=== PATIENT | male | born 1935 | race Caucasian/White ===

== ENCOUNTER 2017-09-07 10:32 | Emergency (ER) | payer MEDICARE ==
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
[2017-09-07] MEDS: LORazepam 2 MG/ML MDV IVPUSH ONE (11:15)
[2017-09-07] MEDS: Sodium Chloride 0.9% 10 ML Syringe FLUSH PRN (11:15)
[2017-09-07] MEDS: Albuterol/Ipratropium 3.0-0.5 MG/3 ML Neb Soln NEB ONE (11:21)
[2017-09-07] MEDS: Aspirin 81 MG Tab.Chew PO ONE (11:32)
[2017-09-07] MEDS: Nitroglycerin/D5W 25 MG/250 ML BOTTLE IV SCH (11:33)
--- NOTE | 2017-09-07 11:57 | CR ---
Chest: Portable view of the chest was obtained. Comparison: No prior chest x-ray. Patchy increased density is noted within the right mid and lower lung as well as within the left lung base. Findings may represent areas of pneumonia although difficult to determine how much of this may relate to fibrosis without any old study. Heart size is normal. Tortuous thoracic aorta is seen. Bony structures are grossly intact. Impression: 1. Findings as noted above. Diagnostic code #3
[2017-09-07 15:12] VITALS: BP 123/79
== END 2017-09-07 15:09 | disposition home or self-care (01) ==
LOC: JD.ED 10:32
DX: I11.0 Hypertensive heart disease with heart failure (principal); I50.32 Chronic diastolic (congestive) heart failure; J45.901 Unspecified asthma with (acute) exacerbation; E83.42 Hypomagnesemia; E78.00 Pure hypercholesterolemia, unspecified; E11.9 Type 2 diabetes mellitus without complications; Z79.899 Other long term (current) drug therapy; Z79.84 Long term (current) use of oral hypoglycemic drugs; Z79.01 Long term (current) use of anticoagulants; Z77.110 Contact with and (suspected) exposure to air pollution
CPT/HCPCS: 36415; 71045; 80053; 80162; 82553; 82962; 83735; 83880; 84484; 85025; 85610; 93005; 94640; 96365; 96366; 96375; 99285; A9270; J2060; J7050; 93010

== ENCOUNTER 2017-11-11 14:59 | Inpatient (IN) | payer MEDICARE, OTHER ==
[2017-11-11] MEDS ORDERED: Sodium Chloride 0.9% 10 ML Syringe FLUSH PRN ×2 (15:26→16:32)
[2017-11-11] MEDS ORDERED: Sodium Chloride 0.9% 1,000 ML IV SCH (15:30)
[2017-11-11] MEDS ORDERED: Iopamidol 755 Mg/ML 100 ML Bottle IVPUSH ONE (16:32)
[2017-11-11] MEDS ORDERED: Sodium Chloride 0.9% 250 ML IV SCH (16:45)
--- NOTE | 2017-11-11 16:57 | EDM.PDOC ---
ED HPI GENERAL MEDICAL PROBLEM - General Chief Complaint: Chest Pain Stated Complaint: STROKE SYMPTOMS AND CHEST PAIN Time Seen by Provider: 11/11/17 15:04 Source of Information: Reports: Patient, Family History Limitations: Reports: No Limitations - History of Present Illness INITIAL COMMENTS - FREE TEXT/NARRATIVE: The patient presents with right sided chest pain. This has been coming and going for about a week. He had some pain when he arrived here but by the time I examined him it was gone. It is a sharp pain. It radiates to his back at times. He also has been having trouble swallowing for a few weeks and having trouble speaking at times. He denies any numbness or weakness in his arms or legs. He has not been able to eat or drink much for a couple days. He has no fever or chills. He does have a cough. He has no abdominal pain, nausea or vomiting. He has no dysuria or hematuria. He had generalized weakness today. His daughter had to help him to the car and into the ER. He was sent from the clinic because of the trouble swallowing. Onset: Gradual Duration: Week(s): Location: Reports: Chest Quality: Reports: Sharp Severity: Moderate Improves with: Reports: None Worsens with: Reports: None Associated Symptoms: Reports: Chest Pain, Cough, Loss of Appetite. Denies: Fever/Chills, Headaches, Nausea/Vomiting, Shortness of Breath Right Chest Pain Score (Numeric/FACES): 9 - Related Data Allergies Allergy/AdvReac Type Severity Reaction Status Date / Time No Known Allergies Allergy Verified 11/11/17 15:10 Home Meds: Home Meds Digoxin [Digox] 0.125 mg PO BEDTIME 05/28/16 [History] Diltiazem HCl [Cardizem Cd] 240 mg PO DAILY 05/28/16 [History] Lisinopril [Prinivil] 2.5 mg PO BID 05/28/16 [History] Simvastatin [Zocor] 40 mg PO DAILY 05/28/16 [History] Warfarin [Coumadin] 2.5 mg PO MOFR 05/28/16 [History] glipiZIDE [Glipizide] 10 mg PO BID 05/28/16 [History] metFORMIN HCl [Metformin HCl] 1,000 tab PO BID 05/28/16 [History] Pantoprazole [Protonix] 40 mg PO DAILY #90 tab.cr 05/31/16 [Rx] Albuterol [IMW: Albuterol] 2.5 mg NEB Q4H PRN #100 ml 09/07/17 [Rx] Warfarin [Coumadin] 5 mg PO SUTUWETHSA 09/07/17 [History] Rosuvastatin [Crestor] 20 mg PO DAILY 11/11/17 [History] Past Medical History HEENT History: Reports: Other (See Below) Other HEENT History: black hairy tongue, dysphagia, nasal reconstruction, wears glasses Cardiovascular History: Reports: Afib, Heart Failure, High Cholesterol, Hypertension Respiratory History: Reports: COPD Gastrointestinal History: Reports: GERD, Other (See Below) Other Gastrointestinal History: abdominal pain Genitourinary History: Reports: Other (See Below) Other Genitourinary History: prostate nodule, erectile dysfunction Musculoskeletal History: Reports: Back Pain, Chronic Neurological History: Reports: Concussion, Migraines Psychiatric History: Reports: Other (See Below) Other Psychiatric History: excessive fatigue Endocrine/Metabolic History: Reports: Diabetes, Type II Dermatologic History: Reports: Eczema Other Dermatologic History: eczema - Infectious Disease History Infectious Disease History: Reports: Chicken Pox, Measles - Past Surgical History HEENT Surgical History: Reports: Cataract Surgery, Other (See Below) Other HEENT Surgeries/Procedures: tube to L) ear, "it's plugged up all the time. " Nasal surgery. Social & Family History - Tobacco Use Smoking Status *Q: Former Smoker Years of Tobacco use: 60 Packs/Tins Daily: 0.3 Used Tobacco, but Quit: Yes Month/Year Tobacco Last Used: 2007 Second Hand Smoke Exposure: No - Caffeine Use Caffeine Use: Reports: None - Recreational Drug Use Recreational Drug Use: No Drug Use in Last 12 Months: No - Living Situation & Occupation Living situation: Reports: Occupation: Retired ED ROS GENERAL - Review of Systems Review Of Systems: See Below Constitutional: Reports: Weakness, Fatigue. Denies: Fever, Chills HEENT: Reports: No Symptoms Respiratory: Reports: Cough. Denies: Shortness of Breath Cardiovascular: Reports: Chest Pain Endocrine: Reports: No Symptoms GI/Abdominal: Reports: No Symptoms : Reports: No Symptoms Musculoskeletal: Reports: No Symptoms ED EXAM, GENERAL - Physical Exam Exam: See Below Exam Limited By: No Limitations General Appearance: Alert, No Apparent Distress Ears: Normal External Exam Nose: Normal Inspection Throat/Mouth: Other (Dry mucus membranes) Head: Atraumatic, Normocephalic Neck: Normal Inspection Respiratory/Chest: No Respiratory Distress, Lungs Clear, Normal Breath Sounds Cardiovascular: Regular Rate, Rhythm, No Edema, No Murmur GI/Abdominal: Soft, Non-Tender, No Organomegaly, No Mass Back Exam: Normal Inspection Extremities: Normal Inspection EKG INTERPRETATION EKG Date: 11/11/17 Time: 15:06 Rhythm: A-Fib Rate (Beats/Min): 112 Innis: Normal QRS: Normal ST-T: Normal QT: Normal EKG Interpretation Comments: PVCs and LVH Course - Vital Signs Last Recorded V/S: Last Vital Signs Temp 98.1 F 11/11/17 15:05 Pulse 122 H 11/11/17 15:05 Resp 22 H 11/11/17 15:05 BP Pulse Ox 96 11/11/17 17:39 - Orders/Labs/Meds Orders: Active Orders 24 hr Category Date Time Status Cardiac Monitoring [RC] . DIRECTED Care 11/11/17 15:26 Active EKG Documentation Completion [RC] STAT Care 11/11/17 15:27 Active Peripheral IV Care [RC] . DIRECTED Care 11/11/17 15:27 Active RT Aerosol Therapy [RC] ASDIRECTED Care 11/11/17 17:39 Active CULTURE BLOOD [BC] Stat Lab 11/11/17 18:02 Received CULTURE BLOOD [BC] Stat Lab 11/11/17 18:12 Received LACTIC ACID [CHEM] Stat Lab 11/11/17 18:02 Received Sodium Chloride 0.9% [Normal Saline] 1,000 ml Med 11/11/17 15:30 Active IV .BOLUS Sodium Chloride 0.9% [Normal Saline] 250 ml Med 11/11/17 16:45 Active IV ASDIRECTED Sodium Chloride 0.9% [Saline Flush] Med 11/11/17 15:26 Active 10 ml FLUSH ASDIRECTED PRN Sodium Chloride 0.9% [Saline Flush] Med 11/11/17 16:32 Active 10 ml FLUSH ONETIME PRN cefTRIAXone [Rocephin] 2 gm Med 11/11/17 17:39 Active Sodium Chloride 0.9% [Normal Saline] 100 ml IV ONETIME Blood Culture x2 Reflex Set [OM.PC] Stat Oth 11/11/17 17:39 Ordered Peripheral IV Insertion Adult [OM.PC] Stat Oth 11/11/17 15:26 Ordered Medication Orders Sodium Chloride (Normal Saline) 1,000 mls @ 1,000 mls/hr IV .BOLUS [place] Last Admin: 11/11/17 15:38 Dose: 1,000 mls/hr Sodium Chloride (Normal Saline) 250 mls @ 80 mls/min IV ASDIRECTED [place] Last Admin: 11/11/17 17:00 Dose: 80 mls/min Ceftriaxone Sodium 2 gm/ (Sodium Chloride) 100 mls @ 100 mls/hr IV ONETIME ONE Stop: 11/11/17 18:38 Last Admin: 11/11/17 18:22 Dose: 100 mls/hr Sodium Chloride (Normal Saline) 1,000 mls @ 999 mls/hr IV ONETIME ONE Stop: 11/11/17 19:11 Last Admin: 11/11/17 18:19 Dose: 999 mls/hr Sodium Chloride (Normal Saline) 1,000 mls @ 1,000 mls/hr IV ONETIME ONE Stop: 11/11/17 19:16 Sodium Chloride (Saline Flush) 10 ml FLUSH ASDIRECTED PRN PRN Reason: Keep Vein Open Last Admin: 11/11/17 15:39 Dose: 10 ml Sodium Chloride (Saline Flush) 10 ml FLUSH ONETIME PRN PRN Reason: IV FLUSH Last Admin: 11/11/17 17:00 Dose: 10 ml Labs: Laboratory Tests 11/11/17 11/11/17 11/11/17 Range/Units 15:05 15:05 15:05 WBC 12.78 H (4.23-9.07) K/mm3 RBC 5.49 (4.63-6.08) M/mm3 Hgb 15.0 (13.7-17.5) gm/L Hct 46.4 (40.1-51.0) % MCV 84.5 (79.0-92.2) fl MCH 27.3 (25.7-32.2) pg MCHC 32.3 (32.2-35.5) g/dl RDW Std Deviation 49.0 H (35.1-43.9) fL Plt Count 486 H (163-337) K/mm3 MPV 10.5 (9.4-12.3) fl Neut % (Auto) 71.5 H (34.0-67.9) % Lymph % (Auto) 17.7 L (21.8-53.1) % [place] % (Auto) 9.6 (5.3-12.2) % Eos % (Auto) 0.2 L (0.8-7.0) Baso % (Auto) 0.2 (0.1-1.2) % Neut # (Auto) 9.14 H (1.78-5.38) K/mm3 Lymph # (Auto) 2.26 (1.32-3.57) K/mm3 [place] # (Auto) 1.23 H (0.30-0.82) K/mm3 Eos # (Auto) 0.03 L (0.04-0.54) K/mm3 Baso # (Auto) 0.02 (0.01-0.08) K/mm3 PT 13.3 H (9.5-12.1) SECONDS INR 1.23 Sodium 135 L (136-145) mEq/L Potassium 3.4 L (3.5-5.1) mEq/L Chloride 93 L (98-107) mEq/L Carbon Dioxide 29 (21-32) mEq/L Anion Gap 16.4 H (5-15) BUN 21 H (7-18) mg/dL Creatinine 0.9 (0.7-1.3) mg/dL Est Cr Clr Drug Dosing 65.10 mL/min Estimated GFR (MDRD) > 60 (>60) mL/min BUN/Creatinine Ratio 23.3 H (14-18) Glucose 200 H (83-115) mg/dL Calcium 10.1 (8.5-10.1) mg/dL Total Bilirubin 0.6 (0.2-1.0) mg/dL AST 28 (15-37) U/L ALT 25 (16-63) U/L Alkaline Phosphatase 156 H (46-116) U/L Troponin I < 0.017 (0.00-0.056) ng/mL C-Reactive Protein 4.7 H* (<1.0) mg/dL Total Protein 8.5 H (6.4-8.2) g/dl Albumin 3.0 L (3.4-5.0) g/dl Globulin 5.5 gm/dL Albumin/Globulin Ratio 0.6 L (1-2) Meds: Medications Generic Name Dose Route Start Last Admin Trade Name Cordelia PRN Reason Stop Dose Admin Sodium Chloride 1,000 mls @ 1,000 mls/hr 11/11/17 15:30 11/11/17 15:38 Normal Saline IV 1,000 mls/hr .BOLUS [place] Administration Sodium Chloride 250 mls @ 80 mls/min 11/11/17 16:45 11/11/17 17:00 Normal Saline IV 80 mls/min ASDIRECTED [place] Administration Ceftriaxone Sodium 2 gm/ 100 mls @ 100 mls/hr 11/11/17 17:39 11/11/17 18:22 Sodium Chloride IV 11/11/17 18:38 100 mls/hr ONETIME ONE Administration Sodium Chloride 1,000 mls @ 999 mls/hr 11/11/17 18:11 11/11/17 18:19 Normal Saline IV 11/11/17 19:11 999 mls/hr ONETIME ONE Administration Sodium Chloride 1,000 mls @ 1,000 mls/hr 11/11/17 18:17 Normal Saline IV 11/11/17 19:16 ONETIME ONE Sodium Chloride 10 ml 11/11/17 15:26 11/11/17 15:39 Saline Flush FLUSH 10 ml ASDIRECTED PRN Administration Keep Vein Open Sodium Chloride 10 ml 11/11/17 16:32 11/11/17 17:00 Saline Flush FLUSH 10 ml ONETIME PRN Administration IV FLUSH Discontinued Medications Generic Name Dose Route Start Last Admin Trade Name Cordeila PRN Reason Stop Dose Admin Albuterol/Ipratropium 3 ml 11/11/17 17:39 11/11/17 17:54 Duoneb 3.0-0.5 Mg/3 Ml NEB 11/11/17 17:40 3 ml ONETIME ONE Administration Sodium Chloride 1,000 mls @ 999 mls/hr 11/11/17 18:13 11/11/17 18:22 Normal Saline IV 11/11/17 19:13 Not Given ONETIME ONE Iopamidol 100 ml 11/11/17 16:32 11/11/17 17:00 Isovue-370 (76%) IVPUSH 11/11/17 16:33 100 ml ONETIME ONE Administration - Re-Assessments/Exams Free Text/Narrative Re-Assessment/Exam: 11/11/17 17:00 I ordered an IV NS 1L bolus, EKG, and labs. His EKG shows atrial fib with no acute changes. His WBC was elevated at 12.78. His platelets were normal at 486. His INR was near non therapeutic at 1.23. His Na was a little low at 135. His K was a little low at 3.4. His creatinine was normal at 0.9. His anion gap was elevated at 16.4. His glucose was elevated at 200. His alk phos was elevated at 156. His troponin is negative. His CRP was elevated at 4.7. I have ordered a CT of his head, neck and chest. 11/11/17 17:[address] of his head shows mild senescent change. No acute intracranial abnormality is identified. The CT of his neck shows atherosclerotic calcification within the carotid vessels. Mild degenerative change within the cervical spine. Nothing acute is appreciated on noncontrast CT study of the neck. The CT of his chest shows mediastinal and right hilar adenopathy. Lymphoma is a strong possibility. Consolidation within the right lung base which could represent pneumonia as well as right sided pleural effusion possibly due to parapneumonic effusion. Diffuse fibrosis, emphysematous change and honeycombing is seen. I ordered oxygen because a couple times his oxygen saturations dropped to 88%. I also ordered blood cultures and rocephin 2 grams IV. I also gave him a duoneb treatment. I feel he needs to be admitted. I called Dr Kearns and she agreed to the admission. Departure - Departure Time of Disposition: 18:35 Disposition: Admitted As Inpatient 68 Condition: Fair Clinical Impression: Fibrosis lung, Hypoxia Pneumonia Qualifiers: Pneumonia type: due to unspecified organism Laterality: right Lung location: lower lobe of lung Qualified Code(s): J18.1 - Lobar pneumonia, unspecified organism Emphysema lung Qualifiers: Emphysema type: unspecified Qualified Code(s): J43.9 - Emphysema, unspecified Dysphagia Qualifiers: Dysphagia type: unspecified Qualified Code(s): R13.10 - Dysphagia, unspecified Chest pain Qualifiers: Chest pain type: unspecified Qualified Code(s): R07.9 - Chest pain, unspecified - My Orders Last 24 Hours: My Active Orders 11/11/17 15:26 Cardiac Monitoring [RC] . DIRECTED Sodium Chloride 0.9% [Saline Flush] 10 ml FLUSH ASDIRECTED PRN Peripheral IV Insertion Adult [OM.PC] Stat 11/11/17 15:27 EKG Documentation Completion [RC] STAT Peripheral IV Care [RC] . DIRECTED 11/11/17 15:30 Sodium Chloride 0.9% [Normal Saline] 1,000 ml IV .BOLUS 11/11/17 16:32 Sodium Chloride 0.9% [Saline Flush] 10 ml FLUSH ONETIME PRN 11/11/17 16:45 Sodium Chloride 0.9% [Normal Saline] 250 ml IV ASDIRECTED 11/11/17 17:39 RT Aerosol Therapy [RC] ASDIRECTED cefTRIAXone [Rocephin] 2 gm Sodium Chloride 0.9% [Normal Saline] 100 ml IV ONETIME Blood Culture x2 Reflex Set [OM.PC] Stat 11/11/17 18:02 CULTURE BLOOD [BC] Stat LACTIC ACID [CHEM] Stat 11/11/17 18:12 CULTURE BLOOD [BC] Stat - Assessment/Plan Last 24 Hours: My Active Orders 11/11/17 15:26 Cardiac Monitoring [RC] . DIRECTED Sodium Chloride 0.9% [Saline Flush] 10 ml FLUSH ASDIRECTED PRN Peripheral IV Insertion Adult [OM.PC] Stat 11/11/17 15:27 EKG Documentation Completion [RC] STAT Peripheral IV Care [RC] . DIRECTED 11/11/17 15:30 Sodium Chloride 0.9% [Normal Saline] 1,000 ml IV .BOLUS 11/11/17 16:32 Sodium Chloride 0.9% [Saline Flush] 10 ml FLUSH ONETIME PRN 11/11/17 16:45 Sodium Chloride 0.9% [Normal Saline] 250 ml IV ASDIRECTED 11/11/17 17:39 RT Aerosol Therapy [RC] ASDIRECTED cefTRIAXone [Rocephin] 2 gm Sodium Chloride 0.9% [Normal Saline] 100 ml IV ONETIME Blood Culture x2 Reflex Set [OM.PC] Stat 11/11/17 18:02 CULTURE BLOOD [BC] Stat LACTIC ACID [CHEM] Stat 11/11/17 18:12 CULTURE BLOOD [BC] Stat
--- NOTE | 2017-11-11 17:31 | CT ---
CT neck Technique: Multiple axial sections through the neck were obtained. Study limited due to lack of intravenous contrast. Findings: Visualized paranasal sinuses are clear. Atherosclerotic calcification is seen within the carotid vessels. Submandibular and parotid salivary glands show no discrete abnormality. No discrete adenopathy is seen within the neck. Parapharyngeal soft tissues are within normal limits. Epiglottis appears normal. Prevertebral soft tissues are normal. Bone window settings shows mild degenerative change within the cervical spine. Impression: 1. Atherosclerotic calcification within the carotid vessels. 2. Mild degenerative change within the cervical spine. 3. Nothing acute is appreciated on noncontrast CT study of the neck. Diagnostic code #2
--- NOTE | 2017-11-11 17:31 | CT ---
CT chest Technique: Multiple axial sections were obtained through the chest. Intravenous contrast was utilized. Comparison: Prior chest x-ray of 08/30/17. Findings: Pulmonary arteries are well-opacified. No filling defects are seen to indicate pulmonary embolism. Right lower lung consolidation is seen with a small to moderate size right-sided pleural effusion. Scattered fibrosis is seen. Honeycombing is seen within both lung bases as well as diffuse emphysematous change and emphysematous bullae. Mild coronary artery calcification is seen. Scattered degenerative spurring is noted within the spine. Small portion the visualized upper abdominal structures appear within normal limits. Soft tissue density seen within the mediastinum and right hilar region suspicious for adenopathy. Degenerative change scattered within the spine. No acute osseous abnormality is appreciated. Impression: 1. Mediastinal and right hilar adenopathy. Lymphoma is a strong possibility. 2. Consolidation within the right lung base which could represent pneumonia as well as right sided pleural effusion possibly due to parapneumonic effusion. 3. Diffuse fibrosis, emphysematous change and honeycombing is seen. Diagnostic code #9
--- NOTE | 2017-11-11 17:33 | CT ---
Head CT Technique: Multiple axial sections through the brain were obtained. Intravenous contrast was not utilized. Comparison: No previous study. Findings: Ventricles along with basal cisterns and sulci are convexities are mildly prominent. Minimal areas of diminished density are noted within the periventricular white matter compatible with small vessel ischemic demyelination change. No other abnormal parenchymal densities are seen. No evidence of intracranial hemorrhage. No midline shift or mass effect is seen. Bone window setting shows no acute calvarial abnormality. Visualized sinuses are clear. Impression: 1. Mild senescent change. No acute intracranial abnormality is identified. Diagnostic code #2
[2017-11-11] MEDS ORDERED: Albuterol/Ipratropium 3.0-0.5 MG/3 ML Neb Soln NEB ONE (17:39)
[2017-11-11] MEDS ORDERED: cefTRIAXone 2 GM in Sodium Chloride 0.9% 100 ML IV ONE (17:39)
[2017-11-11] MEDS ORDERED: Sodium Chloride 0.9% 1,000 ML IV ONE ×3 (18:11→18:17)
--- NOTE | 2017-11-11 20:06 | PCM.HP ---
H&P History of Present Illness - General Date of Service: 11/11/17 Admit Problem/Dx: Admission Diagnosis/Problem Admission Diagnosis/Problem Pneumonia Source of Information: Provider History Limitations: Reports: No Limitations - History of Present Illness Initial Comments - Free Text/Narative: 82 year old male who presented from home has had a decreased appetite reported by patient as three days. He was seen in an outside clinic and was taken to the ED by his daughter. There is a report by his daughter that he has had difficulty swallowing; the patient does not admit to any changes in his ability to eat. He believes that he has just not been interested in eating. He denies fever/chills, SOB, chest pain, change in speech. The patient is a poor historian, the primary source for the history was the ED provider. Onset of Symptoms: Reports: Unknown/Unsure Duration of Symptoms: Reports: Week(s):, Getting Worse Location: Reports: Chest, Generalized Severity: Moderate Improves with: Reports: Medication Worsens with: Reports: None Context: Reports: Sick Contact (unknown) Associated Symptoms: Reports: Chest Pain, Cough, Loss of Appetite, Malaise, Shortness of Breath, Weakness Right Chest Pain Score (Numeric/FACES): 9 - Related Data Allergies/Adverse Reactions: Allergies Allergy/AdvReac Type Severity Reaction Status Date / Time No Known Allergies Allergy Verified 11/11/17 15:10 Home Medications: Home Meds Digoxin [Digox] 0.125 mg PO BEDTIME 05/28/16 [History] Diltiazem HCl [Cardizem Cd] 240 mg PO DAILY 05/28/16 [History] Lisinopril [Prinivil] 2.5 mg PO BID 05/28/16 [History] Simvastatin [Zocor] 40 mg PO DAILY 05/28/16 [History] Warfarin [Coumadin] 2.5 mg PO MOFR 05/28/16 [History] glipiZIDE [Glipizide] 10 mg PO BID 05/28/16 [History] metFORMIN HCl [Metformin HCl] 1,000 tab PO BID 05/28/16 [History] Pantoprazole [Protonix] 40 mg PO DAILY #90 tab.cr 05/31/16 [Rx] Albuterol [IMW: Albuterol] 2.5 mg NEB Q4H PRN #100 ml 09/07/17 [Rx] Warfarin [Coumadin] 5 mg PO SUTUWETHSA 09/07/17 [History] Rosuvastatin [Crestor] 20 mg PO DAILY 11/11/17 [History] Past Medical History HEENT History: Reports: Other (See Below) Other HEENT History: black hairy tongue, dysphagia, nasal reconstruction, wears glasses Cardiovascular History: Reports: Afib, Heart Failure, High Cholesterol, Hypertension Respiratory History: Reports: COPD Gastrointestinal History: Reports: GERD, Other (See Below) Other Gastrointestinal History: abdominal pain Genitourinary History: Reports: Other (See Below) Other Genitourinary History: prostate nodule, erectile dysfunction Musculoskeletal History: Reports: Back Pain, Chronic Neurological History: Reports: Concussion, Migraines Psychiatric History: Reports: Other (See Below) Other Psychiatric History: excessive fatigue Endocrine/Metabolic History: Reports: Diabetes, Type II Dermatologic History: Reports: Eczema Other Dermatologic History: eczema - Infectious Disease History Infectious Disease History: Reports: Chicken Pox, Measles - Past Surgical History HEENT Surgical History: Reports: Cataract Surgery, Other (See Below) Other HEENT Surgeries/Procedures: tube to L) ear, "it's plugged up all the time. " Nasal surgery. Social & Family History - Tobacco Use Smoking Status *Q: Former Smoker Years of Tobacco use: 60 Packs/Tins Daily: 0.3 Used Tobacco, but Quit: Yes Month/Year Tobacco Last Used: 2007 Second Hand Smoke Exposure: No - Caffeine Use Caffeine Use: Reports: None - Recreational Drug Use Recreational Drug Use: No Drug Use in Last 12 Months: No - Living Situation & Occupation Living situation: Reports: Occupation: Retired H&P Review of Systems - Review of Systems: Review Of Systems: See Below General: Reports: Weakness, Fatigue, Decreased Appetite, Weight Loss HEENT: Reports: No Symptoms Pulmonary: Reports: Shortness of Breath Cardiovascular: Reports: Chest Pain Gastrointestinal: Reports: Difficulty Swallowing Genitourinary: Reports: No Symptoms Musculoskeletal: Reports: No Symptoms Skin: Reports: No Symptoms Psychiatric: Reports: No Symptoms Neurological: Reports: No Symptoms Hematologic/Lymphatic: Reports: No Symptoms Immunologic: Reports: No Symptoms Exam - Exam Exam: See Below - Vital Signs Vital Signs: Last Vital Signs Temp 36.3 C 11/11/17 19:09 Pulse 90 11/11/17 19:09 Resp 20 11/11/17 19:09 BP 142/91 H 11/11/17 19:09 Pulse Ox 91 L 11/11/17 19:09 Weight: 70.307 kg - Exam Quality Assessment: Supplemental Oxygen, DVT Prophylaxis General: Alert, Oriented HEENT: Conjunctiva Clear, Nares Patent, Normal Nasal Septum, Pupils Equal, Pupils Reactive, PERRLA Neck: Trachea Midline Lungs: Normal Respiratory Effort, Decreased Breath Sounds, Wheezing Cardiovascular: Regular Rate, Tachycardia GI/Abdominal Exam: Normal Bowel Sounds, Soft, Non-Tender, No Organomegaly, No Distention, Other (scaphoid) (Male) Exam: Deferred Rectal (Males) Exam: Deferred Back Exam: Normal Inspection Extremities: Slow Capillary Refill Skin: Warm Neurological: Cranial Nerves Intact, Normal Speech Neuro Extensive - Mental Status: Alert, Oriented x3 Neuro Extensive - Motor, Sensory, Reflexes: CN II-XII Intact Psychiatric: Alert - Patient Data Lab Results Last 24 hrs: Laboratory Results - last 24 hr 11/11/17 11/11/17 11/11/17 Range/Units 15:05 15:05 15:05 WBC 12.78 H (4.23-9.07) K/mm3 RBC 5.49 (4.63-6.08) M/mm3 Hgb 15.0 (13.7-17.5) gm/L Hct 46.4 (40.1-51.0) % MCV 84.5 (79.0-92.2) fl MCH 27.3 (25.7-32.2) pg MCHC 32.3 (32.2-35.5) g/dl RDW Std Deviation 49.0 H (35.1-43.9) fL Plt Count 486 H (163-337) K/mm3 MPV 10.5 (9.4-12.3) fl Neut % (Auto) 71.5 H (34.0-67.9) % Lymph % (Auto) 17.7 L (21.8-53.1) % [place] % (Auto) 9.6 (5.3-12.2) % Eos % (Auto) 0.2 L (0.8-7.0) Baso % (Auto) 0.2 (0.1-1.2) % Neut # (Auto) 9.14 H (1.78-5.38) K/mm3 Lymph # (Auto) 2.26 (1.32-3.57) K/mm3 [place] # (Auto) 1.23 H (0.30-0.82) K/mm3 Eos # (Auto) 0.03 L (0.04-0.54) K/mm3 Baso # (Auto) 0.02 (0.01-0.08) K/mm3 PT 13.3 H (9.5-12.1) SECONDS INR 1.23 Sodium 135 L (136-145) mEq/L Potassium 3.4 L (3.5-5.1) mEq/L Chloride 93 L (98-107) mEq/L Carbon Dioxide 29 (21-32) mEq/L Anion Gap 16.4 H (5-15) BUN 21 H (7-18) mg/dL Creatinine 0.9 (0.7-1.3) mg/dL Est Cr Clr Drug Dosing 65.10 mL/min Estimated GFR (MDRD) > 60 (>60) mL/min BUN/Creatinine Ratio 23.3 H (14-18) Glucose 200 H (83-115) mg/dL Lactic Acid (0.4-2.0) mmol/L Calcium 10.1 (8.5-10.1) mg/dL Total Bilirubin 0.6 (0.2-1.0) mg/dL AST 28 (15-37) U/L ALT 25 (16-63) U/L Alkaline Phosphatase 156 H (46-116) U/L Troponin I < 0.017 (0.00-0.056) ng/mL C-Reactive Protein 4.7 H* (<1.0) mg/dL Total Protein 8.5 H (6.4-8.2) g/dl Albumin 3.0 L (3.4-5.0) g/dl Globulin 5.5 gm/dL Albumin/Globulin Ratio 0.6 L (1-2) 11/11/17 Range/Units 18:02 WBC (4.23-9.07) K/mm3 RBC (4.63-6.08) M/mm3 Hgb (13.7-17.5) gm/L Hct (40.1-51.0) % MCV (79.0-92.2) fl MCH (25.7-32.2) pg MCHC (32.2-35.5) g/dl RDW Std Deviation (35.1-43.9) fL Plt Count (163-337) K/mm3 MPV (9.4-12.3) fl Neut % (Auto) (34.0-67.9) % Lymph % (Auto) (21.8-53.1) % [place] % (Auto) (5.3-12.2) % Eos % (Auto) (0.8-7.0) Baso % (Auto) (0.1-1.2) % Neut # (Auto) (1.78-5.38) K/mm3 Lymph # (Auto) (1.32-3.57) K/mm3 [place] # (Auto) (0.30-0.82) K/mm3 Eos # (Auto) (0.04-0.54) K/mm3 Baso # (Auto) (0.01-0.08) K/mm3 PT (9.5-12.1) SECONDS INR Sodium (136-145) mEq/L Potassium (3.5-5.1) mEq/L Chloride (98-107) mEq/L Carbon Dioxide (21-32) mEq/L Anion Gap (5-15) BUN (7-18) mg/dL Creatinine (0.7-1.3) mg/dL Est Cr Clr Drug Dosing mL/min Estimated GFR (MDRD) (>60) mL/min BUN/Creatinine Ratio (14-18) Glucose (83-115) mg/dL Lactic Acid 2.7 H (0.4-2.0) mmol/L Calcium (8.5-10.1) mg/dL Total Bilirubin (0.2-1.0) mg/dL AST (15-37) U/L ALT (16-63) U/L Alkaline Phosphatase (46-116) U/L Troponin I (0.00-0.056) ng/mL C-Reactive Protein (<1.0) mg/dL Total Protein (6.4-8.2) g/dl Albumin (3.4-5.0) g/dl Globulin gm/dL Albumin/Globulin Ratio (1-2) Result Diagrams: 11/12/17 06:40 11/12/17 06:40 - Problem List (1) Chest pain SNOMED Code(s): 09717441 ICD Code: R07.9 - CHEST PAIN, UNSPECIFIED Status: Acute Current Visit: Yes Qualifiers: Chest pain type: unspecified Qualified Code(s): R07.9 - Chest pain, unspecified (2) Dysphagia SNOMED Code(s): 17716800, 070484539 ICD Code: R13.10 - DYSPHAGIA, UNSPECIFIED Status: Acute Current Visit: Yes Qualifiers: Dysphagia type: unspecified Qualified Code(s): R13.10 - Dysphagia, unspecified (3) Emphysema lung SNOMED Code(s): 79100654 ICD Code: J43.9 - EMPHYSEMA, UNSPECIFIED Status: Acute Current Visit: Yes Qualifiers: Emphysema type: unspecified Qualified Code(s): J43.9 - Emphysema, unspecified (4) Fibrosis lung SNOMED Code(s): 32216984 ICD Code: J84.10 - PULMONARY FIBROSIS, UNSPECIFIED Status: Acute Current Visit: Yes (5) Hypoxia SNOMED Code(s): 472308225 ICD Code: R09.02 - HYPOXEMIA Status: Acute Current Visit: Yes (6) Pneumonia SNOMED Code(s): 197666206 ICD Code: J18.9 - PNEUMONIA, UNSPECIFIED ORGANISM Status: Acute Current Visit: Yes Qualifiers: Pneumonia type: due to unspecified organism Laterality: right Lung location: lower lobe of lung Qualified Code(s): J18.1 - Lobar pneumonia, unspecified organism (7) Hypomagnesemia SNOMED Code(s): 558738825 ICD Code: E83.42 - HYPOMAGNESEMIA Status: Acute Current Visit: No (8) Hypertension SNOMED Code(s): 02587767 ICD Code: I10 - ESSENTIAL (PRIMARY) HYPERTENSION Status: Acute Current Visit: Yes (9) Diabetes mellitus type 2 in nonobese SNOMED Code(s): 070410500 ICD Code: E11.9 - TYPE 2 DIABETES MELLITUS WITHOUT COMPLICATIONS Status: Acute Current Visit: Yes (10) BMI 21.0-21.9, adult SNOMED Code(s): 644230659 ICD Code: Z68.21 - BODY MASS INDEX (BMI) 21.0-21.9, ADULT Status: Acute Current Visit: Yes (11) Hyperlipidemia SNOMED Code(s): 83581354 ICD Code: E78.5 - HYPERLIPIDEMIA, UNSPECIFIED Status: Acute Current Visit : Yes (12) A-fib SNOMED Code(s): 64316113 ICD Code: I48.91 - UNSPECIFIED ATRIAL FIBRILLATION Status: Acute Current Visit: Yes Problem List Initiated/Reviewed/Updated: Yes Orders Last 24hrs: Active Orders 24 hr Category Date Time Status Admission Status [Patient Status] [ADT] Routine ADT 11/11/17 18:09 Active Cardiac Monitoring [RC] . DIRECTED Care 11/11/17 15:26 Active EKG Documentation Completion [RC] STAT Care 11/11/17 15:27 Active Peripheral IV Care [RC] . DIRECTED Care 11/11/17 15:27 Active RT Aerosol Therapy [RC] ASDIRECTED Care 11/11/17 17:39 Active CULTURE BLOOD [] Stat Lab 11/11/17 18:02 Received CULTURE BLOOD [] Stat Lab 11/11/17 18:12 Received Sodium Chloride 0.9% [Normal Saline] 1,000 ml Med 11/11/17 15:30 Active IV .BOLUS Sodium Chloride 0.9% [Normal Saline] 250 ml Med 11/11/17 16:45 Active IV ASDIRECTED Sodium Chloride 0.9% [Saline Flush] Med 11/11/17 15:26 Active 10 ml FLUSH ASDIRECTED PRN Sodium Chloride 0.9% [Saline Flush] Med 11/11/17 16:32 Active 10 ml FLUSH ONETIME PRN Blood Culture x2 Reflex Set [OM.PC] Stat Oth 11/11/17 17:39 Ordered Peripheral IV Insertion Adult [OM.PC] Stat Oth 11/11/17 15:26 Ordered Medication Orders Sodium Chloride (Normal Saline) 1,000 mls @ 1,000 mls/hr IV .BOLUS [place] Last Admin: 11/11/17 15:38 Dose: 1,000 mls/hr Sodium Chloride (Normal Saline) 250 mls @ 80 mls/min IV ASDIRECTED [place] Last Admin: 11/11/17 17:00 Dose: 80 mls/min Sodium Chloride (Saline Flush) 10 ml FLUSH ASDIRECTED PRN PRN Reason: Keep Vein Open Last Admin: 11/11/17 15:39 Dose: 10 ml Sodium Chloride (Saline Flush) 10 ml FLUSH ONETIME PRN PRN Reason: IV FLUSH Last Admin: 11/11/17 17:00 Dose: 10 ml Assessment/Plan Comment:: Impression: Cachetic hypoxic elderly with PNA Former tobacco use (>60 pack year) Hx of colon polyps, lost to PCP care Hx of COPD Radiographic studies with possible infiltrate superimposed on pulmonary fibrosis Difficulty swallowing with CT of neck WNL Malnutrition Abnormal electrolytes Chronic HTN DM type 2 HLD GERD Plan: IVF ATB, empiric; infectious work up Isolation, airborne; screen for TB Cancer evaluation CT of chest 11/14/17. SP re: difficulty swallowing Home meds Daily labs; replace electrolytes as needed. BS q 6H; NPO until evaluation aspiration suspected after eating observed by ED staff; change to appropriate diet after assessment Consult CM/PT/OT DVT/GI prophylaxis
[2017-11-11] MEDS ORDERED: 50% Dextrose in Water 50 ML Syringe IVPUSH PRN (20:13)
[2017-11-11] MEDS ORDERED: Insulin Aspart 100 Units/ML 3 ML Pen SUBCUT SCH (20:15)
[2017-11-11] MEDS ORDERED: Temazepam 7.5 MG Cap PO PRN (20:26)
[2017-11-11] MEDS ORDERED: Codeine/guaiFENesin 100-10 MG/5 ML Syrup 5 ML Cup PO PRN (20:27)
[2017-11-11] MEDS ORDERED: traZODone 50 MG Tab PO PRN (20:29)
[2017-11-11] MEDS: Digoxin 125 MCG Tab PO SCH (20:34)
[2017-11-11] MEDS: Acetaminophen 325 MG Tab PO PRN (20:35)
[2017-11-11] MEDS: NS + KCl 20mEq/L 1,000 ML IV SCH (21:58)
[2017-11-11] MEDS: methylPREDNISolone Sodium Succinate 40 MG/1 ML SDV IVPUSH SCH (22:00)
[2017-11-11] MEDS: Enoxaparin 40 MG/0.4 ML Syringe SUBCUT SCH (22:01)
[2017-11-11] MEDS: Insulin Aspart 100 Units/ML 3 ML Pen SUBCUT SCH (23:48)
[2017-11-12] MEDS: Acetaminophen 325 MG Tab PO PRN ×2 (02:51→13:31)
[2017-11-12] MEDS: methylPREDNISolone Sodium Succinate 40 MG/1 ML SDV IVPUSH SCH ×3 (02:59→22:03)
[2017-11-12] MEDS ORDERED: cefTRIAXone 2 GM in Sodium Chloride 0.9% 100 ML IV SCH (06:00)
[2017-11-12] MEDS: Pantoprazole 40 MG Tab.CR PO SCH (06:52)
[2017-11-12] MEDS: Insulin Aspart 100 Units/ML 3 ML Pen SUBCUT SCH ×5 (06:53→23:46)
[2017-11-12] MEDS: Saccharomyces Boulardii (Probiotic) 250 MG Cap PO SCH (08:01)
[2017-11-12] MEDS ORDERED: Diltiazem 120 MG Cap.CD PO SCH (09:00)
[2017-11-12] MEDS ORDERED: Tuberculin, PPD 5 Units/0.1 ML 1 ML MDV IDERM ONE (11:15)
--- NOTE | 2017-11-12 11:56 | PCM.PN ---
- General Info Date of Service: 11/12/17 Functional Status: Reports: Urinating - Review of Systems General: Reports: Weakness HEENT: Reports: No Symptoms Pulmonary: Reports: No Symptoms Cardiovascular: Reports: No Symptoms Gastrointestinal: Reports: No Symptoms Genitourinary: Reports: No Symptoms Musculoskeletal: Reports: No Symptoms Skin: Reports: No Symptoms Neurological: Reports: No Symptoms Psychiatric: Reports: No Symptoms - Patient Data Vitals - Most Recent: Last Vital Signs Temp 36.5 C 11/12/17 07:31 Pulse 86 11/12/17 08:01 Resp 20 11/12/17 07:31 BP 123/72 11/12/17 08:01 Pulse Ox 93 L 11/12/17 07:31 Weight - Most Recent: 70.307 kg I&O - Last 24 Hours: Intake & Output 11/11/17 11/12/17 11/12/17 22:59 06:59 14:59 Intake Total 3350 493 100 Output Total 550 Balance 3350 -57 100 Lab Results Last 24 Hours: Laboratory Results - last 24 hr 11/11/17 11/11/17 11/11/17 Range/Units 15:05 15:05 15:05 WBC 12.78 H (4.23-9.07) K/mm3 RBC 5.49 (4.63-6.08) M/mm3 Hgb 15.0 (13.7-17.5) gm/L Hct 46.4 (40.1-51.0) % MCV 84.5 (79.0-92.2) fl MCH 27.3 (25.7-32.2) pg MCHC 32.3 (32.2-35.5) g/dl RDW Std Deviation 49.0 H (35.1-43.9) fL Plt Count 486 H (163-337) K/mm3 MPV 10.5 (9.4-12.3) fl Neut % (Auto) 71.5 H (34.0-67.9) % Lymph % (Auto) 17.7 L (21.8-53.1) % [place] % (Auto) 9.6 (5.3-12.2) % Eos % (Auto) 0.2 L (0.8-7.0) Baso % (Auto) 0.2 (0.1-1.2) % Neut # (Auto) 9.14 H (1.78-5.38) K/mm3 Lymph # (Auto) 2.26 (1.32-3.57) K/mm3 [place] # (Auto) 1.23 H (0.30-0.82) K/mm3 Eos # (Auto) 0.03 L (0.04-0.54) K/mm3 Baso # (Auto) 0.02 (0.01-0.08) K/mm3 Manual Slide Review PT 13.3 H (9.5-12.1) SECONDS INR 1.23 Sodium 135 L (136-145) mEq/L Potassium 3.4 L (3.5-5.1) mEq/L Chloride 93 L (98-107) mEq/L Carbon Dioxide 29 (21-32) mEq/L Anion Gap 16.4 H (5-15) BUN 21 H (7-18) mg/dL Creatinine 0.9 (0.7-1.3) mg/dL Est Cr Clr Drug Dosing 65.10 mL/min Estimated GFR (MDRD) > 60 (>60) mL/min BUN/Creatinine Ratio 23.3 H (14-18) Glucose 200 H (83-115) mg/dL POC Glucose (83-110) mg/dL Hemoglobin A1c (4.50-6.20) % Lactic Acid (0.4-2.0) mmol/L Calcium 10.1 (8.5-10.1) mg/dL Magnesium (1.8-2.4) mg/dl Total Bilirubin 0.6 (0.2-1.0) mg/dL AST 28 (15-37) U/L ALT 25 (16-63) U/L Alkaline Phosphatase 156 H (46-116) U/L Troponin I < 0.017 (0.00-0.056) ng/mL C-Reactive Protein 4.7 H* (<1.0) mg/dL Total Protein 8.5 H (6.4-8.2) g/dl Albumin 3.0 L (3.4-5.0) g/dl Globulin 5.5 gm/dL Albumin/Globulin Ratio 0.6 L (1-2) Triglycerides (<150) mg/dL Cholesterol (<200) mg/dL LDL Cholesterol Direct (<100) mg/dL HDL Cholesterol (40-59) mg/dL Digoxin (0.9-2.0) ng/mL Mycoplasma pneumon IgM (NEGATIVE) 11/11/17 11/11/17 11/12/17 Range/Units 18:02 23:18 06:40 WBC 11.89 H (4.23-9.07) K/mm3 RBC 4.41 L (4.63-6.08) M/mm3 Hgb 12.1 L (13.7-17.5) gm/L Hct 37.7 L (40.1-51.0) % MCV 85.5 (79.0-92.2) fl MCH 27.4 (25.7-32.2) pg MCHC 32.1 L (32.2-35.5) g/dl RDW Std Deviation 48.0 H (35.1-43.9) fL Plt Count 395 H (163-337) K/mm3 MPV 10.1 (9.4-12.3) fl Neut % (Auto) 91.7 H (34.0-67.9) % Lymph % (Auto) 6.3 L (21.8-53.1) % Lasalle % (Auto) 1.8 L (5.3-12.2) % Eos % (Auto) 0 L (0.8-7.0) Baso % (Auto) 0.0 L (0.1-1.2) % Neut # (Auto) 10.91 H (1.78-5.38) K/mm3 Lymph # (Auto) 0.75 L (1.32-3.57) K/mm3 [place] # (Auto) 0.21 L (0.30-0.82) K/mm3 Eos # (Auto) 0.00 L (0.04-0.54) K/mm3 Baso # (Auto) 0.00 L (0.01-0.08) K/mm3 Manual Slide Review Abnormal smear PT (9.5-12.1) SECONDS INR Sodium (136-145) mEq/L Potassium (3.5-5.1) mEq/L Chloride (98-107) mEq/L Carbon Dioxide (21-32) mEq/L Anion Gap (5-15) BUN (7-18) mg/dL Creatinine (0.7-1.3) mg/dL Est Cr Clr Drug Dosing mL/min Estimated GFR (MDRD) (>60) mL/min BUN/Creatinine Ratio (14-18) Glucose (83-115) mg/dL POC Glucose 161 H (83-110) mg/dL Hemoglobin A1c (4.50-6.20) % Lactic Acid 2.7 H (0.4-2.0) mmol/L Calcium (8.5-10.1) mg/dL Magnesium (1.8-2.4) mg/dl Total Bilirubin (0.2-1.0) mg/dL AST (15-37) U/L ALT (16-63) U/L Alkaline Phosphatase (46-116) U/L Troponin I (0.00-0.056) ng/mL C-Reactive Protein (<1.0) mg/dL Total Protein (6.4-8.2) g/dl Albumin (3.4-5.0) g/dl Globulin gm/dL Albumin/Globulin Ratio (1-2) Triglycerides (<150) mg/dL Cholesterol (<200) mg/dL LDL Cholesterol Direct (<100) mg/dL HDL Cholesterol (40-59) mg/dL Digoxin (0.9-2.0) ng/mL Mycoplasma pneumon IgM (NEGATIVE) 11/12/17 11/12/17 11/12/17 Range/Units 06:40 06:40 06:40 WBC (4.23-9.07) K/mm3 RBC (4.63-6.08) M/mm3 Hgb (13.7-17.5) gm/L Hct (40.1-51.0) % MCV (79.0-92.2) fl MCH (25.7-32.2) pg MCHC (32.2-35.5) g/dl RDW Std Deviation (35.1-43.9) fL Plt Count (163-337) K/mm3 MPV (9.4-12.3) fl Neut % (Auto) (34.0-67.9) % Lymph % (Auto) (21.8-53.1) % Lasalle % (Auto) (5.3-12.2) % Eos % (Auto) (0.8-7.0) Baso % (Auto) (0.1-1.2) % Neut # (Auto) (1.78-5.38) K/mm3 Lymph # (Auto) (1.32-3.57) K/mm3 [place] # (Auto) (0.30-0.82) K/mm3 Eos # (Auto) (0.04-0.54) K/mm3 Baso # (Auto) (0.01-0.08) K/mm3 Manual Slide Review PT (9.5-12.1) SECONDS INR Sodium 136 (136-145) mEq/L Potassium 3.5 (3.5-5.1) mEq/L Chloride 98 (98-107) mEq/L Carbon Dioxide 23 (21-32) mEq/L Anion Gap 18.5 H (5-15) BUN 14 (7-18) mg/dL Creatinine 0.6 L (0.7-1.3) mg/dL Est Cr Clr Drug Dosing 77.55 mL/min Estimated GFR (MDRD) > 60 (>60) mL/min BUN/Creatinine Ratio 23.3 H (14-18) Glucose 201 H (83-115) mg/dL POC Glucose (83-110) mg/dL Hemoglobin A1c 7.80 H (4.50-6.20) % Lactic Acid 2.4 H (0.4-2.0) mmol/L Calcium 8.9 (8.5-10.1) mg/dL Magnesium 1.4 L (1.8-2.4) mg/dl Total Bilirubin (0.2-1.0) mg/dL AST (15-37) U/L ALT (16-63) U/L Alkaline Phosphatase (46-116) U/L Troponin I (0.00-0.056) ng/mL C-Reactive Protein 4.1 H* (<1.0) mg/dL Total Protein (6.4-8.2) g/dl Albumin (3.4-5.0) g/dl Globulin gm/dL Albumin/Globulin Ratio (1-2) Triglycerides 90 (<150) mg/dL Cholesterol 122 (<200) mg/dL LDL Cholesterol Direct 41 (<100) mg/dL HDL Cholesterol 60.0 H (40-59) mg/dL Digoxin 0.3 L (0.9-2.0) ng/mL Mycoplasma pneumon IgM Negative (NEGATIVE) 11/12/17 11/12/17 Range/Units 06:45 11:32 WBC (4.23-9.07) K/mm3 RBC (4.63-6.08) M/mm3 Hgb (13.7-17.5) gm/L Hct (40.1-51.0) % MCV (79.0-92.2) fl MCH (25.7-32.2) pg MCHC (32.2-35.5) g/dl RDW Std Deviation (35.1-43.9) fL Plt Count (163-337) K/mm3 MPV (9.4-12.3) fl Neut % (Auto) (34.0-67.9) % Lymph % (Auto) (21.8-53.1) % [place] % (Auto) (5.3-12.2) % Eos % (Auto) (0.8-7.0) Baso % (Auto) (0.1-1.2) % Neut # (Auto) (1.78-5.38) K/mm3 Lymph # (Auto) (1.32-3.57) K/mm3 [place] # (Auto) (0.30-0.82) K/mm3 Eos # (Auto) (0.04-0.54) K/mm3 Baso # (Auto) (0.01-0.08) K/mm3 Manual Slide Review PT (9.5-12.1) SECONDS INR Sodium (136-145) mEq/L Potassium (3.5-5.1) mEq/L Chloride (98-107) mEq/L Carbon Dioxide (21-32) mEq/L Anion Gap (5-15) BUN (7-18) mg/dL Creatinine (0.7-1.3) mg/dL Est Cr Clr Drug Dosing mL/min Estimated GFR (MDRD) (>60) mL/min BUN/Creatinine Ratio (14-18) Glucose (83-115) mg/dL POC Glucose 189 H 278 H (83-110) mg/dL Hemoglobin A1c (4.50-6.20) % Lactic Acid (0.4-2.0) mmol/L Calcium (8.5-10.1) mg/dL Magnesium (1.8-2.4) mg/dl Total Bilirubin (0.2-1.0) mg/dL AST (15-37) U/L ALT (16-63) U/L Alkaline Phosphatase (46-116) U/L Troponin I (0.00-0.056) ng/mL C-Reactive Protein (<1.0) mg/dL Total Protein (6.4-8.2) g/dl Albumin (3.4-5.0) g/dl Globulin gm/dL Albumin/Globulin Ratio (1-2) Triglycerides (<150) mg/dL Cholesterol (<200) mg/dL LDL Cholesterol Direct (<100) mg/dL HDL Cholesterol (40-59) mg/dL Digoxin (0.9-2.0) ng/mL Mycoplasma pneumon IgM (NEGATIVE) Gianni Results Last 24 Hours: Microbiology 11/12/17 03:08 Gram Stain - Final Sputum - Expectorated Sputum Culture - Final Med Orders - Current: Current Medications Acetaminophen (Tylenol) 650 mg PO Q6H PRN PRN Reason: Pain/Fever Last Admin: 11/12/17 02:51 Dose: 650 mg Albuterol (Proventil Neb Soln) 2.5 mg NEB Q4HRRT PRN PRN Reason: Shortness of Breath Albuterol/Ipratropium (Duoneb 3.0-0.5 Mg/3 Ml) 3 ml NEB QID PRN PRN Reason: Shortness of Breath Dextrose/Water (Dextrose 50% In Water) 50 ml IVPUSH ASDIRECTED PRN PRN Reason: Hypoglycemia Digoxin (Lanoxin) 125 mcg PO BEDTIME [facility] Last Admin: 11/11/17 20:34 Dose: 125 mcg Diltiazem HCl (Dilacor Xr) 240 mg PO DAILY [facility] Enoxaparin Sodium (Lovenox) 40 mg SUBCUT Q24H [facility] Last Admin: 11/11/17 22:01 Dose: 40 mg Guaifenesin/Codeine Phosphate (Robitussin Ac) 10 ml PO Q6H PRN PRN Reason: Cough Potassium Chloride/Sodium Chloride (Normal Saline With 20 Meq Kcl) 1,000 mls @ 75 mls/hr IV ASDIRECTED [facility] Last Admin: 11/11/17 21:58 Dose: 75 mls/hr Ceftriaxone Sodium 2 gm/ (Dextrose/Water) 100 mls @ 200 mls/hr IV Q12H [facility] Magnesium Sulfate 2 gm/ Premix 50 mls @ 25 mls/hr IV Q2H [facility] Stop: 11/12/17 15:23 Insulin Aspart (Novolog) 0 unit SUBCUT Q6H [facility]; Protocol Last Admin: 11/12/17 06:53 Dose: 1 unit Methylprednisolone Sodium Succinate (Solu-Medrol) 80 mg IVPUSH Q8H [facility] Last Admin: 11/12/17 02:59 Dose: 80 mg Pantoprazole Sodium (Protonix) 40 mg PO DAILY@0700 [facility] Last Admin: 11/12/17 06:52 Dose: 40 mg Saccharomyces Boulardii (Florastor) 250 mg PO DAILY [facility] Last Admin: 11/12/17 08:01 Dose: 250 mg Sodium Chloride (Saline Flush) 10 ml FLUSH ASDIRECTED PRN PRN Reason: Keep Vein Open Last Admin: 11/11/17 15:39 Dose: 10 ml Sodium Chloride (Saline Flush) 10 ml FLUSH ONETIME PRN PRN Reason: IV FLUSH Last Admin: 11/11/17 17:00 Dose: 10 ml Trazodone HCl (Trazodone) 25 mg PO BEDTIME PRN PRN Reason: Insomnia Discontinued Medications Albuterol/Ipratropium (Duoneb 3.0-0.5 Mg/3 Ml) 3 ml NEB ONETIME ONE Stop: 11/11/17 17:40 Last Admin: 11/11/17 17:54 Dose: 3 ml Diltiazem HCl (Cardizem Cd) 240 mg PO DAILY [facility] Last Admin: 11/12/17 08:01 Dose: 240 mg Sodium Chloride (Normal Saline) 1,000 mls @ 1,000 mls/hr IV .BOLUS [facility] Last Admin: 11/11/17 15:38 Dose: 1,000 mls/hr Sodium Chloride (Normal Saline) 250 mls @ 80 mls/min IV ASDIRECTED [facility] Last Admin: 11/11/17 17:00 Dose: 80 mls/min Ceftriaxone Sodium 2 gm/ (Sodium Chloride) 100 mls @ 100 mls/hr IV ONETIME ONE Stop: 11/11/17 18:38 Last Admin: 11/11/17 18:22 Dose: 100 mls/hr Sodium Chloride (Normal Saline) 1,000 mls @ 999 mls/hr IV ONETIME ONE Stop: 11/11/17 19:11 Last Admin: 11/11/17 18:19 Dose: 999 mls/hr Sodium Chloride (Normal Saline) 1,000 mls @ 999 mls/hr IV ONETIME ONE Stop: 11/11/17 19:13 Last Admin: 11/11/17 18:22 Dose: Not Given Sodium Chloride (Normal Saline) 1,000 mls @ 1,000 mls/hr IV ONETIME ONE Stop: 11/11/17 19:16 Last Admin: 11/11/17 20:31 Dose: 1,000 mls/hr Ceftriaxone Sodium 2 gm/ (Sodium Chloride) 100 mls @ 200 mls/hr IV Q12H [place] Last Admin: 11/12/17 06:50 Dose: 200 mls/hr Insulin Aspart (Novolog) 0 unit SUBCUT Q6H [place]; Protocol Last Admin: 11/11/17 22:24 Dose: Not Given Iopamidol (Isovue-370 (76%)) 100 ml IVPUSH ONETIME ONE Stop: 11/11/17 16:33 Last Admin: 11/11/17 17:00 Dose: 100 ml Temazepam (Restoril) 7.5 mg PO BEDTIME PRN PRN Reason: Insomnia Tuberculin PPD (Aplisol) 5 unit IDERM ONETIME ONE Stop: 11/12/17 11:16 - Exam Quality Assessment: Supplemental Oxygen, DVT Prophylaxis General: Alert, Oriented, Cooperative, No Acute Distress HEENT: Pupils Equal, Pupils Reactive, EOMI Neck: Supple, Trachea Midline, No JVD Lungs: Normal Respiratory Effort, Decreased Breath Sounds, Rhonchi Cardiovascular: Regular Rate, Irregular Rhythm GI/Abdominal Exam: Normal Bowel Sounds, Soft, Non-Tender, No Organomegaly, No Distention (Male) Exam: Deferred Back Exam: Normal Inspection Extremities: Normal Inspection Skin: Warm Neurological: No New Focal Deficit, Normal Gait, Normal Speech Psy/Mental Status: Alert, Normal Affect, Normal Mood - Problem List & Annotations (1) Chest pain SNOMED Code(s): 84380082 Code(s): R07.9 - CHEST PAIN, UNSPECIFIED Status: Acute Current Visit: Yes Qualifiers: Chest pain type: unspecified Qualified Code(s): R07.9 - Chest pain, unspecified (2) Dysphagia SNOMED Code(s): 61023784, 229158096 Code(s): R13.10 - DYSPHAGIA, UNSPECIFIED Status: Acute Current Visit: Yes Qualifiers: Dysphagia type: unspecified Qualified Code(s): R13.10 - Dysphagia, unspecified (3) Emphysema lung SNOMED Code(s): 59351014 Code(s): J43.9 - EMPHYSEMA, UNSPECIFIED Status: Acute Current Visit: Yes Qualifiers: Emphysema type: unspecified Qualified Code(s): J43.9 - Emphysema, unspecified (4) Fibrosis lung SNOMED Code(s): 99155523 Code(s): J84.10 - PULMONARY FIBROSIS, UNSPECIFIED Status: Acute Current Visit: Yes (5) Hypoxia SNOMED Code(s): 594193712 Code(s): R09.02 - HYPOXEMIA Status: Acute Current Visit: Yes (6) Pneumonia SNOMED Code(s): 587201245 Code(s): J18.9 - PNEUMONIA, UNSPECIFIED ORGANISM Status: Acute Current Visit: Yes Qualifiers: Pneumonia type: due to unspecified organism Laterality: right Lung location: lower lobe of lung Qualified Code(s): J18.1 - Lobar pneumonia, unspecified organism (7) Hypomagnesemia SNOMED Code(s): 477607459 Code(s): E83.42 - HYPOMAGNESEMIA Status: Acute Current Visit: No (8) Hypertension SNOMED Code(s): 63287725 Code(s): I10 - ESSENTIAL (PRIMARY) HYPERTENSION Status: Acute Current Visit: Yes (9) Diabetes mellitus type 2 in nonobese SNOMED Code(s): 461580785 Code(s): E11.9 - TYPE 2 DIABETES MELLITUS WITHOUT COMPLICATIONS Status: Acute Current Visit: Yes (10) BMI 21.0-21.9, adult SNOMED Code(s): 234434924 Code(s): Z68.21 - BODY MASS INDEX (BMI) 21.0-21.9, ADULT Status: Acute Current Visit: Yes (11) Hyperlipidemia SNOMED Code(s): 90918194 Code(s): E78.5 - HYPERLIPIDEMIA, UNSPECIFIED Status: Acute Current Visit : Yes (12) A-fib SNOMED Code(s): 87422981 Code(s): I48.91 - UNSPECIFIED ATRIAL FIBRILLATION Status: Acute Current Visit: Yes - Problem List Review Problem List Initiated/Reviewed/Updated: Yes - My Orders Last 24 Hours: My Active Orders 11/11/17 20:00 Enoxaparin [Lovenox] 40 mg SUBCUT Q24H methylPREDNISolone Sod Succ [Solu-MEDROL] 80 mg IVPUSH Q8H 11/11/17 20:06 Activity as Tolerated [RC] 10,22 Code Status [Resuscitation Status] Routine 11/11/17 20:12 Accu Check [Blood Glucose Check, Bedside] [RC] Q6HR 11/11/17 20:13 Dextrose 50% in Water 50 ml IVPUSH ASDIRECTED PRN 11/11/17 20:18 Acetaminophen [Tylenol] 650 mg PO Q6H PRN 11/11/17 20:20 Isolation [COMM] Routine 11/11/17 20:21 STREP PNEUMONIAE ANTIGEN [MREF] Routine 11/11/17 20:22 RESPIRATORY PANEL BY PCR [MREF] Routine 11/11/17 20:25 RT Aerosol Therapy [RC] ASDIRECTED Albuterol/Ipratropium [DuoNeb 3.0-0.5 MG/3 ML] 3 ml NEB QID PRN 11/11/17 20:26 Albuterol [Proventil Neb Soln] 2.5 mg NEB Q4HRRT PRN 11/11/17 20:27 Codeine/guaiFENesin [Robitussin AC] 10 ml PO Q6H PRN 11/11/17 20:29 traZODone 25 mg PO BEDTIME PRN 11/11/17 21:00 Digoxin [Lanoxin] 125 mcg PO BEDTIME 11/11/17 21:21 Oxygen Therapy [RC] ASDIRECTED 11/11/17 21:30 NS + KCl 20mEq/L [Normal Saline with 20 mEq KCl] 1,000 ml IV ASDIRECTED 11/12/17 00:00 Insulin Aspart [NovoLOG] 0 unit SUBCUT Q6H 11/12/17 03:08 CULTURE SPUTUM + SMEAR [RM] Routine 11/12/17 07:00 Pantoprazole [ProTONIX] 40 mg PO DAILY@0700 11/12/17 09:00 Saccharomyces Boulardii [Florastor] 250 mg PO DAILY 11/12/17 10:00 Consult to Speech Language Pathology [PARTY HOST/HOSTESS Evaluation and Treatment] [CONS] Routine 11/12/17 11:24 Magnesium Sulfate/Water [Magnesium Sulfate 4 GM in Water 100 ML] 4 gm Premix Bag 1 bag IV ONETIME 11/12/17 Breakfast Nothing Per Oral Diet [DIET] 11/13/17 05:00 BASIC METABOLIC PANEL,BMP [CHEM] DAILY CBC WITH AUTO DIFF [HEME] DAILY CRP [C-REACTIVE PROTEIN] [CHEM] DAILY LACTIC ACID [CHEM] DAILY MAGNESIUM [CHEM] DAILY 11/13/17 06:00 cefTRIAXone [Rocephin] 2 gm Dextrose 5% in Water 100 ml IV Q12H 11/13/17 09:00 CXR [Chest 2V] [CR] Routine Diltiazem [Dilacor XR] 240 mg PO DAILY 11/14/17 05:00 BASIC METABOLIC PANEL,BMP [CHEM] DAILY CBC WITH AUTO DIFF [HEME] DAILY CRP [C-REACTIVE PROTEIN] [CHEM] DAILY LACTIC ACID [CHEM] DAILY MAGNESIUM [CHEM] DAILY 11/14/17 09:00 Consult to Physical Therapy [PT Evaluation and Treatment] [CONS] Routine 11/14/17 10:00 Chest w wo Cont [CT] Routine 11/15/17 05:00 BASIC METABOLIC PANEL,BMP [CHEM] DAILY CBC WITH AUTO DIFF [HEME] DAILY CRP [C-REACTIVE PROTEIN] [CHEM] DAILY LACTIC ACID [CHEM] DAILY MAGNESIUM [CHEM] DAILY - Plan Plan:: Impression: 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 Cancer evaluation CT of chest 11/14/17. SP re: difficulty swallowing--see above. Home meds Daily labs; replace electrolytes as needed. BS q 6H; NPO until evaluation aspiration suspected after eating observed by ED staff; change to appropriate diet after assessment Consult CM/PT/OT; dietary for suggestions refusing dietary option based on SP evaluation DVT/GI prophylaxis Suggest SNF at DC and change in code status.
[2017-11-12] MEDS: NS + KCl 20mEq/L 1,000 ML IV SCH (13:33)
[2017-11-12] MEDS: Magnesium Sulfate/Water 2 GM in Premix Bag 1 BAG IV SCH ×2 (13:34→16:13)
[2017-11-12] MEDS: Enoxaparin 40 MG/0.4 ML Syringe SUBCUT SCH (22:03)
[2017-11-12] MEDS: Digoxin 125 MCG Tab PO SCH (22:04)
[2017-11-13] MEDS: methylPREDNISolone Sodium Succinate 40 MG/1 ML SDV IVPUSH SCH ×3 (04:26→21:22)
[2017-11-13] MEDS: Pantoprazole 40 MG Tab.CR PO SCH ×2 (04:27→06:28)
[2017-11-13] MEDS: Acetaminophen 325 MG Tab PO PRN ×2 (04:36→17:58)
[2017-11-13] MEDS: NS + KCl 20mEq/L 1,000 ML IV SCH ×2 (04:38→17:57)
[2017-11-13] MEDS: Insulin Aspart 100 Units/ML 3 ML Pen SUBCUT SCH ×4 (06:59→21:27)
[2017-11-13] MEDS: Saccharomyces Boulardii (Probiotic) 250 MG Cap PO SCH (08:25)
[2017-11-13] MEDS: Diltiazem 240 MG Cap.ER PO SCH (08:25)
[2017-11-13] MEDS: Levofloxacin/Dextrose 5%-Water 750 MG in Premix Bag 1 BAG IV SCH (08:26)
--- NOTE | 2017-11-13 14:55 | PCM.PN ---
- General Info Date of Service: 11/13/17 Functional Status: Reports: Tolerating Diet, Urinating - Review of Systems General: Reports: Weakness, Malaise HEENT: Reports: No Symptoms Pulmonary: Reports: No Symptoms Cardiovascular: Reports: No Symptoms Gastrointestinal: Reports: No Symptoms Genitourinary: Reports: No Symptoms Musculoskeletal: Reports: No Symptoms Skin: Reports: No Symptoms Neurological: Reports: Weakness Psychiatric: Reports: No Symptoms - Patient Data Vitals - Most Recent: Last Vital Signs Temp 36.6 C 11/13/17 08:24 Pulse 80 11/13/17 08:24 Resp 16 11/13/17 08:24 BP 111/75 11/13/17 08:24 Pulse Ox 95 11/13/17 08:24 Weight - Most Recent: 70.307 kg I&O - Last 24 Hours: Intake & Output 11/12/17 11/13/17 11/13/17 22:59 06:59 14:59 Intake Total 1362 1082 Output Total 450 875 Balance 912 207 Lab Results Last 24 Hours: Laboratory Results - last 24 hr 11/12/17 11/12/17 11/13/17 Range/Units 16:47 22:09 06:35 WBC 16.75 H (4.23-9.07) K/mm3 RBC 4.27 L (4.63-6.08) M/mm3 Hgb 11.7 L (13.7-17.5) gm/L Hct 36.3 L (40.1-51.0) % MCV 85.0 (79.0-92.2) fl MCH 27.4 (25.7-32.2) pg MCHC 32.2 (32.2-35.5) g/dl RDW Std Deviation 48.6 H (35.1-43.9) fL Plt Count 396 H (163-337) K/mm3 MPV 10.1 (9.4-12.3) fl Neut % (Auto) 87.2 H (34.0-67.9) % Lymph % (Auto) 5.5 L (21.8-53.1) % Stephenson % (Auto) 7.1 (5.3-12.2) % Eos % (Auto) 0 L (0.8-7.0) Baso % (Auto) 0.0 L (0.1-1.2) % Neut # (Auto) 14.61 H (1.78-5.38) K/mm3 Lymph # (Auto) 0.92 L (1.32-3.57) K/mm3 Stephenson # (Auto) 1.19 H (0.30-0.82) K/mm3 Eos # (Auto) 0.00 L (0.04-0.54) K/mm3 Baso # (Auto) 0.00 L (0.01-0.08) K/mm3 Manual Slide Review Abnormal smear Sodium (136-145) mEq/L Potassium (3.5-5.1) mEq/L Chloride (98-107) mEq/L Carbon Dioxide (21-32) mEq/L Anion Gap (5-15) BUN (7-18) mg/dL Creatinine (0.7-1.3) mg/dL Est Cr Clr Drug Dosing mL/min Estimated GFR (MDRD) (>60) mL/min BUN/Creatinine Ratio (14-18) Glucose (83-115) mg/dL POC Glucose 306 H 316 H (83-110) mg/dL Lactic Acid (0.4-2.0) mmol/L Calcium (8.5-10.1) mg/dL Magnesium (1.8-2.4) mg/dl C-Reactive Protein (<1.0) mg/dL 11/13/17 11/13/17 11/13/17 Range/Units 06:35 06:35 06:56 WBC (4.23-9.07) K/mm3 RBC (4.63-6.08) M/mm3 Hgb (13.7-17.5) gm/L Hct (40.1-51.0) % MCV (79.0-92.2) fl MCH (25.7-32.2) pg MCHC (32.2-35.5) g/dl RDW Std Deviation (35.1-43.9) fL Plt Count (163-337) K/mm3 MPV (9.4-12.3) fl Neut % (Auto) (34.0-67.9) % Lymph % (Auto) (21.8-53.1) % Stephenson % (Auto) (5.3-12.2) % Eos % (Auto) (0.8-7.0) Baso % (Auto) (0.1-1.2) % Neut # (Auto) (1.78-5.38) K/mm3 Lymph # (Auto) (1.32-3.57) K/mm3 Stephenson # (Auto) (0.30-0.82) K/mm3 Eos # (Auto) (0.04-0.54) K/mm3 Baso # (Auto) (0.01-0.08) K/mm3 Manual Slide Review Sodium 139 (136-145) mEq/L Potassium 3.6 (3.5-5.1) mEq/L Chloride 101 (98-107) mEq/L Carbon Dioxide 25 (21-32) mEq/L Anion Gap 16.6 H (5-15) BUN 18 (7-18) mg/dL Creatinine 0.7 (0.7-1.3) mg/dL Est Cr Clr Drug Dosing 67.17 mL/min Estimated GFR (MDRD) > 60 (>60) mL/min BUN/Creatinine Ratio 25.7 H (14-18) Glucose 277 H (83-115) mg/dL POC Glucose 284 H (83-110) mg/dL Lactic Acid 3.0 H (0.4-2.0) mmol/L Calcium 8.7 (8.5-10.1) mg/dL Magnesium 2.0 (1.8-2.4) mg/dl C-Reactive Protein 3.0 H* (<1.0) mg/dL 11/13/17 Range/Units 12:01 WBC (4.23-9.07) K/mm3 RBC (4.63-6.08) M/mm3 Hgb (13.7-17.5) gm/L Hct (40.1-51.0) % MCV (79.0-92.2) fl MCH (25.7-32.2) pg MCHC (32.2-35.5) g/dl RDW Std Deviation (35.1-43.9) fL Plt Count (163-337) K/mm3 MPV (9.4-12.3) fl Neut % (Auto) (34.0-67.9) % Lymph % (Auto) (21.8-53.1) % Stephenson % (Auto) (5.3-12.2) % Eos % (Auto) (0.8-7.0) Baso % (Auto) (0.1-1.2) % Neut # (Auto) (1.78-5.38) K/mm3 Lymph # (Auto) (1.32-3.57) K/mm3 Stephenson # (Auto) (0.30-0.82) K/mm3 Eos # (Auto) (0.04-0.54) K/mm3 Baso # (Auto) (0.01-0.08) K/mm3 Manual Slide Review Sodium (136-145) mEq/L Potassium (3.5-5.1) mEq/L Chloride (98-107) mEq/L Carbon Dioxide (21-32) mEq/L Anion Gap (5-15) BUN (7-18) mg/dL Creatinine (0.7-1.3) mg/dL Est Cr Clr Drug Dosing mL/min Estimated GFR (MDRD) (>60) mL/min BUN/Creatinine Ratio (14-18) Glucose (83-115) mg/dL POC Glucose 335 H (83-110) mg/dL Lactic Acid (0.4-2.0) mmol/L Calcium (8.5-10.1) mg/dL Magnesium (1.8-2.4) mg/dl C-Reactive Protein (<1.0) mg/dL Gianni Results Last 24 Hours: Microbiology 11/11/17 18:12 Aerobic Blood Culture - Preliminary Blood - Venous NO GROWTH AFTER 1 DAY Anaerobic Blood Culture - Preliminary NO GROWTH AFTER 1 DAY 11/11/17 18:02 Aerobic Blood Culture - Preliminary Blood - Venous - Lab Draw NO GROWTH AFTER 1 DAY Anaerobic Blood Culture - Preliminary NO GROWTH AFTER 1 DAY Med Orders - Current: Current Medications Acetaminophen (Tylenol) 650 mg PO Q6H PRN PRN Reason: Pain/Fever Last Admin: 11/13/17 04:36 Dose: 650 mg Albuterol (Proventil Neb Soln) 2.5 mg NEB Q4HRRT PRN PRN Reason: Shortness of Breath Albuterol/Ipratropium (Duoneb 3.0-0.5 Mg/3 Ml) 3 ml NEB QID PRN PRN Reason: Shortness of Breath Dextrose/Water (Dextrose 50% In Water) 50 ml IVPUSH ASDIRECTED PRN PRN Reason: Hypoglycemia Digoxin (Lanoxin) 125 mcg PO BEDTIME [facility] Last Admin: 11/12/17 22:04 Dose: 125 mcg Diltiazem HCl (Dilacor Xr) 240 mg PO DAILY [facility] Last Admin: 11/13/17 08:25 Dose: 240 mg Enoxaparin Sodium (Lovenox) 40 mg SUBCUT Q24H [facility] Last Admin: 11/12/17 22:03 Dose: 40 mg Guaifenesin/Codeine Phosphate (Robitussin Ac) 10 ml PO Q6H PRN PRN Reason: Cough Last Admin: 11/13/17 08:44 Dose: 10 ml Potassium Chloride/Sodium Chloride (Normal Saline With 20 Meq Kcl) 1,000 mls @ 75 mls/hr IV ASDIRECTED [facility] Last Admin: 11/13/17 04:38 Dose: 75 mls/hr Levofloxacin/Dextrose 750 mg/ (Premix) 150 mls @ 100 mls/hr IV Q24H [facility] Last Admin: 11/13/17 08:26 Dose: 100 mls/hr Metronidazole 500 mg/ Premix 100 mls @ 100 mls/hr IV Q8H [facility] Insulin Aspart (Novolog) 0 unit SUBCUT QIDACANDBED [facility]; Protocol Last Admin: 11/13/17 12:02 Dose: 4 units Methylprednisolone Sodium Succinate (Solu-Medrol) 40 mg IVPUSH Q8H [facility] Last Admin: 11/13/17 12:04 Dose: 40 mg Pantoprazole Sodium (Protonix) 40 mg PO DAILY@0700 [facility] Last Admin: 11/13/17 06:28 Dose: Not Given Saccharomyces Boulardii (Florastor) 250 mg PO DAILY [facility] Last Admin: 11/13/17 08:25 Dose: 250 mg Sodium Chloride (Saline Flush) 10 ml FLUSH ASDIRECTED PRN PRN Reason: Keep Vein Open Last Admin: 11/11/17 15:39 Dose: 10 ml Sodium Chloride (Saline Flush) 10 ml FLUSH ONETIME PRN PRN Reason: IV FLUSH Last Admin: 11/11/17 17:00 Dose: 10 ml Trazodone HCl (Trazodone) 25 mg PO BEDTIME PRN PRN Reason: Insomnia Discontinued Medications Albuterol/Ipratropium (Duoneb 3.0-0.5 Mg/3 Ml) 3 ml NEB ONETIME ONE Stop: 11/11/17 17:40 Last Admin: 11/11/17 17:54 Dose: 3 ml Diltiazem HCl (Cardizem Cd) 240 mg PO DAILY [facility] Last Admin: 11/12/17 08:01 Dose: 240 mg Sodium Chloride (Normal Saline) 1,000 mls @ 1,000 mls/hr IV .BOLUS [facility] Last Admin: 11/11/17 15:38 Dose: 1,000 mls/hr Sodium Chloride (Normal Saline) 250 mls @ 80 mls/min IV ASDIRECTED [facility] Last Admin: 11/11/17 17:00 Dose: 80 mls/min Ceftriaxone Sodium 2 gm/ (Sodium Chloride) 100 mls @ 100 mls/hr IV ONETIME ONE Stop: 11/11/17 18:38 Last Admin: 11/11/17 18:22 Dose: 100 mls/hr Sodium Chloride (Normal Saline) 1,000 mls @ 999 mls/hr IV ONETIME ONE Stop: 11/11/17 19:11 Last Admin: 11/11/17 18:19 Dose: 999 mls/hr Sodium Chloride (Normal Saline) 1,000 mls @ 999 mls/hr IV ONETIME ONE Stop: 11/11/17 19:13 Last Admin: 11/11/17 18:22 Dose: Not Given Sodium Chloride (Normal Saline) 1,000 mls @ 1,000 mls/hr IV ONETIME ONE Stop: 11/11/17 19:16 Last Admin: 11/11/17 20:31 Dose: 1,000 mls/hr Ceftriaxone Sodium 2 gm/ (Sodium Chloride) 100 mls @ 200 mls/hr IV Q12H [facility] Last Admin: 11/12/17 06:50 Dose: 200 mls/hr Ceftriaxone Sodium 2 gm/ (Dextrose/Water) 100 mls @ 200 mls/hr IV Q12H [facility] Magnesium Sulfate 2 gm/ Premix 50 mls @ 25 mls/hr IV Q2H [facility] Stop: 11/12/17 15:23 Last Admin: 11/12/17 16:13 Dose: 25 mls/hr Insulin Aspart (Novolog) 0 unit SUBCUT Q6H [facility]; Protocol Last Admin: 11/11/17 22:24 Dose: Not Given Insulin Aspart (Novolog) 0 unit SUBCUT Q6H [facility]; Protocol Last Admin: 11/12/17 23:46 Dose: Not Given Iopamidol (Isovue-370 (76%)) 100 ml IVPUSH ONETIME ONE Stop: 11/11/17 16:33 Last Admin: 11/11/17 17:00 Dose: 100 ml Methylprednisolone Sodium Succinate (Solu-Medrol) 80 mg IVPUSH Q8H [place] Last Admin: 11/13/17 04:26 Dose: 80 mg Temazepam (Restoril) 7.5 mg PO BEDTIME PRN PRN Reason: Insomnia Tuberculin PPD (Aplisol) 5 unit IDERM ONETIME ONE Stop: 11/12/17 11:16 Last Admin: 11/12/17 14:00 Dose: 5 unit - Problem List & Annotations (1) Chest pain SNOMED Code(s): 16094288 Code(s): R07.9 - CHEST PAIN, UNSPECIFIED Status: Acute Current Visit: Yes Qualifiers: Chest pain type: unspecified Qualified Code(s): R07.9 - Chest pain, unspecified (2) Dysphagia SNOMED Code(s): 15788936, 195913507 Code(s): R13.10 - DYSPHAGIA, UNSPECIFIED Status: Acute Current Visit: Yes Qualifiers: Dysphagia type: unspecified Qualified Code(s): R13.10 - Dysphagia, unspecified (3) Emphysema lung SNOMED Code(s): 95149562 Code(s): J43.9 - EMPHYSEMA, UNSPECIFIED Status: Acute Current Visit: Yes Qualifiers: Emphysema type: unspecified Qualified Code(s): J43.9 - Emphysema, unspecified (4) Fibrosis lung SNOMED Code(s): 99948977 Code(s): J84.10 - PULMONARY FIBROSIS, UNSPECIFIED Status: Acute Current Visit: Yes (5) Hypoxia SNOMED Code(s): 306676366 Code(s): R09.02 - HYPOXEMIA Status: Acute Current Visit: Yes (6) Pneumonia SNOMED Code(s): 937174188 Code(s): J18.9 - PNEUMONIA, UNSPECIFIED ORGANISM Status: Acute Current Visit: Yes Qualifiers: Pneumonia type: due to unspecified organism Laterality: right Lung location: lower lobe of lung Qualified Code(s): J18.1 - Lobar pneumonia, unspecified organism (7) Hypomagnesemia SNOMED Code(s): 076587691 Code(s): E83.42 - HYPOMAGNESEMIA Status: Acute Current Visit: No (8) Hypertension SNOMED Code(s): 71620218 Code(s): I10 - ESSENTIAL (PRIMARY) HYPERTENSION Status: Acute Current Visit: Yes (9) Diabetes mellitus type 2 in nonobese SNOMED Code(s): 804839553 Code(s): E11.9 - TYPE 2 DIABETES MELLITUS WITHOUT COMPLICATIONS Status: Acute Current Visit: Yes (10) BMI 21.0-21.9, adult SNOMED Code(s): 484394750 Code(s): Z68.21 - BODY MASS INDEX (BMI) 21.0-21.9, ADULT Status: Acute Current Visit: Yes (11) Hyperlipidemia SNOMED Code(s): 26688868 Code(s): E78.5 - HYPERLIPIDEMIA, UNSPECIFIED Status: Acute Current Visit : Yes (12) A-fib SNOMED Code(s): 55386194 Code(s): I48.91 - UNSPECIFIED ATRIAL FIBRILLATION Status: Acute Current Visit: Yes - Problem List Review Problem List Initiated/Reviewed/Updated: Yes - My Orders Last 24 Hours: My Active Orders 11/13/17 07:00 Insulin Aspart [NovoLOG] See Protocol SUBCUT QIDACANDBED 11/13/17 09:00 Diltiazem [Dilacor XR] 240 mg PO DAILY Levofloxacin/Dextrose 5%-Water [Levaquin in D5W 750 MG/150 ML] 750 mg Premix Bag 1 bag IV Q24H 11/13/17 12:30 methylPREDNISolone Sod Succ [Solu-MEDROL] 40 mg IVPUSH Q8H 11/13/17 15:00 metroNIDAZOLE/Normal Saline [Flagyl 500 MG in NS 100 ML] 500 mg Premix Bag 1 bag IV Q8H 11/14/17 05:00 BASIC METABOLIC PANEL,BMP [CHEM] DAILY CBC WITH AUTO DIFF [HEME] DAILY CRP [C-REACTIVE PROTEIN] [CHEM] DAILY LACTIC ACID [CHEM] DAILY MAGNESIUM [CHEM] DAILY 11/14/17 09:00 Consult to Physical Therapy [PT Evaluation and Treatment] [CONS] Routine 11/14/17 10:00 Chest w wo Cont [CT] Routine 11/15/17 05:00 BASIC METABOLIC PANEL,BMP [CHEM] DAILY CBC WITH AUTO DIFF [HEME] DAILY CRP [C-REACTIVE PROTEIN] [CHEM] DAILY LACTIC ACID [CHEM] DAILY MAGNESIUM [CHEM] DAILY - Plan Plan:: Impression: 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 Cancer evaluation CT of chest 11/14/17. SP re: difficulty swallowing--see above. Home meds Daily labs; replace electrolytes as needed. BS q 6H; NPO until evaluation aspiration suspected after eating observed by ED staff; change to appropriate diet after assessment Consult CM/PT/OT; dietary for suggestions refusing dietary option based on SP evaluation DVT/GI prophylaxis Suggest SNF at DC and change in code status. LOS>96 hours with treatment for PNA and possible placement.
[2017-11-13] MEDS: metroNIDAZOLE/Normal Saline 500 MG in Premix Bag 1 BAG IV SCH ×2 (15:49→22:59)
[2017-11-13] MEDS: metFORMIN 500 MG Tab PO SCH (17:35)
[2017-11-13] MEDS: Enoxaparin 40 MG/0.4 ML Syringe SUBCUT SCH (21:29)
[2017-11-13] MEDS: Digoxin 125 MCG Tab PO SCH (21:31)
[2017-11-14] MEDS: methylPREDNISolone Sodium Succinate 40 MG/1 ML SDV IVPUSH SCH ×2 (04:09→12:20)
[2017-11-14] MEDS: metroNIDAZOLE/Normal Saline 500 MG in Premix Bag 1 BAG IV SCH (06:01)
[2017-11-14] MEDS: Pantoprazole 40 MG Tab.CR PO SCH (06:03)
[2017-11-14] MEDS: metFORMIN 500 MG Tab PO SCH (06:03)
[2017-11-14] MEDS: Acetaminophen 325 MG Tab PO PRN ×2 (06:49→12:37)
[2017-11-14] MEDS: NS + KCl 20mEq/L 1,000 ML IV SCH (07:40)
[2017-11-14] MEDS ORDERED: Magnesium Sulfate/Water 2 GM in Premix Bag 1 BAG IV ONE (08:43)
[2017-11-14] MEDS: Albuterol/Ipratropium 3.0-0.5 MG/3 ML Neb Soln NEB PRN (09:23)
[2017-11-14] MEDS: Levofloxacin/Dextrose 5%-Water 750 MG in Premix Bag 1 BAG IV SCH (09:45)
[2017-11-14] MEDS: Insulin Aspart 100 Units/ML 3 ML Pen SUBCUT SCH ×2 (09:51→12:20)
[2017-11-14] MEDS: Saccharomyces Boulardii (Probiotic) 250 MG Cap PO SCH (09:51)
[2017-11-14] MEDS: Diltiazem 240 MG Cap.ER PO SCH (09:51)
--- NOTE | 2017-11-14 11:20 | CT ---
CT chest Technique: Multiple axial sections through the chest were obtained. Study performed as a high-resolution lung protocol. Imaging was obtained in both supine and prone projections. Intravenous contrast not utilized. Comparison: Prior chest CT performed as a pulmonary angiogram protocol dated 11/11/17. Findings: Layering right-sided pleural effusion is seen within the right lung base on the prone view. There is considerable parenchymal density remaining within the right lung base that does not change in position between prone and supine views. Diffuse interstitial change is seen throughout both lungs worse within the lung bases. Emphysematous bulla are seen within the upper lungs. Subpleural nodular density is noted within the posterior left base measuring 1.4 cm. Scattered small nodules are seen within both sides of the chest. These are best seen on the prone study. Impression: 1. Layering right sided pleural effusion seen on the prone exam. Considerable parenchymal density remains within the right lung base showing consolidation. Difficult to exclude superimposed neoplasm within this area of lung consolidation. 2. Multiple small pulmonary nodules within both lungs best seen on the prone study and difficult to exclude metastatic disease. 3. Diffuse interstitial change most likely representing fibrosis with emphysematous bulla also seen within the upper lungs. Diagnostic code #9 Dental Nurse will call report to attending provider
--- NOTE | 2017-11-14 11:54 | PCM.PN ---
- General Info Date of Service: 11/14/17 Subjective Update: Discussion with care providers: , RN, CM regarding hospital course as well as prognosis and disposition; the patient's daughter participated in the meeting as well. The family meeting lasted 30 minutes. Discussion with the patient followed; paperwork will be filled out for SNK/IP rehab. The goal will be assisted living if appropriate after the rehab stay. The patient is emaciated and deconditioned, thus minimal 2 weeks will be required for recovery. There is a probable lung mass, the final decision for evaluation is to be determined. The code status currently is full code, however this may be adjusted to DNR/ DNI. - Review of Systems General: Reports: Weakness, Fatigue, Malaise HEENT: Reports: No Symptoms Pulmonary: Reports: Shortness of Breath Cardiovascular: Reports: No Symptoms Gastrointestinal: Reports: No Symptoms Genitourinary: Reports: No Symptoms Musculoskeletal: Reports: No Symptoms Skin: Reports: No Symptoms Neurological: Reports: No Symptoms Psychiatric: Reports: Mood Lability - Patient Data Vitals - Most Recent: Last Vital Signs Temp 37.1 C 11/14/17 02:26 Pulse 89 11/14/17 02:26 Resp 16 11/14/17 02:26 BP 114/70 11/14/17 02:15 Pulse Ox 96 11/14/17 09:24 Weight - Most Recent: 56.88 kg I&O - Last 24 Hours: Intake & Output 11/13/17 11/14/17 11/14/17 22:59 06:59 14:59 Intake Total 1732 1100 Output Total 400 Balance 1732 700 Lab Results Last 24 Hours: Laboratory Results - last 24 hr 11/13/17 11/13/17 11/13/17 Range/Units 12:01 17:30 21:09 WBC (4.23-9.07) K/mm3 RBC (4.63-6.08) M/mm3 Hgb (13.7-17.5) gm/L Hct (40.1-51.0) % MCV (79.0-92.2) fl MCH (25.7-32.2) pg MCHC (32.2-35.5) g/dl RDW Std Deviation (35.1-43.9) fL Plt Count (163-337) K/mm3 MPV (9.4-12.3) fl Neut % (Auto) (34.0-67.9) % Lymph % (Auto) (21.8-53.1) % [place] % (Auto) (5.3-12.2) % Eos % (Auto) (0.8-7.0) Baso % (Auto) (0.1-1.2) % Neut # (Auto) (1.78-5.38) K/mm3 Lymph # (Auto) (1.32-3.57) K/mm3 [place] # (Auto) (0.30-0.82) K/mm3 Eos # (Auto) (0.04-0.54) K/mm3 Baso # (Auto) (0.01-0.08) K/mm3 Manual Slide Review Sodium (136-145) mEq/L Potassium (3.5-5.1) mEq/L Chloride (98-107) mEq/L Carbon Dioxide (21-32) mEq/L Anion Gap (5-15) BUN (7-18) mg/dL Creatinine (0.7-1.3) mg/dL Est Cr Clr Drug Dosing mL/min Estimated GFR (MDRD) (>60) mL/min BUN/Creatinine Ratio (14-18) Glucose (83-115) mg/dL POC Glucose 335 H 297 H 321 H (83-110) mg/dL Lactic Acid (0.4-2.0) mmol/L Calcium (8.5-10.1) mg/dL Magnesium (1.8-2.4) mg/dl C-Reactive Protein (<1.0) mg/dL 11/14/17 11/14/17 11/14/17 Range/Units 06:00 06:04 06:04 WBC 18.89 H (4.23-9.07) K/mm3 RBC 4.54 L (4.63-6.08) M/mm3 Hgb 12.5 L (13.7-17.5) gm/L Hct 39.0 L (40.1-51.0) % MCV 85.9 (79.0-92.2) fl MCH 27.5 (25.7-32.2) pg MCHC 32.1 L (32.2-35.5) g/dl RDW Std Deviation 51.0 H (35.1-43.9) fL Plt Count 396 H (163-337) K/mm3 MPV 10.8 (9.4-12.3) fl Neut % (Auto) 92.5 H (34.0-67.9) % Lymph % (Auto) 3.1 L (21.8-53.1) % [place] % (Auto) 4.1 L (5.3-12.2) % Eos % (Auto) 0 L (0.8-7.0) Baso % (Auto) 0.1 (0.1-1.2) % Neut # (Auto) 17.48 H (1.78-5.38) K/mm3 Lymph # (Auto) 0.58 L (1.32-3.57) K/mm3 [place] # (Auto) 0.78 (0.30-0.82) K/mm3 Eos # (Auto) 0.00 L (0.04-0.54) K/mm3 Baso # (Auto) 0.01 (0.01-0.08) K/mm3 Manual Slide Review Abnormal smear Sodium 139 (136-145) mEq/L Potassium 3.8 (3.5-5.1) mEq/L Chloride 102 (98-107) mEq/L Carbon Dioxide 27 (21-32) mEq/L Anion Gap 13.8 (5-15) BUN 17 (7-18) mg/dL Creatinine 0.6 L (0.7-1.3) mg/dL Est Cr Clr Drug Dosing 79.00 mL/min Estimated GFR (MDRD) > 60 (>60) mL/min BUN/Creatinine Ratio 28.3 H (14-18) Glucose 279 H (83-115) mg/dL POC Glucose 277 H (83-110) mg/dL Lactic Acid (0.4-2.0) mmol/L Calcium 9.0 (8.5-10.1) mg/dL Magnesium 1.7 L (1.8-2.4) mg/dl C-Reactive Protein 1.5 H* (<1.0) mg/dL 11/14/17 Range/Units 06:04 WBC (4.23-9.07) K/mm3 RBC (4.63-6.08) M/mm3 Hgb (13.7-17.5) gm/L Hct (40.1-51.0) % MCV (79.0-92.2) fl MCH (25.7-32.2) pg MCHC (32.2-35.5) g/dl RDW Std Deviation (35.1-43.9) fL Plt Count (163-337) K/mm3 MPV (9.4-12.3) fl Neut % (Auto) (34.0-67.9) % Lymph % (Auto) (21.8-53.1) % [place] % (Auto) (5.3-12.2) % Eos % (Auto) (0.8-7.0) Baso % (Auto) (0.1-1.2) % Neut # (Auto) (1.78-5.38) K/mm3 Lymph # (Auto) (1.32-3.57) K/mm3 [place] # (Auto) (0.30-0.82) K/mm3 Eos # (Auto) (0.04-0.54) K/mm3 Baso # (Auto) (0.01-0.08) K/mm3 Manual Slide Review Sodium (136-145) mEq/L Potassium (3.5-5.1) mEq/L Chloride (98-107) mEq/L Carbon Dioxide (21-32) mEq/L Anion Gap (5-15) BUN (7-18) mg/dL Creatinine (0.7-1.3) mg/dL Est Cr Clr Drug Dosing mL/min Estimated GFR (MDRD) (>60) mL/min BUN/Creatinine Ratio (14-18) Glucose (83-115) mg/dL POC Glucose (83-110) mg/dL Lactic Acid 3.6 H (0.4-2.0) mmol/L Calcium (8.5-10.1) mg/dL Magnesium (1.8-2.4) mg/dl C-Reactive Protein (<1.0) mg/dL Gianni Results Last 24 Hours: Microbiology 11/13/17 17:52 Gram Stain - Preliminary Sputum - Expectorated 11/11/17 18:12 Aerobic Blood Culture - Preliminary Blood - Venous NO GROWTH AFTER 2 DAYS Anaerobic Blood Culture - Preliminary NO GROWTH AFTER 2 DAYS 11/11/17 18:02 Aerobic Blood Culture - Preliminary Blood - Venous - Lab Draw NO GROWTH AFTER 2 DAYS Anaerobic Blood Culture - Preliminary NO GROWTH AFTER 2 DAYS Med Orders - Current: Current Medications Acetaminophen (Tylenol) 650 mg PO Q6H PRN PRN Reason: Pain/Fever Last Admin: 11/14/17 06:49 Dose: 650 mg Albuterol (Proventil Neb Soln) 2.5 mg NEB Q4HRRT PRN PRN Reason: Shortness of Breath Albuterol/Ipratropium (Duoneb 3.0-0.5 Mg/3 Ml) 3 ml NEB QID PRN PRN Reason: Shortness of Breath Last Admin: 11/14/17 09:23 Dose: 3 ml Dextrose/Water (Dextrose 50% In Water) 50 ml IVPUSH ASDIRECTED PRN PRN Reason: Hypoglycemia Digoxin (Lanoxin) 125 mcg PO BEDTIME [facility] Last Admin: 11/13/17 21:31 Dose: 125 mcg Diltiazem HCl (Dilacor Xr) 240 mg PO DAILY [facility] Last Admin: 11/14/17 09:51 Dose: 240 mg Enoxaparin Sodium (Lovenox) 40 mg SUBCUT Q24H [facility] Last Admin: 11/13/17 21:29 Dose: 40 mg Glipizide (Glucotrol) 5 mg PO DAILY [facility] Last Admin: 11/14/17 09:51 Dose: 5 mg Guaifenesin/Codeine Phosphate (Robitussin Ac) 10 ml PO Q6H PRN PRN Reason: Cough Last Admin: 11/13/17 08:44 Dose: 10 ml Potassium Chloride/Sodium Chloride (Normal Saline With 20 Meq Kcl) 1,000 mls @ 75 mls/hr IV ASDIRECTED [facility] Last Admin: 11/14/17 07:40 Dose: 75 mls/hr Levofloxacin/Dextrose 750 mg/ (Premix) 150 mls @ 100 mls/hr IV Q24H [facility] Last Admin: 11/14/17 09:45 Dose: 100 mls/hr Metronidazole 500 mg/ Premix 100 mls @ 100 mls/hr IV Q8H [facility] Last Admin: 11/14/17 06:01 Dose: 100 mls/hr Insulin Aspart (Novolog) 0 unit SUBCUT QIDACANDBED [facility]; Protocol Last Admin: 11/14/17 09:51 Dose: 6 units Metformin HCl (Glucophage) 500 mg PO BIDMEALS [facility] Last Admin: 11/14/17 06:03 Dose: 500 mg Methylprednisolone Sodium Succinate (Solu-Medrol) 40 mg IVPUSH Q8H [facility] Last Admin: 11/14/17 04:09 Dose: 40 mg Pantoprazole Sodium (Protonix) 40 mg PO DAILY@0700 [facility] Last Admin: 11/14/17 06:03 Dose: 40 mg Saccharomyces Boulardii (Florastor) 250 mg PO DAILY [facility] Last Admin: 11/14/17 09:51 Dose: 250 mg Sertraline HCl (Zoloft) 50 mg PO DAILY [facility] Sodium Chloride (Saline Flush) 10 ml FLUSH ASDIRECTED PRN PRN Reason: Keep Vein Open Last Admin: 11/11/17 15:39 Dose: 10 ml Sodium Chloride (Saline Flush) 10 ml FLUSH ONETIME PRN PRN Reason: IV FLUSH Last Admin: 11/11/17 17:00 Dose: 10 ml Trazodone HCl (Trazodone) 25 mg PO BEDTIME PRN PRN Reason: Insomnia Discontinued Medications Albuterol/Ipratropium (Duoneb 3.0-0.5 Mg/3 Ml) 3 ml NEB ONETIME ONE Stop: 11/11/17 17:40 Last Admin: 11/11/17 17:54 Dose: 3 ml Diltiazem HCl (Cardizem Cd) 240 mg PO DAILY [facility] Last Admin: 11/12/17 08:01 Dose: 240 mg Sodium Chloride (Normal Saline) 1,000 mls @ 1,000 mls/hr IV .BOLUS [facility] Last Admin: 11/11/17 15:38 Dose: 1,000 mls/hr Sodium Chloride (Normal Saline) 250 mls @ 80 mls/min IV ASDIRECTED [facility] Last Admin: 11/11/17 17:00 Dose: 80 mls/min Ceftriaxone Sodium 2 gm/ (Sodium Chloride) 100 mls @ 100 mls/hr IV ONETIME ONE Stop: 11/11/17 18:38 Last Admin: 11/11/17 18:22 Dose: 100 mls/hr Sodium Chloride (Normal Saline) 1,000 mls @ 999 mls/hr IV ONETIME ONE Stop: 11/11/17 19:11 Last Admin: 11/11/17 18:19 Dose: 999 mls/hr Sodium Chloride (Normal Saline) 1,000 mls @ 999 mls/hr IV ONETIME ONE Stop: 11/11/17 19:13 Last Admin: 11/11/17 18:22 Dose: Not Given Sodium Chloride (Normal Saline) 1,000 mls @ 1,000 mls/hr IV ONETIME ONE Stop: 11/11/17 19:16 Last Admin: 11/11/17 20:31 Dose: 1,000 mls/hr Ceftriaxone Sodium 2 gm/ (Sodium Chloride) 100 mls @ 200 mls/hr IV Q12H [facility] Last Admin: 11/12/17 06:50 Dose: 200 mls/hr Ceftriaxone Sodium 2 gm/ (Dextrose/Water) 100 mls @ 200 mls/hr IV Q12H [place] Magnesium Sulfate 2 gm/ Premix 50 mls @ 25 mls/hr IV Q2H [place] Stop: 11/12/17 15:23 Last Admin: 11/12/17 16:13 Dose: 25 mls/hr Magnesium Sulfate 2 gm/ Premix 50 mls @ 25 mls/hr IV ONETIME ONE Stop: 11/14/17 10:42 Insulin Aspart (Novolog) 0 unit SUBCUT Q6H [facility]; Protocol Last Admin: 11/11/17 22:24 Dose: Not Given Insulin Aspart (Novolog) 0 unit SUBCUT Q6H [facility]; Protocol Last Admin: 11/12/17 23:46 Dose: Not Given Insulin Aspart (Novolog) 0 unit SUBCUT QIDACANDBED [facility]; Protocol Last Admin: 11/13/17 12:02 Dose: 4 units Iopamidol (Isovue-370 (76%)) 100 ml IVPUSH ONETIME ONE Stop: 11/11/17 16:33 Last Admin: 11/11/17 17:00 Dose: 100 ml Methylprednisolone Sodium Succinate (Solu-Medrol) 80 mg IVPUSH Q8H [place] Last Admin: 11/13/17 04:26 Dose: 80 mg Temazepam (Restoril) 7.5 mg PO BEDTIME PRN PRN Reason: Insomnia Tuberculin PPD (Aplisol) 5 unit IDERM ONETIME ONE Stop: 11/12/17 11:16 Last Admin: 11/12/17 14:00 Dose: 5 unit - Exam Quality Assessment: Supplemental Oxygen, DVT Prophylaxis General: Alert, Oriented, Cooperative, No Acute Distress HEENT: Pupils Equal, Pupils Reactive, EOMI Neck: Trachea Midline, No JVD Lungs: Normal Respiratory Effort, Decreased Breath Sounds, Rhonchi GI/Abdominal Exam: Distended (Male) Exam: Deferred Back Exam: Normal Inspection, Full Range of Motion Extremities: Normal Inspection Skin: Warm Wound/Incisions: Healing Well Neurological: No New Focal Deficit Psy/Mental Status: Alert - Problem List & Annotations (1) Chest pain SNOMED Code(s): 35678566 Code(s): R07.9 - CHEST PAIN, UNSPECIFIED Status: Acute Current Visit: Yes Qualifiers: Chest pain type: unspecified Qualified Code(s): R07.9 - Chest pain, unspecified (2) Dysphagia SNOMED Code(s): 97625982, 899281971 Code(s): R13.10 - DYSPHAGIA, UNSPECIFIED Status: Acute Current Visit: Yes Qualifiers: Dysphagia type: unspecified Qualified Code(s): R13.10 - Dysphagia, unspecified (3) Emphysema lung SNOMED Code(s): 86204913 Code(s): J43.9 - EMPHYSEMA, UNSPECIFIED Status: Acute Current Visit: Yes Qualifiers: Emphysema type: unspecified Qualified Code(s): J43.9 - Emphysema, unspecified (4) Fibrosis lung SNOMED Code(s): 72953161 Code(s): J84.10 - PULMONARY FIBROSIS, UNSPECIFIED Status: Acute Current Visit: Yes (5) Hypoxia SNOMED Code(s): 379989318 Code(s): R09.02 - HYPOXEMIA Status: Acute Current Visit: Yes (6) Pneumonia SNOMED Code(s): 066841786 Code(s): J18.9 - PNEUMONIA, UNSPECIFIED ORGANISM Status: Acute Current Visit: Yes Qualifiers: Pneumonia type: due to unspecified organism Laterality: right Lung location: lower lobe of lung Qualified Code(s): J18.1 - Lobar pneumonia, unspecified organism (7) Hypomagnesemia SNOMED Code(s): 943437240 Code(s): E83.42 - HYPOMAGNESEMIA Status: Acute Current Visit: No (8) Hypertension SNOMED Code(s): 45347484 Code(s): I10 - ESSENTIAL (PRIMARY) HYPERTENSION Status: Acute Current Visit: Yes (9) Diabetes mellitus type 2 in nonobese SNOMED Code(s): 728326628 Code(s): E11.9 - TYPE 2 DIABETES MELLITUS WITHOUT COMPLICATIONS Status: Acute Current Visit: Yes (10) BMI 21.0-21.9, adult SNOMED Code(s): 089834660 Code(s): Z68.21 - BODY MASS INDEX (BMI) 21.0-21.9, ADULT Status: Acute Current Visit: Yes (11) Hyperlipidemia SNOMED Code(s): 57453839 Code(s): E78.5 - HYPERLIPIDEMIA, UNSPECIFIED Status: Acute Current Visit : Yes (12) A-fib SNOMED Code(s): 28276155 Code(s): I48.91 - UNSPECIFIED ATRIAL FIBRILLATION Status: Acute Current Visit: Yes - Problem List Review Problem List Initiated/Reviewed/Updated: Yes - My Orders Last 24 Hours: My Active Orders 11/13/17 12:30 methylPREDNISolone Sod Succ [Solu-MEDROL] 40 mg IVPUSH Q8H 11/13/17 15:00 metroNIDAZOLE/Normal Saline [Flagyl 500 MG in NS 100 ML] 500 mg Premix Bag 1 bag IV Q8H 11/13/17 16:13 IS (RT) [RT Incentive Spirometry] [RC] ASDIRECTED 11/13/17 17:00 Insulin Aspart [NovoLOG] See Protocol SUBCUT QIDACANDBED metFORMIN [Glucophage] 500 mg PO BIDMEALS 11/13/17 17:52 CULTURE SPUTUM + SMEAR [RM] Routine 11/14/17 09:00 Consult to Physical Therapy [PT Evaluation and Treatment] [CONS] Routine glipiZIDE [Glucotrol] 5 mg PO DAILY 11/14/17 11:00 Sertraline [Zoloft] 50 mg PO DAILY 11/15/17 05:00 BASIC METABOLIC PANEL,BMP [CHEM] DAILY CBC WITH AUTO DIFF [HEME] DAILY CRP [C-REACTIVE PROTEIN] [CHEM] DAILY LACTIC ACID [CHEM] DAILY MAGNESIUM [CHEM] DAILY - Plan Plan:: Impression: 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 Cancer evaluation CT of chest 11/14/17. SP re: difficulty swallowing--see above. Home meds Daily labs; replace electrolytes as needed. BS q 6H; NPO until evaluation aspiration suspected after eating observed by ED staff; change to appropriate diet after assessment Consult CM/PT/OT; dietary for suggestions refusing dietary option based on SP evaluation DVT/GI prophylaxis Suggest SNF at DC and change in code status. LOS>96 hours with treatment for PNA and possible placement.
[2017-11-14] MEDS: Sertraline 50 MG Tab PO SCH (12:20)
[2017-11-15] MEDS: Albuterol/Ipratropium 3.0-0.5 MG/3 ML Neb Soln NEB PRN ×2 (02:01→21:20)
[2017-11-15] MEDS: metFORMIN 500 MG Tab PO SCH ×2 (02:17→06:23)
[2017-11-15] MEDS: Insulin Aspart 100 Units/ML 3 ML Pen SUBCUT SCH ×5 (02:17→21:05)
[2017-11-15] MEDS: metroNIDAZOLE/Normal Saline 500 MG in Premix Bag 1 BAG IV SCH ×4 (02:17→22:43)
[2017-11-15] MEDS: Digoxin 125 MCG Tab PO SCH ×2 (02:18→21:05)
[2017-11-15] MEDS: Enoxaparin 40 MG/0.4 ML Syringe SUBCUT SCH ×2 (02:18→21:05)
[2017-11-15] MEDS: Pantoprazole 40 MG Tab.CR PO SCH (06:23)
[2017-11-15] MEDS: Acetaminophen 325 MG Tab PO PRN ×3 (06:23→21:04)
[2017-11-15] MEDS: Levofloxacin/Dextrose 5%-Water 750 MG in Premix Bag 1 BAG IV SCH (08:39)
[2017-11-15] MEDS: Saccharomyces Boulardii (Probiotic) 250 MG Cap PO SCH (08:43)
[2017-11-15] MEDS: Diltiazem 240 MG Cap.ER PO SCH (08:49)
[2017-11-15] MEDS: Sertraline 50 MG Tab PO SCH (08:49)
[2017-11-15] MEDS ORDERED: predniSONE 20 MG Tab PO ONE (09:00)
--- NOTE | 2017-11-15 09:26 | PCM.PN ---
- General Info Date of Service: 11/15/17 Functional Status: Reports: Tolerating Diet, Ambulating, Urinating - Review of Systems General: Reports: Weakness, Fatigue HEENT: Reports: No Symptoms Pulmonary: Reports: Shortness of Breath Cardiovascular: Reports: No Symptoms Gastrointestinal: Reports: No Symptoms Genitourinary: Reports: No Symptoms Musculoskeletal: Reports: No Symptoms Skin: Reports: No Symptoms Neurological: Reports: No Symptoms Psychiatric: Reports: No Symptoms - Patient Data Vitals - Most Recent: Last Vital Signs Temp 36.4 C 11/15/17 08:04 Pulse 88 11/15/17 08:04 Resp 20 11/15/17 08:04 BP 123/72 11/15/17 08:04 Pulse Ox 90 L 11/15/17 08:04 Weight - Most Recent: 56.88 kg I&O - Last 24 Hours: Intake & Output 11/14/17 11/15/17 11/15/17 22:59 06:59 14:59 Intake Total 1630 769 Output Total 300 Balance 1330 769 Lab Results Last 24 Hours: Laboratory Results - last 24 hr 11/14/17 11/14/17 11/14/17 Range/Units 12:03 17:27 21:18 WBC (4.23-9.07) K/mm3 RBC (4.63-6.08) M/mm3 Hgb (13.7-17.5) gm/L Hct (40.1-51.0) % MCV (79.0-92.2) fl MCH (25.7-32.2) pg MCHC (32.2-35.5) g/dl RDW Std Deviation (35.1-43.9) fL Plt Count (163-337) K/mm3 MPV (9.4-12.3) fl Neut % (Auto) (34.0-67.9) % Lymph % (Auto) (21.8-53.1) % [place] % (Auto) (5.3-12.2) % Eos % (Auto) (0.8-7.0) Baso % (Auto) (0.1-1.2) % Neut # (Auto) (1.78-5.38) K/mm3 Lymph # (Auto) (1.32-3.57) K/mm3 [place] # (Auto) (0.30-0.82) K/mm3 Eos # (Auto) (0.04-0.54) K/mm3 Baso # (Auto) (0.01-0.08) K/mm3 Manual Slide Review Sodium (136-145) mEq/L Potassium (3.5-5.1) mEq/L Chloride (98-107) mEq/L Carbon Dioxide (21-32) mEq/L Anion Gap (5-15) BUN (7-18) mg/dL Creatinine (0.7-1.3) mg/dL Est Cr Clr Drug Dosing mL/min Estimated GFR (MDRD) (>60) mL/min BUN/Creatinine Ratio (14-18) Glucose (83-115) mg/dL POC Glucose 338 H 239 H 282 H (83-110) mg/dL Lactic Acid (0.4-2.0) mmol/L Calcium (8.5-10.1) mg/dL Magnesium (1.8-2.4) mg/dl C-Reactive Protein (<1.0) mg/dL 11/15/17 11/15/17 11/15/17 Range/Units 06:16 06:16 06:16 WBC 20.85 H (4.23-9.07) K/mm3 RBC 4.21 L (4.63-6.08) M/mm3 Hgb 11.7 L (13.7-17.5) gm/L Hct 36.0 L (40.1-51.0) % MCV 85.5 (79.0-92.2) fl MCH 27.8 (25.7-32.2) pg MCHC 32.5 (32.2-35.5) g/dl RDW Std Deviation 50.3 H (35.1-43.9) fL Plt Count 367 H (163-337) K/mm3 MPV 10.4 (9.4-12.3) fl Neut % (Auto) 89.0 H (34.0-67.9) % Lymph % (Auto) 3.0 L (21.8-53.1) % [place] % (Auto) 7.7 (5.3-12.2) % Eos % (Auto) 0 L (0.8-7.0) Baso % (Auto) 0.0 L (0.1-1.2) % Neut # (Auto) 18.56 H (1.78-5.38) K/mm3 Lymph # (Auto) 0.62 L (1.32-3.57) K/mm3 [place] # (Auto) 1.61 H (0.30-0.82) K/mm3 Eos # (Auto) 0.00 L (0.04-0.54) K/mm3 Baso # (Auto) 0.00 L (0.01-0.08) K/mm3 Manual Slide Review Abnormal smear Sodium 139 (136-145) mEq/L Potassium 3.6 (3.5-5.1) mEq/L Chloride 104 (98-107) mEq/L Carbon Dioxide 25 (21-32) mEq/L Anion Gap 13.6 (5-15) BUN 15 (7-18) mg/dL Creatinine 0.7 (0.7-1.3) mg/dL Est Cr Clr Drug Dosing 68.90 mL/min Estimated GFR (MDRD) > 60 (>60) mL/min BUN/Creatinine Ratio 21.4 H (14-18) Glucose 285 H (83-115) mg/dL POC Glucose (83-110) mg/dL Lactic Acid 3.8 H (0.4-2.0) mmol/L Calcium 8.6 (8.5-10.1) mg/dL Magnesium 1.7 L (1.8-2.4) mg/dl C-Reactive Protein 0.9 (<1.0) mg/dL 11/15/17 Range/Units 06:18 WBC (4.23-9.07) K/mm3 RBC (4.63-6.08) M/mm3 Hgb (13.7-17.5) gm/L Hct (40.1-51.0) % MCV (79.0-92.2) fl MCH (25.7-32.2) pg MCHC (32.2-35.5) g/dl RDW Std Deviation (35.1-43.9) fL Plt Count (163-337) K/mm3 MPV (9.4-12.3) fl Neut % (Auto) (34.0-67.9) % Lymph % (Auto) (21.8-53.1) % [place] % (Auto) (5.3-12.2) % Eos % (Auto) (0.8-7.0) Baso % (Auto) (0.1-1.2) % Neut # (Auto) (1.78-5.38) K/mm3 Lymph # (Auto) (1.32-3.57) K/mm3 [place] # (Auto) (0.30-0.82) K/mm3 Eos # (Auto) (0.04-0.54) K/mm3 Baso # (Auto) (0.01-0.08) K/mm3 Manual Slide Review Sodium (136-145) mEq/L Potassium (3.5-5.1) mEq/L Chloride (98-107) mEq/L Carbon Dioxide (21-32) mEq/L Anion Gap (5-15) BUN (7-18) mg/dL Creatinine (0.7-1.3) mg/dL Est Cr Clr Drug Dosing mL/min Estimated GFR (MDRD) (>60) mL/min BUN/Creatinine Ratio (14-18) Glucose (83-115) mg/dL POC Glucose 263 H (83-110) mg/dL Lactic Acid (0.4-2.0) mmol/L Calcium (8.5-10.1) mg/dL Magnesium (1.8-2.4) mg/dl C-Reactive Protein (<1.0) mg/dL [facility] Results Last 24 Hours: Microbiology 11/13/17 17:52 Gram Stain - Final Sputum - Expectorated Sputum Culture - Preliminary 11/12/17 03:08 Respiratory Virus Panel (PCR) - Final Nasopharyngeal Swab 11/12/17 07:05 Streptococcus pneumoniae Antigen (M - Final Urine 11/11/17 18:12 Aerobic Blood Culture - Preliminary Blood - Venous NO GROWTH AFTER 3 DAYS Anaerobic Blood Culture - Preliminary NO GROWTH AFTER 3 DAYS 11/11/17 18:02 Aerobic Blood Culture - Preliminary Blood - Venous - Lab Draw NO GROWTH AFTER 3 DAYS Anaerobic Blood Culture - Preliminary NO GROWTH AFTER 3 DAYS Med Orders - Current: Current Medications Acetaminophen (Tylenol) 650 mg PO Q6H PRN PRN Reason: Pain/Fever Last Admin: 11/15/17 06:23 Dose: 650 mg Albuterol (Proventil Neb Soln) 2.5 mg NEB Q4HRRT PRN PRN Reason: Shortness of Breath Albuterol/Ipratropium (Duoneb 3.0-0.5 Mg/3 Ml) 3 ml NEB QID PRN PRN Reason: Shortness of Breath Last Admin: 11/15/17 02:01 Dose: 3 ml Dextrose/Water (Dextrose 50% In Water) 50 ml IVPUSH ASDIRECTED PRN PRN Reason: Hypoglycemia Digoxin (Lanoxin) 125 mcg PO BEDTIME [facility] Last Admin: 11/15/17 02:18 Dose: Not Given Diltiazem HCl (Dilacor Xr) 240 mg PO DAILY [facility] Last Admin: 11/15/17 08:49 Dose: 240 mg Enoxaparin Sodium (Lovenox) 40 mg SUBCUT Q24H [facility] Last Admin: 11/15/17 02:18 Dose: Not Given Glipizide (Glucotrol) 5 mg PO DAILY [facility] Last Admin: 11/15/17 08:43 Dose: 5 mg Guaifenesin/Codeine Phosphate (Robitussin Ac) 10 ml PO Q6H PRN PRN Reason: Cough Last Admin: 11/13/17 08:44 Dose: 10 ml Potassium Chloride/Sodium Chloride (Normal Saline With 20 Meq Kcl) 1,000 mls @ 75 mls/hr IV ASDIRECTED [facility] Last Admin: 11/14/17 07:40 Dose: 75 mls/hr Levofloxacin/Dextrose 750 mg/ (Premix) 150 mls @ 100 mls/hr IV Q24H [facility] Last Admin: 11/15/17 08:39 Dose: 100 mls/hr Metronidazole 500 mg/ Premix 100 mls @ 100 mls/hr IV Q8H [facility] Last Admin: 11/15/17 06:24 Dose: 100 mls/hr Insulin Aspart (Novolog) 0 unit SUBCUT QIDACANDBED [facility]; Protocol Last Admin: 11/15/17 06:30 Dose: 6 units Metformin HCl (Glucophage) 500 mg PO BIDMEALS [facility] Last Admin: 11/15/17 06:23 Dose: 500 mg Pantoprazole Sodium (Protonix) 40 mg PO DAILY@0700 [facility] Last Admin: 11/15/17 06:23 Dose: 40 mg Prednisone (Prednisone) 30 mg PO ONETIME ONE Stop: 11/16/17 09:01 Prednisone (Prednisone) 20 mg PO ONETIME ONE Stop: 11/17/17 09:01 Prednisone (Prednisone) 10 mg PO ONETIME ONE Stop: 11/18/17 09:01 Saccharomyces Boulardii (Florastor) 250 mg PO DAILY [facility] Last Admin: 11/15/17 08:43 Dose: 250 mg Sertraline HCl (Zoloft) 50 mg PO DAILY [facility] Last Admin: 11/15/17 08:49 Dose: 50 mg Sodium Chloride (Saline Flush) 10 ml FLUSH ASDIRECTED PRN PRN Reason: Keep Vein Open Last Admin: 11/11/17 15:39 Dose: 10 ml Sodium Chloride (Saline Flush) 10 ml FLUSH ONETIME PRN PRN Reason: IV FLUSH Last Admin: 11/11/17 17:00 Dose: 10 ml Trazodone HCl (Trazodone) 25 mg PO BEDTIME PRN PRN Reason: Insomnia Discontinued Medications Albuterol/Ipratropium (Duoneb 3.0-0.5 Mg/3 Ml) 3 ml NEB ONETIME ONE Stop: 11/11/17 17:40 Last Admin: 11/11/17 17:54 Dose: 3 ml Diltiazem HCl (Cardizem Cd) 240 mg PO DAILY [facility] Last Admin: 11/12/17 08:01 Dose: 240 mg Sodium Chloride (Normal Saline) 1,000 mls @ 1,000 mls/hr IV .BOLUS [facility] Last Admin: 11/11/17 15:38 Dose: 1,000 mls/hr Sodium Chloride (Normal Saline) 250 mls @ 80 mls/min IV ASDIRECTED [facility] Last Admin: 11/11/17 17:00 Dose: 80 mls/min Ceftriaxone Sodium 2 gm/ (Sodium Chloride) 100 mls @ 100 mls/hr IV ONETIME ONE Stop: 11/11/17 18:38 Last Admin: 11/11/17 18:22 Dose: 100 mls/hr Sodium Chloride (Normal Saline) 1,000 mls @ 999 mls/hr IV ONETIME ONE Stop: 11/11/17 19:11 Last Admin: 11/11/17 18:19 Dose: 999 mls/hr Sodium Chloride (Normal Saline) 1,000 mls @ 999 mls/hr IV ONETIME ONE Stop: 11/11/17 19:13 Last Admin: 11/11/17 18:22 Dose: Not Given Sodium Chloride (Normal Saline) 1,000 mls @ 1,000 mls/hr IV ONETIME ONE Stop: 11/11/17 19:16 Last Admin: 11/11/17 20:31 Dose: 1,000 mls/hr Ceftriaxone Sodium 2 gm/ (Sodium Chloride) 100 mls @ 200 mls/hr IV Q12H [facility] Last Admin: 11/12/17 06:50 Dose: 200 mls/hr Ceftriaxone Sodium 2 gm/ (Dextrose/Water) 100 mls @ 200 mls/hr IV Q12H [place] Magnesium Sulfate 2 gm/ Premix 50 mls @ 25 mls/hr IV Q2H [facility] Stop: 11/12/17 15:23 Last Admin: 11/12/17 16:13 Dose: 25 mls/hr Magnesium Sulfate 2 gm/ Premix 50 mls @ 25 mls/hr IV ONETIME ONE Stop: 11/14/17 10:42 Last Admin: 11/14/17 12:14 Dose: 25 mls/hr Insulin Aspart (Novolog) 0 unit SUBCUT Q6H [facility]; Protocol Last Admin: 11/11/17 22:24 Dose: Not Given Insulin Aspart (Novolog) 0 unit SUBCUT Q6H [facility]; Protocol Last Admin: 11/12/17 23:46 Dose: Not Given Insulin Aspart (Novolog) 0 unit SUBCUT QIDACANDBED [facility]; Protocol Last Admin: 11/13/17 12:02 Dose: 4 units Iopamidol (Isovue-370 (76%)) 100 ml IVPUSH ONETIME ONE Stop: 11/11/17 16:33 Last Admin: 11/11/17 17:00 Dose: 100 ml Methylprednisolone Sodium Succinate (Solu-Medrol) 80 mg IVPUSH Q8H [facility] Last Admin: 11/13/17 04:26 Dose: 80 mg Methylprednisolone Sodium Succinate (Solu-Medrol) 40 mg IVPUSH Q8H [facility] Last Admin: 11/14/17 12:20 Dose: 40 mg Prednisone (Prednisone) 40 mg PO ONETIME ONE Stop: 11/15/17 09:01 Last Admin: 11/15/17 08:43 Dose: 40 mg Temazepam (Restoril) 7.5 mg PO BEDTIME PRN PRN Reason: Insomnia Tuberculin PPD (Aplisol) 5 unit IDERM ONETIME ONE Stop: 11/12/17 11:16 Last Admin: 11/12/17 14:00 Dose: 5 unit - Exam Quality Assessment: DVT Prophylaxis General: Alert, Oriented, Cooperative, No Acute Distress HEENT: Pupils Equal, Pupils Reactive, EOMI Neck: Trachea Midline, No JVD Lungs: Normal Respiratory Effort, Decreased Breath Sounds, Rhonchi Cardiovascular: Regular Rate, Irregular Rhythm GI/Abdominal Exam: Normal Bowel Sounds, Soft, Non-Tender, No Organomegaly, No Distention (Male) Exam: Deferred Back Exam: Normal Inspection Extremities: Normal Inspection, No Pedal Edema, Normal Capillary Refill Skin: Warm Neurological: No New Focal Deficit, Normal Speech Psy/Mental Status: Alert, Normal Affect, Normal Mood - Problem List & Annotations (1) Chest pain SNOMED Code(s): 08547026 Code(s): R07.9 - CHEST PAIN, UNSPECIFIED Status: Acute Current Visit: Yes Qualifiers: Chest pain type: unspecified Qualified Code(s): R07.9 - Chest pain, unspecified (2) Dysphagia SNOMED Code(s): 05628068, 943100065 Code(s): R13.10 - DYSPHAGIA, UNSPECIFIED Status: Acute Current Visit: Yes Qualifiers: Dysphagia type: unspecified Qualified Code(s): R13.10 - Dysphagia, unspecified (3) Emphysema lung SNOMED Code(s): 66938670 Code(s): J43.9 - EMPHYSEMA, UNSPECIFIED Status: Acute Current Visit: Yes Qualifiers: Emphysema type: unspecified Qualified Code(s): J43.9 - Emphysema, unspecified (4) Fibrosis lung SNOMED Code(s): 55391694 Code(s): J84.10 - PULMONARY FIBROSIS, UNSPECIFIED Status: Acute Current Visit: Yes (5) Hypoxia SNOMED Code(s): 353425151 Code(s): R09.02 - HYPOXEMIA Status: Acute Current Visit: Yes (6) Pneumonia SNOMED Code(s): 305595124 Code(s): J18.9 - PNEUMONIA, UNSPECIFIED ORGANISM Status: Acute Current Visit: Yes Qualifiers: Pneumonia type: due to unspecified organism Laterality: right Lung location: lower lobe of lung Qualified Code(s): J18.1 - Lobar pneumonia, unspecified organism (7) Hypomagnesemia SNOMED Code(s): 659217665 Code(s): E83.42 - HYPOMAGNESEMIA Status: Acute Current Visit: No (8) Hypertension SNOMED Code(s): 26289341 Code(s): I10 - ESSENTIAL (PRIMARY) HYPERTENSION Status: Acute Current Visit: Yes (9) Diabetes mellitus type 2 in nonobese SNOMED Code(s): 185498999 Code(s): E11.9 - TYPE 2 DIABETES MELLITUS WITHOUT COMPLICATIONS Status: Acute Current Visit: Yes (10) BMI 21.0-21.9, adult SNOMED Code(s): 420104346 Code(s): Z68.21 - BODY MASS INDEX (BMI) 21.0-21.9, ADULT Status: Acute Current Visit: Yes (11) Hyperlipidemia SNOMED Code(s): 58921768 Code(s): E78.5 - HYPERLIPIDEMIA, UNSPECIFIED Status: Acute Current Visit : Yes (12) A-fib SNOMED Code(s): 68452416 Code(s): I48.91 - UNSPECIFIED ATRIAL FIBRILLATION Status: Acute Current Visit: Yes - Problem List Review Problem List Initiated/Reviewed/Updated: Yes - My Orders Last 24 Hours: My Active Orders 11/14/17 09:00 Consult to Physical Therapy [PT Evaluation and Treatment] [CONS] Routine glipiZIDE [Glucotrol] 5 mg PO DAILY 11/14/17 11:00 Sertraline [Zoloft] 50 mg PO DAILY 11/14/17 12:50 Consult to Occupational Therapy [OT Evaluation and Treatment] [CONS] Routine 11/16/17 09:00 predniSONE 30 mg PO ONETIME ONE 11/17/17 09:00 predniSONE 20 mg PO ONETIME ONE 11/18/17 09:00 predniSONE 10 mg PO ONETIME ONE - Plan Plan:: Impression: 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 Cancer evaluation--TBD CT of chest 11/14/17. Dysphagia diet Home meds Daily labs; replace electrolytes as needed. Acchuchecks Q AC/HS; decrease glyburide/metformin Dietary consult for wt gain Consult CM/PT/OT; dietary for suggestions refusing dietary option based on SP evaluation DVT/GI prophylaxis Suggest SNF at DC and change in code status. LOS>96 hours with treatment for PNA and possible placement.
[2017-11-15] MEDS: NS + KCl 20mEq/L 1,000 ML IV SCH (11:49)
[2017-11-15] MEDS ORDERED: Magnesium Sulfate/Water 2 GM in Premix Bag 1 BAG IV ONE (16:37)
[2017-11-16] MEDS: Acetaminophen 325 MG Tab PO PRN (06:04)
[2017-11-16] MEDS: metroNIDAZOLE/Normal Saline 500 MG in Premix Bag 1 BAG IV SCH ×3 (06:05→22:07)
[2017-11-16] MEDS: Pantoprazole 40 MG Tab.CR PO SCH (06:05)
[2017-11-16] MEDS: Insulin Aspart 100 Units/ML 3 ML Pen SUBCUT SCH ×4 (07:01→22:11)
[2017-11-16] MEDS ORDERED: predniSONE 10 MG Tab PO ONE (09:00)
[2017-11-16] MEDS: Diltiazem 240 MG Cap.ER PO SCH (09:05)
[2017-11-16] MEDS: Sertraline 50 MG Tab PO SCH (09:05)
[2017-11-16] MEDS: Saccharomyces Boulardii (Probiotic) 250 MG Cap PO SCH (09:05)
[2017-11-16] MEDS: Levofloxacin/Dextrose 5%-Water 750 MG in Premix Bag 1 BAG IV SCH (09:06)
--- NOTE | 2017-11-16 09:36 | CR ---
Chest: Two views of the chest were obtained. Comparison: Prior chest x-ray of 09/07/15. Diffuse interstitial changes are seen. Findings have worsened within the right mid and lower lung on prior chest x-ray but appear fairly stable from most recent chest CT of 11/14/17. Heart size appears at the upper limits of normal. Tortuous thoracic aorta is seen. Impression: 1. Worsening parenchymal density within the right mid and lower lung from prior chest x-ray but appearing fairly stable from recent chest CT. Diagnostic code #3
[2017-11-16] MEDS: Metoprolol Tartrate 5 MG/5 ML SDV IVPUSH PRN (10:11)
--- NOTE | 2017-11-16 12:16 | PCM.PN ---
- General Info Date of Service: 11/16/17 Functional Status: Reports: Tolerating Diet, Urinating - Review of Systems General: Reports: Weakness HEENT: Reports: No Symptoms Pulmonary: Reports: Shortness of Breath Cardiovascular: Reports: Chest Pain (elevated HR, A fib with RVR) Gastrointestinal: Reports: No Symptoms Genitourinary: Reports: No Symptoms Musculoskeletal: Reports: No Symptoms Skin: Reports: No Symptoms Neurological: Reports: No Symptoms Psychiatric: Reports: No Symptoms - Patient Data Vitals - Most Recent: Last Vital Signs Temp 36.5 C 11/16/17 07:36 Pulse 113 H 11/16/17 10:11 Resp 19 11/16/17 07:36 BP 120/90 11/16/17 10:11 Pulse Ox 90 L 11/16/17 10:08 Weight - Most Recent: 57.289 kg I&O - Last 24 Hours: Intake & Output 11/15/17 11/16/17 11/16/17 22:59 06:59 14:59 Intake Total 1240 220 Output Total 750 700 Balance 490 -480 Lab Results Last 24 Hours: Laboratory Results - last 24 hr 11/15/17 11/15/17 11/16/17 Range/Units 16:48 19:53 06:09 WBC (4.23-9.07) K/mm3 RBC (4.63-6.08) M/mm3 Hgb (13.7-17.5) gm/L Hct (40.1-51.0) % MCV (79.0-92.2) fl MCH (25.7-32.2) pg MCHC (32.2-35.5) g/dl RDW Std Deviation (35.1-43.9) fL Plt Count (163-337) K/mm3 MPV (9.4-12.3) fl Neut % (Auto) (34.0-67.9) % Lymph % (Auto) (21.8-53.1) % [place] % (Auto) (5.3-12.2) % Eos % (Auto) (0.8-7.0) Baso % (Auto) (0.1-1.2) % Neut # (Auto) (1.78-5.38) K/mm3 Lymph # (Auto) (1.32-3.57) K/mm3 [place] # (Auto) (0.30-0.82) K/mm3 Eos # (Auto) (0.04-0.54) K/mm3 Baso # (Auto) (0.01-0.08) K/mm3 Manual Slide Review Sodium (136-145) mEq/L Potassium (3.5-5.1) mEq/L Chloride (98-107) mEq/L Carbon Dioxide (21-32) mEq/L Anion Gap (5-15) BUN (7-18) mg/dL Creatinine (0.7-1.3) mg/dL Est Cr Clr Drug Dosing mL/min Estimated GFR (MDRD) (>60) mL/min BUN/Creatinine Ratio (14-18) Glucose (83-115) mg/dL POC Glucose 310 H 187 H 190 H (83-110) mg/dL Lactic Acid (0.4-2.0) mmol/L Calcium (8.5-10.1) mg/dL Magnesium (1.8-2.4) mg/dl C-Reactive Protein (<1.0) mg/dL 11/16/17 11/16/17 11/16/17 Range/Units 08:51 08:51 08:51 WBC 19.09 H (4.23-9.07) K/mm3 RBC 4.51 L (4.63-6.08) M/mm3 Hgb 12.6 L (13.7-17.5) gm/L Hct 38.2 L (40.1-51.0) % MCV 84.7 (79.0-92.2) fl MCH 27.9 (25.7-32.2) pg MCHC 33.0 (32.2-35.5) g/dl RDW Std Deviation 50.5 H (35.1-43.9) fL Plt Count 355 H (163-337) K/mm3 MPV 10.2 (9.4-12.3) fl Neut % (Auto) 82.1 H (34.0-67.9) % Lymph % (Auto) 8.3 L (21.8-53.1) % [place] % (Auto) 9.1 (5.3-12.2) % Eos % (Auto) 0.1 L (0.8-7.0) Baso % (Auto) 0.1 (0.1-1.2) % Neut # (Auto) 15.70 H (1.78-5.38) K/mm3 Lymph # (Auto) 1.58 (1.32-3.57) K/mm3 [place] # (Auto) 1.74 H (0.30-0.82) K/mm3 Eos # (Auto) 0.01 L (0.04-0.54) K/mm3 Baso # (Auto) 0.01 (0.01-0.08) K/mm3 Manual Slide Review Abnormal smear Sodium 137 (136-145) mEq/L Potassium 3.4 L (3.5-5.1) mEq/L Chloride 99 (98-107) mEq/L Carbon Dioxide 28 (21-32) mEq/L Anion Gap 13.4 (5-15) BUN 12 (7-18) mg/dL Creatinine 0.8 (0.7-1.3) mg/dL Est Cr Clr Drug Dosing 59.68 mL/min Estimated GFR (MDRD) > 60 (>60) mL/min BUN/Creatinine Ratio 15.0 (14-18) Glucose 172 H (83-115) mg/dL POC Glucose (83-110) mg/dL Lactic Acid 5.8 H (0.4-2.0) mmol/L Calcium 8.5 (8.5-10.1) mg/dL Magnesium 1.7 L (1.8-2.4) mg/dl C-Reactive Protein 1.0 (<1.0) mg/dL 11/16/17 Range/Units 11:11 WBC (4.23-9.07) K/mm3 RBC (4.63-6.08) M/mm3 Hgb (13.7-17.5) gm/L Hct (40.1-51.0) % MCV (79.0-92.2) fl MCH (25.7-32.2) pg MCHC (32.2-35.5) g/dl RDW Std Deviation (35.1-43.9) fL Plt Count (163-337) K/mm3 MPV (9.4-12.3) fl Neut % (Auto) (34.0-67.9) % Lymph % (Auto) (21.8-53.1) % [place] % (Auto) (5.3-12.2) % Eos % (Auto) (0.8-7.0) Baso % (Auto) (0.1-1.2) % Neut # (Auto) (1.78-5.38) K/mm3 Lymph # (Auto) (1.32-3.57) K/mm3 [place] # (Auto) (0.30-0.82) K/mm3 Eos # (Auto) (0.04-0.54) K/mm3 Baso # (Auto) (0.01-0.08) K/mm3 Manual Slide Review Sodium (136-145) mEq/L Potassium (3.5-5.1) mEq/L Chloride (98-107) mEq/L Carbon Dioxide (21-32) mEq/L Anion Gap (5-15) BUN (7-18) mg/dL Creatinine (0.7-1.3) mg/dL Est Cr Clr Drug Dosing mL/min Estimated GFR (MDRD) (>60) mL/min BUN/Creatinine Ratio (14-18) Glucose (83-115) mg/dL POC Glucose 270 H (83-110) mg/dL Lactic Acid (0.4-2.0) mmol/L Calcium (8.5-10.1) mg/dL Magnesium (1.8-2.4) mg/dl C-Reactive Protein (<1.0) mg/dL Gianni Results Last 24 Hours: Microbiology 11/13/17 17:52 Gram Stain - Final Sputum - Expectorated Sputum Culture - Preliminary Yeast Isolated 11/11/17 18:12 Aerobic Blood Culture - Preliminary Blood - Venous NO GROWTH AFTER 4 DAYS Anaerobic Blood Culture - Preliminary NO GROWTH AFTER 4 DAYS 11/11/17 18:02 Aerobic Blood Culture - Preliminary Blood - Venous - Lab Draw NO GROWTH AFTER 4 DAYS Anaerobic Blood Culture - Preliminary NO GROWTH AFTER 4 DAYS Med Orders - Current: Current Medications Acetaminophen (Tylenol) 650 mg PO Q6H PRN PRN Reason: Pain/Fever Last Admin: 11/16/17 06:04 Dose: 650 mg Albuterol (Proventil Neb Soln) 2.5 mg NEB Q4HRRT PRN PRN Reason: Shortness of Breath Albuterol/Ipratropium (Duoneb 3.0-0.5 Mg/3 Ml) 3 ml NEB QID PRN PRN Reason: Shortness of Breath Last Admin: 11/15/17 21:20 Dose: 3 ml Apixaban (Eliquis) 2.5 mg PO BID [facility] Dextrose/Water (Dextrose 50% In Water) 50 ml IVPUSH ASDIRECTED PRN PRN Reason: Hypoglycemia Digoxin (Lanoxin) 125 mcg PO BEDTIME [facility] Last Admin: 11/15/17 21:05 Dose: 125 mcg Diltiazem HCl (Dilacor Xr) 240 mg PO DAILY [facility] Last Admin: 11/16/17 09:05 Dose: 240 mg Glipizide (Glucotrol) 5 mg PO DAILY [facility] Last Admin: 11/16/17 09:04 Dose: 5 mg Guaifenesin/Codeine Phosphate (Robitussin Ac) 10 ml PO Q6H PRN PRN Reason: Cough Last Admin: 11/13/17 08:44 Dose: 10 ml Metronidazole 500 mg/ Premix 100 mls @ 100 mls/hr IV Q8H [facility] Stop: 11/17/17 05:00 Last Admin: 11/16/17 06:05 Dose: 100 mls/hr Insulin Aspart (Novolog) 0 unit SUBCUT QIDACANDBED [facility]; Protocol Last Admin: 11/16/17 07:01 Dose: 2 units Levofloxacin (Levaquin) 750 mg PO DAILY [facility] Metformin HCl (Glucophage) 500 mg PO BIDMEALS [facility] Last Admin: 11/15/17 06:23 Dose: 500 mg Metoprolol Tartrate (Lopressor) 25 mg PO Q12HR [facility] Metoprolol Tartrate (Lopressor) 5 mg IVPUSH Q6H PRN PRN Reason: HR>120 Last Admin: 11/16/17 10:11 Dose: 5 mg Metronidazole (Flagyl) 500 mg PO Q8H [facility] Pantoprazole Sodium (Protonix) 40 mg PO DAILY@0700 [facility] Last Admin: 11/16/17 06:05 Dose: 40 mg Prednisone (Prednisone) 20 mg PO ONETIME ONE Stop: 11/17/17 09:01 Prednisone (Prednisone) 10 mg PO ONETIME ONE Stop: 11/18/17 09:01 Saccharomyces Boulardii (Florastor) 250 mg PO DAILY [facility] Last Admin: 11/16/17 09:05 Dose: 250 mg Sertraline HCl (Zoloft) 50 mg PO DAILY [facility] Last Admin: 11/16/17 09:05 Dose: 50 mg Sodium Chloride (Saline Flush) 10 ml FLUSH ASDIRECTED PRN PRN Reason: Keep Vein Open Last Admin: 11/11/17 15:39 Dose: 10 ml Sodium Chloride (Saline Flush) 10 ml FLUSH ONETIME PRN PRN Reason: IV FLUSH Last Admin: 11/11/17 17:00 Dose: 10 ml Trazodone HCl (Trazodone) 25 mg PO BEDTIME PRN PRN Reason: Insomnia Last Admin: 11/15/17 21:05 Dose: 25 mg Discontinued Medications Albuterol/Ipratropium (Duoneb 3.0-0.5 Mg/3 Ml) 3 ml NEB ONETIME ONE Stop: 11/11/17 17:40 Last Admin: 11/11/17 17:54 Dose: 3 ml Diltiazem HCl (Cardizem Cd) 240 mg PO DAILY [place] Last Admin: 11/12/17 08:01 Dose: 240 mg Enoxaparin Sodium (Lovenox) 40 mg SUBCUT Q24H [facility] Last Admin: 11/15/17 21:05 Dose: 40 mg Sodium Chloride (Normal Saline) 1,000 mls @ 1,000 mls/hr IV .BOLUS [facility] Last Admin: 11/11/17 15:38 Dose: 1,000 mls/hr Sodium Chloride (Normal Saline) 250 mls @ 80 mls/min IV ASDIRECTED [place] Last Admin: 11/11/17 17:00 Dose: 80 mls/min Ceftriaxone Sodium 2 gm/ (Sodium Chloride) 100 mls @ 100 mls/hr IV ONETIME ONE Stop: 11/11/17 18:38 Last Admin: 11/11/17 18:22 Dose: 100 mls/hr Sodium Chloride (Normal Saline) 1,000 mls @ 999 mls/hr IV ONETIME ONE Stop: 11/11/17 19:11 Last Admin: 11/11/17 18:19 Dose: 999 mls/hr Sodium Chloride (Normal Saline) 1,000 mls @ 999 mls/hr IV ONETIME ONE Stop: 11/11/17 19:13 Last Admin: 11/11/17 18:22 Dose: Not Given Sodium Chloride (Normal Saline) 1,000 mls @ 1,000 mls/hr IV ONETIME ONE Stop: 11/11/17 19:16 Last Admin: 11/11/17 20:31 Dose: 1,000 mls/hr Ceftriaxone Sodium 2 gm/ (Sodium Chloride) 100 mls @ 200 mls/hr IV Q12H [facility] Last Admin: 11/12/17 06:50 Dose: 200 mls/hr Potassium Chloride/Sodium Chloride (Normal Saline With 20 Meq Kcl) 1,000 mls @ 75 mls/hr IV ASDIRECTED [facility] Last Admin: 11/15/17 11:49 Dose: 75 mls/hr Ceftriaxone Sodium 2 gm/ (Dextrose/Water) 100 mls @ 200 mls/hr IV Q12H [place] Magnesium Sulfate 2 gm/ Premix 50 mls @ 25 mls/hr IV Q2H [facility] Stop: 11/12/17 15:23 Last Admin: 11/12/17 16:13 Dose: 25 mls/hr Levofloxacin/Dextrose 750 mg/ (Premix) 150 mls @ 100 mls/hr IV Q24H [facility] Last Admin: 11/16/17 09:06 Dose: 100 mls/hr Magnesium Sulfate 2 gm/ Premix 50 mls @ 25 mls/hr IV ONETIME ONE Stop: 11/14/17 10:42 Last Admin: 11/14/17 12:14 Dose: 25 mls/hr Magnesium Sulfate 2 gm/ Premix 50 mls @ 25 mls/hr IV ONETIME ONE Stop: 11/15/17 18:36 Last Admin: 11/15/17 17:31 Dose: 25 mls/hr Insulin Aspart (Novolog) 0 unit SUBCUT Q6H [facility]; Protocol Last Admin: 11/11/17 22:24 Dose: Not Given Insulin Aspart (Novolog) 0 unit SUBCUT Q6H [facility]; Protocol Last Admin: 11/12/17 23:46 Dose: Not Given Insulin Aspart (Novolog) 0 unit SUBCUT QIDACANDBED [facility]; Protocol Last Admin: 11/13/17 12:02 Dose: 4 units Iopamidol (Isovue-370 (76%)) 100 ml IVPUSH ONETIME ONE Stop: 11/11/17 16:33 Last Admin: 11/11/17 17:00 Dose: 100 ml Methylprednisolone Sodium Succinate (Solu-Medrol) 80 mg IVPUSH Q8H [facility] Last Admin: 11/13/17 04:26 Dose: 80 mg Methylprednisolone Sodium Succinate (Solu-Medrol) 40 mg IVPUSH Q8H [place] Last Admin: 11/14/17 12:20 Dose: 40 mg Prednisone (Prednisone) 40 mg PO ONETIME ONE Stop: 11/15/17 09:01 Last Admin: 11/15/17 08:43 Dose: 40 mg Prednisone (Prednisone) 30 mg PO ONETIME ONE Stop: 11/16/17 09:01 Last Admin: 11/16/17 09:05 Dose: 30 mg Temazepam (Restoril) 7.5 mg PO BEDTIME PRN PRN Reason: Insomnia Tuberculin PPD (Aplisol) 5 unit IDERM ONETIME ONE Stop: 11/12/17 11:16 Last Admin: 11/12/17 14:00 Dose: 5 unit - Exam Quality Assessment: Supplemental Oxygen, DVT Prophylaxis General: Alert, Oriented, Cooperative, No Acute Distress HEENT: Pupils Equal, Pupils Reactive, EOMI Neck: Trachea Midline, No JVD Lungs: Normal Respiratory Effort, Decreased Breath Sounds Cardiovascular: Regular Rate, Irregular Rhythm GI/Abdominal Exam: Normal Bowel Sounds, Soft, Non-Tender, No Organomegaly, No Distention (Male) Exam: Deferred Back Exam: Normal Inspection Extremities: Normal Inspection, Normal Capillary Refill Skin: Warm Neurological: No New Focal Deficit, Normal Speech Psy/Mental Status: Alert - Problem List & Annotations (1) Chest pain SNOMED Code(s): 22452182 Code(s): R07.9 - CHEST PAIN, UNSPECIFIED Status: Acute Current Visit: Yes Qualifiers: Chest pain type: unspecified Qualified Code(s): R07.9 - Chest pain, unspecified (2) Dysphagia SNOMED Code(s): 91988609, 826655229 Code(s): R13.10 - DYSPHAGIA, UNSPECIFIED Status: Acute Current Visit: Yes Qualifiers: Dysphagia type: unspecified Qualified Code(s): R13.10 - Dysphagia, unspecified (3) Emphysema lung SNOMED Code(s): 07142476 Code(s): J43.9 - EMPHYSEMA, UNSPECIFIED Status: Acute Current Visit: Yes Qualifiers: Emphysema type: unspecified Qualified Code(s): J43.9 - Emphysema, unspecified (4) Fibrosis lung SNOMED Code(s): 85794326 Code(s): J84.10 - PULMONARY FIBROSIS, UNSPECIFIED Status: Acute Current Visit: Yes (5) Hypoxia SNOMED Code(s): 725299232 Code(s): R09.02 - HYPOXEMIA Status: Acute Current Visit: Yes (6) Pneumonia SNOMED Code(s): 154435636 Code(s): J18.9 - PNEUMONIA, UNSPECIFIED ORGANISM Status: Acute Current Visit: Yes Qualifiers: Pneumonia type: due to unspecified organism Laterality: right Lung location: lower lobe of lung Qualified Code(s): J18.1 - Lobar pneumonia, unspecified organism (7) Hypomagnesemia SNOMED Code(s): 890457590 Code(s): E83.42 - HYPOMAGNESEMIA Status: Acute Current Visit: No (8) Hypertension SNOMED Code(s): 13589534 Code(s): I10 - ESSENTIAL (PRIMARY) HYPERTENSION Status: Acute Current Visit: Yes (9) Diabetes mellitus type 2 in nonobese SNOMED Code(s): 376649339 Code(s): E11.9 - TYPE 2 DIABETES MELLITUS WITHOUT COMPLICATIONS Status: Acute Current Visit: Yes (10) BMI 21.0-21.9, adult SNOMED Code(s): 244898743 Code(s): Z68.21 - BODY MASS INDEX (BMI) 21.0-21.9, ADULT Status: Acute Current Visit: Yes (11) Hyperlipidemia SNOMED Code(s): 29461483 Code(s): E78.5 - HYPERLIPIDEMIA, UNSPECIFIED Status: Acute Current Visit : Yes (12) A-fib SNOMED Code(s): 47677088 Code(s): I48.91 - UNSPECIFIED ATRIAL FIBRILLATION Status: Acute Current Visit: Yes - Problem List Review Problem List Initiated/Reviewed/Updated: Yes - My Orders Last 24 Hours: My Active Orders 11/15/17 11:51 Consult to [employer] Plant [employer] [CONS] Routine 11/15/17 12:49 Code Status [Resuscitation Status] Routine 11/16/17 09:51 Metoprolol Tartrate [Lopressor] 5 mg IVPUSH Q6H PRN 11/16/17 10:38 Echo Comp wo Cont [US] Routine 11/16/17 11:00 Metoprolol Tartrate [Lopressor] 25 mg PO Q12HR 11/16/17 21:00 Apixaban [Eliquis] 2.5 mg PO BID 11/17/17 07:00 metroNIDAZOLE [Flagyl] 500 mg PO Q8H 11/17/17 09:00 Levofloxacin [Levaquin] 750 mg PO DAILY predniSONE 20 mg PO ONETIME ONE 11/18/17 09:00 predniSONE 10 mg PO ONETIME ONE - Plan Plan:: Impression: 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 Cancer evaluation--TBD CT of chest 11/14/17 consistent with CTA Dysphagia diet Home meds Daily labs; replace electrolytes as needed. Acchuchecks Q AC/HS; decrease glyburide/metformin Dietary consult for wt gain Adjust cardiac meds; stop Coumadin--does not adhere to medical regimen with fluctuations in INR; will start Eliquis 2.5 mg BID DVT/GI prophylaxis SNF at DC; ciode changed to DNR/DNI on 11/15/17. LOS>96 hours with treatment for PNA and possible placement.
[2017-11-16] MEDS: Metoprolol Tartrate 25 MG Tab PO SCH ×2 (12:23→20:35)
[2017-11-16] MEDS ORDERED: Magnesium Sulfate/Water 2 GM in Premix Bag 1 BAG IV ONE (13:45)
[2017-11-16] MEDS: Albuterol/Ipratropium 3.0-0.5 MG/3 ML Neb Soln NEB PRN (16:05)
[2017-11-16] MEDS: Potassium Chloride 20 MEQ Tab.ER PO SCH ×2 (17:53→20:33)
[2017-11-16] MEDS: Apixaban 5 MG Tab PO SCH (20:33)
[2017-11-16] MEDS: Digoxin 125 MCG Tab PO SCH (20:35)
[2017-11-17] MEDS: Pantoprazole 40 MG Tab.CR PO SCH (06:20)
[2017-11-17] MEDS: Metoprolol Tartrate 5 MG/5 ML SDV IVPUSH PRN (06:36)
[2017-11-17] MEDS ORDERED: metroNIDAZOLE 500 MG Tab PO SCH (07:00)
[2017-11-17] MEDS ORDERED: Magnesium Sulfate/Water 2 GM in Premix Bag 1 BAG IV ONE (08:00)
[2017-11-17] MEDS: Albuterol/Ipratropium 3.0-0.5 MG/3 ML Neb Soln NEB PRN ×2 (08:23→12:51)
--- NOTE | 2017-11-17 08:39 | PCM.PN ---
- General Info Date of Service: 11/17/17 Admission Dx/Problem (Free Text): Admission Diagnosis/Problem Admission Diagnosis/Problem Pneumonia Subjective Update: In to see Srinivasa. He is sitting up in the chair resting. He has been encouraged to be more active today. He required more oxygen and had an 8 beat run of v- tach last night so he was moved to the ICU this AM. He has been working with PT/ OT. Nursing reports some redness to his buttocks so precautions have been taken for that. He states he still feels short of breath with walking and has occasional chest pain which moves bilaterally and into his back. Ordered PRN norco. He has not been sleeping well due to nursing/staff waking him up frequently. He otherwise has no complaints or concerns. Functional Status: Reports: Pain Controlled, Tolerating Diet, Ambulating, Urinating, Incentive Spirometry. Denies: New Symptoms - Review of Systems General: Reports: Weakness, Fatigue, Malaise. Denies: Fever, Chills, Night Sweats HEENT: Reports: No Symptoms. Denies: Ear Pain, Eye Pain, Sinus Congestion, Sore Throat Pulmonary: Reports: Shortness of Breath, Pleuritic Chest Pain. Denies: Cough, Sputum, Hemoptysis, Wheezing Cardiovascular: Reports: Chest Pain (Occasional bilaeral chest pain which varies in length of time and then radiates to back. ), Dyspnea on Exertion. Denies: Palpitations, Edema, Lightheadedness Gastrointestinal: Reports: No Symptoms. Denies: Abdominal Pain, Constipation, Diarrhea, Nausea, Vomiting Genitourinary: Reports: No Symptoms Musculoskeletal: Reports: No Symptoms Skin: Reports: No Symptoms Neurological: Reports: No Symptoms Psychiatric: Reports: No Symptoms - Patient Data Vitals - Most Recent: Last Vital Signs Temp 98.2 F 11/17/17 02:34 Pulse 129 H 11/17/17 06:36 Resp 20 11/17/17 02:34 BP 113/69 11/17/17 06:36 Pulse Ox 91 L 11/17/17 08:23 Weight - Most Recent: 124 lb 12.8 oz I&O - Last 24 Hours: Intake & Output 11/16/17 11/17/17 11/17/17 22:59 06:59 14:59 Intake Total 740 300 0 Output Total 800 Balance 740 -500 0 Lab Results Last 24 Hours: Laboratory Results - last 24 hr 11/16/17 11/16/17 11/16/17 Range/Units 08:51 08:51 08:51 WBC 19.09 H (4.23-9.07) K/mm3 RBC 4.51 L (4.63-6.08) M/mm3 Hgb 12.6 L (13.7-17.5) gm/L Hct 38.2 L (40.1-51.0) % MCV 84.7 (79.0-92.2) fl MCH 27.9 (25.7-32.2) pg MCHC 33.0 (32.2-35.5) g/dl RDW Std Deviation 50.5 H (35.1-43.9) fL Plt Count 355 H (163-337) K/mm3 MPV 10.2 (9.4-12.3) fl Neut % (Auto) 82.1 H (34.0-67.9) % Lymph % (Auto) 8.3 L (21.8-53.1) % [place] % (Auto) 9.1 (5.3-12.2) % Eos % (Auto) 0.1 L (0.8-7.0) Baso % (Auto) 0.1 (0.1-1.2) % Neut # (Auto) 15.70 H (1.78-5.38) K/mm3 Lymph # (Auto) 1.58 (1.32-3.57) K/mm3 [place] # (Auto) 1.74 H (0.30-0.82) K/mm3 Eos # (Auto) 0.01 L (0.04-0.54) K/mm3 Baso # (Auto) 0.01 (0.01-0.08) K/mm3 Manual Slide Review Abnormal smear Sodium 137 (136-145) mEq/L Potassium 3.4 L (3.5-5.1) mEq/L Chloride 99 (98-107) mEq/L Carbon Dioxide 28 (21-32) mEq/L Anion Gap 13.4 (5-15) BUN 12 (7-18) mg/dL Creatinine 0.8 (0.7-1.3) mg/dL Est Cr Clr Drug Dosing 59.68 mL/min Estimated GFR (MDRD) > 60 (>60) mL/min BUN/Creatinine Ratio 15.0 (14-18) Glucose 172 H (83-115) mg/dL POC Glucose (83-110) mg/dL Lactic Acid 5.8 H (0.4-2.0) mmol/L Calcium 8.5 (8.5-10.1) mg/dL Magnesium 1.7 L (1.8-2.4) mg/dl Troponin I (0.00-0.056) ng/mL C-Reactive Protein 1.0 (<1.0) mg/dL TSH 3rd Generation (0.358-3.74) uIU/mL 11/16/17 11/16/17 11/16/17 Range/Units 11:11 16:15 17:55 WBC (4.23-9.07) K/mm3 RBC (4.63-6.08) M/mm3 Hgb (13.7-17.5) gm/L Hct (40.1-51.0) % MCV (79.0-92.2) fl MCH (25.7-32.2) pg MCHC (32.2-35.5) g/dl RDW Std Deviation (35.1-43.9) fL Plt Count (163-337) K/mm3 MPV (9.4-12.3) fl Neut % (Auto) (34.0-67.9) % Lymph % (Auto) (21.8-53.1) % [place] % (Auto) (5.3-12.2) % Eos % (Auto) (0.8-7.0) Baso % (Auto) (0.1-1.2) % Neut # (Auto) (1.78-5.38) K/mm3 Lymph # (Auto) (1.32-3.57) K/mm3 [place] # (Auto) (0.30-0.82) K/mm3 Eos # (Auto) (0.04-0.54) K/mm3 Baso # (Auto) (0.01-0.08) K/mm3 Manual Slide Review Sodium (136-145) mEq/L Potassium (3.5-5.1) mEq/L Chloride (98-107) mEq/L Carbon Dioxide (21-32) mEq/L Anion Gap (5-15) BUN (7-18) mg/dL Creatinine (0.7-1.3) mg/dL Est Cr Clr Drug Dosing mL/min Estimated GFR (MDRD) (>60) mL/min BUN/Creatinine Ratio (14-18) Glucose (83-115) mg/dL POC Glucose 270 H 233 H (83-110) mg/dL Lactic Acid (0.4-2.0) mmol/L Calcium (8.5-10.1) mg/dL Magnesium (1.8-2.4) mg/dl Troponin I 0.019 (0.00-0.056) ng/mL C-Reactive Protein (<1.0) mg/dL TSH 3rd Generation (0.358-3.74) uIU/mL 11/16/17 11/17/17 11/17/17 Range/Units 20:28 06:23 06:24 WBC 15.41 H (4.23-9.07) K/mm3 RBC 4.44 L (4.63-6.08) M/mm3 Hgb 12.3 L (13.7-17.5) gm/L Hct 37.4 L (40.1-51.0) % MCV 84.2 (79.0-92.2) fl MCH 27.7 (25.7-32.2) pg MCHC 32.9 (32.2-35.5) g/dl RDW Std Deviation 49.4 H (35.1-43.9) fL Plt Count 305 (163-337) K/mm3 MPV 10.5 (9.4-12.3) fl Neut % (Auto) 81.7 H (34.0-67.9) % Lymph % (Auto) 7.1 L (21.8-53.1) % [place] % (Auto) 10.9 (5.3-12.2) % Eos % (Auto) 0.1 L (0.8-7.0) Baso % (Auto) 0.0 L (0.1-1.2) % Neut # (Auto) 12.59 H (1.78-5.38) K/mm3 Lymph # (Auto) 1.09 L (1.32-3.57) K/mm3 [place] # (Auto) 1.68 H (0.30-0.82) K/mm3 Eos # (Auto) 0.02 L (0.04-0.54) K/mm3 Baso # (Auto) 0.00 L (0.01-0.08) K/mm3 Manual Slide Review Abnormal smear Sodium (136-145) mEq/L Potassium (3.5-5.1) mEq/L Chloride (98-107) mEq/L Carbon Dioxide (21-32) mEq/L Anion Gap (5-15) BUN (7-18) mg/dL Creatinine (0.7-1.3) mg/dL Est Cr Clr Drug Dosing mL/min Estimated GFR (MDRD) (>60) mL/min BUN/Creatinine Ratio (14-18) Glucose (83-115) mg/dL POC Glucose 216 H 192 H (83-110) mg/dL Lactic Acid (0.4-2.0) mmol/L Calcium (8.5-10.1) mg/dL Magnesium (1.8-2.4) mg/dl Troponin I (0.00-0.056) ng/mL C-Reactive Protein (<1.0) mg/dL TSH 3rd Generation (0.358-3.74) uIU/mL 11/17/17 11/17/17 11/17/17 Range/Units 06:24 06:24 06:24 WBC (4.23-9.07) K/mm3 RBC (4.63-6.08) M/mm3 Hgb (13.7-17.5) gm/L Hct (40.1-51.0) % MCV (79.0-92.2) fl MCH (25.7-32.2) pg MCHC (32.2-35.5) g/dl RDW Std Deviation (35.1-43.9) fL Plt Count (163-337) K/mm3 MPV (9.4-12.3) fl Neut % (Auto) (34.0-67.9) % Lymph % (Auto) (21.8-53.1) % [place] % (Auto) (5.3-12.2) % Eos % (Auto) (0.8-7.0) Baso % (Auto) (0.1-1.2) % Neut # (Auto) (1.78-5.38) K/mm3 Lymph # (Auto) (1.32-3.57) K/mm3 [place] # (Auto) (0.30-0.82) K/mm3 Eos # (Auto) (0.04-0.54) K/mm3 Baso # (Auto) (0.01-0.08) K/mm3 Manual Slide Review Sodium 137 (136-145) mEq/L Potassium 3.7 (3.5-5.1) mEq/L Chloride 98 (98-107) mEq/L Carbon Dioxide 31 (21-32) mEq/L Anion Gap 11.7 (5-15) BUN 10 (7-18) mg/dL Creatinine 0.6 L (0.7-1.3) mg/dL Est Cr Clr Drug Dosing 78.62 mL/min Estimated GFR (MDRD) > 60 (>60) mL/min BUN/Creatinine Ratio 16.7 (14-18) Glucose 193 H (83-115) mg/dL POC Glucose (83-110) mg/dL Lactic Acid 3.4 H (0.4-2.0) mmol/L Calcium 8.3 L (8.5-10.1) mg/dL Magnesium 1.7 L (1.8-2.4) mg/dl Troponin I 0.021 (0.00-0.056) ng/mL C-Reactive Protein 2.9 H* (<1.0) mg/dL TSH 3rd Generation 0.231 L (0.358-3.74) uIU/mL Gianni Results Last 24 Hours: Microbiology 11/11/17 18:12 Aerobic Blood Culture - Preliminary Blood - Venous NO GROWTH AFTER 5 DAYS Anaerobic Blood Culture - Preliminary NO GROWTH AFTER 5 DAYS 11/11/17 18:02 Aerobic Blood Culture - Preliminary Blood - Venous - Lab Draw NO GROWTH AFTER 5 DAYS Anaerobic Blood Culture - Preliminary NO GROWTH AFTER 5 DAYS 11/13/17 17:52 Gram Stain - Final Sputum - Expectorated Sputum Culture - Preliminary Yeast Isolated Med Orders - Current: Current Medications Acetaminophen (Tylenol) 650 mg PO Q6H PRN PRN Reason: Pain/Fever Last Admin: 11/16/17 06:04 Dose: 650 mg Albuterol (Proventil Neb Soln) 2.5 mg NEB Q4HRRT PRN PRN Reason: Shortness of Breath Albuterol/Ipratropium (Duoneb 3.0-0.5 Mg/3 Ml) 3 ml NEB QID PRN PRN Reason: Shortness of Breath Last Admin: 11/17/17 08:23 Dose: 3 ml Apixaban (Eliquis) 2.5 mg PO BID [facility] Last Admin: 11/16/17 20:33 Dose: 2.5 mg Dextrose/Water (Dextrose 50% In Water) 50 ml IVPUSH ASDIRECTED PRN PRN Reason: Hypoglycemia Digoxin (Lanoxin) 125 mcg PO BEDTIME [facility] Last Admin: 11/16/17 20:35 Dose: 125 mcg Diltiazem HCl (Dilacor Xr) 240 mg PO DAILY [facility] Last Admin: 11/16/17 09:05 Dose: 240 mg Glipizide (Glucotrol) 5 mg PO DAILY [facility] Last Admin: 11/16/17 09:04 Dose: 5 mg Guaifenesin/Codeine Phosphate (Robitussin Ac) 10 ml PO Q6H PRN PRN Reason: Cough Last Admin: 11/13/17 08:44 Dose: 10 ml Magnesium Sulfate 2 gm/ Premix 50 mls @ 25 mls/hr IV ONETIME ONE Stop: 11/17/17 09:59 Levofloxacin/Dextrose 750 mg/ (Premix) 150 mls @ 100 mls/hr IV Q24H [facility] Metronidazole 500 mg/ Premix 100 mls @ 100 mls/hr IV Q8H [facility] Insulin Aspart (Novolog) 0 unit SUBCUT QIDACANDBED [facility]; Protocol Last Admin: 11/16/17 22:11 Dose: 4 units Metformin HCl (Glucophage) 500 mg PO BIDMEALS [facility] Last Admin: 11/15/17 06:23 Dose: 500 mg Metoprolol Tartrate (Lopressor) 25 mg PO Q12HR [facility] Last Admin: 11/16/17 20:35 Dose: Not Given Metoprolol Tartrate (Lopressor) 5 mg IVPUSH Q6H PRN PRN Reason: HR>120 Last Admin: 11/17/17 06:36 Dose: 5 mg Pantoprazole Sodium (Protonix) 40 mg PO DAILY@0700 [facility] Last Admin: 11/17/17 06:20 Dose: 40 mg Potassium Chloride (Klor-Con M20) 40 meq PO BID [facility] Stop: 11/17/17 09:01 Last Admin: 11/16/17 20:33 Dose: 40 meq Prednisone (Prednisone) 20 mg PO ONETIME ONE Stop: 11/17/17 09:01 Prednisone (Prednisone) 10 mg PO ONETIME ONE Stop: 11/18/17 09:01 Saccharomyces Boulardii (Florastor) 250 mg PO DAILY [facility] Last Admin: 11/16/17 09:05 Dose: 250 mg Sertraline HCl (Zoloft) 50 mg PO DAILY [facility] Last Admin: 11/16/17 09:05 Dose: 50 mg Sodium Chloride (Saline Flush) 10 ml FLUSH ASDIRECTED PRN PRN Reason: Keep Vein Open Last Admin: 11/11/17 15:39 Dose: 10 ml Sodium Chloride (Saline Flush) 10 ml FLUSH ONETIME PRN PRN Reason: IV FLUSH Last Admin: 11/11/17 17:00 Dose: 10 ml Trazodone HCl (Trazodone) 25 mg PO BEDTIME PRN PRN Reason: Insomnia Last Admin: 11/15/17 21:05 Dose: 25 mg Vancomycin HCl (Pharmacy To Dose - Vancomycin) 1 dose .XX ASDIRECTED [facility] Discontinued Medications Albuterol/Ipratropium (Duoneb 3.0-0.5 Mg/3 Ml) 3 ml NEB ONETIME ONE Stop: 11/11/17 17:40 Last Admin: 11/11/17 17:54 Dose: 3 ml Diltiazem HCl (Cardizem Cd) 240 mg PO DAILY [facility] Last Admin: 11/12/17 08:01 Dose: 240 mg Enoxaparin Sodium (Lovenox) 40 mg SUBCUT Q24H [facility] Last Admin: 11/15/17 21:05 Dose: 40 mg Sodium Chloride (Normal Saline) 1,000 mls @ 1,000 mls/hr IV .BOLUS [facility] Last Admin: 11/11/17 15:38 Dose: 1,000 mls/hr Sodium Chloride (Normal Saline) 250 mls @ 80 mls/min IV ASDIRECTED [facility] Last Admin: 11/11/17 17:00 Dose: 80 mls/min Ceftriaxone Sodium 2 gm/ (Sodium Chloride) 100 mls @ 100 mls/hr IV ONETIME ONE Stop: 11/11/17 18:38 Last Admin: 11/11/17 18:22 Dose: 100 mls/hr Sodium Chloride (Normal Saline) 1,000 mls @ 999 mls/hr IV ONETIME ONE Stop: 11/11/17 19:11 Last Admin: 11/11/17 18:19 Dose: 999 mls/hr Sodium Chloride (Normal Saline) 1,000 mls @ 999 mls/hr IV ONETIME ONE Stop: 11/11/17 19:13 Last Admin: 11/11/17 18:22 Dose: Not Given Sodium Chloride (Normal Saline) 1,000 mls @ 1,000 mls/hr IV ONETIME ONE Stop: 11/11/17 19:16 Last Admin: 11/11/17 20:31 Dose: 1,000 mls/hr Ceftriaxone Sodium 2 gm/ (Sodium Chloride) 100 mls @ 200 mls/hr IV Q12H [facility] Last Admin: 11/12/17 06:50 Dose: 200 mls/hr Potassium Chloride/Sodium Chloride (Normal Saline With 20 Meq Kcl) 1,000 mls @ 75 mls/hr IV ASDIRECTED [facility] Last Admin: 11/15/17 11:49 Dose: 75 mls/hr Ceftriaxone Sodium 2 gm/ (Dextrose/Water) 100 mls @ 200 mls/hr IV Q12H [facility] Magnesium Sulfate 2 gm/ Premix 50 mls @ 25 mls/hr IV Q2H [facility] Stop: 11/12/17 15:23 Last Admin: 11/12/17 16:13 Dose: 25 mls/hr Levofloxacin/Dextrose 750 mg/ (Premix) 150 mls @ 100 mls/hr IV Q24H [facility] Last Admin: 11/16/17 09:06 Dose: 100 mls/hr Metronidazole 500 mg/ Premix 100 mls @ 100 mls/hr IV Q8H [facility] Stop: 11/17/17 05:00 Last Admin: 11/16/17 22:07 Dose: 100 mls/hr Magnesium Sulfate 2 gm/ Premix 50 mls @ 25 mls/hr IV ONETIME ONE Stop: 11/14/17 10:42 Last Admin: 11/14/17 12:14 Dose: 25 mls/hr Magnesium Sulfate 2 gm/ Premix 50 mls @ 25 mls/hr IV ONETIME ONE Stop: 11/15/17 18:36 Last Admin: 11/15/17 17:31 Dose: 25 mls/hr Magnesium Sulfate 2 gm/ Premix 50 mls @ 25 mls/hr IV ONETIME ONE Stop: 11/16/17 15:44 Last Admin: 11/16/17 14:20 Dose: 25 mls/hr Insulin Aspart (Novolog) 0 unit SUBCUT Q6H [facility]; Protocol Last Admin: 11/11/17 22:24 Dose: Not Given Insulin Aspart (Novolog) 0 unit SUBCUT Q6H [facility]; Protocol Last Admin: 11/12/17 23:46 Dose: Not Given Insulin Aspart (Novolog) 0 unit SUBCUT QIDACANDBED [facility]; Protocol Last Admin: 11/13/17 12:02 Dose: 4 units Iopamidol (Isovue-370 (76%)) 100 ml IVPUSH ONETIME ONE Stop: 11/11/17 16:33 Last Admin: 11/11/17 17:00 Dose: 100 ml Levofloxacin (Levaquin) 750 mg PO DAILY [facility] Methylprednisolone Sodium Succinate (Solu-Medrol) 80 mg IVPUSH Q8H [facility] Last Admin: 11/13/17 04:26 Dose: 80 mg Methylprednisolone Sodium Succinate (Solu-Medrol) 40 mg IVPUSH Q8H [facility] Last Admin: 11/14/17 12:20 Dose: 40 mg Metronidazole (Flagyl) 500 mg PO Q8H [facility] Last Admin: 11/17/17 06:20 Dose: 500 mg Prednisone (Prednisone) 40 mg PO ONETIME ONE Stop: 11/15/17 09:01 Last Admin: 11/15/17 08:43 Dose: 40 mg Prednisone (Prednisone) 30 mg PO ONETIME ONE Stop: 11/16/17 09:01 Last Admin: 11/16/17 09:05 Dose: 30 mg Temazepam (Restoril) 7.5 mg PO BEDTIME PRN PRN Reason: Insomnia Tuberculin PPD (Aplisol) 5 unit IDERM ONETIME ONE Stop: 11/12/17 11:16 Last Admin: 11/12/17 14:00 Dose: 5 unit - Exam Quality Assessment: Supplemental Oxygen, DVT Prophylaxis General: Alert, Oriented, Cooperative, No Acute Distress HEENT: Pupils Equal, Pupils Reactive, EOMI, Mucous Membr. Moist/[place] Neck: Supple, Trachea Midline, No JVD Lungs: Clear to Auscultation, Normal Respiratory Effort Cardiovascular: Regular Rate, Irregular Rhythm GI/Abdominal Exam: Normal Bowel Sounds, Soft, Non-Tender, No Organomegaly, No Distention, No Abnormal Bruit, No Mass, Pelvis Stable (Male) Exam: Deferred Back Exam: Normal Inspection, Full Range of Motion Extremities: Normal Inspection, Normal Range of Motion, Non-Tender, No Pedal Edema, Normal Capillary Refill Peripheral Pulses: 2+: Radial (L), Radial (R), Posterior Tibial (L), Posterior Tibial (R), Dorsalis Pedis (L), Dorsalis Pedis (R) Skin: Warm, Dry, Intact Neurological: No New Focal Deficit Psy/Mental Status: Alert, Normal Affect - Problem List & Annotations (1) Body mass index (BMI) 19.9 or less, adult SNOMED Code(s): 583582677 Code(s): Z68.1 - BODY MASS INDEX (BMI) 19.9 OR LESS, ADULT Status: Acute Priority: High Current Visit: Yes (2) A-fib SNOMED Code(s): 57812752 Code(s): I48.91 - UNSPECIFIED ATRIAL FIBRILLATION Status: Acute Priority : High Current Visit: Yes Qualifiers: Atrial fibrillation type: unspecified Qualified Code(s): I48.91 - Unspecified atrial fibrillation (3) Chest pain SNOMED Code(s): 17266006 Code(s): R07.9 - CHEST PAIN, UNSPECIFIED Status: Acute Priority: High Current Visit: Yes Qualifiers: Chest pain type: unspecified Qualified Code(s): R07.9 - Chest pain, unspecified (4) Diabetes mellitus type 2 in nonobese SNOMED Code(s): 458424869 Code(s): E11.9 - TYPE 2 DIABETES MELLITUS WITHOUT COMPLICATIONS Status: Chronic Priority: Medium Current Visit: Yes (5) Dysphagia SNOMED Code(s): 91331617, 530569769 Code(s): R13.10 - DYSPHAGIA, UNSPECIFIED Status: Acute Priority: High Current Visit: Yes Qualifiers: Dysphagia type: unspecified Qualified Code(s): R13.10 - Dysphagia, unspecified (6) Emphysema lung SNOMED Code(s): 91494869 Code(s): J43.9 - EMPHYSEMA, UNSPECIFIED Status: Chronic Priority: High Current Visit: Yes Qualifiers: Emphysema type: unspecified Qualified Code(s): J43.9 - Emphysema, unspecified (7) Fibrosis lung SNOMED Code(s): 52694228 Code(s): J84.10 - PULMONARY FIBROSIS, UNSPECIFIED Status: Chronic Priority: High Current Visit: Yes (8) Hyperlipidemia SNOMED Code(s): 91880645 Code(s): E78.5 - HYPERLIPIDEMIA, UNSPECIFIED Status: Chronic Priority: Low Current Visit: No Qualifiers: Hyperlipidemia type: unspecified Qualified Code(s): E78.5 - Hyperlipidemia , unspecified (9) Hypertension SNOMED Code(s): 77231652 Code(s): I10 - ESSENTIAL (PRIMARY) HYPERTENSION Status: Chronic Priority : Low Current Visit: No Qualifiers: Hypertension type: unspecified Qualified Code(s): I10 - Essential (primary ) hypertension (10) Hypoxia SNOMED Code(s): 199698157 Code(s): R09.02 - HYPOXEMIA Status: Acute Priority: High Current Visit : Yes (11) Pneumonia SNOMED Code(s): 379378408 Code(s): J18.9 - PNEUMONIA, UNSPECIFIED ORGANISM Status: Acute Priority: High Current Visit: Yes Qualifiers: Pneumonia type: due to unspecified organism Laterality: right Lung location: lower lobe of lung Qualified Code(s): J18.1 - Lobar pneumonia, unspecified organism (12) Failure to thrive in adult SNOMED Code(s): 276318130 Code(s): R62.7 - ADULT FAILURE TO THRIVE Status: Acute Priority: High Current Visit: Yes (13) Pulmonary nodules SNOMED Code(s): 626912553 Code(s): R91.8 - OTHER NONSPECIFIC ABNORMAL FINDING OF LUNG FIELD Status: Acute Priority: High Current Visit: Yes (14) Malnutrition SNOMED Code(s): 10803065 Code(s): E46 - UNSPECIFIED PROTEIN-CALORIE MALNUTRITION Status: Acute Priority: High Current Visit: Yes Qualifiers: Malnutrition type: unspecified type Qualified Code(s): E46 - Unspecified protein-calorie malnutrition - Problem List Review Problem List Initiated/Reviewed/Updated: Yes - My Orders Last 24 Hours: My Active Orders 11/17/17 07:43 Admission Status [Patient Status] [ADT] Routine 11/17/17 07:45 Vancomycin Pharmacy to Dose [Pharmacy to Dose - Vancomycin] 1 dose .XX ASDIRECTED 11/17/17 08:00 Magnesium Sulfate/Water [Magnesium Sulfate 2 GM in Water 50 ML] 2 gm Premix Bag 1 bag IV ONETIME 11/17/17 08:30 T4 FREE [CHEM] Routine - Plan Plan:: Impression: 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 Cancer evaluation--TBD CT of chest 11/14/17 consistent with [employer] eval - Dysphagia diet Home meds Ambulate QID Pulmonary toilet Daily labs; replace electrolytes as needed. Acchuchecks Q AC/HS; decrease glyburide/metformin Dietary consult for wt gain Adjust cardiac meds; stop Coumadin--does not adhere to medical regimen with fluctuations in INR; will start Eliquis 2.5 mg BID DVT/GI prophylaxis Echo (11/16/17): 1. LVEF of 50-50% 2. Mild proximal septal hypertrophy 3. Severely calcified aortic valve with mild regurgitation and moderate stenosis. Incomplete assessment of aortic valve. 4. Mild mitral valve regurgitation 5. Moderate to severe tricuspid valve regurgitation 6. The right ventricular systolic pressure is severely elevated at 58.7 mmHg. 7. Severe biatrial dilation. SN[facility] at [place]; code status changed to DNR/DNI on 11/15/17. LOS>96 hours with treatment for PNA and possible placement.
[2017-11-17] MEDS: Potassium Chloride 20 MEQ Tab.ER PO SCH (08:41)
[2017-11-17] MEDS: Apixaban 5 MG Tab PO SCH ×2 (08:42→21:12)
[2017-11-17] MEDS: Metoprolol Tartrate 25 MG Tab PO SCH ×3 (08:43→20:36)
[2017-11-17] MEDS: Diltiazem 240 MG Cap.ER PO SCH (08:43)
[2017-11-17] MEDS: Sertraline 50 MG Tab PO SCH (08:44)
[2017-11-17] MEDS: Levofloxacin/Dextrose 5%-Water 750 MG in Premix Bag 1 BAG IV SCH (08:44)
[2017-11-17] MEDS: Saccharomyces Boulardii (Probiotic) 250 MG Cap PO SCH (08:44)
[2017-11-17] MEDS: Acetaminophen 325 MG Tab PO PRN (08:48)
[2017-11-17] MEDS: Insulin Aspart 100 Units/ML 3 ML Pen SUBCUT SCH ×4 (08:54→21:13)
[2017-11-17] MEDS ORDERED: predniSONE 20 MG Tab PO ONE (09:00)
[2017-11-17] MEDS ORDERED: Levofloxacin 750 MG Tab PO SCH (09:00)
[2017-11-17] MEDS ORDERED: Fluconazole 100 MG Tab PO ONE (12:00)
[2017-11-17] MEDS ORDERED: Fluconazole 100 MG Tab PO SCH (12:00)
[2017-11-17] MEDS: Acetaminophen/HYDROcodone 325-5 MG Tab PO PRN (13:06)
[2017-11-17] MEDS: metroNIDAZOLE/Normal Saline 500 MG in Premix Bag 1 BAG IV SCH ×2 (14:53→23:04)
[2017-11-17] MEDS: Albuterol 0.083% 2.5 MG/3 ML Neb Soln NEB PRN (15:22)
[2017-11-17] MEDS: Digoxin 125 MCG Tab PO SCH (21:12)
[2017-11-18] MEDS: Albuterol/Ipratropium 3.0-0.5 MG/3 ML Neb Soln NEB PRN ×2 (01:28→09:56)
[2017-11-18] MEDS: Acetaminophen 325 MG Tab PO PRN (04:42)
[2017-11-18] MEDS: metroNIDAZOLE/Normal Saline 500 MG in Premix Bag 1 BAG IV SCH ×3 (06:13→22:10)
[2017-11-18] MEDS: Pantoprazole 40 MG Tab.CR PO SCH (06:13)
[2017-11-18] MEDS: Insulin Aspart 100 Units/ML 3 ML Pen SUBCUT SCH ×4 (06:18→22:29)
--- NOTE | 2017-11-18 06:56 | PCM.PN ---
- General Info Date of Service: 11/18/17 Admission Dx/Problem (Free Text): Admission Diagnosis/Problem Admission Diagnosis/Problem Pneumonia Subjective Update: In to see Srinivasa today. He has not had as good of a day as he did yesterday. He was walking and working with PT/OT then. Today he has been having more pain. Added PRN morphine and scheduled Megace. Nursing discussed plan with him and if he wants to continue with therapies or just change to comfort care. He states he would like to continue doing what he can and will do what we ask. He has been quite tired today. Discussed case with Dr. Kearns. We will be holding a family meeting later to discuss plan. No other nursing or patient concerns. He was evaluated by CODING QUALITY ANALYST again today and she recommends no changes to current diet. Functional Status: Reports: Pain Controlled (currently ), Tolerating Diet ( minimal appetite ), Ambulating, Urinating, Incentive Spirometry, Other ( accapella ). Denies: New Symptoms - Review of Systems General: Reports: Weakness, Fatigue, Malaise. Denies: Fever, Chills, Appetite HEENT: Reports: No Symptoms Pulmonary: Reports: Shortness of Breath, Pleuritic Chest Pain, Cough, Sputum, Wheezing Cardiovascular: Reports: Chest Pain (occasional pain which comes and goes ), Dyspnea on Exertion. Denies: Palpitations, Edema, Lightheadedness Gastrointestinal: Reports: Decreased Appetite. Denies: Abdominal Pain, Constipation, Diarrhea, Nausea, Vomiting Genitourinary: Reports: No Symptoms Skin: Reports: No Symptoms Neurological: Reports: No Symptoms Psychiatric: Reports: No Symptoms - Patient Data Vitals - Most Recent: Last Vital Signs Temp 97.8 F 11/18/17 04:00 Pulse 95 11/18/17 06:38 Resp 20 11/18/17 04:00 BP 133/83 11/18/17 04:00 Pulse Ox 93 L 11/18/17 06:38 Weight - Most Recent: 123 lb 4.8 oz I&O - Last 24 Hours: Intake & Output 11/17/17 11/17/17 11/18/17 14:59 22:59 06:59 Intake Total 200 1240 220 Output Total 400 550 600 Balance -200 690 -380 Lab Results Last 24 Hours: Laboratory Results - last 24 hr 11/17/17 11/17/17 11/17/17 Range/Units 06:24 06:24 06:24 WBC 15.41 H (4.23-9.07) K/mm3 RBC 4.44 L (4.63-6.08) M/mm3 Hgb 12.3 L (13.7-17.5) gm/L Hct 37.4 L (40.1-51.0) % MCV 84.2 (79.0-92.2) fl MCH 27.7 (25.7-32.2) pg MCHC 32.9 (32.2-35.5) g/dl RDW Std Deviation 49.4 H (35.1-43.9) fL Plt Count 305 (163-337) K/mm3 MPV 10.5 (9.4-12.3) fl Neut % (Auto) 81.7 H (34.0-67.9) % Lymph % (Auto) 7.1 L (21.8-53.1) % [place] % (Auto) 10.9 (5.3-12.2) % Eos % (Auto) 0.1 L (0.8-7.0) Baso % (Auto) 0.0 L (0.1-1.2) % Neut # (Auto) 12.59 H (1.78-5.38) K/mm3 Lymph # (Auto) 1.09 L (1.32-3.57) K/mm3 [place] # (Auto) 1.68 H (0.30-0.82) K/mm3 Eos # (Auto) 0.02 L (0.04-0.54) K/mm3 Baso # (Auto) 0.00 L (0.01-0.08) K/mm3 Manual Slide Review Abnormal smear Sodium 137 (136-145) mEq/L Potassium 3.7 (3.5-5.1) mEq/L Chloride 98 (98-107) mEq/L Carbon Dioxide 31 (21-32) mEq/L Anion Gap 11.7 (5-15) BUN 10 (7-18) mg/dL Creatinine 0.6 L (0.7-1.3) mg/dL Est Cr Clr Drug Dosing 78.62 mL/min Estimated GFR (MDRD) > 60 (>60) mL/min BUN/Creatinine Ratio 16.7 (14-18) Glucose 193 H (83-115) mg/dL POC Glucose (83-110) mg/dL Lactic Acid 3.4 H (0.4-2.0) mmol/L Calcium 8.3 L (8.5-10.1) mg/dL Magnesium 1.7 L (1.8-2.4) mg/dl Troponin I (0.00-0.056) ng/mL C-Reactive Protein 2.9 H* (<1.0) mg/dL Free T4 (0.76-1.46) ng/dL TSH 3rd Generation (0.358-3.74) uIU/mL 11/17/17 11/17/17 11/17/17 Range/Units 06:24 06:24 11:26 WBC (4.23-9.07) K/mm3 RBC (4.63-6.08) M/mm3 Hgb (13.7-17.5) gm/L Hct (40.1-51.0) % MCV (79.0-92.2) fl MCH (25.7-32.2) pg MCHC (32.2-35.5) g/dl RDW Std Deviation (35.1-43.9) fL Plt Count (163-337) K/mm3 MPV (9.4-12.3) fl Neut % (Auto) (34.0-67.9) % Lymph % (Auto) (21.8-53.1) % [place] % (Auto) (5.3-12.2) % Eos % (Auto) (0.8-7.0) Baso % (Auto) (0.1-1.2) % Neut # (Auto) (1.78-5.38) K/mm3 Lymph # (Auto) (1.32-3.57) K/mm3 [place] # (Auto) (0.30-0.82) K/mm3 Eos # (Auto) (0.04-0.54) K/mm3 Baso # (Auto) (0.01-0.08) K/mm3 Manual Slide Review Sodium (136-145) mEq/L Potassium (3.5-5.1) mEq/L Chloride (98-107) mEq/L Carbon Dioxide (21-32) mEq/L Anion Gap (5-15) BUN (7-18) mg/dL Creatinine (0.7-1.3) mg/dL Est Cr Clr Drug Dosing mL/min Estimated GFR (MDRD) (>60) mL/min BUN/Creatinine Ratio (14-18) Glucose (83-115) mg/dL POC Glucose 320 H (83-110) mg/dL Lactic Acid (0.4-2.0) mmol/L Calcium (8.5-10.1) mg/dL Magnesium (1.8-2.4) mg/dl Troponin I 0.021 (0.00-0.056) ng/mL C-Reactive Protein (<1.0) mg/dL Free T4 1.28 (0.76-1.46) ng/dL TSH 3rd Generation 0.231 L (0.358-3.74) uIU/mL 11/17/17 11/17/17 11/18/17 Range/Units 17:48 21:11 05:45 WBC 16.01 H (4.23-9.07) K/mm3 RBC 4.42 L (4.63-6.08) M/mm3 Hgb 12.3 L (13.7-17.5) gm/L Hct 37.6 L (40.1-51.0) % MCV 85.1 (79.0-92.2) fl MCH 27.8 (25.7-32.2) pg MCHC 32.7 (32.2-35.5) g/dl RDW Std Deviation 50.4 H (35.1-43.9) fL Plt Count 289 (163-337) K/mm3 MPV 10.3 (9.4-12.3) fl Neut % (Auto) 82.5 H (34.0-67.9) % Lymph % (Auto) 6.4 L (21.8-53.1) % [place] % (Auto) 10.9 (5.3-12.2) % Eos % (Auto) 0 L (0.8-7.0) Baso % (Auto) 0.1 (0.1-1.2) % Neut # (Auto) 13.20 H (1.78-5.38) K/mm3 Lymph # (Auto) 1.03 L (1.32-3.57) K/mm3 [place] # (Auto) 1.75 H (0.30-0.82) K/mm3 Eos # (Auto) 0.00 L (0.04-0.54) K/mm3 Baso # (Auto) 0.01 (0.01-0.08) K/mm3 Manual Slide Review Abnormal smear Sodium (136-145) mEq/L Potassium (3.5-5.1) mEq/L Chloride (98-107) mEq/L Carbon Dioxide (21-32) mEq/L Anion Gap (5-15) BUN (7-18) mg/dL Creatinine (0.7-1.3) mg/dL Est Cr Clr Drug Dosing mL/min Estimated GFR (MDRD) (>60) mL/min BUN/Creatinine Ratio (14-18) Glucose (83-115) mg/dL POC Glucose 288 H 330 H (83-110) mg/dL Lactic Acid (0.4-2.0) mmol/L Calcium (8.5-10.1) mg/dL Magnesium (1.8-2.4) mg/dl Troponin I (0.00-0.056) ng/mL C-Reactive Protein (<1.0) mg/dL Free T4 (0.76-1.46) ng/dL TSH 3rd Generation (0.358-3.74) uIU/mL 11/18/17 11/18/17 11/18/17 Range/Units 05:45 05:45 06:17 WBC (4.23-9.07) K/mm3 RBC (4.63-6.08) M/mm3 Hgb (13.7-17.5) gm/L Hct (40.1-51.0) % MCV (79.0-92.2) fl MCH (25.7-32.2) pg MCHC (32.2-35.5) g/dl RDW Std Deviation (35.1-43.9) fL Plt Count (163-337) K/mm3 MPV (9.4-12.3) fl Neut % (Auto) (34.0-67.9) % Lymph % (Auto) (21.8-53.1) % [place] % (Auto) (5.3-12.2) % Eos % (Auto) (0.8-7.0) Baso % (Auto) (0.1-1.2) % Neut # (Auto) (1.78-5.38) K/mm3 Lymph # (Auto) (1.32-3.57) K/mm3 [place] # (Auto) (0.30-0.82) K/mm3 Eos # (Auto) (0.04-0.54) K/mm3 Baso # (Auto) (0.01-0.08) K/mm3 Manual Slide Review Sodium 138 (136-145) mEq/L Potassium 3.2 L (3.5-5.1) mEq/L Chloride 98 (98-107) mEq/L Carbon Dioxide 31 (21-32) mEq/L Anion Gap 12.2 (5-15) BUN 13 (7-18) mg/dL Creatinine 0.6 L (0.7-1.3) mg/dL Est Cr Clr Drug Dosing 77.68 mL/min Estimated GFR (MDRD) > 60 (>60) mL/min BUN/Creatinine Ratio 21.7 H (14-18) Glucose 220 H (83-115) mg/dL POC Glucose 209 H (83-110) mg/dL Lactic Acid 3.0 H (0.4-2.0) mmol/L Calcium 8.3 L (8.5-10.1) mg/dL Magnesium 1.6 L (1.8-2.4) mg/dl Troponin I (0.00-0.056) ng/mL C-Reactive Protein 4.1 H* (<1.0) mg/dL Free T4 (0.76-1.46) ng/dL TSH 3rd Generation (0.358-3.74) uIU/mL Gianni Results Last 24 Hours: Microbiology 11/11/17 18:12 Aerobic Blood Culture - Preliminary Blood - Venous NO GROWTH AFTER 6 DAYS Anaerobic Blood Culture - Preliminary NO GROWTH AFTER 6 DAYS 11/11/17 18:02 Aerobic Blood Culture - Preliminary Blood - Venous - Lab Draw NO GROWTH AFTER 6 DAYS Anaerobic Blood Culture - Preliminary NO GROWTH AFTER 6 DAYS 11/13/17 17:52 Gram Stain - Final Sputum - Expectorated Sputum Culture - Final Noni Tropicalis Med Orders - Current: Current Medications Acetaminophen (Tylenol) 650 mg PO Q6H PRN PRN Reason: Pain/Fever Last Admin: 11/18/17 04:42 Dose: 650 mg Hydrocodone Bitart/Acetaminophen (Lysite 325-5 Mg) 1 tab PO Q6H PRN PRN Reason: Pain Last Admin: 11/17/17 13:06 Dose: 1 tab Albuterol (Proventil Neb Soln) 2.5 mg NEB Q4HRRT PRN PRN Reason: Shortness of Breath Last Admin: 11/17/17 15:22 Dose: 2.5 mg Albuterol/Ipratropium (Duoneb 3.0-0.5 Mg/3 Ml) 3 ml NEB QID PRN PRN Reason: Shortness of Breath Last Admin: 11/18/17 01:28 Dose: 3 ml Apixaban (Eliquis) 2.5 mg PO BID [facility] Last Admin: 11/17/17 21:12 Dose: 2.5 mg Dextrose/Water (Dextrose 50% In Water) 50 ml IVPUSH ASDIRECTED PRN PRN Reason: Hypoglycemia Digoxin (Lanoxin) 125 mcg PO BEDTIME [facility] Last Admin: 11/17/17 21:12 Dose: 125 mcg Diltiazem HCl (Dilacor Xr) 240 mg PO DAILY [facility] Last Admin: 11/17/17 08:43 Dose: 240 mg Fluconazole (Diflucan) 100 mg PO DAILY [facility] Glipizide (Glucotrol) 5 mg PO DAILY [facility] Last Admin: 11/17/17 08:42 Dose: 5 mg Guaifenesin/Codeine Phosphate (Robitussin Ac) 10 ml PO Q6H PRN PRN Reason: Cough Last Admin: 11/13/17 08:44 Dose: 10 ml Levofloxacin/Dextrose 750 mg/ (Premix) 150 mls @ 100 mls/hr IV Q24H [facility] Last Admin: 11/17/17 08:44 Dose: 100 mls/hr Metronidazole 500 mg/ Premix 100 mls @ 100 mls/hr IV Q8H [facility] Last Admin: 11/18/17 06:13 Dose: 100 mls/hr Vancomycin HCl 1 gm/ Sodium (Chloride) 250 mls @ 166.667 mls/hr IV Q24H [facility] Last Admin: 11/17/17 12:16 Dose: 166.667 mls/hr Insulin Aspart (Novolog) 0 unit SUBCUT QIDACANDBED [facility]; Protocol Last Admin: 11/18/17 06:18 Dose: 4 units Metformin HCl (Glucophage) 500 mg PO BIDMEALS [facility] Last Admin: 11/15/17 06:23 Dose: 500 mg Metoprolol Tartrate (Lopressor) 25 mg PO Q12HR [facility] Last Admin: 11/17/17 20:36 Dose: Not Given Metoprolol Tartrate (Lopressor) 5 mg IVPUSH Q6H PRN PRN Reason: HR>120 Last Admin: 11/17/17 06:36 Dose: 5 mg Pantoprazole Sodium (Protonix) 40 mg PO DAILY@0700 [facility] Last Admin: 11/18/17 06:13 Dose: 40 mg Prednisone (Prednisone) 10 mg PO ONETIME ONE Stop: 11/18/17 09:01 Saccharomyces Boulardii (Florastor) 250 mg PO DAILY [facility] Last Admin: 11/17/17 08:44 Dose: 250 mg Sertraline HCl (Zoloft) 50 mg PO DAILY [facility] Last Admin: 11/17/17 08:44 Dose: 50 mg Sodium Chloride (Saline Flush) 10 ml FLUSH ASDIRECTED PRN PRN Reason: Keep Vein Open Last Admin: 11/11/17 15:39 Dose: 10 ml Sodium Chloride (Saline Flush) 10 ml FLUSH ONETIME PRN PRN Reason: IV FLUSH Last Admin: 11/11/17 17:00 Dose: 10 ml Trazodone HCl (Trazodone) 25 mg PO BEDTIME PRN PRN Reason: Insomnia Last Admin: 11/15/17 21:05 Dose: 25 mg Vancomycin HCl (Pharmacy To Dose - Vancomycin) 1 dose .XX ASDIRECTED [facility] Discontinued Medications Albuterol/Ipratropium (Duoneb 3.0-0.5 Mg/3 Ml) 3 ml NEB ONETIME ONE Stop: 11/11/17 17:40 Last Admin: 11/11/17 17:54 Dose: 3 ml Diltiazem HCl (Cardizem Cd) 240 mg PO DAILY [facility] Last Admin: 11/12/17 08:01 Dose: 240 mg Enoxaparin Sodium (Lovenox) 40 mg SUBCUT Q24H [facility] Last Admin: 11/15/17 21:05 Dose: 40 mg Fluconazole (Diflucan) 200 mg PO ONETIME ONE Stop: 11/17/17 12:01 Last Admin: 11/17/17 12:16 Dose: 200 mg Fluconazole (Diflucan) 100 mg PO Q24H [facility] Last Admin: 11/17/17 12:27 Dose: Not Given Sodium Chloride (Normal Saline) 1,000 mls @ 1,000 mls/hr IV .BOLUS [facility] Last Admin: 11/11/17 15:38 Dose: 1,000 mls/hr Sodium Chloride (Normal Saline) 250 mls @ 80 mls/min IV ASDIRECTED [facility] Last Admin: 11/11/17 17:00 Dose: 80 mls/min Ceftriaxone Sodium 2 gm/ (Sodium Chloride) 100 mls @ 100 mls/hr IV ONETIME ONE Stop: 11/11/17 18:38 Last Admin: 11/11/17 18:22 Dose: 100 mls/hr Sodium Chloride (Normal Saline) 1,000 mls @ 999 mls/hr IV ONETIME ONE Stop: 11/11/17 19:11 Last Admin: 11/11/17 18:19 Dose: 999 mls/hr Sodium Chloride (Normal Saline) 1,000 mls @ 999 mls/hr IV ONETIME ONE Stop: 11/11/17 19:13 Last Admin: 11/11/17 18:22 Dose: Not Given Sodium Chloride (Normal Saline) 1,000 mls @ 1,000 mls/hr IV ONETIME ONE Stop: 11/11/17 19:16 Last Admin: 11/11/17 20:31 Dose: 1,000 mls/hr Ceftriaxone Sodium 2 gm/ (Sodium Chloride) 100 mls @ 200 mls/hr IV Q12H [facility] Last Admin: 11/12/17 06:50 Dose: 200 mls/hr Potassium Chloride/Sodium Chloride (Normal Saline With 20 Meq Kcl) 1,000 mls @ 75 mls/hr IV ASDIRECTED [facility] Last Admin: 11/15/17 11:49 Dose: 75 mls/hr Ceftriaxone Sodium 2 gm/ (Dextrose/Water) 100 mls @ 200 mls/hr IV Q12H [facility] Magnesium Sulfate 2 gm/ Premix 50 mls @ 25 mls/hr IV Q2H [facility] Stop: 11/12/17 15:23 Last Admin: 11/12/17 16:13 Dose: 25 mls/hr Levofloxacin/Dextrose 750 mg/ (Premix) 150 mls @ 100 mls/hr IV Q24H [facility] Last Admin: 11/16/17 09:06 Dose: 100 mls/hr Metronidazole 500 mg/ Premix 100 mls @ 100 mls/hr IV Q8H [place] Stop: 11/17/17 05:00 Last Admin: 11/16/17 22:07 Dose: 100 mls/hr Magnesium Sulfate 2 gm/ Premix 50 mls @ 25 mls/hr IV ONETIME ONE Stop: 11/14/17 10:42 Last Admin: 11/14/17 12:14 Dose: 25 mls/hr Magnesium Sulfate 2 gm/ Premix 50 mls @ 25 mls/hr IV ONETIME ONE Stop: 11/15/17 18:36 Last Admin: 11/15/17 17:31 Dose: 25 mls/hr Magnesium Sulfate 2 gm/ Premix 50 mls @ 25 mls/hr IV ONETIME ONE Stop: 11/16/17 15:44 Last Admin: 11/16/17 14:20 Dose: 25 mls/hr Magnesium Sulfate 2 gm/ Premix 50 mls @ 25 mls/hr IV ONETIME ONE Stop: 11/17/17 09:59 Last Admin: 11/17/17 10:20 Dose: 25 mls/hr Insulin Aspart (Novolog) 0 unit SUBCUT Q6H [facility]; Protocol Last Admin: 11/11/17 22:24 Dose: Not Given Insulin Aspart (Novolog) 0 unit SUBCUT Q6H [facility]; Protocol Last Admin: 11/12/17 23:46 Dose: Not Given Insulin Aspart (Novolog) 0 unit SUBCUT QIDACANDBED [facility]; Protocol Last Admin: 11/13/17 12:02 Dose: 4 units Iopamidol (Isovue-370 (76%)) 100 ml IVPUSH ONETIME ONE Stop: 11/11/17 16:33 Last Admin: 11/11/17 17:00 Dose: 100 ml Levofloxacin (Levaquin) 750 mg PO DAILY [facility] Methylprednisolone Sodium Succinate (Solu-Medrol) 80 mg IVPUSH Q8H [facility] Last Admin: 11/13/17 04:26 Dose: 80 mg Methylprednisolone Sodium Succinate (Solu-Medrol) 40 mg IVPUSH Q8H [facility] Last Admin: 11/14/17 12:20 Dose: 40 mg Metronidazole (Flagyl) 500 mg PO Q8H [facility] Last Admin: 11/17/17 06:20 Dose: 500 mg Potassium Chloride (Klor-Con M20) 40 meq PO BID [place] Stop: 11/17/17 09:01 Last Admin: 11/17/17 08:41 Dose: 40 meq Prednisone (Prednisone) 40 mg PO ONETIME ONE Stop: 11/15/17 09:01 Last Admin: 11/15/17 08:43 Dose: 40 mg Prednisone (Prednisone) 30 mg PO ONETIME ONE Stop: 11/16/17 09:01 Last Admin: 11/16/17 09:05 Dose: 30 mg Prednisone (Prednisone) 20 mg PO ONETIME ONE Stop: 11/17/17 09:01 Last Admin: 11/17/17 08:43 Dose: 20 mg Temazepam (Restoril) 7.5 mg PO BEDTIME PRN PRN Reason: Insomnia Tuberculin PPD (Aplisol) 5 unit IDERM ONETIME ONE Stop: 11/12/17 11:16 Last Admin: 11/12/17 14:00 Dose: 5 unit - Exam Quality Assessment: Supplemental Oxygen, DVT Prophylaxis General: Alert, Oriented, Cooperative, No Acute Distress HEENT: Pupils Equal, Pupils Reactive, EOMI, Mucous Membr. Moist/[place] Neck: Supple, Trachea Midline Lungs: Normal Respiratory Effort, Crackles, Wheezing Cardiovascular: Regular Rate, Irregular Rhythm GI/Abdominal Exam: Normal Bowel Sounds, Soft, Non-Tender, No Organomegaly, No Distention, No Abnormal Bruit, No Mass, Pelvis Stable (Male) Exam: Deferred Back Exam: Normal Inspection, Full Range of Motion Extremities: Normal Inspection, Normal Range of Motion, Non-Tender, No Pedal Edema, Normal Capillary Refill Peripheral Pulses: 2+: Radial (L), Radial (R), Posterior Tibial (L), Posterior Tibial (R), Dorsalis Pedis (L), Dorsalis Pedis (R) Skin: Warm, Dry, Intact Neurological: No New Focal Deficit Psy/Mental Status: Alert, Depressed - Problem List & Annotations (1) Body mass index (BMI) 19.9 or less, adult SNOMED Code(s): 661817081 Code(s): Z68.1 - BODY MASS INDEX (BMI) 19.9 OR LESS, ADULT Status: Acute Priority: High Current Visit: Yes (2) A-fib SNOMED Code(s): 27770689 Code(s): I48.91 - UNSPECIFIED ATRIAL FIBRILLATION Status: Acute Priority : High Current Visit: Yes Qualifiers: Atrial fibrillation type: unspecified Qualified Code(s): I48.91 - Unspecified atrial fibrillation (3) Chest pain SNOMED Code(s): 05454289 Code(s): R07.9 - CHEST PAIN, UNSPECIFIED Status: Acute Priority: High Current Visit: Yes Qualifiers: Chest pain type: unspecified Qualified Code(s): R07.9 - Chest pain, unspecified (4) Diabetes mellitus type 2 in nonobese SNOMED Code(s): 899872852 Code(s): E11.9 - TYPE 2 DIABETES MELLITUS WITHOUT COMPLICATIONS Status: Chronic Priority: Medium Current Visit: Yes (5) Dysphagia SNOMED Code(s): 20141501, 044480739 Code(s): R13.10 - DYSPHAGIA, UNSPECIFIED Status: Acute Priority: High Current Visit: Yes Qualifiers: Dysphagia type: unspecified Qualified Code(s): R13.10 - Dysphagia, unspecified (6) Emphysema lung SNOMED Code(s): 60289045 Code(s): J43.9 - EMPHYSEMA, UNSPECIFIED Status: Chronic Priority: High Current Visit: Yes Qualifiers: Emphysema type: unspecified Qualified Code(s): J43.9 - Emphysema, unspecified (7) Fibrosis lung SNOMED Code(s): 44800233 Code(s): J84.10 - PULMONARY FIBROSIS, UNSPECIFIED Status: Chronic Priority: High Current Visit: Yes (8) Hyperlipidemia SNOMED Code(s): 87079671 Code(s): E78.5 - HYPERLIPIDEMIA, UNSPECIFIED Status: Chronic Priority: Low Current Visit: No Qualifiers: Hyperlipidemia type: unspecified Qualified Code(s): E78.5 - Hyperlipidemia , unspecified (9) Hypertension SNOMED Code(s): 77049933 Code(s): I10 - ESSENTIAL (PRIMARY) HYPERTENSION Status: Chronic Priority : Low Current Visit: No Qualifiers: Hypertension type: unspecified Qualified Code(s): I10 - Essential (primary ) hypertension (10) Hypoxia SNOMED Code(s): 790785083 Code(s): R09.02 - HYPOXEMIA Status: Acute Priority: High Current Visit : Yes (11) Pneumonia SNOMED Code(s): 706095197 Code(s): J18.9 - PNEUMONIA, UNSPECIFIED ORGANISM Status: Acute Priority: High Current Visit: Yes Qualifiers: Pneumonia type: due to unspecified organism Laterality: right Lung location: lower lobe of lung Qualified Code(s): J18.1 - Lobar pneumonia, unspecified organism (12) Failure to thrive in adult SNOMED Code(s): 424813793 Code(s): R62.7 - ADULT FAILURE TO THRIVE Status: Acute Priority: High Current Visit: Yes (13) Pulmonary nodules SNOMED Code(s): 473823707 Code(s): R91.8 - OTHER NONSPECIFIC ABNORMAL FINDING OF LUNG FIELD Status: Acute Priority: High Current Visit: Yes (14) Malnutrition SNOMED Code(s): 53224312 Code(s): E46 - UNSPECIFIED PROTEIN-CALORIE MALNUTRITION Status: Acute Priority: High Current Visit: Yes Qualifiers: Malnutrition type: unspecified type Qualified Code(s): E46 - Unspecified protein-calorie malnutrition - Problem List Review Problem List Initiated/Reviewed/Updated: Yes - My Orders Last 24 Hours: My Active Orders 11/17/17 07:43 Admission Status [Patient Status] [ADT] Routine 11/17/17 07:45 Vancomycin Pharmacy to Dose [Pharmacy to Dose - Vancomycin] 1 dose .XX ASDIRECTED 11/17/17 10:25 Acetaminophen/HYDROcodone [Lysite 325-5 MG] 1 tab PO Q6H PRN 11/17/17 10:37 Ambulate [RC] QID 11/17/17 11:30 Vancomycin [Vancocin] 1 gm Sodium Chloride 0.9% [Normal Saline] 250 ml IV Q24H 11/17/17 14:14 Turn, Cough, Deep Breathe [RC] Q2HWA 11/18/17 09:00 Fluconazole [Diflucan] 100 mg PO DAILY - Plan Plan:: Impression: 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 Cancer evaluation--TBD CT of chest 11/14/17 consistent with CTA CODING QUALITY ANALYST eval - Dysphagia diet Home meds Ambulate QID Pulmonary toilet Daily labs; replace electrolytes as needed. Acchuchecks Q AC/HS; decrease glyburide/metformin Dietary consult for wt gain Adjust cardiac meds; stop Coumadin--does not adhere to medical regimen with fluctuations in INR; will start Eliquis 2.5 mg BID DVT/GI prophylaxis Echo (11/16/17): 1. LVEF of 50-50% 2. Mild proximal septal hypertrophy 3. Severely calcified aortic valve with mild regurgitation and moderate stenosis. Incomplete assessment of aortic valve. 4. Mild mitral valve regurgitation 5. Moderate to severe tricuspid valve regurgitation 6. The right ventricular systolic pressure is severely elevated at 58.7 mmHg. 7. Severe biatrial dilation. SNF at [facility]; code status changed to DNR/DNI on 11/15/17. LOS>96 hours with treatment for PNA and possible placement.
[2017-11-18] MEDS: Saccharomyces Boulardii (Probiotic) 250 MG Cap PO SCH (08:57)
[2017-11-18] MEDS: Fluconazole 100 MG Tab PO SCH (08:58)
[2017-11-18] MEDS: Acetaminophen/HYDROcodone 325-5 MG Tab PO PRN (08:58)
[2017-11-18] MEDS: Sertraline 50 MG Tab PO SCH (08:58)
[2017-11-18] MEDS: Apixaban 5 MG Tab PO SCH ×2 (08:59→20:31)
[2017-11-18] MEDS: Metoprolol Tartrate 25 MG Tab PO SCH ×2 (08:59→20:30)
[2017-11-18] MEDS ORDERED: predniSONE 10 MG Tab PO ONE (09:00)
[2017-11-18] MEDS: Potassium Chloride 20 MEQ Tab.ER PO SCH ×2 (09:03→12:12)
[2017-11-18] MEDS: Levofloxacin/Dextrose 5%-Water 750 MG in Premix Bag 1 BAG IV SCH (09:03)
[2017-11-18] MEDS: Diltiazem 240 MG Cap.ER PO SCH (09:03)
[2017-11-18] MEDS ORDERED: HYDROmorphone 0.5 MG/0.5 ML SYRINGE IVPUSH PRN (11:14)
[2017-11-18] MEDS ORDERED: Megestrol Susp 40 MG/ML 10 ML UD Cup PO SCH (13:15)
[2017-11-18] MEDS: Morphine 2 MG/ML Syringe IVPUSH PRN ×2 (15:55→22:32)
[2017-11-18] MEDS: Digoxin 125 MCG Tab PO SCH (20:32)
[2017-11-19] MEDS: Pantoprazole 40 MG Tab.CR PO SCH (06:01)
[2017-11-19] MEDS: metroNIDAZOLE/Normal Saline 500 MG in Premix Bag 1 BAG IV SCH ×3 (06:01→23:15)
[2017-11-19] MEDS: Albuterol 0.083% 2.5 MG/3 ML Neb Soln NEB PRN (06:03)
[2017-11-19] MEDS: Acetaminophen 325 MG Tab PO PRN (06:19)
[2017-11-19] MEDS: Insulin Aspart 100 Units/ML 3 ML Pen SUBCUT SCH ×4 (08:58→23:20)
[2017-11-19] MEDS: Fluconazole 100 MG Tab PO SCH (08:59)
[2017-11-19] MEDS: Saccharomyces Boulardii (Probiotic) 250 MG Cap PO SCH (08:59)
[2017-11-19] MEDS: Diltiazem 240 MG Cap.ER PO SCH (08:59)
[2017-11-19] MEDS: Metoprolol Tartrate 25 MG Tab PO SCH ×2 (09:00→20:33)
[2017-11-19] MEDS: Levofloxacin/Dextrose 5%-Water 750 MG in Premix Bag 1 BAG IV SCH (09:00)
[2017-11-19] MEDS ORDERED: Megestrol Susp 40 MG/ML 10 ML UD Cup PO SCH (09:00)
[2017-11-19] MEDS: Apixaban 5 MG Tab PO SCH ×2 (09:00→20:32)
[2017-11-19] MEDS: Sertraline 50 MG Tab PO SCH (09:01)
[2017-11-19] MEDS: Albuterol/Ipratropium 3.0-0.5 MG/3 ML Neb Soln NEB PRN ×2 (09:22→14:29)
[2017-11-19] MEDS: Acetaminophen/HYDROcodone 325-5 MG Tab PO PRN (12:50)
--- NOTE | 2017-11-19 13:56 | PCM.PN ---
- General Info Date of Service: 11/19/17 Functional Status: Reports: Pain Controlled, Tolerating Diet, Urinating - Review of Systems General: Reports: Weakness HEENT: Reports: No Symptoms Pulmonary: Reports: Shortness of Breath Cardiovascular: Reports: No Symptoms Gastrointestinal: Reports: No Symptoms Genitourinary: Reports: No Symptoms Musculoskeletal: Reports: No Symptoms Skin: Reports: No Symptoms Neurological: Reports: No Symptoms Psychiatric: Reports: No Symptoms - Patient Data Vitals - Most Recent: Last Vital Signs Temp 36.6 C 11/19/17 08:00 Pulse 100 11/19/17 09:00 Resp 20 11/19/17 08:00 BP 119/90 11/19/17 09:00 Pulse Ox 93 L 11/19/17 09:22 Weight - Most Recent: 56.245 kg I&O - Last 24 Hours: Intake & Output 11/18/17 11/19/17 11/19/17 22:59 06:59 14:59 Intake Total 870 160 Output Total 250 Balance 870 -90 Lab Results Last 24 Hours: Laboratory Results - last 24 hr 11/17/17 11/18/17 11/18/17 Range/Units 06:24 18:09 20:51 WBC (4.23-9.07) K/mm3 RBC (4.63-6.08) M/mm3 Hgb (13.7-17.5) gm/L Hct (40.1-51.0) % MCV (79.0-92.2) fl MCH (25.7-32.2) pg MCHC (32.2-35.5) g/dl RDW Std Deviation (35.1-43.9) fL Plt Count (163-337) K/mm3 MPV (9.4-12.3) fl Neut % (Auto) (34.0-67.9) % Lymph % (Auto) (21.8-53.1) % Holmes % (Auto) (5.3-12.2) % Eos % (Auto) (0.8-7.0) Baso % (Auto) (0.1-1.2) % Neut # (Auto) (1.78-5.38) K/mm3 Lymph # (Auto) (1.32-3.57) K/mm3 Holmes # (Auto) (0.30-0.82) K/mm3 Eos # (Auto) (0.04-0.54) K/mm3 Baso # (Auto) (0.01-0.08) K/mm3 Manual Slide Review Sodium (136-145) mEq/L Potassium (3.5-5.1) mEq/L Chloride (98-107) mEq/L Carbon Dioxide (21-32) mEq/L Anion Gap (5-15) BUN (7-18) mg/dL Creatinine (0.7-1.3) mg/dL Est Cr Clr Drug Dosing mL/min Estimated GFR (MDRD) (>60) mL/min BUN/Creatinine Ratio (14-18) Glucose (83-115) mg/dL POC Glucose 233 H 167 H (83-110) mg/dL Hemoglobin A1c 7.60 H (4.50-6.20) % Lactic Acid (0.4-2.0) mmol/L Calcium (8.5-10.1) mg/dL Magnesium (1.8-2.4) mg/dl C-Reactive Protein (<1.0) mg/dL 11/19/17 11/19/17 11/19/17 Range/Units 05:45 05:45 05:45 WBC 16.86 H (4.23-9.07) K/mm3 RBC 4.49 L (4.63-6.08) M/mm3 Hgb 12.7 L (13.7-17.5) gm/L Hct 38.6 L (40.1-51.0) % MCV 86.0 (79.0-92.2) fl MCH 28.3 (25.7-32.2) pg MCHC 32.9 (32.2-35.5) g/dl RDW Std Deviation 50.6 H (35.1-43.9) fL Plt Count 296 (163-337) K/mm3 MPV 10.3 (9.4-12.3) fl Neut % (Auto) 78.2 H (34.0-67.9) % Lymph % (Auto) 8.4 L (21.8-53.1) % Holmes % (Auto) 13.0 H (5.3-12.2) % Eos % (Auto) 0.2 L (0.8-7.0) Baso % (Auto) 0.0 L (0.1-1.2) % Neut # (Auto) 13.18 H (1.78-5.38) K/mm3 Lymph # (Auto) 1.42 (1.32-3.57) K/mm3 Holmes # (Auto) 2.20 H (0.30-0.82) K/mm3 Eos # (Auto) 0.03 L (0.04-0.54) K/mm3 Baso # (Auto) 0.00 L (0.01-0.08) K/mm3 Manual Slide Review Abnormal smear Sodium 135 L (136-145) mEq/L Potassium 3.5 (3.5-5.1) mEq/L Chloride 96 L (98-107) mEq/L Carbon Dioxide 30 (21-32) mEq/L Anion Gap 12.5 (5-15) BUN 11 (7-18) mg/dL Creatinine 0.5 L (0.7-1.3) mg/dL Est Cr Clr Drug Dosing 93.74 mL/min Estimated GFR (MDRD) > 60 (>60) mL/min BUN/Creatinine Ratio 22.0 H (14-18) Glucose 191 H (83-115) mg/dL POC Glucose (83-110) mg/dL Hemoglobin A1c (4.50-6.20) % Lactic Acid 3.0 H (0.4-2.0) mmol/L Calcium 8.8 (8.5-10.1) mg/dL Magnesium 1.5 L (1.8-2.4) mg/dl C-Reactive Protein 4.9 H* (<1.0) mg/dL 11/19/17 11/19/17 Range/Units 05:46 12:56 WBC (4.23-9.07) K/mm3 RBC (4.63-6.08) M/mm3 Hgb (13.7-17.5) gm/L Hct (40.1-51.0) % MCV (79.0-92.2) fl MCH (25.7-32.2) pg MCHC (32.2-35.5) g/dl RDW Std Deviation (35.1-43.9) fL Plt Count (163-337) K/mm3 MPV (9.4-12.3) fl Neut % (Auto) (34.0-67.9) % Lymph % (Auto) (21.8-53.1) % Holmes % (Auto) (5.3-12.2) % Eos % (Auto) (0.8-7.0) Baso % (Auto) (0.1-1.2) % Neut # (Auto) (1.78-5.38) K/mm3 Lymph # (Auto) (1.32-3.57) K/mm3 Holmes # (Auto) (0.30-0.82) K/mm3 Eos # (Auto) (0.04-0.54) K/mm3 Baso # (Auto) (0.01-0.08) K/mm3 Manual Slide Review Sodium (136-145) mEq/L Potassium (3.5-5.1) mEq/L Chloride (98-107) mEq/L Carbon Dioxide (21-32) mEq/L Anion Gap (5-15) BUN (7-18) mg/dL Creatinine (0.7-1.3) mg/dL Est Cr Clr Drug Dosing mL/min Estimated GFR (MDRD) (>60) mL/min BUN/Creatinine Ratio (14-18) Glucose (83-115) mg/dL POC Glucose 181 H 234 H (83-110) mg/dL Hemoglobin A1c (4.50-6.20) % Lactic Acid (0.4-2.0) mmol/L Calcium (8.5-10.1) mg/dL Magnesium (1.8-2.4) mg/dl C-Reactive Protein (<1.0) mg/dL Gianni Results Last 24 Hours: Microbiology 11/11/17 18:12 Aerobic Blood Culture - Final Blood - Venous NO GROWTH AFTER 7 DAYS Anaerobic Blood Culture - Final NO GROWTH AFTER 7 DAYS 11/11/17 18:02 Aerobic Blood Culture - Final Blood - Venous - Lab Draw NO GROWTH AFTER 7 DAYS Anaerobic Blood Culture - Final NO GROWTH AFTER 7 DAYS Med Orders - Current: Current Medications Acetaminophen (Tylenol) 650 mg PO Q6H PRN PRN Reason: Pain/Fever Last Admin: 11/19/17 06:19 Dose: 650 mg Hydrocodone Bitart/Acetaminophen ([place] 325-5 Mg) 1 tab PO Q6H PRN PRN Reason: Pain Last Admin: 11/19/17 12:50 Dose: 1 tab Albuterol (Proventil Neb Soln) 2.5 mg NEB Q4HRRT PRN PRN Reason: Shortness of Breath Last Admin: 11/19/17 06:03 Dose: 2.5 mg Albuterol/Ipratropium (Duoneb 3.0-0.5 Mg/3 Ml) 3 ml NEB QID PRN PRN Reason: Shortness of Breath Last Admin: 11/19/17 09:22 Dose: 3 ml Apixaban (Eliquis) 2.5 mg PO BID [facility] Last Admin: 11/19/17 09:00 Dose: 2.5 mg Dextrose/Water (Dextrose 50% In Water) 50 ml IVPUSH ASDIRECTED PRN PRN Reason: Hypoglycemia Digoxin (Lanoxin) 125 mcg PO BEDTIME [facility] Last Admin: 11/18/17 20:32 Dose: 125 mcg Diltiazem HCl (Dilacor Xr) 240 mg PO DAILY [facility] Last Admin: 11/19/17 08:59 Dose: 240 mg Fluconazole (Diflucan) 100 mg PO DAILY [facility] Last Admin: 11/19/17 08:59 Dose: 100 mg Glipizide (Glucotrol) 5 mg PO DAILY [facility] Last Admin: 11/19/17 09:01 Dose: 5 mg Guaifenesin/Codeine Phosphate (Robitussin Ac) 10 ml PO Q6H PRN PRN Reason: Cough Last Admin: 11/13/17 08:44 Dose: 10 ml Levofloxacin/Dextrose 750 mg/ (Premix) 150 mls @ 100 mls/hr IV Q24H [facility] Last Admin: 11/19/17 09:00 Dose: 100 mls/hr Metronidazole 500 mg/ Premix 100 mls @ 100 mls/hr IV Q8H [facility] Last Admin: 11/19/17 06:01 Dose: 100 mls/hr Vancomycin HCl 1 gm/ Sodium (Chloride) 250 mls @ 166.667 mls/hr IV Q24H [facility] Last Admin: 11/19/17 12:55 Dose: 166.667 mls/hr Insulin Aspart (Novolog) 0 unit SUBCUT QIDACANDBED [facility]; Protocol Last Admin: 11/19/17 12:58 Dose: 4 units Megestrol Acetate (Megace 40 Mg/Ml Susp) 400 mg PO DAILY [facility] Last Admin: 11/19/17 08:59 Dose: 400 mg Metformin HCl (Glucophage) 500 mg PO BIDMEALS [facility] Last Admin: 11/15/17 06:23 Dose: 500 mg Metoprolol Tartrate (Lopressor) 25 mg PO Q12HR [facility] Last Admin: 11/19/17 09:00 Dose: 25 mg Metoprolol Tartrate (Lopressor) 5 mg IVPUSH Q6H PRN PRN Reason: HR>120 Last Admin: 11/17/17 06:36 Dose: 5 mg Morphine Sulfate (Morphine) 0.5 mg IVPUSH Q2H PRN PRN Reason: Pain/SOB Last Admin: 11/18/17 22:32 Dose: 0.5 mg Pantoprazole Sodium (Protonix) 40 mg PO DAILY@0700 [facility] Last Admin: 11/19/17 06:01 Dose: 40 mg Saccharomyces Boulardii (Florastor) 250 mg PO DAILY [facility] Last Admin: 11/19/17 08:59 Dose: 250 mg Sertraline HCl (Zoloft) 50 mg PO DAILY [facility] Last Admin: 11/19/17 09:01 Dose: 50 mg Sodium Chloride (Saline Flush) 10 ml FLUSH ASDIRECTED PRN PRN Reason: Keep Vein Open Last Admin: 11/11/17 15:39 Dose: 10 ml Sodium Chloride (Saline Flush) 10 ml FLUSH ONETIME PRN PRN Reason: IV FLUSH Last Admin: 11/11/17 17:00 Dose: 10 ml Trazodone HCl (Trazodone) 25 mg PO BEDTIME PRN PRN Reason: Insomnia Last Admin: 11/15/17 21:05 Dose: 25 mg Vancomycin HCl (Pharmacy To Dose - Vancomycin) 1 dose .XX ASDIRECTED [facility] Discontinued Medications Albuterol/Ipratropium (Duoneb 3.0-0.5 Mg/3 Ml) 3 ml NEB ONETIME ONE Stop: 11/11/17 17:40 Last Admin: 11/11/17 17:54 Dose: 3 ml Diltiazem HCl (Cardizem Cd) 240 mg PO DAILY [facility] Last Admin: 11/12/17 08:01 Dose: 240 mg Enoxaparin Sodium (Lovenox) 40 mg SUBCUT Q24H [facility] Last Admin: 11/15/17 21:05 Dose: 40 mg Fluconazole (Diflucan) 200 mg PO ONETIME ONE Stop: 11/17/17 12:01 Last Admin: 11/17/17 12:16 Dose: 200 mg Fluconazole (Diflucan) 100 mg PO Q24H [facility] Last Admin: 11/17/17 12:27 Dose: Not Given Hydromorphone HCl (Dilaudid) 0.5 mg IVPUSH Q6H PRN PRN Reason: Pain (severe 7-10) Sodium Chloride (Normal Saline) 1,000 mls @ 1,000 mls/hr IV .BOLUS [facility] Last Admin: 11/11/17 15:38 Dose: 1,000 mls/hr Sodium Chloride (Normal Saline) 250 mls @ 80 mls/min IV ASDIRECTED [facility] Last Admin: 11/11/17 17:00 Dose: 80 mls/min Ceftriaxone Sodium 2 gm/ (Sodium Chloride) 100 mls @ 100 mls/hr IV ONETIME ONE Stop: 11/11/17 18:38 Last Admin: 11/11/17 18:22 Dose: 100 mls/hr Sodium Chloride (Normal Saline) 1,000 mls @ 999 mls/hr IV ONETIME ONE Stop: 11/11/17 19:11 Last Admin: 11/11/17 18:19 Dose: 999 mls/hr Sodium Chloride (Normal Saline) 1,000 mls @ 999 mls/hr IV ONETIME ONE Stop: 11/11/17 19:13 Last Admin: 11/11/17 18:22 Dose: Not Given Sodium Chloride (Normal Saline) 1,000 mls @ 1,000 mls/hr IV ONETIME ONE Stop: 11/11/17 19:16 Last Admin: 11/11/17 20:31 Dose: 1,000 mls/hr Ceftriaxone Sodium 2 gm/ (Sodium Chloride) 100 mls @ 200 mls/hr IV Q12H [facility] Last Admin: 11/12/17 06:50 Dose: 200 mls/hr Potassium Chloride/Sodium Chloride (Normal Saline With 20 Meq Kcl) 1,000 mls @ 75 mls/hr IV ASDIRECTED [facility] Last Admin: 11/15/17 11:49 Dose: 75 mls/hr Ceftriaxone Sodium 2 gm/ (Dextrose/Water) 100 mls @ 200 mls/hr IV Q12H [facility] Magnesium Sulfate 2 gm/ Premix 50 mls @ 25 mls/hr IV Q2H [facility] Stop: 11/12/17 15:23 Last Admin: 11/12/17 16:13 Dose: 25 mls/hr Levofloxacin/Dextrose 750 mg/ (Premix) 150 mls @ 100 mls/hr IV Q24H [facility] Last Admin: 11/16/17 09:06 Dose: 100 mls/hr Metronidazole 500 mg/ Premix 100 mls @ 100 mls/hr IV Q8H [facility] Stop: 11/17/17 05:00 Last Admin: 11/16/17 22:07 Dose: 100 mls/hr Magnesium Sulfate 2 gm/ Premix 50 mls @ 25 mls/hr IV ONETIME ONE Stop: 11/14/17 10:42 Last Admin: 11/14/17 12:14 Dose: 25 mls/hr Magnesium Sulfate 2 gm/ Premix 50 mls @ 25 mls/hr IV ONETIME ONE Stop: 11/15/17 18:36 Last Admin: 11/15/17 17:31 Dose: 25 mls/hr Magnesium Sulfate 2 gm/ Premix 50 mls @ 25 mls/hr IV ONETIME ONE Stop: 11/16/17 15:44 Last Admin: 11/16/17 14:20 Dose: 25 mls/hr Magnesium Sulfate 2 gm/ Premix 50 mls @ 25 mls/hr IV ONETIME ONE Stop: 11/17/17 09:59 Last Admin: 11/17/17 10:20 Dose: 25 mls/hr Insulin Aspart (Novolog) 0 unit SUBCUT Q6H [facility]; Protocol Last Admin: 11/11/17 22:24 Dose: Not Given Insulin Aspart (Novolog) 0 unit SUBCUT Q6H [facility]; Protocol Last Admin: 11/12/17 23:46 Dose: Not Given Insulin Aspart (Novolog) 0 unit SUBCUT QIDACANDBED [facility]; Protocol Last Admin: 11/13/17 12:02 Dose: 4 units Iopamidol (Isovue-370 (76%)) 100 ml IVPUSH ONETIME ONE Stop: 11/11/17 16:33 Last Admin: 11/11/17 17:00 Dose: 100 ml Levofloxacin (Levaquin) 750 mg PO DAILY [facility] Megestrol Acetate (Megace 40 Mg/Ml Susp) 40 mg PO DAILY [facility] Last Admin: 11/18/17 14:40 Dose: 40 mg Methylprednisolone Sodium Succinate (Solu-Medrol) 80 mg IVPUSH Q8H [facility] Last Admin: 11/13/17 04:26 Dose: 80 mg Methylprednisolone Sodium Succinate (Solu-Medrol) 40 mg IVPUSH Q8H [facility] Last Admin: 11/14/17 12:20 Dose: 40 mg Metronidazole (Flagyl) 500 mg PO Q8H [facility] Last Admin: 11/17/17 06:20 Dose: 500 mg Potassium Chloride (Klor-Con M20) 40 meq PO BID [facility] Stop: 11/17/17 09:01 Last Admin: 11/17/17 08:41 Dose: 40 meq Potassium Chloride (Klor-Con M20) 40 meq PO Q4H [facility] Stop: 11/18/17 13:01 Last Admin: 11/18/17 12:12 Dose: 40 meq Prednisone (Prednisone) 40 mg PO ONETIME ONE Stop: 11/15/17 09:01 Last Admin: 11/15/17 08:43 Dose: 40 mg Prednisone (Prednisone) 30 mg PO ONETIME ONE Stop: 11/16/17 09:01 Last Admin: 11/16/17 09:05 Dose: 30 mg Prednisone (Prednisone) 20 mg PO ONETIME ONE Stop: 11/17/17 09:01 Last Admin: 11/17/17 08:43 Dose: 20 mg Prednisone (Prednisone) 10 mg PO ONETIME ONE Stop: 11/18/17 09:01 Last Admin: 11/18/17 09:02 Dose: 10 mg Temazepam (Restoril) 7.5 mg PO BEDTIME PRN PRN Reason: Insomnia Tuberculin PPD (Aplisol) 5 unit IDERM ONETIME ONE Stop: 11/12/17 11:16 Last Admin: 11/12/17 14:00 Dose: 5 unit - Exam Quality Assessment: Supplemental Oxygen, DVT Prophylaxis General: Alert, Oriented, Cooperative, No Acute Distress HEENT: Pupils Equal, Pupils Reactive, EOMI Neck: Trachea Midline, No JVD Lungs: Normal Respiratory Effort Cardiovascular: Regular Rate GI/Abdominal Exam: Normal Bowel Sounds, Soft, Non-Tender, No Organomegaly, No Distention (Male) Exam: Deferred Back Exam: Normal Inspection Extremities: Normal Inspection Skin: Warm Neurological: No New Focal Deficit Psy/Mental Status: Alert - Problem List & Annotations (1) Chest pain SNOMED Code(s): 39004940 Code(s): R07.9 - CHEST PAIN, UNSPECIFIED Status: Acute Priority: High Current Visit: Yes Qualifiers: Chest pain type: unspecified Qualified Code(s): R07.9 - Chest pain, unspecified (2) Dysphagia SNOMED Code(s): 36029142, 555181734 Code(s): R13.10 - DYSPHAGIA, UNSPECIFIED Status: Acute Priority: High Current Visit: Yes Qualifiers: Dysphagia type: unspecified Qualified Code(s): R13.10 - Dysphagia, unspecified (3) Emphysema lung SNOMED Code(s): 68271676 Code(s): J43.9 - EMPHYSEMA, UNSPECIFIED Status: Chronic Priority: High Current Visit: Yes Qualifiers: Emphysema type: unspecified Qualified Code(s): J43.9 - Emphysema, unspecified (4) Fibrosis lung SNOMED Code(s): 84032047 Code(s): J84.10 - PULMONARY FIBROSIS, UNSPECIFIED Status: Chronic Priority: High Current Visit: Yes (5) Hypoxia SNOMED Code(s): 282663230 Code(s): R09.02 - HYPOXEMIA Status: Acute Priority: High Current Visit : Yes (6) Pneumonia SNOMED Code(s): 424432935 Code(s): J18.9 - PNEUMONIA, UNSPECIFIED ORGANISM Status: Acute Priority: High Current Visit: Yes Qualifiers: Pneumonia type: due to unspecified organism Laterality: right Lung location: lower lobe of lung Qualified Code(s): J18.1 - Lobar pneumonia, unspecified organism (7) Hypomagnesemia SNOMED Code(s): 291551482 Code(s): E83.42 - HYPOMAGNESEMIA Status: Acute Current Visit: No (8) Hypertension SNOMED Code(s): 07973144 Code(s): I10 - ESSENTIAL (PRIMARY) HYPERTENSION Status: Chronic Priority : Low Current Visit: No Qualifiers: Hypertension type: unspecified Qualified Code(s): I10 - Essential (primary ) hypertension (9) Diabetes mellitus type 2 in nonobese SNOMED Code(s): 036838933 Code(s): E11.9 - TYPE 2 DIABETES MELLITUS WITHOUT COMPLICATIONS Status: Chronic Priority: Medium Current Visit: Yes (10) BMI 21.0-21.9, adult SNOMED Code(s): 884499288 Code(s): Z68.21 - BODY MASS INDEX (BMI) 21.0-21.9, ADULT Status: Acute Current Visit: Yes (11) Hyperlipidemia SNOMED Code(s): 61671965 Code(s): E78.5 - HYPERLIPIDEMIA, UNSPECIFIED Status: Chronic Priority: Low Current Visit: No Qualifiers: Hyperlipidemia type: unspecified Qualified Code(s): E78.5 - Hyperlipidemia , unspecified (12) A-fib SNOMED Code(s): 11960132 Code(s): I48.91 - UNSPECIFIED ATRIAL FIBRILLATION Status: Acute Priority : High Current Visit: Yes Qualifiers: Atrial fibrillation type: unspecified Qualified Code(s): I48.91 - Unspecified atrial fibrillation - Problem List Review Problem List Initiated/Reviewed/Updated: Yes - My Orders Last 24 Hours: My Active Orders 11/20/17 11:00 VANCOMYCIN TROUGH [CHEM] Timed - Plan Plan:: Impression: 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 Cancer evaluation--TBD CT of chest 11/14/17 consistent with [facility]A [employer] eval - Dysphagia diet Home meds Ambulate QID Pulmonary toilet Daily labs; replace electrolytes as needed. Acchuchecks Q AC/HS; decrease glyburide/metformin Dietary consult for wt gain Adjust cardiac meds; stop Coumadin--does not adhere to medical regimen with fluctuations in INR; will start Eliquis 2.5 mg BID DVT/GI prophylaxis Echo (11/16/17): 1. LVEF of 50-50% 2. Mild proximal septal hypertrophy 3. Severely calcified aortic valve with mild regurgitation and moderate stenosis. Incomplete assessment of aortic valve. 4. Mild mitral valve regurgitation 5. Moderate to severe tricuspid valve regurgitation 6. The right ventricular systolic pressure is severely elevated at 58.7 mmHg. 7. Severe biatrial dilation. SNF at DC; code status changed to DNR/DNI on 11/15/17. LOS>96 hours with treatment; DC likely 11/21/17..
[2017-11-19] MEDS: D5 1/2 NS w/ 20 mEq/L KCl 1,000 ML IV SCH (16:45)
[2017-11-19] MEDS ORDERED: Potassium Chloride 20 MEQ Tab.ER PO SCH (17:00)
[2017-11-19] MEDS: Digoxin 125 MCG Tab PO SCH (20:33)
[2017-11-19] MEDS: Megestrol Susp 40 MG/ML 10 ML UD Cup PO SCH (20:33)
[2017-11-20] MEDS: Albuterol/Ipratropium 3.0-0.5 MG/3 ML Neb Soln NEB PRN ×3 (03:18→15:56)
[2017-11-20] MEDS: D5 1/2 NS w/ 20 mEq/L KCl 1,000 ML IV SCH (05:59)
[2017-11-20] MEDS: metroNIDAZOLE/Normal Saline 500 MG in Premix Bag 1 BAG IV SCH (06:00)
[2017-11-20] MEDS: Pantoprazole 40 MG Tab.CR PO SCH (06:01)
[2017-11-20] MEDS: Insulin Aspart 100 Units/ML 3 ML Pen SUBCUT SCH ×4 (06:01→21:53)
[2017-11-20] MEDS: Levofloxacin/Dextrose 5%-Water 750 MG in Premix Bag 1 BAG IV SCH (08:36)
[2017-11-20] MEDS: Saccharomyces Boulardii (Probiotic) 250 MG Cap PO SCH (08:38)
[2017-11-20] MEDS: Megestrol Susp 40 MG/ML 10 ML UD Cup PO SCH ×2 (08:38→20:37)
[2017-11-20] MEDS: Apixaban 5 MG Tab PO SCH ×2 (08:38→20:37)
[2017-11-20] MEDS: Diltiazem 240 MG Cap.ER PO SCH (08:39)
[2017-11-20] MEDS: Sertraline 50 MG Tab PO SCH (08:39)
[2017-11-20] MEDS: Fluconazole 100 MG Tab PO SCH (08:39)
[2017-11-20] MEDS: Metoprolol Tartrate 25 MG Tab PO SCH ×2 (08:40→20:42)
[2017-11-20] MEDS: Acetaminophen 325 MG Tab PO PRN (08:55)
--- NOTE | 2017-11-20 09:55 | PCM.PN ---
- General Info Date of Service: 11/20/17 Subjective Update: The patient is less tired, will increase activity; probable DC 11/21/[address] [facility]. Diet change 2500 ADA, resume metformin; needs high protein drink/high caloric intake. He has no complaints today. Functional Status: Reports: Pain Controlled, Tolerating Diet, Ambulating, Urinating - Review of Systems General: Reports: Weakness HEENT: Reports: No Symptoms Pulmonary: Reports: Shortness of Breath Cardiovascular: Reports: No Symptoms Gastrointestinal: Reports: No Symptoms Genitourinary: Reports: No Symptoms Musculoskeletal: Reports: No Symptoms Skin: Reports: No Symptoms Neurological: Reports: No Symptoms Psychiatric: Reports: No Symptoms - Patient Data Vitals - Most Recent: Last Vital Signs Temp 36.7 C 11/20/17 09:00 Pulse 102 H 11/20/17 08:40 Resp 20 11/20/17 09:00 BP 117/80 11/20/17 09:00 Pulse Ox 92 L 11/20/17 09:21 Weight - Most Recent: 56.155 kg I&O - Last 24 Hours: Intake & Output 11/19/17 11/20/17 11/20/17 22:59 06:59 14:59 Intake Total 620 1086 Output Total 275 Balance 345 1086 Lab Results Last 24 Hours: Laboratory Results - last 24 hr 11/19/17 11/19/17 11/19/17 Range/Units 12:56 19:16 23:19 POC Glucose 234 H 200 H 216 H (83-110) mg/dL Digoxin (0.9-2.0) ng/mL 11/20/17 11/20/17 Range/Units 05:28 05:30 POC Glucose 229 H (83-110) mg/dL Digoxin 0.6 L (0.9-2.0) ng/mL Med Orders - Current: Current Medications Acetaminophen (Tylenol) 650 mg PO Q6H PRN PRN Reason: Pain/Fever Last Admin: 11/20/17 08:55 Dose: 650 mg Hydrocodone Bitart/Acetaminophen (Brick 325-5 Mg) 1 tab PO Q6H PRN PRN Reason: Pain Last Admin: 11/19/17 12:50 Dose: 1 tab Albuterol (Proventil Neb Soln) 2.5 mg NEB Q4HRRT PRN PRN Reason: Shortness of Breath Last Admin: 11/19/17 06:03 Dose: 2.5 mg Albuterol/Ipratropium (Duoneb 3.0-0.5 Mg/3 Ml) 3 ml NEB QID PRN PRN Reason: Shortness of Breath Last Admin: 11/20/17 09:20 Dose: 3 ml Apixaban (Eliquis) 2.5 mg PO BID [facility] Last Admin: 11/20/17 08:38 Dose: 2.5 mg Dextrose/Water (Dextrose 50% In Water) 50 ml IVPUSH ASDIRECTED PRN PRN Reason: Hypoglycemia Digoxin (Lanoxin) 125 mcg PO BEDTIME [facility] Last Admin: 11/19/17 20:33 Dose: 125 mcg Diltiazem HCl (Dilacor Xr) 240 mg PO DAILY [facility] Last Admin: 11/20/17 08:39 Dose: 240 mg Fluconazole (Diflucan) 100 mg PO DAILY [facility] Last Admin: 11/20/17 08:39 Dose: 100 mg Glipizide (Glucotrol) 5 mg PO DAILY [facility] Last Admin: 11/20/17 08:38 Dose: 5 mg Guaifenesin/Codeine Phosphate (Robitussin Ac) 10 ml PO Q6H PRN PRN Reason: Cough Last Admin: 11/13/17 08:44 Dose: 10 ml Levofloxacin/Dextrose 750 mg/ (Premix) 150 mls @ 100 mls/hr IV Q24H [facility] Last Admin: 11/20/17 08:36 Dose: 100 mls/hr Metronidazole 500 mg/ Premix 100 mls @ 100 mls/hr IV Q8H [facility] Last Admin: 11/20/17 06:00 Dose: 100 mls/hr Vancomycin HCl 1 gm/ Sodium (Chloride) 250 mls @ 166.667 mls/hr IV Q24H [facility] Last Admin: 11/19/17 12:55 Dose: 166.667 mls/hr Potassium Chloride/Dextrose/Sod Cl (D5 1/2 Ns W/ 20 Meq/L Kcl) 1,000 mls @ 75 mls/hr IV ASDIRECTED [facility] Last Admin: 11/20/17 05:59 Dose: 75 mls/hr Insulin Aspart (Novolog) 0 unit SUBCUT QIDACANDBED [facility]; Protocol Last Admin: 11/20/17 06:01 Dose: 4 units Megestrol Acetate (Megace 40 Mg/Ml Susp) 400 mg PO BID [facility] Last Admin: 11/20/17 08:38 Dose: 400 mg Metformin HCl (Glucophage) 500 mg PO BIDMEALS [facility] Last Admin: 11/15/17 06:23 Dose: 500 mg Metoprolol Tartrate (Lopressor) 25 mg PO Q12HR [facility] Last Admin: 11/20/17 08:40 Dose: 25 mg Metoprolol Tartrate (Lopressor) 5 mg IVPUSH Q6H PRN PRN Reason: HR>120 Last Admin: 11/17/17 06:36 Dose: 5 mg Morphine Sulfate (Morphine) 0.5 mg IVPUSH Q2H PRN PRN Reason: Pain/SOB Last Admin: 11/18/17 22:32 Dose: 0.5 mg Pantoprazole Sodium (Protonix) 40 mg PO DAILY@0700 [facility] Last Admin: 11/20/17 06:01 Dose: 40 mg Saccharomyces Boulardii (Florastor) 250 mg PO DAILY [facility] Last Admin: 11/20/17 08:38 Dose: 250 mg Sertraline HCl (Zoloft) 50 mg PO DAILY [facility] Last Admin: 11/20/17 08:39 Dose: 50 mg Sodium Chloride (Saline Flush) 10 ml FLUSH ASDIRECTED PRN PRN Reason: Keep Vein Open Last Admin: 11/11/17 15:39 Dose: 10 ml Sodium Chloride (Saline Flush) 10 ml FLUSH ONETIME PRN PRN Reason: IV FLUSH Last Admin: 11/11/17 17:00 Dose: 10 ml Trazodone HCl (Trazodone) 25 mg PO BEDTIME PRN PRN Reason: Insomnia Last Admin: 11/15/17 21:05 Dose: 25 mg Vancomycin HCl (Pharmacy To Dose - Vancomycin) 1 dose .XX ASDIRECTED [facility] Discontinued Medications Albuterol/Ipratropium (Duoneb 3.0-0.5 Mg/3 Ml) 3 ml NEB ONETIME ONE Stop: 11/11/17 17:40 Last Admin: 11/11/17 17:54 Dose: 3 ml Diltiazem HCl (Cardizem Cd) 240 mg PO DAILY [facility] Last Admin: 11/12/17 08:01 Dose: 240 mg Enoxaparin Sodium (Lovenox) 40 mg SUBCUT Q24H [facility] Last Admin: 11/15/17 21:05 Dose: 40 mg Fluconazole (Diflucan) 200 mg PO ONETIME ONE Stop: 11/17/17 12:01 Last Admin: 11/17/17 12:16 Dose: 200 mg Fluconazole (Diflucan) 100 mg PO Q24H [facility] Last Admin: 11/17/17 12:27 Dose: Not Given Hydromorphone HCl (Dilaudid) 0.5 mg IVPUSH Q6H PRN PRN Reason: Pain (severe 7-10) Sodium Chloride (Normal Saline) 1,000 mls @ 1,000 mls/hr IV .BOLUS [facility] Last Admin: 11/11/17 15:38 Dose: 1,000 mls/hr Sodium Chloride (Normal Saline) 250 mls @ 80 mls/min IV ASDIRECTED [facility] Last Admin: 11/11/17 17:00 Dose: 80 mls/min Ceftriaxone Sodium 2 gm/ (Sodium Chloride) 100 mls @ 100 mls/hr IV ONETIME ONE Stop: 11/11/17 18:38 Last Admin: 11/11/17 18:22 Dose: 100 mls/hr Sodium Chloride (Normal Saline) 1,000 mls @ 999 mls/hr IV ONETIME ONE Stop: 11/11/17 19:11 Last Admin: 11/11/17 18:19 Dose: 999 mls/hr Sodium Chloride (Normal Saline) 1,000 mls @ 999 mls/hr IV ONETIME ONE Stop: 11/11/17 19:13 Last Admin: 11/11/17 18:22 Dose: Not Given Sodium Chloride (Normal Saline) 1,000 mls @ 1,000 mls/hr IV ONETIME ONE Stop: 11/11/17 19:16 Last Admin: 11/11/17 20:31 Dose: 1,000 mls/hr Ceftriaxone Sodium 2 gm/ (Sodium Chloride) 100 mls @ 200 mls/hr IV Q12H [facility] Last Admin: 11/12/17 06:50 Dose: 200 mls/hr Potassium Chloride/Sodium Chloride (Normal Saline With 20 Meq Kcl) 1,000 mls @ 75 mls/hr IV ASDIRECTED [facility] Last Admin: 11/15/17 11:49 Dose: 75 mls/hr Ceftriaxone Sodium 2 gm/ (Dextrose/Water) 100 mls @ 200 mls/hr IV Q12H [facility] Magnesium Sulfate 2 gm/ Premix 50 mls @ 25 mls/hr IV Q2H [facility] Stop: 11/12/17 15:23 Last Admin: 11/12/17 16:13 Dose: 25 mls/hr Levofloxacin/Dextrose 750 mg/ (Premix) 150 mls @ 100 mls/hr IV Q24H [facility] Last Admin: 11/16/17 09:06 Dose: 100 mls/hr Metronidazole 500 mg/ Premix 100 mls @ 100 mls/hr IV Q8H [facility] Stop: 11/17/17 05:00 Last Admin: 11/16/17 22:07 Dose: 100 mls/hr Magnesium Sulfate 2 gm/ Premix 50 mls @ 25 mls/hr IV ONETIME ONE Stop: 11/14/17 10:42 Last Admin: 11/14/17 12:14 Dose: 25 mls/hr Magnesium Sulfate 2 gm/ Premix 50 mls @ 25 mls/hr IV ONETIME ONE Stop: 11/15/17 18:36 Last Admin: 11/15/17 17:31 Dose: 25 mls/hr Magnesium Sulfate 2 gm/ Premix 50 mls @ 25 mls/hr IV ONETIME ONE Stop: 11/16/17 15:44 Last Admin: 11/16/17 14:20 Dose: 25 mls/hr Magnesium Sulfate 2 gm/ Premix 50 mls @ 25 mls/hr IV ONETIME ONE Stop: 11/17/17 09:59 Last Admin: 11/17/17 10:20 Dose: 25 mls/hr Insulin Aspart (Novolog) 0 unit SUBCUT Q6H [facility]; Protocol Last Admin: 11/11/17 22:24 Dose: Not Given Insulin Aspart (Novolog) 0 unit SUBCUT Q6H [facility]; Protocol Last Admin: 11/12/17 23:46 Dose: Not Given Insulin Aspart (Novolog) 0 unit SUBCUT QIDACANDBED [facility]; Protocol Last Admin: 11/13/17 12:02 Dose: 4 units Iopamidol (Isovue-370 (76%)) 100 ml IVPUSH ONETIME ONE Stop: 11/11/17 16:33 Last Admin: 11/11/17 17:00 Dose: 100 ml Levofloxacin (Levaquin) 750 mg PO DAILY [facility] Megestrol Acetate (Megace 40 Mg/Ml Susp) 40 mg PO DAILY [facility] Last Admin: 11/18/17 14:40 Dose: 40 mg Megestrol Acetate (Megace 40 Mg/Ml Susp) 400 mg PO DAILY [facility] Last Admin: 11/19/17 08:59 Dose: 400 mg Methylprednisolone Sodium Succinate (Solu-Medrol) 80 mg IVPUSH Q8H [facility] Last Admin: 11/13/17 04:26 Dose: 80 mg Methylprednisolone Sodium Succinate (Solu-Medrol) 40 mg IVPUSH Q8H [facility] Last Admin: 11/14/17 12:20 Dose: 40 mg Metronidazole (Flagyl) 500 mg PO Q8H [facility] Last Admin: 11/17/17 06:20 Dose: 500 mg Potassium Chloride (Klor-Con M20) 40 meq PO BID [facility] Stop: 11/17/17 09:01 Last Admin: 11/17/17 08:41 Dose: 40 meq Potassium Chloride (Klor-Con M20) 40 meq PO Q4H [facility] Stop: 11/18/17 13:01 Last Admin: 11/18/17 12:12 Dose: 40 meq Potassium Chloride (Klor-Con M20) 40 meq PO BIDMEALS [facility] Stop: 11/20/17 17:01 Prednisone (Prednisone) 40 mg PO ONETIME ONE Stop: 11/15/17 09:01 Last Admin: 11/15/17 08:43 Dose: 40 mg Prednisone (Prednisone) 30 mg PO ONETIME ONE Stop: 11/16/17 09:01 Last Admin: 11/16/17 09:05 Dose: 30 mg Prednisone (Prednisone) 20 mg PO ONETIME ONE Stop: 11/17/17 09:01 Last Admin: 11/17/17 08:43 Dose: 20 mg Prednisone (Prednisone) 10 mg PO ONETIME ONE Stop: 11/18/17 09:01 Last Admin: 11/18/17 09:02 Dose: 10 mg Temazepam (Restoril) 7.5 mg PO BEDTIME PRN PRN Reason: Insomnia Tuberculin PPD (Aplisol) 5 unit IDERM ONETIME ONE Stop: 11/12/17 11:16 Last Admin: 11/12/17 14:00 Dose: 5 unit - Exam Quality Assessment: Supplemental Oxygen, DVT Prophylaxis General: Alert, Oriented, Cooperative HEENT: Pupils Equal, Pupils Reactive, EOMI Neck: Trachea Midline, No JVD Lungs: Normal Respiratory Effort, Decreased Breath Sounds, Rhonchi, Wheezing Cardiovascular: Regular Rate, Irregular Rhythm GI/Abdominal Exam: Normal Bowel Sounds, Soft, Non-Tender, No Organomegaly, No Distention (Male) Exam: Deferred Back Exam: Normal Inspection Extremities: Normal Inspection, Non-Tender Skin: Warm Neurological: No New Focal Deficit, Normal Gait, Normal Speech Psy/Mental Status: Alert, Normal Affect, Normal Mood - Problem List & Annotations (1) Chest pain SNOMED Code(s): 59673832 Code(s): R07.9 - CHEST PAIN, UNSPECIFIED Status: Acute Priority: High Current Visit: Yes Qualifiers: Chest pain type: unspecified Qualified Code(s): R07.9 - Chest pain, unspecified (2) Dysphagia SNOMED Code(s): 53933758, 962323427 Code(s): R13.10 - DYSPHAGIA, UNSPECIFIED Status: Acute Priority: High Current Visit: Yes Qualifiers: Dysphagia type: unspecified Qualified Code(s): R13.10 - Dysphagia, unspecified (3) Emphysema lung SNOMED Code(s): 61024631 Code(s): J43.9 - EMPHYSEMA, UNSPECIFIED Status: Chronic Priority: High Current Visit: Yes Qualifiers: Emphysema type: unspecified Qualified Code(s): J43.9 - Emphysema, unspecified (4) Fibrosis lung SNOMED Code(s): 04293309 Code(s): J84.10 - PULMONARY FIBROSIS, UNSPECIFIED Status: Chronic Priority: High Current Visit: Yes (5) Hypoxia SNOMED Code(s): 533912908 Code(s): R09.02 - HYPOXEMIA Status: Acute Priority: High Current Visit : Yes (6) Pneumonia SNOMED Code(s): 504889770 Code(s): J18.9 - PNEUMONIA, UNSPECIFIED ORGANISM Status: Acute Priority: High Current Visit: Yes Qualifiers: Pneumonia type: due to unspecified organism Laterality: right Lung location: lower lobe of lung Qualified Code(s): J18.1 - Lobar pneumonia, unspecified organism (7) Hypomagnesemia SNOMED Code(s): 988943406 Code(s): E83.42 - HYPOMAGNESEMIA Status: Acute Current Visit: No (8) Hypertension SNOMED Code(s): 12419547 Code(s): I10 - ESSENTIAL (PRIMARY) HYPERTENSION Status: Chronic Priority : Low Current Visit: No Qualifiers: Hypertension type: unspecified Qualified Code(s): I10 - Essential (primary ) hypertension (9) Diabetes mellitus type 2 in nonobese SNOMED Code(s): 404002885 Code(s): E11.9 - TYPE 2 DIABETES MELLITUS WITHOUT COMPLICATIONS Status: Chronic Priority: Medium Current Visit: Yes (10) BMI 21.0-21.9, adult SNOMED Code(s): 984107613 Code(s): Z68.21 - BODY MASS INDEX (BMI) 21.0-21.9, ADULT Status: Acute Current Visit: Yes (11) Hyperlipidemia SNOMED Code(s): 09624275 Code(s): E78.5 - HYPERLIPIDEMIA, UNSPECIFIED Status: Chronic Priority: Low Current Visit: No Qualifiers: Hyperlipidemia type: unspecified Qualified Code(s): E78.5 - Hyperlipidemia , unspecified (12) A-fib SNOMED Code(s): 43394139 Code(s): I48.91 - UNSPECIFIED ATRIAL FIBRILLATION Status: Acute Priority : High Current Visit: Yes Qualifiers: Atrial fibrillation type: unspecified Qualified Code(s): I48.91 - Unspecified atrial fibrillation - Problem List Review Problem List Initiated/Reviewed/Updated: Yes - My Orders Last 24 Hours: My Active Orders 11/19/17 16:30 D5 1/2 NS w/ 20 mEq/L KCl 1,000 ml IV ASDIRECTED 11/19/17 21:00 Megestrol [Megace 40 MG/ML Susp] 400 mg PO BID 11/20/17 09:00 CXR [Chest 2V] [CR] Routine 11/20/17 11:00 VANCOMYCIN TROUGH [CHEM] Timed - Plan Plan:: Impression: 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 Acchuchecks Q AC/HS; decrease glyburide/metformin Dietary consult for wt gain Adjust cardiac meds; stop Coumadin--does not adhere to medical regimen with fluctuations in INR; Eliquis 2.5 mg BID DVT/GI prophylaxis Echo (11/16/17): 1. LVEF of 50-50% 2. Mild proximal septal hypertrophy 3. Severely calcified aortic valve with mild regurgitation and moderate stenosis. Incomplete assessment of aortic valve. 4. Mild mitral valve regurgitation 5. Moderate to severe tricuspid valve regurgitation 6. The right ventricular systolic pressure is severely elevated at 58.7 mmHg. 7. Severe biatrial dilation. SNF at DC; code status changed to DNR/DNI on 11/15/17. LOS>96 hours with treatment; DC likely 11/21/17..
--- NOTE | 2017-11-20 12:13 | CR ---
Chest: 2 views of the chest were obtained. Comparison: Prior chest x-ray of 11/16/17. Diffuse interstitial change is noted on both sides of the chest which appears stable. More focal parenchymal density is noted within the right mid and lower lung which appears stable. No acute parenchymal densities are otherwise seen. Tortuous thoracic aorta is seen. Degenerative spurring is noted within the spine. Lungs are hyperinflated compatible with emphysematous change. Impression: 1. Multiple findings as noted above. No significant change is seen from prior chest x-ray. Diagnostic code #3
[2017-11-20] MEDS: metFORMIN 500 MG Tab PO SCH (17:46)
[2017-11-20] MEDS: Gabapentin 100 MG Cap PO SCH (20:42)
[2017-11-20] MEDS: Digoxin 125 MCG Tab PO SCH (20:45)
[2017-11-21] MEDS: Albuterol/Ipratropium 3.0-0.5 MG/3 ML Neb Soln NEB PRN (05:06)
[2017-11-21] MEDS: Acetaminophen/HYDROcodone 325-5 MG Tab PO PRN ×2 (05:38→13:10)
[2017-11-21] MEDS: Pantoprazole 40 MG Tab.CR PO SCH (06:15)
[2017-11-21] MEDS: metFORMIN 500 MG Tab PO SCH (06:15)
--- NOTE | 2017-11-21 06:27 | PCM.DCSUM1 ---
Discharge Summary - Hospital Course HPI Initial Comments: 82 year old male who presented from home has had a decreased appetite reported by patient as three days. He was seen in an outside clinic and was taken to the ED by his daughter. There is a report by his daughter that he has had difficulty swallowing; the patient does not admit to any changes in his ability to eat. He believes that he has just not been interested in eating. He denies fever/chills, SOB, chest pain, change in speech. The patient is a poor historian, the primary source for the history was the ED provider. - Discharge Data Discharge Date: 11/21/17 (Admit date: 11/11/17) Discharge Disposition: DC/Tfer to SNF 03 Condition: Fair - Discharge Diagnosis/Problem(s) (1) Body mass index (BMI) 19.9 or less, adult SNOMED Code(s): 306043173 ICD Code: Z68.1 - BODY MASS INDEX (BMI) 19.9 OR LESS, ADULT Status: Acute Priority: High Current Visit: Yes (2) A-fib SNOMED Code(s): 97809198 ICD Code: I48.91 - UNSPECIFIED ATRIAL FIBRILLATION Status: Acute Priority : High Current Visit: Yes Qualifiers: Atrial fibrillation type: unspecified Qualified Code(s): I48.91 - Unspecified atrial fibrillation (3) Chest pain SNOMED Code(s): 45416340 ICD Code: R07.9 - CHEST PAIN, UNSPECIFIED Status: Acute Priority: High Current Visit: Yes Qualifiers: Chest pain type: unspecified Qualified Code(s): R07.9 - Chest pain, unspecified (4) Diabetes mellitus type 2 in nonobese SNOMED Code(s): 443371682 ICD Code: E11.9 - TYPE 2 DIABETES MELLITUS WITHOUT COMPLICATIONS Status: Chronic Priority: Medium Current Visit: Yes (5) Dysphagia SNOMED Code(s): 98523315, 582198963 ICD Code: R13.10 - DYSPHAGIA, UNSPECIFIED Status: Acute Priority: High Current Visit: Yes Qualifiers: Dysphagia type: unspecified Qualified Code(s): R13.10 - Dysphagia, unspecified (6) Emphysema lung SNOMED Code(s): 16274072 ICD Code: J43.9 - EMPHYSEMA, UNSPECIFIED Status: Chronic Priority: High Current Visit: Yes Qualifiers: Emphysema type: unspecified Qualified Code(s): J43.9 - Emphysema, unspecified (7) Fibrosis lung SNOMED Code(s): 90825140 ICD Code: J84.10 - PULMONARY FIBROSIS, UNSPECIFIED Status: Chronic Priority: High Current Visit: Yes (8) Hyperlipidemia SNOMED Code(s): 61417717 ICD Code: E78.5 - HYPERLIPIDEMIA, UNSPECIFIED Status: Chronic Priority: Low Current Visit: No Qualifiers: Hyperlipidemia type: unspecified Qualified Code(s): E78.5 - Hyperlipidemia , unspecified (9) Hypertension SNOMED Code(s): 19065149 ICD Code: I10 - ESSENTIAL (PRIMARY) HYPERTENSION Status: Chronic Priority : Low Current Visit: No Qualifiers: Hypertension type: unspecified Qualified Code(s): I10 - Essential (primary ) hypertension (10) Hypoxia SNOMED Code(s): 434119669 ICD Code: R09.02 - HYPOXEMIA Status: Acute Priority: High Current Visit : Yes (11) Pneumonia SNOMED Code(s): 590763198 ICD Code: J18.9 - PNEUMONIA, UNSPECIFIED ORGANISM Status: Acute Priority : High Current Visit: Yes Qualifiers: Pneumonia type: due to unspecified organism Laterality: right Lung location: lower lobe of lung Qualified Code(s): J18.1 - Lobar pneumonia, unspecified organism (12) Failure to thrive in adult SNOMED Code(s): 781284075 ICD Code: R62.7 - ADULT FAILURE TO THRIVE Status: Acute Priority: High Current Visit: Yes (13) Pulmonary nodules SNOMED Code(s): 927072391 ICD Code: R91.8 - OTHER NONSPECIFIC ABNORMAL FINDING OF LUNG FIELD Status: Acute Priority: High Current Visit: Yes (14) Malnutrition SNOMED Code(s): 27996287 ICD Code: E46 - UNSPECIFIED PROTEIN-CALORIE MALNUTRITION Status: Acute Priority: High Current Visit: Yes Qualifiers: Malnutrition type: unspecified type Qualified Code(s): E46 - Unspecified protein-calorie malnutrition (15) Hypokalemia SNOMED Code(s): 88327895 ICD Code: E87.6 - HYPOKALEMIA Status: Acute Priority: High Current Visit: Yes (16) Hypomagnesemia SNOMED Code(s): 593787261 ICD Code: E83.42 - HYPOMAGNESEMIA Status: Acute Priority: High Current Visit: Yes - Patient Summary/Data Consults: Consultations 11/12/17 10:00 Consult to Speech Language Pathology [REMOTELY OPERATED VEHICLE Evaluation and Treatment] [CONS] Routine 11/14/17 09:00 Consult to Physical Therapy [PT Evaluation and Treatment] [CONS] Routine 11/14/17 12:50 Consult to Occupational Therapy [OT Evaluation and Treatment] [CONS] Routine 11/15/17 11:51 Consult to Admittance Attendant [CONS] Routine 11/16/17 13:11 Consult to Boom Master [Consult to Diabetic Nurse Specialist] [CONS] Routine Labs Pending at D/C: None Recommended Follow-up Testing/Procedures: Follow-up with primary care provider within 7-10 days of discharge. Recommend rechecking electrolytes, including magnesium at follow-up appointment as he has been low here. 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 Oncology evaluation as an outpatient Chronic HTN DM type 2 HLD GERD Plan: Start analgesics for improved pain mgt IVF, started D51/2 NS w/ KCl for calories ATB-- change to oral Levoquin; keep diflucan BID megace for appetite stimulation Cancer evaluation--TBD REMOTELY OPERATED VEHICLE eval - Dysphagia diet Home meds Ambulate QID Pulmonary toilet Daily labs; replace electrolytes as needed. Acchuchecks Q AC/HS; decrease glyburide/metformin Dietary consult for wt gain Adjust cardiac meds; stop Coumadin--does not adhere to medical regimen with fluctuations in INR; Eliquis 2.5 mg BID DVT/GI prophylaxis Echo (11/16/17): 1. LVEF of 50-50% 2. Mild proximal septal hypertrophy 3. Severely calcified aortic valve with mild regurgitation and moderate stenosis. Incomplete assessment of aortic valve. 4. Mild mitral valve regurgitation 5. Moderate to severe tricuspid valve regurgitation 6. The right ventricular systolic pressure is severely elevated at 58.7 mmHg. 7. Severe biatrial dilation. [place]; code status changed to DNR/DNI on 11/15/17. LOS>96 hours with treatment; DC likely 11/21/17. Overall Srinivasa did ok. He continued to work sporadically with PT/OT when he wasn 't having pain or too weak. His oral intake was very poor and megace was started to hopefully stimulate appetite. His sodium, potassium, and magnesium were low here and were supplemented. He will be sent home on a 3 day course of daily thermotabs as well as a 5 day course of magnesium oxide. He has also been somewhat depressed and zoloft was started. Infectious workup showed only yeast in his sputum and he was started on 6 days of Diflucan, which he will be discharged home on with a 6 day course. He will also be sent home on 5 days of levaquin. Strep pneumo, mycoplasma, and viral respiratory panel were negative. His digoxin was stopped and he was started on metoprolol. Due to his poor oral intake his metformin and glipizide were cut down. He has been having some mild to moderate pain here. He was prescribed gabapentin BID and norco PRN. He had good pain control with this while in our care. REMOTELY OPERATED VEHICLE worked with Srinivasa and decreased his diet to NDD2 with nectar thick liquids, which he tolerated quite well. His WBC has been trending downward and his CRP has been stable. We are recommending follow-up with PCP within 7-10 days. At that time he should have his electrolytes checked as well. We are also suggesting obtaining PFTs and a sas clinical programmer consult for his apparent end-stage COPD. We are also suggesting a high calorie drink for nutrition supplementation. CXR noted a probable lung mass likely neoplasm. He will be discharged today to [facility]. - Patient Instructions Diet, Other: NDD2 diet, nectar thick liquids, ensure, high caloric drink Activity: As Tolerated Driving: Do Not Drive Showering/Bathing: May Shower Notify Provider of: Fever, Increased Pain, Nausea and/or Vomiting - Discharge Plan Prescriptions/Med Rec: Metoprolol Tartrate [Lopressor] 25 mg PO Q12HR #40 tablet Acetaminophen/HYDROcodone [[place] 325-5 MG] 1 tab PO Q6H PRN #30 tablet PRN Reason: Pain Apixaban [Eliquis] 2.5 mg PO BID #30 tablet Fluconazole [Diflucan] 100 mg PO DAILY #6 tablet Gabapentin [Neurontin] 100 mg PO BID #40 capsule glipiZIDE [Glucotrol] 5 mg PO DAILY #1 tablet Levofloxacin [Levaquin] 750 mg PO Q24H #5 tablet Magnesium Oxide 250 mg PO DAILY #5 tablet Megestrol [Megace 40 MG/ML Susp] 400 mg PO BID #40 cup metFORMIN HCl [Metformin HCl] 500 mg PO BID #1 tablet Potassium Chloride/NaCl [Thermotabs] 1 each PO DAILY #3 tab Saccharomyces Boulardii [Florastor] 250 mg PO DAILY #30 cap Sertraline [Zoloft] 50 mg PO DAILY #20 tablet Home Medications: Home Meds Diltiazem HCl [Cardizem Cd] 240 mg PO DAILY 05/28/16 [History] Lisinopril [Prinivil] 2.5 mg PO BID 05/28/16 [History] Pantoprazole [ProTONIX] 40 mg PO DAILY #90 tab.cr 05/31/16 [Rx] Albuterol [IMW: Albuterol] 2.5 mg NEB Q4H PRN #100 ml 09/07/17 [Rx] Rosuvastatin [Crestor] 20 mg PO DAILY 11/11/17 [History] Acetaminophen/HYDROcodone [[place] 325-5 MG] 1 tab PO Q6H PRN #30 tablet 11/21/17 [Rx] Apixaban [Eliquis] 2.5 mg PO BID #30 tablet 11/21/17 [Rx] Fluconazole [Diflucan] 100 mg PO DAILY #6 tablet 11/21/17 [Rx] Gabapentin [Neurontin] 100 mg PO BID #40 capsule 11/21/17 [Rx] Levofloxacin [Levaquin] 750 mg PO Q24H #5 tablet 11/21/17 [Rx] Magnesium Oxide 250 mg PO DAILY #5 tablet 11/21/17 [Rx] Megestrol [Megace 40 MG/ML Susp] 400 mg PO BID #40 cup 11/21/17 [Rx] Metoprolol Tartrate [Lopressor] 25 mg PO Q12HR #40 tablet 11/21/17 [Rx] Potassium Chloride/NaCl [Thermotabs] 1 each PO DAILY #3 tab 11/21/17 [Rx] Saccharomyces Boulardii [Florastor] 250 mg PO DAILY #30 cap 11/21/17 [Rx] Sertraline [Zoloft] 50 mg PO DAILY #20 tablet 11/21/17 [Rx] glipiZIDE [Glucotrol] 5 mg PO DAILY #1 tablet 11/21/17 [Rx] metFORMIN HCl [Metformin HCl] 500 mg PO BID #1 tablet 11/21/17 [Rx] Patient Handouts: Thickening Liquids for Dysphagia Diet, Dysphagia, Dysphagia Diet Level 2, Mechanically Altered, Community-Acquired Pneumonia, Adult Forms: ED Department Discharge Referrals: Pérez Luna MD [Primary Care Provider] - - Discharge Summary/Plan Comment DC Time >30 min.: Yes (45) - General Info Date of Service: 11/21/17 Admission Dx/Problem (Free Text: Admission Diagnosis/Problem Admission Diagnosis/Problem Pneumonia Subjective Update: In to see [place]. He is lying in bed sleeping. He complains of mild right lower rib pain. No other concerns. Nursing has no concerns. He will be discharged today. Functional Status: Reports: Pain Controlled, Tolerating Diet, Ambulating, Urinating, Incentive Spirometry, Other (acapella ). Denies: New Symptoms - Review of Systems General: Reports: Weakness, Fatigue, Malaise. Denies: Appetite HEENT: Reports: No Symptoms Pulmonary: Reports: Shortness of Breath, Pleuritic Chest Pain. Denies: Cough, Sputum Cardiovascular: Reports: Chest Pain, Dyspnea on Exertion. Denies: Palpitations , Edema, Lightheadedness Gastrointestinal: Reports: Decreased Appetite. Denies: Abdominal Pain, Constipation, Diarrhea, Nausea, Vomiting Genitourinary: Reports: No Symptoms Musculoskeletal: Reports: No Symptoms Skin: Reports: No Symptoms Neurological: Reports: No Symptoms Psychiatric: Reports: No Symptoms - Patient Data Vitals - Most Recent: Last Vital Signs Temp 98.1 F 11/21/17 04:28 Pulse 100 11/21/17 04:48 Resp 20 11/21/17 04:28 BP 115/77 11/21/17 04:28 Pulse Ox 89 L 11/21/17 05:08 Weight - Most Recent: 123 lb 1.6 oz I&O - Last 24 hours: Intake & Output 11/20/17 11/20/17 11/21/17 14:59 22:59 06:59 Intake Total 480 150 100 Balance 480 150 100 Lab Results - Last 24 hrs: Laboratory Results - last 24 hr 11/20/17 11/20/17 11/20/17 Range/Units 05:30 10:43 17:39 POC Glucose 332 H 206 H (83-110) mg/dL Digoxin 0.6 L (0.9-2.0) ng/mL 11/20/17 11/21/17 Range/Units 21:51 05:40 POC Glucose 256 H 135 H (83-110) mg/dL Digoxin (0.9-2.0) ng/mL Med Orders - Current: Current Medications Acetaminophen (Tylenol) 650 mg PO Q6H PRN PRN Reason: Pain/Fever Last Admin: 11/20/17 08:55 Dose: 650 mg Hydrocodone Bitart/Acetaminophen ([place] 325-5 Mg) 1 tab PO Q6H PRN PRN Reason: Pain Last Admin: 11/21/17 05:38 Dose: 1 tab Albuterol (Proventil Neb Soln) 2.5 mg NEB Q4HRRT PRN PRN Reason: Shortness of Breath Last Admin: 11/19/17 06:03 Dose: 2.5 mg Albuterol/Ipratropium (Duoneb 3.0-0.5 Mg/3 Ml) 3 ml NEB QID PRN PRN Reason: Shortness of Breath Last Admin: 11/21/17 05:06 Dose: 3 ml Apixaban (Eliquis) 2.5 mg PO BID [facility] Last Admin: 11/20/17 20:37 Dose: 2.5 mg Dextrose/Water (Dextrose 50% In Water) 50 ml IVPUSH ASDIRECTED PRN PRN Reason: Hypoglycemia Digoxin (Lanoxin) 125 mcg PO BEDTIME [facility] Last Admin: 11/20/17 20:45 Dose: 125 mcg Diltiazem HCl (Dilacor Xr) 240 mg PO DAILY [facility] Last Admin: 11/20/17 08:39 Dose: 240 mg Fluconazole (Diflucan) 100 mg PO DAILY [facility] Last Admin: 11/20/17 08:39 Dose: 100 mg Gabapentin (Neurontin) 100 mg PO BID [facility] Last Admin: 11/20/17 20:42 Dose: 100 mg Glipizide (Glucotrol) 5 mg PO DAILY [facility] Last Admin: 11/20/17 08:38 Dose: 5 mg Guaifenesin/Codeine Phosphate (Robitussin Ac) 10 ml PO Q6H PRN PRN Reason: Cough Last Admin: 11/13/17 08:44 Dose: 10 ml Insulin Aspart (Novolog) 0 unit SUBCUT QIDACANDBED [facility]; Protocol Last Admin: 11/20/17 21:53 Dose: 6 units Levofloxacin (Levaquin) 750 mg PO Q24H [facility] Megestrol Acetate (Megace 40 Mg/Ml Susp) 400 mg PO BID [facility] Last Admin: 11/20/17 20:37 Dose: 400 mg Metformin HCl (Glucophage) 500 mg PO BIDMEALS [facility] Last Admin: 11/21/17 06:15 Dose: 500 mg Metoprolol Tartrate (Lopressor) 25 mg PO Q12HR [facility] Last Admin: 11/20/17 20:42 Dose: 25 mg Metoprolol Tartrate (Lopressor) 5 mg IVPUSH Q6H PRN PRN Reason: HR>120 Last Admin: 11/17/17 06:36 Dose: 5 mg Morphine Sulfate (Morphine) 0.5 mg IVPUSH Q2H PRN PRN Reason: Pain/SOB Last Admin: 11/18/17 22:32 Dose: 0.5 mg Pantoprazole Sodium (Protonix) 40 mg PO DAILY@0700 [facility] Last Admin: 11/21/17 06:15 Dose: 40 mg Saccharomyces Boulardii (Florastor) 250 mg PO DAILY [facility] Last Admin: 11/20/17 08:38 Dose: 250 mg Sertraline HCl (Zoloft) 50 mg PO DAILY [facility] Last Admin: 11/20/17 08:39 Dose: 50 mg Sodium Chloride (Saline Flush) 10 ml FLUSH ASDIRECTED PRN PRN Reason: Keep Vein Open Last Admin: 11/11/17 15:39 Dose: 10 ml Sodium Chloride (Saline Flush) 10 ml FLUSH ONETIME PRN PRN Reason: IV FLUSH Last Admin: 11/11/17 17:00 Dose: 10 ml Trazodone HCl (Trazodone) 25 mg PO BEDTIME PRN PRN Reason: Insomnia Last Admin: 11/15/17 21:05 Dose: 25 mg Discontinued Medications Albuterol/Ipratropium (Duoneb 3.0-0.5 Mg/3 Ml) 3 ml NEB ONETIME ONE Stop: 11/11/17 17:40 Last Admin: 11/11/17 17:54 Dose: 3 ml Diltiazem HCl (Cardizem Cd) 240 mg PO DAILY [facility] Last Admin: 11/12/17 08:01 Dose: 240 mg Enoxaparin Sodium (Lovenox) 40 mg SUBCUT Q24H [facility] Last Admin: 11/15/17 21:05 Dose: 40 mg Fluconazole (Diflucan) 200 mg PO ONETIME ONE Stop: 11/17/17 12:01 Last Admin: 11/17/17 12:16 Dose: 200 mg Fluconazole (Diflucan) 100 mg PO Q24H [facility] Last Admin: 11/17/17 12:27 Dose: Not Given Hydromorphone HCl (Dilaudid) 0.5 mg IVPUSH Q6H PRN PRN Reason: Pain (severe 7-10) Sodium Chloride (Normal Saline) 1,000 mls @ 1,000 mls/hr IV .BOLUS [facility] Last Admin: 11/11/17 15:38 Dose: 1,000 mls/hr Sodium Chloride (Normal Saline) 250 mls @ 80 mls/min IV ASDIRECTED [facility] Last Admin: 11/11/17 17:00 Dose: 80 mls/min Ceftriaxone Sodium 2 gm/ (Sodium Chloride) 100 mls @ 100 mls/hr IV ONETIME ONE Stop: 11/11/17 18:38 Last Admin: 11/11/17 18:22 Dose: 100 mls/hr Sodium Chloride (Normal Saline) 1,000 mls @ 999 mls/hr IV ONETIME ONE Stop: 11/11/17 19:11 Last Admin: 11/11/17 18:19 Dose: 999 mls/hr Sodium Chloride (Normal Saline) 1,000 mls @ 999 mls/hr IV ONETIME ONE Stop: 11/11/17 19:13 Last Admin: 11/11/17 18:22 Dose: Not Given Sodium Chloride (Normal Saline) 1,000 mls @ 1,000 mls/hr IV ONETIME ONE Stop: 11/11/17 19:16 Last Admin: 11/11/17 20:31 Dose: 1,000 mls/hr Ceftriaxone Sodium 2 gm/ (Sodium Chloride) 100 mls @ 200 mls/hr IV Q12H [facility] Last Admin: 11/12/17 06:50 Dose: 200 mls/hr Potassium Chloride/Sodium Chloride (Normal Saline With 20 Meq Kcl) 1,000 mls @ 75 mls/hr IV ASDIRECTED [facility] Last Admin: 11/15/17 11:49 Dose: 75 mls/hr Ceftriaxone Sodium 2 gm/ (Dextrose/Water) 100 mls @ 200 mls/hr IV Q12H [facility] Magnesium Sulfate 2 gm/ Premix 50 mls @ 25 mls/hr IV Q2H [facility] Stop: 11/12/17 15:23 Last Admin: 11/12/17 16:13 Dose: 25 mls/hr Levofloxacin/Dextrose 750 mg/ (Premix) 150 mls @ 100 mls/hr IV Q24H [facility] Last Admin: 11/16/17 09:06 Dose: 100 mls/hr Metronidazole 500 mg/ Premix 100 mls @ 100 mls/hr IV Q8H [facility] Stop: 11/17/17 05:00 Last Admin: 11/16/17 22:07 Dose: 100 mls/hr Magnesium Sulfate 2 gm/ Premix 50 mls @ 25 mls/hr IV ONETIME ONE Stop: 11/14/17 10:42 Last Admin: 11/14/17 12:14 Dose: 25 mls/hr Magnesium Sulfate 2 gm/ Premix 50 mls @ 25 mls/hr IV ONETIME ONE Stop: 11/15/17 18:36 Last Admin: 11/15/17 17:31 Dose: 25 mls/hr Magnesium Sulfate 2 gm/ Premix 50 mls @ 25 mls/hr IV ONETIME ONE Stop: 11/16/17 15:44 Last Admin: 11/16/17 14:20 Dose: 25 mls/hr Magnesium Sulfate 2 gm/ Premix 50 mls @ 25 mls/hr IV ONETIME ONE Stop: 11/17/17 09:59 Last Admin: 11/17/17 10:20 Dose: 25 mls/hr Levofloxacin/Dextrose 750 mg/ (Premix) 150 mls @ 100 mls/hr IV Q24H [facility] Last Admin: 11/20/17 08:36 Dose: 100 mls/hr Metronidazole 500 mg/ Premix 100 mls @ 100 mls/hr IV Q8H [facility] Last Admin: 11/20/17 06:00 Dose: 100 mls/hr Vancomycin HCl 1 gm/ Sodium (Chloride) 250 mls @ 166.667 mls/hr IV Q24H [facility] Last Admin: 11/19/17 12:55 Dose: 166.667 mls/hr Potassium Chloride/Dextrose/Sod Cl (D5 1/2 Ns W/ 20 Meq/L Kcl) 1,000 mls @ 75 mls/hr IV ASDIRECTED [facility] Last Admin: 11/20/17 05:59 Dose: 75 mls/hr Insulin Aspart (Novolog) 0 unit SUBCUT Q6H [facility]; Protocol Last Admin: 11/11/17 22:24 Dose: Not Given Insulin Aspart (Novolog) 0 unit SUBCUT Q6H [facility]; Protocol Last Admin: 11/12/17 23:46 Dose: Not Given Insulin Aspart (Novolog) 0 unit SUBCUT QIDACANDBED [facility]; Protocol Last Admin: 11/13/17 12:02 Dose: 4 units Iopamidol (Isovue-370 (76%)) 100 ml IVPUSH ONETIME ONE Stop: 11/11/17 16:33 Last Admin: 11/11/17 17:00 Dose: 100 ml Levofloxacin (Levaquin) 750 mg PO DAILY [facility] Megestrol Acetate (Megace 40 Mg/Ml Susp) 40 mg PO DAILY [facility] Last Admin: 11/18/17 14:40 Dose: 40 mg Megestrol Acetate (Megace 40 Mg/Ml Susp) 400 mg PO DAILY [facility] Last Admin: 11/19/17 08:59 Dose: 400 mg Methylprednisolone Sodium Succinate (Solu-Medrol) 80 mg IVPUSH Q8H [facility] Last Admin: 11/13/17 04:26 Dose: 80 mg Methylprednisolone Sodium Succinate (Solu-Medrol) 40 mg IVPUSH Q8H [facility] Last Admin: 11/14/17 12:20 Dose: 40 mg Metronidazole (Flagyl) 500 mg PO Q8H [facility] Last Admin: 11/17/17 06:20 Dose: 500 mg Potassium Chloride (Klor-Con M20) 40 meq PO BID [facility] Stop: 11/17/17 09:01 Last Admin: 11/17/17 08:41 Dose: 40 meq Potassium Chloride (Klor-Con M20) 40 meq PO Q4H [facility] Stop: 11/18/17 13:01 Last Admin: 11/18/17 12:12 Dose: 40 meq Potassium Chloride (Klor-Con M20) 40 meq PO BIDMEALS [facility] Stop: 11/20/17 17:01 Prednisone (Prednisone) 40 mg PO ONETIME ONE Stop: 11/15/17 09:01 Last Admin: 11/15/17 08:43 Dose: 40 mg Prednisone (Prednisone) 30 mg PO ONETIME ONE Stop: 11/16/17 09:01 Last Admin: 11/16/17 09:05 Dose: 30 mg Prednisone (Prednisone) 20 mg PO ONETIME ONE Stop: 11/17/17 09:01 Last Admin: 11/17/17 08:43 Dose: 20 mg Prednisone (Prednisone) 10 mg PO ONETIME ONE Stop: 11/18/17 09:01 Last Admin: 11/18/17 09:02 Dose: 10 mg Temazepam (Restoril) 7.5 mg PO BEDTIME PRN PRN Reason: Insomnia Tuberculin PPD (Aplisol) 5 unit IDERM ONETIME ONE Stop: 11/12/17 11:16 Last Admin: 11/12/17 14:00 Dose: 5 unit Vancomycin HCl (Pharmacy To Dose - Vancomycin) 1 dose .XX ASDIRECTED [place] - Exam Quality Assessment: Reports: Supplemental Oxygen, DVT Prophylaxis General: Reports: Alert, Oriented, Cooperative, No Acute Distress HEENT: Reports: Pupils Equal, Pupils Reactive, EOMI, Mucous Membr. Moist/[place] Neck: Reports: Supple, Trachea Midline, No JVD Lungs: Reports: Normal Respiratory Effort, Decreased Breath Sounds, Rhonchi ( improved ), Wheezing (improved ) Cardiovascular: Reports: Regular Rate, Irregular Rhythm GI/Abdominal Exam: Normal Bowel Sounds, Soft, Non-Tender, No Organomegaly, No Distention, No Abnormal Bruit, No Mass, Pelvis Stable (Male) Exam: Deferred Rectal (Males) Exam: Deferred Back Exam: Reports: Normal Inspection, Full Range of Motion Extremities: Normal Inspection, Normal Range of Motion, Non-Tender, No Pedal Edema, Normal Capillary Refill Skin: Reports: Warm, Dry, Intact Neurological: Reports: No New Focal Deficit Psy/Mental Status: Reports: Alert, Depressed
[2017-11-21] MEDS: Insulin Aspart 100 Units/ML 3 ML Pen SUBCUT SCH ×2 (08:08→12:14)
[2017-11-21] MEDS ORDERED: Magnesium Sulfate/Water 4 GM in Premix Bag 1 BAG IV ONE (08:15)
[2017-11-21] MEDS ORDERED: Potassium Chloride 20 MEQ Tab.ER PO ONE (08:15)
[2017-11-21] MEDS ORDERED: Levofloxacin 750 MG Tab PO SCH (09:00)
[2017-11-21] MEDS: Apixaban 5 MG Tab PO SCH (09:28)
[2017-11-21] MEDS: Gabapentin 100 MG Cap PO SCH (09:31)
[2017-11-21] MEDS: Fluconazole 100 MG Tab PO SCH (09:31)
[2017-11-21] MEDS: Metoprolol Tartrate 25 MG Tab PO SCH (09:32)
[2017-11-21] MEDS: Sertraline 50 MG Tab PO SCH (09:32)
[2017-11-21] MEDS: Diltiazem 240 MG Cap.ER PO SCH (09:34)
[2017-11-21] MEDS: Saccharomyces Boulardii (Probiotic) 250 MG Cap PO SCH (09:35)
[2017-11-21] MEDS: Megestrol Susp 40 MG/ML 10 ML UD Cup PO SCH (09:38)
[2017-11-21 09:40] VITALS: BP 122/67
== END 2017-11-21 13:14 | DRG 194 ==
LOC: JD.ED 14:59 → JD.MS 18:09 → JD.ICU 11-17 07:43 → JD.MS 11-20 16:08
PROVIDERS: ADMIT Internal Medicine Cardiovascular Disease; ATTEND Internal Medicine Cardiovascular Disease
DX: J18.1 Lobar pneumonia, unspecified organism (principal); E46 Unspecified protein-calorie malnutrition; Z68.1 Body mass index [BMI] 19.9 or less, adult; I47.2 Ventricular tachycardia; R09.02 Hypoxemia; J84.10 Pulmonary fibrosis, unspecified; R62.7 Adult failure to thrive; F32.9 Major depressive disorder, single episode, unspecified; E87.6 Hypokalemia; R91.8 Other nonspecific abnormal finding of lung field; E78.00 Pure hypercholesterolemia, unspecified; J43.9 Emphysema, unspecified; R10.9 Unspecified abdominal pain; R13.10 Dysphagia, unspecified; R47.9 Unspecified speech disturbances; K14.3 Hypertrophy of tongue papillae; I48.91 Unspecified atrial fibrillation; I11.0 Hypertensive heart disease with heart failure; I50.9 Heart failure, unspecified; K21.9 Gastro-esophageal reflux disease without esophagitis; G89.29 Other chronic pain; M54.9 Dorsalgia, unspecified; R53.1 Weakness; R07.9 Chest pain, unspecified; R53.83 Other fatigue; R05 Cough; D72.829 Elevated white blood cell count, unspecified; G43.909 Migraine, unspecified, not intractable, without status migrainosus; E11.9 Type 2 diabetes mellitus without complications; L30.9 Dermatitis, unspecified; Z87.891 Personal history of nicotine dependence; Z79.01 Long term (current) use of anticoagulants; Z79.84 Long term (current) use of oral hypoglycemic drugs; Z79.899 Other long term (current) drug therapy; E83.42 Hypomagnesemia; E78.5 Hyperlipidemia, unspecified; Z86.010 Personal history of colon polyps; Z66 Do not resuscitate
CPT/HCPCS: 36415; 70450; 70490; 71275; 80053; 83605; 84484; 85025; 85610; 86140; 87040; 93005; 94640; 96360; 99285; J7040; J7050 ×3; Q9967; 36600; 71046; 71046-26; 71250; 71250-26; 80048; 80061; 80162; 82803; 82962; 83036; 83735; 84439; 84443; 86738; 87070; 87077; 87205; 87486; 87581; 87633; 87798; 87899; 92526-GN; 92610-GN; 93010; 93306; 94667; 94760; 97110-GP; 97116-GP; 97162-GP; 97165-GO; 97530-GP; A9270-GY; J0696; J1650; J1815-GY; J1956; J2270; J2920; J3370; J3475; J3480; J3490; J7030

== ENCOUNTER 2017-11-22 11:52 | Inpatient (IN) | payer MEDICARE, MEDICAID ==
[2017-11-22] MEDS ORDERED: Sodium Chloride 0.9% 10 ML Syringe FLUSH PRN (12:05)
[2017-11-22] MEDS ORDERED: Albuterol/Ipratropium 3.0-0.5 MG/3 ML Neb Soln NEB ONE (12:06)
[2017-11-22] MEDS ORDERED: methylPREDNISolone Sodium Succinate 125 MG/2 ML SDV IVPUSH ONE (12:07)
[2017-11-22] MEDS ORDERED: cefTRIAXone 2 GM in Sodium Chloride 0.9% 100 ML IV ONE (13:54)
--- NOTE | 2017-11-22 14:44 | CR ---
Chest: Portable view of the chest was obtained. Comparison: Previous chest x-ray of 11/20/17. Diffuse interstitial change on both sides of the chest is seen with much more consolidation within the right mid and lower lung as compared to the left side. The consolidation may be slightly more than on prior exam and difficult to exclude superimposed pneumonia within fibrosis. Heart size at the upper limits of normal. Tortuous thoracic aorta is seen. Degenerative spurring noted within the spine. Impression: 1. Questionable increasing consolidation within the right mid and lower chest from prior chest x-ray raising the possibility of pneumonia superimposed upon chronic fibrosis. Please correlate if patient has matching symptoms. 2. Other incidental findings. Diagnostic code #3
--- NOTE | 2017-11-22 16:31 | EDM.PDOC ---
ED HPI GENERAL MEDICAL PROBLEM - General Chief Complaint: Respiratory Problem Stated Complaint: [facility] Time Seen by Provider: 11/22/17 12:02 Source of Information: Reports: Patient, EMS, Long-Term Records History Limitations: Reports: No Limitations - History of Present Illness INITIAL COMMENTS - FREE TEXT/NARRATIVE: The patient present from the halfway with low oxygen saturations, cough and lethargy. The patient was just discharged from the hospital yesterday and went to the halfway. He was admitted here last week for end stage COPD and pneumonia. He also had trouble with swallowing and he was supposed to get nector thick liquids. He has been coughing and his oxygen saturations with oxygen have been going down to the low 80s. He is lethargic and confused but he will answer some questions. Onset: Gradual Duration: Day(s): Severity: Moderate Improves with: Reports: None Worsens with: Reports: None Associated Symptoms: Reports: Confusion, Cough, Shortness of Breath. Denies: Fever/Chills, Headaches, Nausea/Vomiting - Related Data Allergies Allergy/AdvReac Type Severity Reaction Status Date / Time No Known Allergies Allergy Verified 11/22/17 12:01 Home Meds: Home Meds Diltiazem HCl [Cardizem Cd] 240 mg PO DAILY 05/28/16 [History] Lisinopril [Prinivil] 2.5 mg PO BID 05/28/16 [History] Pantoprazole [ProTONIX] 40 mg PO DAILY #90 tab.cr 05/31/16 [Rx] Albuterol [IMW: Albuterol] 2.5 mg NEB Q4H PRN #100 ml 09/07/17 [Rx] Rosuvastatin [Crestor] 20 mg PO BEDTIME 11/11/17 [History] Apixaban [Eliquis] 2.5 mg PO BID #30 tablet 11/21/17 [Rx] Fluconazole [Diflucan] 100 mg PO DAILY #6 tablet 11/21/17 [Rx] Gabapentin [Neurontin] 100 mg PO BID #40 capsule 11/21/17 [Rx] Levofloxacin [Levaquin] 750 mg PO Q24H #5 tablet 11/21/17 [Rx] Magnesium Oxide 250 mg PO DAILY #5 tablet 11/21/17 [Rx] Megestrol [Megace 40 MG/ML Susp] 400 mg PO BID #40 cup 11/21/17 [Rx] Metoprolol Tartrate [Lopressor] 25 mg PO Q12HR #40 tablet 11/21/17 [Rx] Potassium Chloride/NaCl [Thermotabs] 1 each PO DAILY #3 tab 11/21/17 [Rx] Saccharomyces Boulardii [Florastor] 250 mg PO DAILY #30 cap 11/21/17 [Rx] glipiZIDE [Glucotrol] 5 mg PO DAILY #1 tablet 11/21/17 [Rx] Hydrocodone/Acetaminophen [Hydrocodon-Acetaminophen 5-325] 1 tab PO Q6H PRN [History] Sertraline [Zoloft] 50 mg PO BEDTIME 11/22/17 [History] metFORMIN HCl [Metformin HCl] 500 mg PO 1200 11/22/17 [History] Past Medical History HEENT History: Reports: Other (See Below) Other HEENT History: black hairy tongue, dysphagia, nasal reconstruction, wears glasses Cardiovascular History: Reports: Afib, Heart Failure, High Cholesterol, Hypertension Respiratory History: Reports: COPD Gastrointestinal History: Reports: GERD, Other (See Below) Other Gastrointestinal History: abdominal pain Genitourinary History: Reports: Other (See Below) Other Genitourinary History: prostate nodule, erectile dysfunction Musculoskeletal History: Reports: Back Pain, Chronic Neurological History: Reports: Concussion, Migraines Psychiatric History: Reports: Other (See Below) Other Psychiatric History: excessive fatigue Endocrine/Metabolic History: Reports: Diabetes, Type II Dermatologic History: Reports: Eczema Other Dermatologic History: eczema - Infectious Disease History Infectious Disease History: Reports: Chicken Pox, Measles - Past Surgical History HEENT Surgical History: Reports: Cataract Surgery, Other (See Below) Other HEENT Surgeries/Procedures: tube to L) ear, "it's plugged up all the time. " Nasal surgery. Social & Family History - Family History Cardiac: Reports: NE Endocrine/Metabolic: Reports: Diabetes, type II Oncologic: Reports: Brain - Tobacco Use Smoking Status *Q: Never Smoker - Caffeine Use Caffeine Use: Reports: None - Recreational Drug Use Recreational Drug Use: No - Living Situation & Occupation Living situation: Reports: Occupation: Retired ED ROS GENERAL - Review of Systems Review Of Systems: See Below Constitutional: Reports: Fever, Chills HEENT: Reports: No Symptoms Respiratory: Reports: Shortness of Breath, Cough Cardiovascular: Reports: No Symptoms Endocrine: Reports: No Symptoms GI/Abdominal: Reports: No Symptoms : Reports: No Symptoms Musculoskeletal: Reports: No Symptoms ED EXAM, GENERAL - Physical Exam Exam: See Below Exam Limited By: No Limitations General Appearance: Moderate Distress, Other (Somnolent) Ears: Normal External Exam Nose: Normal Inspection Head: Atraumatic, Normocephalic Neck: Normal Inspection Respiratory/Chest: Respiratory Distress (Moderate), Decreased Breath Sounds, Rhonchi, Wheezing Cardiovascular: Regular Rate, Rhythm, No Edema, No Murmur GI/Abdominal: Soft, Non-Tender, No Organomegaly, No Mass Back Exam: Normal Inspection Extremities: Normal Inspection Neurological: Alert, Oriented, No Motor/Sensory Deficits Course - Vital Signs Last Recorded V/S: Last Vital Signs Temp 99.5 F 11/22/17 12:02 Pulse 90 11/22/17 12:02 Resp 24 H 11/22/17 12:02 BP 92/61 11/22/17 12:02 Pulse Ox 91 L 11/22/17 14:10 - Orders/Labs/Meds Orders: Active Orders 24 hr Category Date Time Status Oxygen Therapy [RC] PRN Care 11/22/17 12:05 Active RT Aerosol Therapy [RC] ASDIRECTED Care 11/22/17 12:06 Active CULTURE BLOOD [BC] Stat Lab 11/22/17 12:41 Received CULTURE BLOOD [BC] Stat Lab 11/22/17 12:50 Received Sodium Chloride 0.9% [Saline Flush] Med 11/22/17 12:05 Active 10 ml FLUSH ASDIRECTED PRN BiPAP [RESPCARE] Routine Oth 11/22/17 14:41 Active Blood Culture x2 Reflex Set [OM.PC] Stat Oth 11/22/17 12:06 Ordered Peripheral IV Insertion Adult [OM.PC] Stat Oth 11/22/17 12:05 Ordered Medication Orders Sodium Chloride (Saline Flush) 10 ml FLUSH ASDIRECTED PRN PRN Reason: Keep Vein Open Last Admin: 11/22/17 12:41 Dose: 10 ml Labs: Laboratory Tests 11/22/17 11/22/17 11/22/17 Range/Units 12:41 12:41 12:41 WBC 14.26 H (4.23-9.07) K/mm3 RBC 4.16 L (4.63-6.08) M/mm3 Hgb 11.6 L (13.7-17.5) gm/L Hct 36.1 L (40.1-51.0) % MCV 86.8 (79.0-92.2) fl MCH 27.9 (25.7-32.2) pg MCHC 32.1 L (32.2-35.5) g/dl RDW Std Deviation 51.0 H (35.1-43.9) fL Plt Count 313 (163-337) K/mm3 MPV 10.2 (9.4-12.3) fl Neut % (Auto) 81.8 H (34.0-67.9) % Lymph % (Auto) 6.7 L (21.8-53.1) % [place] % (Auto) 11.1 (5.3-12.2) % Eos % (Auto) 0 L (0.8-7.0) Baso % (Auto) 0.1 (0.1-1.2) % Neut # (Auto) 11.68 H (1.78-5.38) K/mm3 Lymph # (Auto) 0.95 L (1.32-3.57) K/mm3 [place] # (Auto) 1.58 H (0.30-0.82) K/mm3 Eos # (Auto) 0.00 L (0.04-0.54) K/mm3 Baso # (Auto) 0.01 (0.01-0.08) K/mm3 Manual Slide Review Abnormal smear Sodium 138 (136-145) mEq/L Potassium 3.6 (3.5-5.1) mEq/L Chloride 100 (98-107) mEq/L Carbon Dioxide 30 (21-32) mEq/L Anion Gap 11.6 (5-15) BUN 20 H (7-18) mg/dL Creatinine 0.8 (0.7-1.3) mg/dL Est Cr Clr Drug Dosing 2.66 mL/min Estimated GFR (MDRD) > 60 (>60) mL/min BUN/Creatinine Ratio 25.0 H (14-18) Glucose 225 H (83-115) mg/dL Calcium 8.9 (8.5-10.1) mg/dL Total Bilirubin 0.5 (0.2-1.0) mg/dL AST 25 (15-37) U/L ALT 16 (16-63) U/L Alkaline Phosphatase 70 (46-116) U/L Troponin I < 0.017 (0.00-0.056) ng/mL C-Reactive Protein 10.5 H* (<1.0) mg/dL NT-Pro-B Natriuret Pep 995 H (0-450) pg/mL Total Protein 5.8 L (6.4-8.2) g/dl Albumin 2.0 L (3.4-5.0) g/dl Globulin 3.8 gm/dL Albumin/Globulin Ratio 0.5 L (1-2) Meds: Medications Generic Name Dose Route Start Last Admin Trade Name Freq PRN Reason Stop Dose Admin Sodium Chloride 10 ml 11/22/17 12:05 11/22/17 12:41 Saline Flush FLUSH 10 ml ASDIRECTED PRN Administration Keep Vein Open Discontinued Medications Generic Name Dose Route Start Last Admin Trade Name Freq PRN Reason Stop Dose Admin Albuterol/Ipratropium 3 ml 11/22/17 12:06 11/22/17 12:20 Duoneb 3.0-0.5 Mg/3 Ml NEB 11/22/17 12:07 3 ml ONETIME ONE Administration Ceftriaxone Sodium 2 gm/ 100 mls @ 100 mls/hr 11/22/17 13:54 11/22/17 14:06 Sodium Chloride IV 11/22/17 14:53 100 mls/hr ONETIME ONE Administration Methylprednisolone Sodium Succinate 125 mg 11/22/17 12:07 11/22/17 12:40 Solu-Medrol IVPUSH 11/22/17 12:08 125 mg ONETIME ONE Administration - Re-Assessments/Exams Free Text/Narrative Re-Assessment/Exam: 11/22/17 16:31 We increased his oxygen and I ordered an IV saline lock, duoneb, blood cultures , CXR and labs. His WBC was elevated at 14.26. His Hgb was a little low at 11.6. His glucose was elevated at 225. His troponin was negative. His CRP was elevated at 10.5. His BNP was 995. His CXR shows questionable increasing consolidation within the right md and lower chest from prior chest x-ray raising the possibility of pneumonia superimposed upon chronic fibrosis. The duoneb helped some where his sats would go up and back down again. I put him on some BIPAP. I called Dr Leung and he agreed to the admission. Departure - Departure Time of Disposition: 16:35 Disposition: Admitted As Inpatient 68 Condition: Serious Clinical Impression: Fibrosis lung, Hypoxia, Failure to thrive in adult Pneumonia Qualifiers: Pneumonia type: due to unspecified organism Laterality: right Lung location: lower lobe of lung Qualified Code(s): J18.1 - Lobar pneumonia, unspecified organism Malnutrition Qualifiers: Malnutrition type: unspecified type Qualified Code(s): E46 - Unspecified protein-calorie malnutrition - Discharge Information - My Orders Last 24 Hours: My Active Orders 11/22/17 12:05 Oxygen Therapy [RC] PRN Sodium Chloride 0.9% [Saline Flush] 10 ml FLUSH ASDIRECTED PRN Peripheral IV Insertion Adult [OM.PC] Stat 11/22/17 12:06 RT Aerosol Therapy [RC] ASDIRECTED Blood Culture x2 Reflex Set [OM.PC] Stat 11/22/17 12:41 CULTURE BLOOD [BC] Stat 11/22/17 12:50 CULTURE BLOOD [BC] Stat 11/22/17 14:41 BiPAP [RESPCARE] Routine - Assessment/Plan Last 24 Hours: My Active Orders 11/22/17 12:05 Oxygen Therapy [RC] PRN Sodium Chloride 0.9% [Saline Flush] 10 ml FLUSH ASDIRECTED PRN Peripheral IV Insertion Adult [OM.PC] Stat 11/22/17 12:06 RT Aerosol Therapy [RC] ASDIRECTED Blood Culture x2 Reflex Set [OM.PC] Stat 11/22/17 12:41 CULTURE BLOOD [BC] Stat 11/22/17 12:50 CULTURE BLOOD [BC] Stat 11/22/17 14:41 BiPAP [RESPCARE] Routine
[2017-11-22] MEDS ORDERED: Magnesium Hydroxide 400 MG/5 ML Susp 30 ML Cup PO PRN (17:13)
[2017-11-22] MEDS ORDERED: Ondansetron 4 MG/2 ML SDV IV PRN (17:13)
[2017-11-22] MEDS ORDERED: HYDROmorphone 0.5 MG/0.5 ML SYRINGE IVPUSH PRN (17:13)
[2017-11-22] MEDS ORDERED: Polyethylene Glycol 3350 Powder 17 GM Packet PO PRN (17:13)
[2017-11-22] MEDS ORDERED: Albuterol 0.083% 2.5 MG/3 ML Neb Soln NEB PRN (17:13)
[2017-11-22] MEDS ORDERED: Acetaminophen/HYDROcodone 325-5 MG Tab PO PRN (17:13)
[2017-11-22] MEDS ORDERED: Ondansetron 4 MG Tab.DIS PO PRN (17:13)
[2017-11-22] MEDS ORDERED: Morphine 2 MG/ML Syringe IVPUSH PRN (17:13)
[2017-11-22] MEDS ORDERED: Bisacodyl 5 MG Tab PO PRN (17:13)
[2017-11-22] MEDS ORDERED: Temazepam 7.5 MG Cap PO PRN (17:13)
[2017-11-22] MEDS ORDERED: Docusate Sodium 100 MG Cap PO PRN (17:13)
[2017-11-22] MEDS ORDERED: Metoprolol Tartrate 5 MG/5 ML SDV IVPUSH PRN (18:07)
[2017-11-22] MEDS ORDERED: Codeine/guaiFENesin 100-10 MG/5 ML Syrup 5 ML Cup PO PRN (18:10)
[2017-11-22] MEDS ORDERED: Insulin Aspart 100 Units/ML 3 ML Pen SUBCUT SCH (18:15)
--- NOTE | 2017-11-22 18:53 | PCM.HP ---
H&P History of Present Illness - General Date of Service: 11/22/17 Admit Problem/Dx: Admission Diagnosis/Problem Admission Diagnosis/Problem Pneumonia Source of Information: Old Records, Provider History Limitations: Reports: Other (lethargic and confused) - History of Present Illness Initial Comments - Free Text/Narative: This is an 82 yo male from [facility] who was just discharged from the hospital yesterday for PNA with past medical h/o End stage COPD, Afib, Dysphagia, Decreased appetite, Emphysema, Lung Fibrosis, Failure to Thrive, Pulmonary Nodules, HTN, DM 2, HLD, GERD, Malnutrition who comes in for low oxygen saturations, cough and lethargy. He denies fever/chills, nausea, vomiting , diarrhea, chest pain, or GI/ complaints. The patient is a poor historian, the primary source for the history was the ED provider and old records. His symptoms improved after receiving BiPAP, Albuterol, Rocephin,and Steroids in the ED. His initial workup in the ED showed a CBC remarkable for WBC of 14.26 , RBC 4.16, Hgb 11.6, HCT 36.1, MCHC of 32.1, RDW 51, neutrophils of 81.8%. His chemistry is remarkable for BUN of 20, Glucose of 225, CRP 10.5, ProBNP of 995, Total protein of 5.8, an Albumin of 2. Chest X-ray shows "questionable increasing consolidation within the right mid and lower chest" raising the possibility of PNA superimposed upon chronic fibrosis. He is subsequently admitted to the medical floor. He is a DNR/DNI. His PCP is Dr. Pérez Luna. - Related Data Allergies/Adverse Reactions: Allergies Allergy/AdvReac Type Severity Reaction Status Date / Time No Known Allergies Allergy Verified 11/22/17 12:01 Home Medications: Home Meds Diltiazem HCl [Cardizem Cd] 240 mg PO DAILY 05/28/16 [History] Lisinopril [Prinivil] 2.5 mg PO BID 05/28/16 [History] Pantoprazole [ProTONIX] 40 mg PO DAILY #90 tab.cr 05/31/16 [Rx] Albuterol [IMW: Albuterol] 2.5 mg NEB Q4H PRN #100 ml 09/07/17 [Rx] Rosuvastatin [Crestor] 20 mg PO BEDTIME 11/11/17 [History] Apixaban [Eliquis] 2.5 mg PO BID #30 tablet 11/21/17 [Rx] Fluconazole [Diflucan] 100 mg PO DAILY #6 tablet 11/21/17 [Rx] Gabapentin [Neurontin] 100 mg PO BID #40 capsule 11/21/17 [Rx] Levofloxacin [Levaquin] 750 mg PO Q24H #5 tablet 11/21/17 [Rx] Magnesium Oxide 250 mg PO DAILY #5 tablet 11/21/17 [Rx] Megestrol [Megace 40 MG/ML Susp] 400 mg PO BID #40 cup 11/21/17 [Rx] Metoprolol Tartrate [Lopressor] 25 mg PO Q12HR #40 tablet 11/21/17 [Rx] Potassium Chloride/NaCl [Thermotabs] 1 each PO DAILY #3 tab 11/21/17 [Rx] Saccharomyces Boulardii [Florastor] 250 mg PO DAILY #30 cap 11/21/17 [Rx] glipiZIDE [Glucotrol] 5 mg PO DAILY #1 tablet 11/21/17 [Rx] Hydrocodone/Acetaminophen [Hydrocodon-Acetaminophen 5-325] 1 tab PO Q6H PRN [History] Sertraline [Zoloft] 50 mg PO BEDTIME 11/22/17 [History] metFORMIN HCl [Metformin HCl] 500 mg PO 1200 11/22/17 [History] Past Medical History HEENT History: Reports: Other (See Below) Other HEENT History: black hairy tongue, dysphagia, nasal reconstruction, wears glasses Cardiovascular History: Reports: Afib, Heart Failure, High Cholesterol, Hypertension Respiratory History: Reports: COPD Other Respiratory History: Lung cancer Gastrointestinal History: Reports: GERD, Other (See Below) Other Gastrointestinal History: abdominal pain Genitourinary History: Reports: Other (See Below) Other Genitourinary History: prostate nodule, erectile dysfunction Musculoskeletal History: Reports: Back Pain, Chronic Neurological History: Reports: Concussion, Migraines Psychiatric History: Reports: Other (See Below) Other Psychiatric History: excessive fatigue Endocrine/Metabolic History: Reports: Diabetes, Type II Dermatologic History: Reports: Eczema Other Dermatologic History: eczema - Infectious Disease History Infectious Disease History: Reports: Chicken Pox, Measles - Past Surgical History HEENT Surgical History: Reports: Cataract Surgery, Other (See Below) Other HEENT Surgeries/Procedures: tube to L) ear, "it's plugged up all the time. " Nasal surgery. Social & Family History - Family History Cardiac: Reports: SD Endocrine/Metabolic: Reports: Diabetes, type II Oncologic: Reports: Brain - Tobacco Use Smoking Status *Q: Never Smoker Years of Tobacco use: 60 Packs/Tins Daily: 1 Used Tobacco, but Quit: Yes Month/Year Tobacco Last Used: 11/25 Tobacco Use Comment: Patient quit smoking since last hospitalization. Second Hand Smoke Exposure: No - Caffeine Use Caffeine Use: Reports: None - Recreational Drug Use Recreational Drug Use: No - Living Situation & Occupation Living situation: Reports: Occupation: Retired H&P Review of Systems - Review of Systems: Review Of Systems: See Below General: Reports: Fever, Chills HEENT: Reports: No Symptoms Pulmonary: Reports: Shortness of Breath, Cough, Sputum Cardiovascular: Reports: No Symptoms Gastrointestinal: Reports: No Symptoms Genitourinary: Reports: No Symptoms Musculoskeletal: Reports: No Symptoms Skin: Reports: No Symptoms Psychiatric: Reports: Confusion Neurological: Reports: Confusion Hematologic/Lymphatic: Reports: No Symptoms Immunologic: Reports: No Symptoms Exam - Exam Exam: See Below - Vital Signs Vital Signs: Last Vital Signs Temp 98.1 F 11/22/17 16:09 Pulse 87 11/22/17 16:09 Resp 28 H 11/22/17 16:09 BP 115/61 11/22/17 16:09 Pulse Ox 91 L 11/22/17 16:09 Weight: 121 lb 4.8 oz - Exam Quality Assessment: Supplemental Oxygen (15mL BIPAP), DVT Prophylaxis General: Alert, Moderate Distress, Lethargic, Other (confused) HEENT: PERRLA, Hearing Intact, Mucosa Moist & [place], Nares Patent, Normal Nasal Septum, Posterior Pharynx Clear, Conjunctiva Clear, EOMI, EACs Clear, TMs Clear Neck: Supple Lungs: Decreased Breath Sounds, Rhonchi, Wheezing Cardiovascular: Regular Rate, Regular Rhythm GI/Abdominal Exam: Normal Bowel Sounds, Soft, Non-Tender, No Organomegaly, No Distention, No Abnormal Bruit, No Mass, Pelvis Stable (Male) Exam: Deferred Rectal (Males) Exam: Deferred Back Exam: Normal Inspection, Full Range of Motion, NT Extremities: Normal Inspection, Normal Range of Motion, Non-Tender, No Pedal Edema, Normal Capillary Refill Peripheral Pulses: 1+: Posterior Tibial (L), Posterior Tibial (R), Dorsalis Pedis (L), Dorsalis Pedis (R) Skin: Warm, Dry, Intact Neurological: Cranial Nerves Intact (grossly) Psychiatric: Alert, Normal Affect, Normal Mood - Patient Data Lab Results Last 24 hrs: Laboratory Results - last 24 hr 11/22/17 11/22/17 11/22/17 Range/Units 12:41 12:41 12:41 WBC 14.26 H (4.23-9.07) K/mm3 RBC 4.16 L (4.63-6.08) M/mm3 Hgb 11.6 L (13.7-17.5) gm/L Hct 36.1 L (40.1-51.0) % MCV 86.8 (79.0-92.2) fl MCH 27.9 (25.7-32.2) pg MCHC 32.1 L (32.2-35.5) g/dl RDW Std Deviation 51.0 H (35.1-43.9) fL Plt Count 313 (163-337) K/mm3 MPV 10.2 (9.4-12.3) fl Neut % (Auto) 81.8 H (34.0-67.9) % Lymph % (Auto) 6.7 L (21.8-53.1) % [place] % (Auto) 11.1 (5.3-12.2) % Eos % (Auto) 0 L (0.8-7.0) Baso % (Auto) 0.1 (0.1-1.2) % Neut # (Auto) 11.68 H (1.78-5.38) K/mm3 Lymph # (Auto) 0.95 L (1.32-3.57) K/mm3 [place] # (Auto) 1.58 H (0.30-0.82) K/mm3 Eos # (Auto) 0.00 L (0.04-0.54) K/mm3 Baso # (Auto) 0.01 (0.01-0.08) K/mm3 Manual Slide Review Abnormal smear Sodium 138 (136-145) mEq/L Potassium 3.6 (3.5-5.1) mEq/L Chloride 100 (98-107) mEq/L Carbon Dioxide 30 (21-32) mEq/L Anion Gap 11.6 (5-15) BUN 20 H (7-18) mg/dL Creatinine 0.8 (0.7-1.3) mg/dL Est Cr Clr Drug Dosing 2.66 mL/min Estimated GFR (MDRD) > 60 (>60) mL/min BUN/Creatinine Ratio 25.0 H (14-18) Glucose 225 H (83-115) mg/dL POC Glucose (83-110) mg/dL Calcium 8.9 (8.5-10.1) mg/dL Total Bilirubin 0.5 (0.2-1.0) mg/dL AST 25 (15-37) U/L ALT 16 (16-63) U/L Alkaline Phosphatase 70 (46-116) U/L Troponin I < 0.017 (0.00-0.056) ng/mL C-Reactive Protein 10.5 H* (<1.0) mg/dL NT-Pro-B Natriuret Pep 995 H (0-450) pg/mL Total Protein 5.8 L (6.4-8.2) g/dl Albumin 2.0 L (3.4-5.0) g/dl Globulin 3.8 gm/dL Albumin/Globulin Ratio 0.5 L (1-2) /18 Range/Units 18:02 WBC (4.23-9.07) K/mm3 RBC (4.63-6.08) M/mm3 Hgb (13.7-17.5) gm/L Hct (40.1-51.0) % MCV (79.0-92.2) fl MCH (25.7-32.2) pg MCHC (32.2-35.5) g/dl RDW Std Deviation (35.1-43.9) fL Plt Count (163-337) K/mm3 MPV (9.4-12.3) fl Neut % (Auto) (34.0-67.9) % Lymph % (Auto) (21.8-53.1) % [place] % (Auto) (5.3-12.2) % Eos % (Auto) (0.8-7.0) Baso % (Auto) (0.1-1.2) % Neut # (Auto) (1.78-5.38) K/mm3 Lymph # (Auto) (1.32-3.57) K/mm3 [place] # (Auto) (0.30-0.82) K/mm3 Eos # (Auto) (0.04-0.54) K/mm3 Baso # (Auto) (0.01-0.08) K/mm3 Manual Slide Review Sodium (136-145) mEq/L Potassium (3.5-5.1) mEq/L Chloride (98-107) mEq/L Carbon Dioxide (21-32) mEq/L Anion Gap (5-15) BUN (7-18) mg/dL Creatinine (0.7-1.3) mg/dL Est Cr Clr Drug Dosing mL/min Estimated GFR (MDRD) (>60) mL/min BUN/Creatinine Ratio (14-18) Glucose (83-115) mg/dL POC Glucose 256 H (83-110) mg/dL Calcium (8.5-10.1) mg/dL Total Bilirubin (0.2-1.0) mg/dL AST (15-37) U/L ALT (16-63) U/L Alkaline Phosphatase (46-116) U/L Troponin I (0.00-0.056) ng/mL C-Reactive Protein (<1.0) mg/dL NT-Pro-B Natriuret Pep (0-450) pg/mL Total Protein (6.4-8.2) g/dl Albumin (3.4-5.0) g/dl Globulin gm/dL Albumin/Globulin Ratio (1-2) Result Diagrams: 11/22/17 12:41 11/22/17 12:41 - Problem List (1) Failure to thrive in adult SNOMED Code(s): 933312781 ICD Code: R62.7 - ADULT FAILURE TO THRIVE Status: Acute Priority: High Current Visit: Yes (2) Hypoxia SNOMED Code(s): 650682688 ICD Code: R09.02 - HYPOXEMIA Status: Acute Priority: High Current Visit : Yes (3) Malnutrition SNOMED Code(s): 15490219 ICD Code: E46 - UNSPECIFIED PROTEIN-CALORIE MALNUTRITION Status: Acute Priority: High Current Visit: Yes Qualifiers: Malnutrition type: unspecified type Qualified Code(s): E46 - Unspecified protein-calorie malnutrition (4) Pneumonia SNOMED Code(s): 056629087 ICD Code: J18.9 - PNEUMONIA, UNSPECIFIED ORGANISM Status: Acute Priority : High Current Visit: Yes Qualifiers: Pneumonia type: due to unspecified organism Laterality: right Lung location: lower lobe of lung Qualified Code(s): J18.1 - Lobar pneumonia, unspecified organism (5) Fibrosis lung SNOMED Code(s): 82925271 ICD Code: J84.10 - PULMONARY FIBROSIS, UNSPECIFIED Status: Chronic Priority: High Current Visit: Yes (6) A-fib SNOMED Code(s): 13745005 ICD Code: I48.91 - UNSPECIFIED ATRIAL FIBRILLATION Status: Acute Priority : High Current Visit: No Qualifiers: Atrial fibrillation type: unspecified Qualified Code(s): I48.91 - Unspecified atrial fibrillation (7) Dysphagia SNOMED Code(s): 13449255, 848849763 ICD Code: R13.10 - DYSPHAGIA, UNSPECIFIED Status: Acute Priority: High Current Visit: No Qualifiers: Dysphagia type: unspecified Qualified Code(s): R13.10 - Dysphagia, unspecified (8) Pulmonary nodules SNOMED Code(s): 359241791 ICD Code: R91.8 - OTHER NONSPECIFIC ABNORMAL FINDING OF LUNG FIELD Status: Acute Priority: High Current Visit: No (9) Diabetes mellitus type 2 in nonobese SNOMED Code(s): 798270908 ICD Code: E11.9 - TYPE 2 DIABETES MELLITUS WITHOUT COMPLICATIONS Status: Chronic Priority: Medium Current Visit: No (10) Emphysema lung SNOMED Code(s): 72079240 ICD Code: J43.9 - EMPHYSEMA, UNSPECIFIED Status: Chronic Priority: High Current Visit: No Qualifiers: Emphysema type: unspecified Qualified Code(s): J43.9 - Emphysema, unspecified (11) Hyperlipidemia SNOMED Code(s): 87475973 ICD Code: E78.5 - HYPERLIPIDEMIA, UNSPECIFIED Status: Chronic Priority: Low Current Visit: No Qualifiers: Hyperlipidemia type: unspecified Qualified Code(s): E78.5 - Hyperlipidemia , unspecified (12) Hypertension SNOMED Code(s): 67701503 ICD Code: I10 - ESSENTIAL (PRIMARY) HYPERTENSION Status: Chronic Priority : Low Current Visit: No Qualifiers: Hypertension type: unspecified Qualified Code(s): I10 - Essential (primary ) hypertension (13) End stage COPD SNOMED Code(s): 223609522 ICD Code: J44.9 - CHRONIC OBSTRUCTIVE PULMONARY DISEASE, UNSPECIFIED Status : Acute Priority: High Current Visit: Yes Problem List Initiated/Reviewed/Updated: Yes Orders Last 24hrs: Active Orders 24 hr Category Date Time Status Patient Status [ADT] Routine ADT 11/22/17 15:32 Active Ambulate [RC] QID Care 11/22/17 17:20 Inactive Blood Glucose Check, Bedside [RC] QIDACANDBED Care 11/22/17 17:13 Active Height and Weight [RC] DAILY Care 11/22/17 17:13 Active Intake and Output [RC] QSHIFT Care 11/22/17 17:19 Active May Shower [RC] ASDIRECTED Care 11/22/17 17:13 Active Oxygen Therapy [RC] ASDIRECTED Care 11/22/17 17:48 Active Oxygen Therapy [RC] PRN Care 11/22/17 12:05 Active Oxygen Therapy [RC] PRN Care 11/22/17 17:13 Active Pulse Oximetry [RC] PRN Care 11/22/17 17:19 Active RT Aerosol Therapy [RC] ASDIRECTED Care 11/22/17 12:06 Active RT Aerosol Therapy [RC] ASDIRECTED Care 11/22/17 17:30 Inactive RT Incentive Spirometry [RC] ASDIRECTED Care 11/22/17 17:48 Active Turn, Cough, Deep Breathe [RC] .PRN Care 11/22/17 17:48 Active Up With Assistance [RC] ASDIRECTED Care 11/22/17 17:13 Active Up ad Chary [RC] ASDIRECTED Care 11/22/17 17:45 Active Up to Chair [RC] ASDIRECTED Care 11/22/17 17:13 Active VTE/DVT Education [RC] PER UNIT ROUTINE Care 11/22/17 17:13 Active Vital Signs [RC] Q4H Care 11/22/17 17:13 Active Consult to Case Management [CONS] Routine Cons 11/22/17 17:13 Active Consult to Diabetic Nurse Specialist [CONS] Routine Cons 11/22/17 17:13 Active Consult to Manager Ems [CONS] Routine Cons 11/22/17 17:13 Active Consult to Feed Mill Lab Technician [CONS] Routine Cons 11/22/17 17:13 Active Consult to Spiritual Care [CONS] Routine Cons 11/22/17 17:13 Active OT Evaluation and Treatment [CONS] Routine Cons 11/22/17 17:13 Active PT Evaluation and Treatment [CONS] Routine Cons 11/22/17 17:13 Active Respiratory Care Assess and Treatment [CONS] Routine Cons 11/22/17 17:13 Active National Dysphagia Diet [DIET] Diet 11/23/17 Breakfast Active CXR [Chest 2V] [CR] AM Exams 11/24/17 05:11 Ordered BASIC METABOLIC PANEL,BMP [CHEM] AM Lab 11/23/17 05:11 Ordered BASIC METABOLIC PANEL,BMP [CHEM] AM Lab 11/24/17 05:11 Ordered BASIC METABOLIC PANEL,BMP [CHEM] AM Lab 11/25/17 05:11 Ordered BASIC METABOLIC PANEL,BMP [CHEM] AM Lab 11/26/17 05:11 Ordered BASIC METABOLIC PANEL,BMP [CHEM] AM Lab 11/27/17 05:11 Ordered C-REACTIVE PROTEIN [CHEM] AM Lab 11/23/17 05:11 Ordered C-REACTIVE PROTEIN [CHEM] AM Lab 11/24/17 05:11 Ordered C-REACTIVE PROTEIN [CHEM] AM Lab 11/25/17 05:11 Ordered C-REACTIVE PROTEIN [CHEM] AM Lab 11/26/17 05:11 Ordered C-REACTIVE PROTEIN [CHEM] AM Lab 11/27/17 05:11 Ordered CBC WITH AUTO DIFF [HEME] AM Lab 11/23/17 05:11 Ordered CBC WITH AUTO DIFF [HEME] AM Lab 11/24/17 05:11 Ordered CBC WITH AUTO DIFF [HEME] AM Lab 11/25/17 05:11 Ordered CBC WITH AUTO DIFF [HEME] AM Lab 11/26/17 05:11 Ordered CBC WITH AUTO DIFF [HEME] AM Lab 11/27/17 05:11 Ordered CRP [C-REACTIVE PROTEIN] [CHEM] Routine Lab 11/22/17 18:26 Ordered CULTURE BLOOD [BC] Stat Lab 11/22/17 12:41 Received CULTURE BLOOD [BC] Stat Lab 11/22/17 12:50 Received CULTURE MRSA [RM] Stat Lab 11/22/17 17:13 Ordered CULTURE SPUTUM + SMEAR [RM] Stat Lab 11/22/17 17:13 Ordered MAGNESIUM [CHEM] AM Lab 11/23/17 05:11 Ordered MAGNESIUM [CHEM] AM Lab 11/24/17 05:11 Ordered MAGNESIUM [CHEM] AM Lab 11/25/17 05:11 Ordered MAGNESIUM [CHEM] AM Lab 11/26/17 05:11 Ordered MAGNESIUM [CHEM] AM Lab 11/27/17 05:11 Ordered MYCOPLASMA PNEUMONIAE IGM AB [CHEM] Routine Lab 11/22/17 12:41 Received RESPIRATORY PANEL BY PCR [MREF] Routine Lab 11/22/17 18:00 Ordered STREP PNEUMONIAE ANTIGEN [MREF] Routine Lab 11/22/17 18:00 Ordered Acetaminophen [Tylenol] Med 11/22/17 17:13 Active 650 mg PO Q6H PRN Acetaminophen/HYDROcodone [Lucas 325-5 MG] Med 11/22/17 17:13 Active 1 tab PO Q6H PRN Albuterol [Proventil Neb Soln] Med 11/22/17 17:13 Active 2.5 mg NEB Q4HRRT PRN Albuterol/Ipratropium [DuoNeb 3.0-0.5 MG/3 ML] Med 11/22/17 17:13 Active 3 ml NEB QID PRN Apixaban [Eliquis] Med 11/22/17 21:00 Active 2.5 mg PO BID Bisacodyl [Dulcolax] Med 11/22/17 17:13 Active 5 mg PO DAILY PRN Codeine/guaiFENesin [Robitussin AC] Med 11/22/17 18:10 Active 10 ml PO Q6H PRN Diltiazem [Dilacor XR] Med 11/23/17 09:00 Active 240 mg PO DAILY Docusate Sodium [Colace] Med 11/22/17 17:13 Active 100 mg PO BID PRN Docusate Sodium/Sennosides [Senna Plus] Med 11/22/17 17:13 Active 1 tab PO BID PRN Fluconazole [Diflucan] Med 11/23/17 09:00 Active 100 mg PO DAILY Gabapentin [Neurontin] Med 11/22/17 21:00 Active 100 mg PO BID HYDROmorphone [Dilaudid] Med 11/22/17 17:13 Active 0.5 mg IVPUSH Q6H PRN Insulin Aspart [NovoLOG] Med 11/22/17 18:30 Active See Protocol SUBCUT QIDACANDBED Lisinopril [Prinivil] Med 11/22/17 18:00 Active 2.5 mg PO BIDMEALS Magnesium Hydroxide [Milk of Magnesia] Med 11/22/17 17:13 Active 30 ml PO Q12H PRN Magnesium Oxide Med 11/23/17 09:00 Active 400 mg PO DAILY Megestrol [Megace 40 MG/ML Susp] Med 11/22/17 18:00 Active 400 mg PO BIDMEALS Metoprolol Tartrate [Lopressor] Med 11/22/17 21:00 Active 25 mg PO Q12HR Metoprolol Tartrate [Lopressor] Med 11/22/17 18:07 Active 5 mg IVPUSH Q6H PRN Morphine Med 11/22/17 17:13 Active 0.5 mg IVPUSH Q2H PRN Pantoprazole [ProTONIX] Med 11/23/17 09:00 Active 40 mg PO DAILY Polyethylene Glycol 3350 [MiraLAX] Med 11/22/17 17:13 Active 17 gm PO DAILY PRN Potassium Chloride/NaCl [Thermotabs] Med 11/23/17 09:00 Active 1 each PO DAILY Rosuvastatin [Crestor] Med 11/22/17 21:00 Active 20 mg PO BEDTIME Saccharomyces Boulardii [Florastor] Med 11/23/17 09:00 Active 250 mg PO DAILY Sertraline [Zoloft] Med 11/22/17 21:00 Active 50 mg PO BEDTIME Sodium Chloride 0.9% [Saline Flush] Med 11/22/17 12:05 Active 10 ml FLUSH ASDIRECTED PRN Temazepam [Restoril] Med 11/22/17 17:13 Active 7.5 mg PO BEDTIME PRN cefTRIAXone [Rocephin] 1 gm Med 11/23/17 14:00 Active Sodium Chloride 0.9% [Normal Saline] 100 ml IV Q24H glipiZIDE [Glucotrol] Med 11/23/17 09:00 Active 5 mg PO DAILY metFORMIN [Glucophage] Med 11/23/17 12:00 Active 500 mg PO 1200 metroNIDAZOLE/Normal Saline [Flagyl 500 MG in NS 100 ML Med 11/22/17 19:00 Active ] 500 mg Premix Bag 1 bag IV Q6H BiPAP [RESPCARE] Routine Oth 11/22/17 14:41 Active Blood Culture x2 Reflex Set [OM.PC] Stat Oth 11/22/17 12:06 Ordered Peripheral IV Insertion Adult [OM.PC] Stat Oth 11/22/17 12:05 Ordered RT Acapella [RESPCARE] Routine Oth 11/22/17 17:47 Active Resuscitation Status Routine Resus Stat 11/22/17 17:13 Ordered Medication Orders Acetaminophen (Tylenol) 650 mg PO Q6H PRN PRN Reason: Pain (Mild 1-3)/fever Hydrocodone Bitart/Acetaminophen (Lucas 325-5 Mg) 1 tab PO Q6H PRN PRN Reason: Pain (moderate 4-6) Albuterol (Proventil Neb Soln) 2.5 mg NEB Q4HRRT PRN PRN Reason: Shortness Of Breath/wheezing Albuterol/Ipratropium (Duoneb 3.0-0.5 Mg/3 Ml) 3 ml NEB QID PRN PRN Reason: Shortness Of Breath/wheezing Apixaban (Eliquis) 2.5 mg PO BID [facility] Bisacodyl (Dulcolax) 5 mg PO DAILY PRN PRN Reason: Constipation Diltiazem HCl (Dilacor Xr) 240 mg PO DAILY [facility] Docusate Sodium (Colace) 100 mg PO BID PRN PRN Reason: Constipation Fluconazole (Diflucan) 100 mg PO DAILY [place] Gabapentin (Neurontin) 100 mg PO BID [place] Glipizide (Glucotrol) 5 mg PO DAILY [facility] Guaifenesin/Codeine Phosphate (Robitussin Ac) 10 ml PO Q6H PRN PRN Reason: Cough Hydromorphone HCl (Dilaudid) 0.5 mg IVPUSH Q6H PRN PRN Reason: Pain (severe 7-10) Ceftriaxone Sodium 1 gm/ (Sodium Chloride) 100 mls @ 200 mls/hr IV Q24H [facility] Metronidazole 500 mg/ Premix 100 mls @ 100 mls/hr IV Q6H [facility] Insulin Aspart (Novolog) 0 unit SUBCUT QIDACANDBED [facility]; Protocol Lisinopril (Prinivil) 2.5 mg PO BIDMEALS [facility] Magnesium Hydroxide (Milk Of Magnesia) 30 ml PO Q12H PRN PRN Reason: Constipation Magnesium Oxide (Magnesium Oxide) 400 mg PO DAILY [facility] Megestrol Acetate (Megace 40 Mg/Ml Susp) 400 mg PO BIDMEALS [facility] Metformin HCl (Glucophage) 500 mg PO 1200 [place] Metoprolol Tartrate (Lopressor) 25 mg PO Q12HR [place] Metoprolol Tartrate (Lopressor) 5 mg IVPUSH Q6H PRN PRN Reason: Tachycardia Morphine Sulfate (Morphine) 0.5 mg IVPUSH Q2H PRN PRN Reason: Pain (severe 7-10) Stop: 11/23/17 17:25 Oral Electrolytes (Thermotabs) 1 each PO DAILY [facility] Pantoprazole Sodium (Protonix) 40 mg PO DAILY [facility] Polyethylene Glycol (Miralax) 17 gm PO DAILY PRN PRN Reason: Constipation Rosuvastatin Calcium (Crestor) 20 mg PO BEDTIME [place] Saccharomyces Boulardii (Florastor) 250 mg PO DAILY [place] Senna/Docusate Sodium (Senna Plus) 1 tab PO BID PRN PRN Reason: Constipation Sertraline HCl (Zoloft) 50 mg PO BEDTIME [facility] Sodium Chloride (Saline Flush) 10 ml FLUSH ASDIRECTED PRN PRN Reason: Keep Vein Open Last Admin: 11/22/17 12:41 Dose: 10 ml Temazepam (Restoril) 7.5 mg PO BEDTIME PRN PRN Reason: Sleep Assessment/Plan Comment:: I/P: Aspiration PNA vs. COPD exacerbation -Risk Factors: Discharged yesterday for PNA, h/o Dysphagia, h/o end stage COPD, Former tobacco use (>60 pack year) -Hypoxic in low 80s, Productive cough, lethargy, no temperature or tachycardia -BiPAP 15mL at 91% -CXR in ED--> increasing consolidation RML and RLL; possible PNA superimposed upon chronic fibrosis -WBC 14.26, Neut 81.8%, CRP 10.5 -Repeat CXR in 24-48 hrs -Blood and Sputum cultures ordered -Previous sputum culture showed yeast--> continue Diflucan x6 days -Mycoplasma, S. pneumo, RVP, MRSA ordered -TB negative from last visit -Start Aspiration PNA prophylaxis: Rocephin and Flagyl -RT/Nebs/IS/FV/Acapella -IVF as needed -Symptomatic treatment Mild Anemia -RBC 4.16, Hgb 11.6, Hct 36.1 -Monitor -Replenish with PRBCs as needed Mild-Moderate Pain -Gabapentin BID and Lucas PRN Chronic: Malnutrition/Failure to Thrive -Continue Megace 400mg BID and Zoloft -Consult CM/SW--> Discuss Comfort Care Measures -High calorie drink for nutrition supplementation (Ensure) Dysphagia -RESPIRATORY CARE TECHNICIAN evaluation last visit -CT of neck WNL last visit -NDD2 with nectar thick liquids DM 2 -ADA diet -Continue Metformin, Glipizide, Lisinopril -Novolog sliding scale -Blood glucose checks QID AC and BED Afib-->Continue Cardizem HTN-->Continue Lisinopril and Lopressor HLD--> Continue Crestor GERD--> Continue Protonix Colon polyps, lost to PCP care Emphysema/Lung Fibrosis--> recommend PFTs and a design engineering technician consult for his apparent end-stage COPD Pulmonary Nodules--> CT chest done 11/14/17; recommend f/u with oncology outpt Plan: Admit to Med surg floor; Airborne isolation precautions Daily AM labs; replace electrolytes as needed Home meds IVF as needed ATB, empiric; infectious work up DVT prophylaxis: On Eliquis GI prophylaxis: On Protonix RT/PT/OT NDD2 diet with [place] liquids, ADA, Ensure Consult CM/SW--> discuss comfort care PCP Pérez Luna; Pt is DNR/DNI
[2017-11-22] MEDS: Insulin Aspart 100 Units/ML 3 ML Pen SUBCUT SCH ×2 (19:25→22:17)
[2017-11-22] MEDS: metroNIDAZOLE/Normal Saline 500 MG in Premix Bag 1 BAG IV SCH (19:25)
[2017-11-22] MEDS: Megestrol Susp 40 MG/ML 10 ML UD Cup PO SCH (19:26)
[2017-11-22] MEDS: Lisinopril 2.5 MG Tab PO SCH (19:26)
[2017-11-22] MEDS: Acetaminophen 325 MG Tab PO PRN (19:37)
[2017-11-22] MEDS: Sertraline 50 MG Tab PO SCH (22:15)
[2017-11-22] MEDS: Metoprolol Tartrate 25 MG Tab PO SCH (22:16)
[2017-11-22] MEDS: Gabapentin 100 MG Cap PO SCH (22:16)
[2017-11-22] MEDS: Apixaban 5 MG Tab PO SCH (22:16)
[2017-11-22] MEDS: Rosuvastatin 10 MG Tab PO SCH (22:17)
[2017-11-23] MEDS: metroNIDAZOLE/Normal Saline 500 MG in Premix Bag 1 BAG IV SCH ×4 (01:14→20:34)
[2017-11-23] MEDS: Lisinopril 2.5 MG Tab PO SCH ×2 (06:42→17:35)
[2017-11-23] MEDS: Megestrol Susp 40 MG/ML 10 ML UD Cup PO SCH ×2 (06:42→17:33)
[2017-11-23] MEDS: Albuterol/Ipratropium 3.0-0.5 MG/3 ML Neb Soln NEB PRN ×3 (08:18→20:25)
[2017-11-23] MEDS: Insulin Aspart 100 Units/ML 3 ML Pen SUBCUT SCH ×4 (09:09→22:20)
[2017-11-23] MEDS: Apixaban 5 MG Tab PO SCH ×2 (09:11→20:39)
[2017-11-23] MEDS: Diltiazem 240 MG Cap.ER PO SCH (09:12)
[2017-11-23] MEDS: glipiZIDE 5 MG Tab PO SCH (09:12)
[2017-11-23] MEDS: Magnesium Oxide 400 MG Tab PO SCH (09:12)
[2017-11-23] MEDS: Potassium Chloride/Sodium Chloride Tab PO SCH (09:12)
[2017-11-23] MEDS: Saccharomyces Boulardii (Probiotic) 250 MG Cap PO SCH (09:12)
[2017-11-23] MEDS: Gabapentin 100 MG Cap PO SCH ×2 (09:13→20:39)
[2017-11-23] MEDS: Pantoprazole 40 MG Tab.CR PO SCH (09:13)
[2017-11-23] MEDS: Fluconazole 100 MG Tab PO SCH (09:13)
[2017-11-23] MEDS: Metoprolol Tartrate 25 MG Tab PO SCH ×2 (09:13→20:39)
[2017-11-23] MEDS: Acetaminophen 325 MG Tab PO PRN (10:33)
--- NOTE | 2017-11-23 11:33 | PCM.PN ---
- General Info Date of Service: 11/23/17 Admission Dx/Problem (Free Text): Admission Diagnosis/Problem Admission Diagnosis/Problem Pneumonia Subjective Update: In to see Srinivasa today. He is sitting in a chair getting his vitals taken by nursing. Overall he is doing OK. He complains of feeling cold. He has been sleeping well. Decreased appetite. Ambulated as tolerated with assistance- not wanting to walk very much per nursing. Pain is controlled. No fever, nausea, vomiting or diarrhea. Urinating. Incentive Spirometry. No concerns from nursing. Functional Status: Reports: Pain Controlled, Tolerating Diet (decreased appetite ), Ambulating (with assistance, not wanting to walk very much), Urinating, Incentive Spirometry - Review of Systems General: Reports: Chills. Denies: Fever HEENT: Reports: No Symptoms Pulmonary: Reports: Cough, Sputum. Denies: Pleuritic Chest Pain Cardiovascular: Reports: No Symptoms. Denies: Chest Pain, Edema Gastrointestinal: Reports: No Symptoms. Denies: Diarrhea, Nausea, Vomiting Genitourinary: Reports: No Symptoms. Denies: Dysuria, Frequency, Burning, Pain Musculoskeletal: Reports: Other (left sided chest wall pain, rib pain and sternal pain per pt. ) Skin: Reports: No Symptoms Neurological: Reports: No Symptoms Psychiatric: Reports: No Symptoms - Patient Data Vitals - Most Recent: Last Vital Signs Temp 98.8 F 11/23/17 08:03 Pulse 96 11/23/17 09:13 Resp 20 11/23/17 08:03 BP 116/76 11/23/17 09:13 Pulse Ox 92 L 11/23/17 08:18 Weight - Most Recent: 120 lb I&O - Last 24 Hours: Intake & Output 11/22/17 11/23/17 11/23/17 22:59 06:59 14:59 Intake Total 0 320 Output Total 700 Balance 0 -380 Lab Results Last 24 Hours: Laboratory Results - last 24 hr 11/22/17 11/22/17 11/22/17 Range/Units 12:41 12:41 12:41 WBC 14.26 H (4.23-9.07) K/mm3 RBC 4.16 L (4.63-6.08) M/mm3 Hgb 11.6 L (13.7-17.5) gm/L Hct 36.1 L (40.1-51.0) % MCV 86.8 (79.0-92.2) fl MCH 27.9 (25.7-32.2) pg MCHC 32.1 L (32.2-35.5) g/dl RDW Std Deviation 51.0 H (35.1-43.9) fL Plt Count 313 (163-337) K/mm3 MPV 10.2 (9.4-12.3) fl Neut % (Auto) 81.8 H (34.0-67.9) % Lymph % (Auto) 6.7 L (21.8-53.1) % [place] % (Auto) 11.1 (5.3-12.2) % Eos % (Auto) 0 L (0.8-7.0) Baso % (Auto) 0.1 (0.1-1.2) % Neut # (Auto) 11.68 H (1.78-5.38) K/mm3 Lymph # (Auto) 0.95 L (1.32-3.57) K/mm3 [place] # (Auto) 1.58 H (0.30-0.82) K/mm3 Eos # (Auto) 0.00 L (0.04-0.54) K/mm3 Baso # (Auto) 0.01 (0.01-0.08) K/mm3 Manual Slide Review Abnormal smear Sodium 138 (136-145) mEq/L Potassium 3.6 (3.5-5.1) mEq/L Chloride 100 (98-107) mEq/L Carbon Dioxide 30 (21-32) mEq/L Anion Gap 11.6 (5-15) BUN 20 H (7-18) mg/dL Creatinine 0.8 (0.7-1.3) mg/dL Est Cr Clr Drug Dosing 2.66 mL/min Estimated GFR (MDRD) > 60 (>60) mL/min BUN/Creatinine Ratio 25.0 H (14-18) Glucose 225 H (83-115) mg/dL POC Glucose (83-110) mg/dL Calcium 8.9 (8.5-10.1) mg/dL Magnesium (1.8-2.4) mg/dl Total Bilirubin 0.5 (0.2-1.0) mg/dL AST 25 (15-37) U/L ALT 16 (16-63) U/L Alkaline Phosphatase 70 (46-116) U/L Troponin I < 0.017 (0.00-0.056) ng/mL C-Reactive Protein 10.5 H* (<1.0) mg/dL NT-Pro-B Natriuret Pep 995 H (0-450) pg/mL Total Protein 5.8 L (6.4-8.2) g/dl Albumin 2.0 L (3.4-5.0) g/dl Globulin 3.8 gm/dL Albumin/Globulin Ratio 0.5 L (1-2) Mycoplasma pneumon IgM (NEGATIVE) MRSA (PCR) 11/22/17 11/22/17 11/22/17 Range/Units 12:41 18:02 20:36 WBC (4.23-9.07) K/mm3 RBC (4.63-6.08) M/mm3 Hgb (13.7-17.5) gm/L Hct (40.1-51.0) % MCV (79.0-92.2) fl MCH (25.7-32.2) pg MCHC (32.2-35.5) g/dl RDW Std Deviation (35.1-43.9) fL Plt Count (163-337) K/mm3 MPV (9.4-12.3) fl Neut % (Auto) (34.0-67.9) % Lymph % (Auto) (21.8-53.1) % [place] % (Auto) (5.3-12.2) % Eos % (Auto) (0.8-7.0) Baso % (Auto) (0.1-1.2) % Neut # (Auto) (1.78-5.38) K/mm3 Lymph # (Auto) (1.32-3.57) K/mm3 [place] # (Auto) (0.30-0.82) K/mm3 Eos # (Auto) (0.04-0.54) K/mm3 Baso # (Auto) (0.01-0.08) K/mm3 Manual Slide Review Sodium (136-145) mEq/L Potassium (3.5-5.1) mEq/L Chloride (98-107) mEq/L Carbon Dioxide (21-32) mEq/L Anion Gap (5-15) BUN (7-18) mg/dL Creatinine (0.7-1.3) mg/dL Est Cr Clr Drug Dosing mL/min Estimated GFR (MDRD) (>60) mL/min BUN/Creatinine Ratio (14-18) Glucose (83-115) mg/dL POC Glucose 256 H 324 H (83-110) mg/dL Calcium (8.5-10.1) mg/dL Magnesium (1.8-2.4) mg/dl Total Bilirubin (0.2-1.0) mg/dL AST (15-37) U/L ALT (16-63) U/L Alkaline Phosphatase (46-116) U/L Troponin I (0.00-0.056) ng/mL C-Reactive Protein (<1.0) mg/dL NT-Pro-B Natriuret Pep (0-450) pg/mL Total Protein (6.4-8.2) g/dl Albumin (3.4-5.0) g/dl Globulin gm/dL Albumin/Globulin Ratio (1-2) Mycoplasma pneumon IgM Negative (NEGATIVE) MRSA (PCR) 11/23/17 11/23/17 11/23/17 Range/Units 01:35 06:24 06:24 WBC 18.68 H (4.23-9.07) K/mm3 RBC 4.28 L (4.63-6.08) M/mm3 Hgb 12.0 L (13.7-17.5) gm/L Hct 36.9 L (40.1-51.0) % MCV 86.2 (79.0-92.2) fl MCH 28.0 (25.7-32.2) pg MCHC 32.5 (32.2-35.5) g/dl RDW Std Deviation 50.9 H (35.1-43.9) fL Plt Count 321 (163-337) K/mm3 MPV 10.4 (9.4-12.3) fl Neut % (Auto) 90.4 H (34.0-67.9) % Lymph % (Auto) 3.7 L (21.8-53.1) % [place] % (Auto) 5.6 (5.3-12.2) % Eos % (Auto) 0 L (0.8-7.0) Baso % (Auto) 0.1 (0.1-1.2) % Neut # (Auto) 16.88 H (1.78-5.38) K/mm3 Lymph # (Auto) 0.70 L (1.32-3.57) K/mm3 [place] # (Auto) 1.05 H (0.30-0.82) K/mm3 Eos # (Auto) 0.00 L (0.04-0.54) K/mm3 Baso # (Auto) 0.01 (0.01-0.08) K/mm3 Manual Slide Review Abnormal smear Sodium 138 (136-145) mEq/L Potassium 3.5 (3.5-5.1) mEq/L Chloride 99 (98-107) mEq/L Carbon Dioxide 28 (21-32) mEq/L Anion Gap 14.5 (5-15) BUN 24 H (7-18) mg/dL Creatinine 0.7 (0.7-1.3) mg/dL Est Cr Clr Drug Dosing 64.80 mL/min Estimated GFR (MDRD) > 60 (>60) mL/min BUN/Creatinine Ratio 34.3 H (14-18) Glucose 249 H (83-115) mg/dL POC Glucose (83-110) mg/dL Calcium 9.3 (8.5-10.1) mg/dL Magnesium 1.6 L (1.8-2.4) mg/dl Total Bilirubin (0.2-1.0) mg/dL AST (15-37) U/L ALT (16-63) U/L Alkaline Phosphatase (46-116) U/L Troponin I (0.00-0.056) ng/mL C-Reactive Protein 8.8 H* (<1.0) mg/dL NT-Pro-B Natriuret Pep (0-450) pg/mL Total Protein (6.4-8.2) g/dl Albumin (3.4-5.0) g/dl Globulin gm/dL Albumin/Globulin Ratio (1-2) Mycoplasma pneumon IgM (NEGATIVE) MRSA (PCR) Negative 11/23/17 11/23/17 11/23/17 Range/Units 06:31 10:11 10:46 WBC (4.23-9.07) K/mm3 RBC (4.63-6.08) M/mm3 Hgb (13.7-17.5) gm/L Hct (40.1-51.0) % MCV (79.0-92.2) fl MCH (25.7-32.2) pg MCHC (32.2-35.5) g/dl RDW Std Deviation (35.1-43.9) fL Plt Count (163-337) K/mm3 MPV (9.4-12.3) fl Neut % (Auto) (34.0-67.9) % Lymph % (Auto) (21.8-53.1) % [place] % (Auto) (5.3-12.2) % Eos % (Auto) (0.8-7.0) Baso % (Auto) (0.1-1.2) % Neut # (Auto) (1.78-5.38) K/mm3 Lymph # (Auto) (1.32-3.57) K/mm3 [place] # (Auto) (0.30-0.82) K/mm3 Eos # (Auto) (0.04-0.54) K/mm3 Baso # (Auto) (0.01-0.08) K/mm3 Manual Slide Review Sodium (136-145) mEq/L Potassium (3.5-5.1) mEq/L Chloride (98-107) mEq/L Carbon Dioxide (21-32) mEq/L Anion Gap (5-15) BUN (7-18) mg/dL Creatinine (0.7-1.3) mg/dL Est Cr Clr Drug Dosing mL/min Estimated GFR (MDRD) (>60) mL/min BUN/Creatinine Ratio (14-18) Glucose (83-115) mg/dL POC Glucose 231 H 244 H (83-110) mg/dL Calcium (8.5-10.1) mg/dL Magnesium (1.8-2.4) mg/dl Total Bilirubin (0.2-1.0) mg/dL AST (15-37) U/L ALT (16-63) U/L Alkaline Phosphatase (46-116) U/L Troponin I (0.00-0.056) ng/mL C-Reactive Protein (<1.0) mg/dL NT-Pro-B Natriuret Pep 1365 H (0-450) pg/mL Total Protein (6.4-8.2) g/dl Albumin (3.4-5.0) g/dl Globulin gm/dL Albumin/Globulin Ratio (1-2) Mycoplasma pneumon IgM (NEGATIVE) MRSA (PCR) Med Orders - Current: Current Medications Acetaminophen (Tylenol) 650 mg PO Q6H PRN PRN Reason: Pain (Mild 1-3)/fever Last Admin: 11/23/17 10:33 Dose: 650 mg Hydrocodone Bitart/Acetaminophen ([place] 325-5 Mg) 1 tab PO Q6H PRN PRN Reason: Pain (moderate 4-6) Albuterol (Proventil Neb Soln) 2.5 mg NEB Q4HRRT PRN PRN Reason: Shortness Of Breath/wheezing Albuterol/Ipratropium (Duoneb 3.0-0.5 Mg/3 Ml) 3 ml NEB QID PRN PRN Reason: Shortness Of Breath/wheezing Last Admin: 11/23/17 08:18 Dose: 3 ml Apixaban (Eliquis) 2.5 mg PO BID [facility] Last Admin: 11/23/17 09:11 Dose: 2.5 mg Bisacodyl (Dulcolax) 5 mg PO DAILY PRN PRN Reason: Constipation Diltiazem HCl (Dilacor Xr) 240 mg PO DAILY [facility] Last Admin: 11/23/17 09:12 Dose: 240 mg Docusate Sodium (Colace) 100 mg PO BID PRN PRN Reason: Constipation Fluconazole (Diflucan) 100 mg PO DAILY [facility] Last Admin: 11/23/17 09:13 Dose: 100 mg Gabapentin (Neurontin) 100 mg PO BID [facility] Last Admin: 11/23/17 09:13 Dose: 100 mg Glipizide (Glucotrol) 5 mg PO DAILY [facility] Last Admin: 11/23/17 09:12 Dose: 5 mg Guaifenesin/Codeine Phosphate (Robitussin Ac) 10 ml PO Q6H PRN PRN Reason: Cough Hydromorphone HCl (Dilaudid) 0.5 mg IVPUSH Q6H PRN PRN Reason: Pain (severe 7-10) Ceftriaxone Sodium 1 gm/ (Dextrose/Water) 100 mls @ 200 mls/hr IV Q24H [facility] Metronidazole 500 mg/ Premix 100 mls @ 100 mls/hr IV Q6H [facility] Last Admin: 11/23/17 06:42 Dose: 100 mls/hr Insulin Aspart (Novolog) 0 unit SUBCUT QIDACANDBED [facility]; Protocol Last Admin: 11/23/17 09:09 Dose: 4 units Lisinopril (Prinivil) 2.5 mg PO BIDMEALS [facility] Last Admin: 11/23/17 06:42 Dose: 2.5 mg Magnesium Hydroxide (Milk Of Magnesia) 30 ml PO Q12H PRN PRN Reason: Constipation Magnesium Oxide (Magnesium Oxide) 400 mg PO DAILY [facility] Last Admin: 11/23/17 09:12 Dose: 400 mg Megestrol Acetate (Megace 40 Mg/Ml Susp) 400 mg PO BIDMEALS [facility] Last Admin: 11/23/17 06:42 Dose: 400 mg Metformin HCl (Glucophage) 500 mg PO 1200 [place] Metoprolol Tartrate (Lopressor) 25 mg PO Q12HR [facility] Last Admin: 11/23/17 09:13 Dose: 25 mg Metoprolol Tartrate (Lopressor) 5 mg IVPUSH Q6H PRN PRN Reason: Tachycardia Morphine Sulfate (Morphine) 0.5 mg IVPUSH Q2H PRN PRN Reason: Pain (severe 7-10) Stop: 11/23/17 17:25 Oral Electrolytes (Thermotabs) 1 each PO DAILY [facility] Last Admin: 11/23/17 09:12 Dose: 1 each Pantoprazole Sodium (Protonix) 40 mg PO DAILY [facility] Last Admin: 11/23/17 09:13 Dose: 40 mg Polyethylene Glycol (Miralax) 17 gm PO DAILY PRN PRN Reason: Constipation Rosuvastatin Calcium (Crestor) 20 mg PO BEDTIME [facility] Last Admin: 11/22/17 22:17 Dose: 20 mg Saccharomyces Boulardii (Florastor) 250 mg PO DAILY [facility] Last Admin: 11/23/17 09:12 Dose: 250 mg Senna/Docusate Sodium (Senna Plus) 1 tab PO BID PRN PRN Reason: Constipation Sertraline HCl (Zoloft) 50 mg PO BEDTIME [facility] Last Admin: 11/22/17 22:15 Dose: 50 mg Sodium Chloride (Saline Flush) 10 ml FLUSH ASDIRECTED PRN PRN Reason: Keep Vein Open Last Admin: 11/22/17 12:41 Dose: 10 ml Temazepam (Restoril) 7.5 mg PO BEDTIME PRN PRN Reason: Sleep Discontinued Medications Albuterol/Ipratropium (Duoneb 3.0-0.5 Mg/3 Ml) 3 ml NEB ONETIME ONE Stop: 11/22/17 12:07 Last Admin: 11/22/17 12:20 Dose: 3 ml Ceftriaxone Sodium 2 gm/ (Sodium Chloride) 100 mls @ 100 mls/hr IV ONETIME ONE Stop: 11/22/17 14:53 Last Admin: 11/22/17 14:06 Dose: 100 mls/hr Insulin Aspart (Novolog) 0 unit SUBCUT QIDACANDBED [facility]; Protocol Last Admin: 11/22/17 19:56 Dose: Not Given Methylprednisolone Sodium Succinate (Solu-Medrol) 125 mg IVPUSH ONETIME ONE Stop: 11/22/17 12:08 Last Admin: 11/22/17 12:40 Dose: 125 mg Ondansetron HCl (Zofran Odt) 4 mg PO Q6H PRN PRN Reason: nausea, able to take PO Ondansetron HCl (Zofran) 4 mg IV Q6H PRN PRN Reason: Nausea/Vomiting - Exam Quality Assessment: Supplemental Oxygen (5L nasal cannula), DVT Prophylaxis General: Alert, Oriented, Cooperative HEENT: Pupils Equal, Pupils Reactive, EOMI, Mucous Membr. Moist/[place] Neck: Supple Lungs: Decreased Breath Sounds, Rhonchi, Wheezing Cardiovascular: Regular Rate, Regular Rhythm GI/Abdominal Exam: Normal Bowel Sounds, Soft, Non-Tender, No Organomegaly, No Distention, No Abnormal Bruit, No Mass, Pelvis Stable (Male) Exam: Deferred Back Exam: Normal Inspection, Full Range of Motion Extremities: Normal Inspection, Normal Range of Motion, Non-Tender, No Pedal Edema, Normal Capillary Refill Peripheral Pulses: 1+: Posterior Tibial (L), Posterior Tibial (R), Dorsalis Pedis (L), Dorsalis Pedis (R) Skin: Warm, Dry, Intact Neurological: No New Focal Deficit, Cranial Nerves Intact (grossly) Psy/Mental Status: Alert, Normal Affect, Normal Mood - Problem List & Annotations (1) Failure to thrive in adult SNOMED Code(s): 267005142 Code(s): R62.7 - ADULT FAILURE TO THRIVE Status: Acute Priority: High Current Visit: Yes (2) Hypoxia SNOMED Code(s): 929137231 Code(s): R09.02 - HYPOXEMIA Status: Acute Priority: High Current Visit : Yes (3) Malnutrition SNOMED Code(s): 59301575 Code(s): E46 - UNSPECIFIED PROTEIN-CALORIE MALNUTRITION Status: Acute Priority: High Current Visit: Yes Qualifiers: Malnutrition type: unspecified type Qualified Code(s): E46 - Unspecified protein-calorie malnutrition (4) Pneumonia SNOMED Code(s): 405845827 Code(s): J18.9 - PNEUMONIA, UNSPECIFIED ORGANISM Status: Acute Priority: High Current Visit: Yes Qualifiers: Pneumonia type: due to unspecified organism Laterality: right Lung location: lower lobe of lung Qualified Code(s): J18.1 - Lobar pneumonia, unspecified organism (5) Fibrosis lung SNOMED Code(s): 98386794 Code(s): J84.10 - PULMONARY FIBROSIS, UNSPECIFIED Status: Chronic Priority: High Current Visit: Yes (6) A-fib SNOMED Code(s): 58515826 Code(s): I48.91 - UNSPECIFIED ATRIAL FIBRILLATION Status: Acute Priority : High Current Visit: No Qualifiers: Atrial fibrillation type: unspecified Qualified Code(s): I48.91 - Unspecified atrial fibrillation (7) Dysphagia SNOMED Code(s): 83050963, 471817176 Code(s): R13.10 - DYSPHAGIA, UNSPECIFIED Status: Acute Priority: High Current Visit: No Qualifiers: Dysphagia type: unspecified Qualified Code(s): R13.10 - Dysphagia, unspecified (8) Pulmonary nodules SNOMED Code(s): 966509137 Code(s): R91.8 - OTHER NONSPECIFIC ABNORMAL FINDING OF LUNG FIELD Status: Acute Priority: High Current Visit: No (9) Diabetes mellitus type 2 in nonobese SNOMED Code(s): 744688301 Code(s): E11.9 - TYPE 2 DIABETES MELLITUS WITHOUT COMPLICATIONS Status: Chronic Priority: Medium Current Visit: No (10) Emphysema lung SNOMED Code(s): 84561953 Code(s): J43.9 - EMPHYSEMA, UNSPECIFIED Status: Chronic Priority: High Current Visit: No Qualifiers: Emphysema type: unspecified Qualified Code(s): J43.9 - Emphysema, unspecified (11) Hyperlipidemia SNOMED Code(s): 45783815 Code(s): E78.5 - HYPERLIPIDEMIA, UNSPECIFIED Status: Chronic Priority: Low Current Visit: No Qualifiers: Hyperlipidemia type: unspecified Qualified Code(s): E78.5 - Hyperlipidemia , unspecified (12) Hypertension SNOMED Code(s): 69639123 Code(s): I10 - ESSENTIAL (PRIMARY) HYPERTENSION Status: Chronic Priority : Low Current Visit: No Qualifiers: Hypertension type: unspecified Qualified Code(s): I10 - Essential (primary ) hypertension (13) End stage COPD SNOMED Code(s): 030044500 Code(s): J44.9 - CHRONIC OBSTRUCTIVE PULMONARY DISEASE, UNSPECIFIED Status : Acute Priority: High Current Visit: Yes - Problem List Review Problem List Initiated/Reviewed/Updated: Yes - My Orders Last 24 Hours: My Active Orders 11/22/17 17:13 Blood Glucose Check, Bedside [RC] QIDACANDBED Height and Weight [RC] 11 November Shower [RC] ASDIRECTED Up With Assistance [RC] ASDIRECTED Up to Chair [RC] ASDIRECTED VTE/DVT Education [RC] DAILY Vital Signs [RC] Q4HR Consult to Case Management [CONS] Routine Consult to Diabetic Nurse Specialist [CONS] Routine Consult to Distribution Field Engineer [CONS] Routine Consult to Leaflet Distributor [CONS] Routine Consult to Spiritual Care [CONS] Routine OT Evaluation and Treatment [CONS] Routine PT Evaluation and Treatment [CONS] Routine Respiratory Care Assess and Treatment [CONS] Routine CULTURE SPUTUM + SMEAR [RM] Stat Acetaminophen [Tylenol] 650 mg PO Q6H PRN Acetaminophen/HYDROcodone [[place] 325-5 MG] 1 tab PO Q6H PRN Albuterol [Proventil Neb Soln] 2.5 mg NEB Q4HRRT PRN Albuterol/Ipratropium [DuoNeb 3.0-0.5 MG/3 ML] 3 ml NEB QID PRN Bisacodyl [Dulcolax] 5 mg PO DAILY PRN Docusate Sodium [Colace] 100 mg PO BID PRN Docusate Sodium/Sennosides [Senna Plus] 1 tab PO BID PRN HYDROmorphone [Dilaudid] 0.5 mg IVPUSH Q6H PRN Magnesium Hydroxide [Milk of Magnesia] 30 ml PO Q12H PRN Morphine 0.5 mg IVPUSH Q2H PRN Polyethylene Glycol 3350 [MiraLAX] 17 gm PO DAILY PRN Temazepam [Restoril] 7.5 mg PO BEDTIME PRN Resuscitation Status Routine 11/22/17 17:19 Intake and Output [RC] 04,16 Pulse Oximetry [RC] PRN 11/22/17 17:20 Ambulate [RC] QID 11/22/17 17:30 RT Aerosol Therapy [RC] ASDIRECTED 11/22/17 17:45 Up ad Chary [RC] ASDIRECTED 11/22/17 17:47 RT Acapella [RESPCARE] Routine 11/22/17 17:48 Oxygen Therapy [RC] ASDIRECTED RT Incentive Spirometry [RC] ASDIRECTED Turn, Cough, Deep Breathe [RC] .PRN 11/22/17 18:00 RESPIRATORY PANEL BY PCR [MREF] Routine STREP PNEUMONIAE ANTIGEN [MREF] Routine Lisinopril [Prinivil] 2.5 mg PO BIDMEALS Megestrol [Megace 40 MG/ML Susp] 400 mg PO BIDMEALS 11/22/17 18:07 Metoprolol Tartrate [Lopressor] 5 mg IVPUSH Q6H PRN 11/22/17 18:10 Codeine/guaiFENesin [Robitussin AC] 10 ml PO Q6H PRN 11/22/17 18:30 Insulin Aspart [NovoLOG] See Protocol SUBCUT QIDACANDBED 11/22/17 19:00 metroNIDAZOLE/Normal Saline [Flagyl 500 MG in NS 100 ML] 500 mg Premix Bag 1 bag IV Q6H 11/22/17 21:00 Apixaban [Eliquis] 2.5 mg PO BID Gabapentin [Neurontin] 100 mg PO BID Metoprolol Tartrate [Lopressor] 25 mg PO Q12HR Rosuvastatin [Crestor] 20 mg PO BEDTIME Sertraline [Zoloft] 50 mg PO BEDTIME 11/23/17 09:00 Diltiazem [Dilacor XR] 240 mg PO DAILY Fluconazole [Diflucan] 100 mg PO DAILY Magnesium Oxide 400 mg PO DAILY Pantoprazole [ProTONIX] 40 mg PO DAILY Potassium Chloride/NaCl [Thermotabs] 1 each PO DAILY Saccharomyces Boulardii [Florastor] 250 mg PO DAILY glipiZIDE [Glucotrol] 5 mg PO DAILY 11/23/17 12:00 metFORMIN [Glucophage] 500 mg PO 1200 11/23/17 14:00 cefTRIAXone [Rocephin] 1 gm Dextrose 5% in Water 100 ml IV Q24H 11/23/17 Breakfast National Dysphagia Diet [DIET] 11/24/17 05:11 CXR [Chest 2V] [CR] AM BASIC METABOLIC PANEL,BMP [CHEM] AM C-REACTIVE PROTEIN [CHEM] AM CBC WITH AUTO DIFF [HEME] AM MAGNESIUM [CHEM] AM PRO B-TYPE NATRIUR PEPT,BNPPRO [CHEM] DAILY 11/25/17 05:11 BASIC METABOLIC PANEL,BMP [CHEM] AM C-REACTIVE PROTEIN [CHEM] AM CBC WITH AUTO DIFF [HEME] AM MAGNESIUM [CHEM] AM PRO B-TYPE NATRIUR PEPT,BNPPRO [CHEM] DAILY 11/26/17 05:11 BASIC METABOLIC PANEL,BMP [CHEM] AM C-REACTIVE PROTEIN [CHEM] AM CBC WITH AUTO DIFF [HEME] AM MAGNESIUM [CHEM] AM PRO B-TYPE NATRIUR PEPT,BNPPRO [CHEM] DAILY 11/27/17 05:11 BASIC METABOLIC PANEL,BMP [CHEM] AM C-REACTIVE PROTEIN [CHEM] AM CBC WITH AUTO DIFF [HEME] AM MAGNESIUM [CHEM] AM PRO B-TYPE NATRIUR PEPT,BNPPRO [CHEM] DAILY - Plan Plan:: I/P: Aspiration PNA vs. COPD exacerbation, Improving -Risk Factors: Discharged yesterday for PNA, h/o Dysphagia, h/o end stage COPD, Former tobacco use (>60 pack year) -Hypoxic in low 80s, Productive cough, lethargy, no temperature or tachycardia -BiPAP 15mL at 91%--> now on 6L nasal cannula 92% -CXR in ED--> increasing consolidation RML and RLL; possible PNA superimposed upon chronic fibrosis -WBC 14.26-->18.68, Neut 81.8%-->90.4, CRP 10.5-->8.8 -Repeat CXR in 24-48 hrs -Blood and Sputum cultures ordered -Previous sputum culture showed yeast--> continue Diflucan x6 days -Mycoplasma, MRSA--> negative -S. pneumo, RVP--> pending results -TB negative from last visit -Start Aspiration PNA prophylaxis: Rocephin and Flagyl -RT/Nebs/IS/FV/Acapella -IVF as needed -Symptomatic treatment Mild Anemia, Improving -Most likely 2/2 inadequate intake/malnutrition -RBC 4.16-->4.28, Hgb 11.6-->12, Hct 36.1-->36.9 -Monitor -Replenish with PRBCs as needed Mild-Moderate Pain -Gabapentin BID and [place] PRN Chronic: Malnutrition/Failure to Thrive -Continue Megace 400mg BID and Zoloft -Consult CM/SW--> Discuss Comfort Care Measures -High calorie drink for nutrition supplementation (Ensure) Dysphagia -[employer]NA[employer] evaluation last visit -CT of neck WNL last visit -NDD2 with nectar thick liquids DM 2 -ADA diet -Continue Metformin, Glipizide, Lisinopril -Novolog sliding scale -Blood glucose checks QID AC and BED Afib-->Continue Cardizem HTN-->Continue Lisinopril and Lopressor HLD--> Continue Crestor GERD--> Continue Protonix Colon polyps, lost to PCP care Emphysema/Lung Fibrosis--> recommend PFTs and a donor recruitment manager consult for his apparent end-stage COPD Pulmonary Nodules--> CT chest done 11/14/17; recommend f/u with oncology outpt Plan: Admit to Med surg floor; Airborne isolation precautions Daily AM labs; replace electrolytes as needed Home meds IVF as needed ATB, empiric; infectious work up DVT prophylaxis: On Eliquis GI prophylaxis: On Protonix RT/PT/OT NDD2 diet with [place] liquids, ADA, Ensure Consult CM/SW--> discuss comfort care/end of life care PCP Pérez Luna; Pt is DNR/DNI Most likely D/C in 1-2 days pending clinical disposition and labs
[2017-11-23] MEDS: metFORMIN 500 MG Tab PO SCH (12:52)
[2017-11-23] MEDS ORDERED: cefTRIAXone 1 GM in Dextrose 5% in Water 100 ML IV SCH ×2 (14:00)
[2017-11-23] MEDS: Rosuvastatin 10 MG Tab PO SCH (20:39)
[2017-11-23] MEDS: Sertraline 50 MG Tab PO SCH (20:39)
[2017-11-24] MEDS: metroNIDAZOLE/Normal Saline 500 MG in Premix Bag 1 BAG IV SCH ×2 (01:58→06:08)
[2017-11-24] MEDS: Acetaminophen 325 MG Tab PO PRN ×3 (06:07→21:50)
[2017-11-24] MEDS: Lisinopril 2.5 MG Tab PO SCH (06:07)
[2017-11-24] MEDS: Megestrol Susp 40 MG/ML 10 ML UD Cup PO SCH (06:08)
[2017-11-24] MEDS: Albuterol/Ipratropium 3.0-0.5 MG/3 ML Neb Soln NEB PRN ×3 (08:26→19:49)
[2017-11-24] MEDS: Fluconazole 100 MG Tab PO SCH (09:01)
[2017-11-24] MEDS: Saccharomyces Boulardii (Probiotic) 250 MG Cap PO SCH (09:01)
[2017-11-24] MEDS: glipiZIDE 5 MG Tab PO SCH (09:02)
[2017-11-24] MEDS: Potassium Chloride/Sodium Chloride Tab PO SCH (09:02)
[2017-11-24] MEDS: Apixaban 5 MG Tab PO SCH (09:02)
[2017-11-24] MEDS: Metoprolol Tartrate 25 MG Tab PO SCH ×2 (09:02→21:43)
[2017-11-24] MEDS: Diltiazem 240 MG Cap.ER PO SCH (09:02)
[2017-11-24] MEDS: Magnesium Oxide 400 MG Tab PO SCH (09:03)
[2017-11-24] MEDS: Pantoprazole 40 MG Tab.CR PO SCH (09:03)
[2017-11-24] MEDS: Gabapentin 100 MG Cap PO SCH ×2 (09:03→21:44)
[2017-11-24] MEDS: Insulin Aspart 100 Units/ML 3 ML Pen SUBCUT SCH ×2 (09:09→12:14)
--- NOTE | 2017-11-24 09:55 | CR ---
Chest: Two views of the chest were obtained. Comparison: Prior chest x-ray of 11/22/17. Diffuse increased density throughout the right lung is seen. Diffuse interstitial change is noted within the left lung. These findings are fairly stable from previous exam. Heart size appears within normal limits. Tortuous thoracic aorta is seen. Degenerative spurring is noted within the spine. Impression: 1. Findings as noted above. No significant change from previous chest x-ray is identified. Diagnostic code #3
[2017-11-24] MEDS ORDERED: Codeine/guaiFENesin 100-10 MG/5 ML Syrup 5 ML Cup PO PRN (11:06)
[2017-11-24] MEDS ORDERED: Magnesium Oxide 400 MG Tab PO SCH (11:30)
[2017-11-24] MEDS: Potassium Chloride 20 MEQ Tab.ER PO SCH ×2 (12:00→15:37)
[2017-11-24] MEDS: metFORMIN 500 MG Tab PO SCH (12:00)
--- NOTE | 2017-11-24 12:21 | PCM.PN ---
- General Info Date of Service: 11/24/17 Admission Dx/Problem (Free Text): Admission Diagnosis/Problem Admission Diagnosis/Problem Pneumonia Subjective Update: In to see Srinivasa today. He is laying in bed visiting with his daughter. Overall he is doing OK. He complains of feeling cold. He has been sleeping well. Decreased appetite. Ambulated as tolerated with assistance- not wanting to walk very much per nursing. Pain is controlled. No fever, nausea, vomiting or diarrhea. Urinating. Incentive Spirometry. No concerns from nursing. I have been updated by Case Management and Robby ROLLINS that he would like to be changed to comfort measures. He knows that this means he may stop medications, vital signs, and will not be returning to the hospital after this visit. He also knows he can eat what he likes and that this may cause aspiration. 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 He and his daughter state they understand. He will be D/C'd tomorrow morning back to [facility] on [facility]. Functional Status: Reports: Pain Controlled, Tolerating Diet (decreased appetite ), Urinating - Review of Systems General: Reports: Chills. Denies: Fever HEENT: Reports: No Symptoms Pulmonary: Reports: Cough. Denies: Shortness of Breath Cardiovascular: Reports: No Symptoms. Denies: Chest Pain, Edema Gastrointestinal: Reports: No Symptoms. Denies: Diarrhea, Nausea, Vomiting Genitourinary: Reports: No Symptoms. Denies: Dysuria, Frequency, Burning, Pain Musculoskeletal: Reports: Other (left sided chest wall pain, rib pain, and sternal pain) Skin: Reports: No Symptoms Neurological: Reports: No Symptoms Psychiatric: Reports: No Symptoms - Patient Data Vitals - Most Recent: Last Vital Signs Temp 97.7 F 11/24/17 07:34 Pulse 100 11/24/17 09:02 Resp 20 11/24/17 07:34 BP 128/78 11/24/17 09:02 Pulse Ox 90 L 11/24/17 08:26 Weight - Most Recent: 117 lb 4.8 oz I&O - Last 24 Hours: Intake & Output 11/23/17 11/24/17 11/24/17 22:59 06:59 14:59 Intake Total 300 320 Output Total 350 Balance 300 -30 Lab Results Last 24 Hours: Laboratory Results - last 24 hr 11/23/17 11/23/17 11/24/17 Range/Units 16:57 22:19 05:55 WBC 26.99 H (4.23-9.07) K/mm3 RBC 4.26 L (4.63-6.08) M/mm3 Hgb 12.0 L (13.7-17.5) gm/L Hct 37.1 L (40.1-51.0) % MCV 87.1 (79.0-92.2) fl MCH 28.2 (25.7-32.2) pg MCHC 32.3 (32.2-35.5) g/dl RDW Std Deviation 52.9 H (35.1-43.9) fL Plt Count 349 H (163-337) K/mm3 MPV 10.3 (9.4-12.3) fl Neut % (Auto) 88.3 H (34.0-67.9) % Lymph % (Auto) 5.3 L (21.8-53.1) % [place] % (Auto) 6.1 (5.3-12.2) % Eos % (Auto) 0 L (0.8-7.0) Baso % (Auto) 0.0 L (0.1-1.2) % Neut # (Auto) 23.83 H (1.78-5.38) K/mm3 Lymph # (Auto) 1.42 (1.32-3.57) K/mm3 [place] # (Auto) 1.64 H (0.30-0.82) K/mm3 Eos # (Auto) 0.01 L (0.04-0.54) K/mm3 Baso # (Auto) 0.01 (0.01-0.08) K/mm3 Manual Slide Review Abnormal smear Sodium (136-145) mEq/L Potassium (3.5-5.1) mEq/L Chloride (98-107) mEq/L Carbon Dioxide (21-32) mEq/L Anion Gap (5-15) BUN (7-18) mg/dL Creatinine (0.7-1.3) mg/dL Est Cr Clr Drug Dosing mL/min Estimated GFR (MDRD) (>60) mL/min BUN/Creatinine Ratio (14-18) Glucose (83-115) mg/dL POC Glucose 332 H 268 H (83-110) mg/dL Calcium (8.5-10.1) mg/dL Magnesium (1.8-2.4) mg/dl C-Reactive Protein (<1.0) mg/dL NT-Pro-B Natriuret Pep (0-450) pg/mL 11/24/17 11/24/17 11/24/17 Range/Units 05:55 05:55 06:14 WBC (4.23-9.07) K/mm3 RBC (4.63-6.08) M/mm3 Hgb (13.7-17.5) gm/L Hct (40.1-51.0) % MCV (79.0-92.2) fl MCH (25.7-32.2) pg MCHC (32.2-35.5) g/dl RDW Std Deviation (35.1-43.9) fL Plt Count (163-337) K/mm3 MPV (9.4-12.3) fl Neut % (Auto) (34.0-67.9) % Lymph % (Auto) (21.8-53.1) % [place] % (Auto) (5.3-12.2) % Eos % (Auto) (0.8-7.0) Baso % (Auto) (0.1-1.2) % Neut # (Auto) (1.78-5.38) K/mm3 Lymph # (Auto) (1.32-3.57) K/mm3 [place] # (Auto) (0.30-0.82) K/mm3 Eos # (Auto) (0.04-0.54) K/mm3 Baso # (Auto) (0.01-0.08) K/mm3 Manual Slide Review Sodium 139 (136-145) mEq/L Potassium 3.2 L (3.5-5.1) mEq/L Chloride 101 (98-107) mEq/L Carbon Dioxide 30 (21-32) mEq/L Anion Gap 11.2 (5-15) BUN 30 H (7-18) mg/dL Creatinine 0.8 (0.7-1.3) mg/dL Est Cr Clr Drug Dosing 55.42 mL/min Estimated GFR (MDRD) > 60 (>60) mL/min BUN/Creatinine Ratio 37.5 H (14-18) Glucose 290 H (83-115) mg/dL POC Glucose 295 H (83-110) mg/dL Calcium 9.2 (8.5-10.1) mg/dL Magnesium 1.6 L (1.8-2.4) mg/dl C-Reactive Protein 4.4 H* (<1.0) mg/dL NT-Pro-B Natriuret Pep 1105 H (0-450) pg/mL 11/24/17 Range/Units 11:20 WBC (4.23-9.07) K/mm3 RBC (4.63-6.08) M/mm3 Hgb (13.7-17.5) gm/L Hct (40.1-51.0) % MCV (79.0-92.2) fl MCH (25.7-32.2) pg MCHC (32.2-35.5) g/dl RDW Std Deviation (35.1-43.9) fL Plt Count (163-337) K/mm3 MPV (9.4-12.3) fl Neut % (Auto) (34.0-67.9) % Lymph % (Auto) (21.8-53.1) % [place] % (Auto) (5.3-12.2) % Eos % (Auto) (0.8-7.0) Baso % (Auto) (0.1-1.2) % Neut # (Auto) (1.78-5.38) K/mm3 Lymph # (Auto) (1.32-3.57) K/mm3 [place] # (Auto) (0.30-0.82) K/mm3 Eos # (Auto) (0.04-0.54) K/mm3 Baso # (Auto) (0.01-0.08) K/mm3 Manual Slide Review Sodium (136-145) mEq/L Potassium (3.5-5.1) mEq/L Chloride (98-107) mEq/L Carbon Dioxide (21-32) mEq/L Anion Gap (5-15) BUN (7-18) mg/dL Creatinine (0.7-1.3) mg/dL Est Cr Clr Drug Dosing mL/min Estimated GFR (MDRD) (>60) mL/min BUN/Creatinine Ratio (14-18) Glucose (83-115) mg/dL POC Glucose 317 H (83-110) mg/dL Calcium (8.5-10.1) mg/dL Magnesium (1.8-2.4) mg/dl C-Reactive Protein (<1.0) mg/dL NT-Pro-B Natriuret Pep (0-450) pg/mL Gianni Results Last 24 Hours: Microbiology 11/23/17 02:48 Streptococcus pneumoniae Antigen (M - Final Urine 11/23/17 01:35 Respiratory Virus Panel (PCR) - Final Nasopharyngeal Swab 11/22/17 12:50 Aerobic Blood Culture - Preliminary Blood - Venous - Lab Draw NO GROWTH AFTER 1 DAY Anaerobic Blood Culture - Preliminary NO GROWTH AFTER 1 DAY 11/22/17 12:41 Aerobic Blood Culture - Preliminary Blood - Venous NO GROWTH AFTER 1 DAY Anaerobic Blood Culture - Preliminary NO GROWTH AFTER 1 DAY Med Orders - Current: Current Medications Acetaminophen (Tylenol) 650 mg PO Q6H PRN PRN Reason: Pain (Mild 1-3)/fever Last Admin: 11/24/17 06:07 Dose: 650 mg Hydrocodone Bitart/Acetaminophen ([place] 325-5 Mg) 1 tab PO Q6H PRN PRN Reason: Pain (moderate 4-6) Albuterol (Proventil Neb Soln) 2.5 mg NEB Q4HRRT PRN PRN Reason: Shortness Of Breath/wheezing Albuterol/Ipratropium (Duoneb 3.0-0.5 Mg/3 Ml) 3 ml NEB QID PRN PRN Reason: Shortness Of Breath/wheezing Last Admin: 11/24/17 08:26 Dose: 3 ml Apixaban (Eliquis) 2.5 mg PO BID [facility] Last Admin: 11/24/17 09:02 Dose: 2.5 mg Bisacodyl (Dulcolax) 5 mg PO DAILY PRN PRN Reason: Constipation Diltiazem HCl (Dilacor Xr) 240 mg PO DAILY [facility] Last Admin: 11/24/17 09:02 Dose: 240 mg Docusate Sodium (Colace) 100 mg PO BID PRN PRN Reason: Constipation Fluconazole (Diflucan) 100 mg PO DAILY [facility] Last Admin: 11/24/17 09:01 Dose: 100 mg Gabapentin (Neurontin) 100 mg PO BID [facility] Last Admin: 11/24/17 09:03 Dose: 100 mg Glipizide (Glucotrol) 5 mg PO DAILY [facility] Last Admin: 11/24/17 09:02 Dose: 5 mg Guaifenesin/Codeine Phosphate (Robitussin Ac) 5 ml PO Q6H PRN PRN Reason: Cough Hydromorphone HCl (Dilaudid) 0.5 mg IVPUSH Q6H PRN PRN Reason: Pain (severe 7-10) Insulin Aspart (Novolog) 0 unit SUBCUT QIDACANDBED [facility]; Protocol Last Admin: 11/24/17 12:14 Dose: 4 units Lisinopril (Prinivil) 2.5 mg PO BIDMEALS [facility] Last Admin: 11/24/17 06:07 Dose: 2.5 mg Magnesium Hydroxide (Milk Of Magnesia) 30 ml PO Q12H PRN PRN Reason: Constipation Magnesium Oxide (Magnesium Oxide) 400 mg PO DAILY [facility] Last Admin: 11/24/17 09:03 Dose: 400 mg Magnesium Oxide (Magnesium Oxide) 800 mg PO BID [facility] Stop: 11/24/17 21:01 Last Admin: 11/24/17 12:00 Dose: 800 mg Magnesium Sulfate (Pharmacy To Dose - Magnesium Replacement) 1 dose .XX ASDIRECTED [facility] Megestrol Acetate (Megace 40 Mg/Ml Susp) 400 mg PO BIDMEALS [facility] Last Admin: 11/24/17 06:08 Dose: 400 mg Metformin HCl (Glucophage) 500 mg PO 1200 [facility] Last Admin: 11/24/17 12:00 Dose: 500 mg Metoprolol Tartrate (Lopressor) 25 mg PO Q12HR [facility] Last Admin: 11/24/17 09:02 Dose: 25 mg Metoprolol Tartrate (Lopressor) 5 mg IVPUSH Q6H PRN PRN Reason: Tachycardia Oral Electrolytes (Thermotabs) 1 each PO DAILY [facility] Last Admin: 11/24/17 09:02 Dose: 1 each Pantoprazole Sodium (Protonix) 40 mg PO DAILY [facility] Last Admin: 11/24/17 09:03 Dose: 40 mg Polyethylene Glycol (Miralax) 17 gm PO DAILY PRN PRN Reason: Constipation Potassium Chloride (Pharmacy To Dose - Potassium Replacement) 1 dose .XX ASDIRECTED [facility] Potassium Chloride (Klor-Con M20) 40 meq PO Q4H [facility] Stop: 11/24/17 15:31 Last Admin: 11/24/17 12:00 Dose: 40 meq Rosuvastatin Calcium (Crestor) 20 mg PO BEDTIME [facility] Last Admin: 11/23/17 20:39 Dose: 20 mg Saccharomyces Boulardii (Florastor) 250 mg PO DAILY [facility] Last Admin: 11/24/17 09:01 Dose: 250 mg Senna/Docusate Sodium (Senna Plus) 1 tab PO BID PRN PRN Reason: Constipation Sertraline HCl (Zoloft) 50 mg PO BEDTIME [facility] Last Admin: 11/23/17 20:39 Dose: 50 mg Sodium Chloride (Saline Flush) 10 ml FLUSH ASDIRECTED PRN PRN Reason: Keep Vein Open Last Admin: 11/22/17 12:41 Dose: 10 ml Temazepam (Restoril) 7.5 mg PO BEDTIME PRN PRN Reason: Sleep Discontinued Medications Albuterol/Ipratropium (Duoneb 3.0-0.5 Mg/3 Ml) 3 ml NEB ONETIME ONE Stop: 11/22/17 12:07 Last Admin: 11/22/17 12:20 Dose: 3 ml Guaifenesin/Codeine Phosphate (Robitussin Ac) 10 ml PO Q6H PRN PRN Reason: Cough Ceftriaxone Sodium 2 gm/ (Sodium Chloride) 100 mls @ 100 mls/hr IV ONETIME ONE Stop: 11/22/17 14:53 Last Admin: 11/22/17 14:06 Dose: 100 mls/hr Ceftriaxone Sodium 1 gm/ (Dextrose/Water) 100 mls @ 200 mls/hr IV Q24H [facility] Last Admin: 11/23/17 14:31 Dose: 200 mls/hr Metronidazole 500 mg/ Premix 100 mls @ 100 mls/hr IV Q6H [facility] Last Admin: 11/24/17 06:08 Dose: 100 mls/hr Insulin Aspart (Novolog) 0 unit SUBCUT QIDACANDBED [facility]; Protocol Last Admin: 11/22/17 19:56 Dose: Not Given Methylprednisolone Sodium Succinate (Solu-Medrol) 125 mg IVPUSH ONETIME ONE Stop: 11/22/17 12:08 Last Admin: 11/22/17 12:40 Dose: 125 mg Morphine Sulfate (Morphine) 0.5 mg IVPUSH Q2H PRN PRN Reason: Pain (severe 7-10) Stop: 11/23/17 17:25 Ondansetron HCl (Zofran Odt) 4 mg PO Q6H PRN PRN Reason: nausea, able to take PO Ondansetron HCl (Zofran) 4 mg IV Q6H PRN PRN Reason: Nausea/Vomiting - Exam Quality Assessment: Supplemental Oxygen (6L nasal cannula), DVT Prophylaxis General: Alert, Oriented, Cooperative HEENT: Pupils Equal, Pupils Reactive, EOMI, Mucous Membr. Moist/[place] Neck: Supple Lungs: Decreased Breath Sounds, Rhonchi, Wheezing Cardiovascular: Regular Rate, Regular Rhythm GI/Abdominal Exam: Normal Bowel Sounds, Soft, Non-Tender, No Organomegaly, No Distention, No Abnormal Bruit, No Mass, Pelvis Stable (Male) Exam: Deferred Back Exam: Normal Inspection, Full Range of Motion Extremities: Normal Inspection, Normal Range of Motion, Non-Tender, No Pedal Edema, Normal Capillary Refill Peripheral Pulses: 1+: Posterior Tibial (L), Posterior Tibial (R), Dorsalis Pedis (L), Dorsalis Pedis (R) Skin: Warm, Dry, Intact Neurological: No New Focal Deficit, Cranial Nerves Intact (grossly) Psy/Mental Status: Alert, Normal Affect, Normal Mood - Problem List & Annotations (1) Failure to thrive in adult SNOMED Code(s): 195748329 Code(s): R62.7 - ADULT FAILURE TO THRIVE Status: Acute Priority: High Current Visit: Yes (2) Hypoxia SNOMED Code(s): 407343557 Code(s): R09.02 - HYPOXEMIA Status: Acute Priority: High Current Visit : Yes (3) Malnutrition SNOMED Code(s): 29285010 Code(s): E46 - UNSPECIFIED PROTEIN-CALORIE MALNUTRITION Status: Acute Priority: High Current Visit: Yes Qualifiers: Malnutrition type: unspecified type Qualified Code(s): E46 - Unspecified protein-calorie malnutrition (4) Pneumonia SNOMED Code(s): 744717435 Code(s): J18.9 - PNEUMONIA, UNSPECIFIED ORGANISM Status: Acute Priority: High Current Visit: Yes Qualifiers: Pneumonia type: due to unspecified organism Laterality: right Lung location: lower lobe of lung Qualified Code(s): J18.1 - Lobar pneumonia, unspecified organism (5) Fibrosis lung SNOMED Code(s): 25814828 Code(s): J84.10 - PULMONARY FIBROSIS, UNSPECIFIED Status: Chronic Priority: High Current Visit: Yes (6) A-fib SNOMED Code(s): 99359121 Code(s): I48.91 - UNSPECIFIED ATRIAL FIBRILLATION Status: Acute Priority : High Current Visit: No Qualifiers: Atrial fibrillation type: unspecified Qualified Code(s): I48.91 - Unspecified atrial fibrillation (7) Dysphagia SNOMED Code(s): 21364063, 463768253 Code(s): R13.10 - DYSPHAGIA, UNSPECIFIED Status: Acute Priority: High Current Visit: No Qualifiers: Dysphagia type: unspecified Qualified Code(s): R13.10 - Dysphagia, unspecified (8) Pulmonary nodules SNOMED Code(s): 011241255 Code(s): R91.8 - OTHER NONSPECIFIC ABNORMAL FINDING OF LUNG FIELD Status: Acute Priority: High Current Visit: No (9) Diabetes mellitus type 2 in nonobese SNOMED Code(s): 571155847 Code(s): E11.9 - TYPE 2 DIABETES MELLITUS WITHOUT COMPLICATIONS Status: Chronic Priority: Medium Current Visit: No (10) Emphysema lung SNOMED Code(s): 91440609 Code(s): J43.9 - EMPHYSEMA, UNSPECIFIED Status: Chronic Priority: High Current Visit: No Qualifiers: Emphysema type: unspecified Qualified Code(s): J43.9 - Emphysema, unspecified (11) Hyperlipidemia SNOMED Code(s): 83732333 Code(s): E78.5 - HYPERLIPIDEMIA, UNSPECIFIED Status: Chronic Priority: Low Current Visit: No Qualifiers: Hyperlipidemia type: unspecified Qualified Code(s): E78.5 - Hyperlipidemia , unspecified (12) Hypertension SNOMED Code(s): 75036995 Code(s): I10 - ESSENTIAL (PRIMARY) HYPERTENSION Status: Chronic Priority : Low Current Visit: No Qualifiers: Hypertension type: unspecified Qualified Code(s): I10 - Essential (primary ) hypertension (13) End stage COPD SNOMED Code(s): 893886929 Code(s): J44.9 - CHRONIC OBSTRUCTIVE PULMONARY DISEASE, UNSPECIFIED Status : Acute Priority: High Current Visit: Yes - Problem List Review Problem List Initiated/Reviewed/Updated: Yes - My Orders Last 24 Hours: My Active Orders 11/23/17 12:00 metFORMIN [Glucophage] 500 mg PO 1200 11/24/17 11:06 Codeine/guaiFENesin [Robitussin AC] 5 ml PO Q6H PRN 11/24/17 11:30 Magnesium Oxide 800 mg PO BID Magnesium Rep Pharmacy to Dose [Pharmacy to Dose - Magnesium Replacement] 1 dose .XX ASDIRECTED Potassium Chloride [Klor-Con M20] 40 meq PO Q4H Potassium Rep Pharmacy to Dose [Pharmacy to Dose - Potassium Replacement] 1 dose .XX ASDIRECTED 11/25/17 05:11 BASIC METABOLIC PANEL,BMP [CHEM] AM C-REACTIVE PROTEIN [CHEM] AM CBC WITH AUTO DIFF [HEME] AM MAGNESIUM [CHEM] AM PRO B-TYPE NATRIUR PEPT,BNPPRO [CHEM] DAILY 11/26/17 05:11 BASIC METABOLIC PANEL,BMP [CHEM] AM C-REACTIVE PROTEIN [CHEM] AM CBC WITH AUTO DIFF [HEME] AM MAGNESIUM [CHEM] AM PRO B-TYPE NATRIUR PEPT,BNPPRO [CHEM] DAILY 11/27/17 05:11 BASIC METABOLIC PANEL,BMP [CHEM] AM C-REACTIVE PROTEIN [CHEM] AM CBC WITH AUTO DIFF [HEME] AM MAGNESIUM [CHEM] AM PRO B-TYPE NATRIUR PEPT,BNPPRO [CHEM] DAILY - Plan Plan:: I/P: Aspiration PNA vs. COPD exacerbation, Improving -Risk Factors: Discharged 11/21/17 for PNA, h/o Dysphagia, h/o end stage COPD , Former tobacco use (>60 pack year) -Hypoxic in low 80s, Productive cough, lethargy, no temperature or tachycardia -BiPAP 15mL at 91%--> now on 6L nasal cannula 90% -CXR in ED--> increasing consolidation RML and RLL; possible PNA superimposed upon chronic fibrosis -WBC 26.99, Neut 88.3%, CRP 10.5-->8.8-->4.4 -Repeat CXR--> stable -Sputum culture --> unable to collect -Previous sputum culture showed yeast--> continue Diflucan x6 days -RVP, S. pneumo, Blood cultures, Mycoplasma, MRSA--> negative -TB negative from last visit -Start Aspiration PNA prophylaxis: Rocephin and Flagyl--> D/C, results negative -RT/Nebs/IS/FV/Acapella -IVF as needed -Symptomatic treatment Mild Anemia, Improving -Most likely 2/2 inadequate intake/malnutrition -RBC 4.26, Hgb 12, Hct 37.1 -Monitor Mild-Moderate Pain -Gabapentin BID and [place] PRN Chronic: Malnutrition/Failure to Thrive -Continue Megace 400mg BID and Zoloft -Consult CM/SW--> Discuss Comfort Care Measures -High calorie drink for nutrition supplementation (Ensure) Dysphagia -BASKETBALL SCOUT evaluation last visit -CT of neck WNL last visit -NDD2 with nectar thick liquids--> D/C; PT WOULD LIKE TO EAT NORMAL DIET- KNOWS RISK OF ASPIRATION DM 2 -ADA diet--> D/C; PT WOULD LIKE NORMAL DIET -Continue Metformin, Glipizide, Lisinopril -Novolog sliding scale -Blood glucose checks QID AC and BED Afib-->Continue Cardizem HTN-->Continue Lisinopril and Lopressor HLD--> Continue Crestor GERD--> Continue Protonix Colon polyps, lost to PCP care Emphysema/Lung Fibrosis--> recommend PFTs and a paint roller covermaker consult for his apparent end-stage COPD Pulmonary Nodules--> CT chest done 11/14/17; recommend f/u with oncology outpt Plan: Admit to Med surg floor; Airborne isolation precautions Daily AM labs; replace electrolytes as needed Home meds IVF as needed DVT prophylaxis: On Eliquis GI prophylaxis: On Protonix RT/PT/OT NDD2 diet with [place] liquids, ADA, Ensure--> D/C; PT WOULD LIKE TO EAT NORMAL DIET- KNOWS RISK OF ASPIRATION Consult CM/SW--> discuss comfort care/end of life care PCP Pérez Luna; Pt is DNR/DNI/Comfort measures Will be D/C'd back to [facility] tomorrow AM CODE HAS BEEN CHANGED TO DNR/DNI/COMFORT MEASURES PER PT
[2017-11-24] MEDS ORDERED: Morphine 2 MG/ML Syringe IVPUSH PRN (15:32)
[2017-11-24] MEDS ORDERED: LORazepam 2 MG/ML SDV IVPUSH PRN (15:35)
--- NOTE | 2017-11-24 15:43 | PCM.SN ---
- Free Text/Narrative Note: Called by Case Management to see Srinivasa. He is having a rough day today and has not been doing any better. 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 Daughter Dona is in the room. Srinivasa wishes to be comfort care and this is communicated to me by him. He would like to refuse medications if possible and would like a full diet and non-thickened liquids. Both he and his daughter are aware this may lead to aspiration and worsening of his symptoms. We discussed how his means he will not be returning to the hospital for treatment. Orders will be trimmed to fit these wishes. He will be changed to DNR/DNI/Comfort care. He will be discharged to [facility] tomorrow AM.
[2017-11-24] MEDS: Sertraline 50 MG Tab PO SCH (21:44)
[2017-11-25] MEDS: Acetaminophen 325 MG Tab PO PRN ×2 (04:35→10:38)
[2017-11-25] MEDS: Albuterol/Ipratropium 3.0-0.5 MG/3 ML Neb Soln NEB PRN (04:58)
--- NOTE | 2017-11-25 07:07 | PCM.DCSUM1 ---
Discharge Summary - Hospital Course HPI Initial Comments: This is an 82 yo male from [facility] who was just discharged from the hospital yesterday for PNA with past medical h/o End stage COPD, Afib, Dysphagia, Decreased appetite, Emphysema, Lung Fibrosis, Failure to Thrive, Pulmonary Nodules, HTN, DM 2, HLD, GERD, Malnutrition who comes in for low oxygen saturations, cough and lethargy. He denies fever/chills, nausea, vomiting , diarrhea, chest pain, or GI/ complaints. The patient is a poor historian, the primary source for the history was the ED provider and old records. His symptoms improved after receiving BiPAP, Albuterol, Rocephin,and Steroids in the ED. His initial workup in the ED showed a CBC remarkable for WBC of 14.26 , RBC 4.16, Hgb 11.6, HCT 36.1, MCHC of 32.1, RDW 51, neutrophils of 81.8%. His chemistry is remarkable for BUN of 20, Glucose of 225, CRP 10.5, ProBNP of 995, Total protein of 5.8, an Albumin of 2. Chest X-ray shows "questionable increasing consolidation within the right mid and lower chest" raising the possibility of PNA superimposed upon chronic fibrosis. He is subsequently admitted to the medical floor. He is a DNR/DNI. His PCP is Dr. Pérez Luna. - Discharge Data Discharge Date: 11/25/17 (Admit date:11/22/17) Discharge Disposition: DC/Tfer to SNF 03 Condition: Poor - Discharge Diagnosis/Problem(s) (1) End of life care SNOMED Code(s): 339939453, 091100140 ICD Code: Z51.5 - ENCOUNTER FOR PALLIATIVE CARE Status: Acute Priority: High Current Visit: Yes (2) End stage COPD SNOMED Code(s): 393385214 ICD Code: J44.9 - CHRONIC OBSTRUCTIVE PULMONARY DISEASE, UNSPECIFIED Status : Acute Priority: High Current Visit: Yes (3) Failure to thrive in adult SNOMED Code(s): 753846811 ICD Code: R62.7 - ADULT FAILURE TO THRIVE Status: Acute Priority: High Current Visit: Yes (4) Hypoxia SNOMED Code(s): 934304035 ICD Code: R09.02 - HYPOXEMIA Status: Acute Priority: High Current Visit : Yes (5) Malnutrition SNOMED Code(s): 14749840 ICD Code: E46 - UNSPECIFIED PROTEIN-CALORIE MALNUTRITION Status: Acute Priority: High Current Visit: Yes Qualifiers: Malnutrition type: unspecified type Qualified Code(s): E46 - Unspecified protein-calorie malnutrition (6) Pneumonia SNOMED Code(s): 303841265 ICD Code: J18.9 - PNEUMONIA, UNSPECIFIED ORGANISM Status: Acute Priority : High Current Visit: Yes Qualifiers: Pneumonia type: due to unspecified organism Laterality: right Lung location: lower lobe of lung Qualified Code(s): J18.1 - Lobar pneumonia, unspecified organism (7) Fibrosis lung SNOMED Code(s): 95478819 ICD Code: J84.10 - PULMONARY FIBROSIS, UNSPECIFIED Status: Chronic Priority: High Current Visit: Yes (8) A-fib SNOMED Code(s): 63226214 ICD Code: I48.91 - UNSPECIFIED ATRIAL FIBRILLATION Status: Acute Priority : High Current Visit: No Qualifiers: Atrial fibrillation type: unspecified Qualified Code(s): I48.91 - Unspecified atrial fibrillation (9) Diabetes mellitus type 2 in nonobese SNOMED Code(s): 787933594 ICD Code: E11.9 - TYPE 2 DIABETES MELLITUS WITHOUT COMPLICATIONS Status: Chronic Priority: Medium Current Visit: No (10) Emphysema lung SNOMED Code(s): 47527861 ICD Code: J43.9 - EMPHYSEMA, UNSPECIFIED Status: Chronic Priority: High Current Visit: No Qualifiers: Emphysema type: unspecified Qualified Code(s): J43.9 - Emphysema, unspecified (11) Hyperlipidemia SNOMED Code(s): 92061979 ICD Code: E78.5 - HYPERLIPIDEMIA, UNSPECIFIED Status: Chronic Priority: Low Current Visit: No Qualifiers: Hyperlipidemia type: unspecified Qualified Code(s): E78.5 - Hyperlipidemia , unspecified (12) Hypertension SNOMED Code(s): 71066673 ICD Code: I10 - ESSENTIAL (PRIMARY) HYPERTENSION Status: Chronic Priority : Low Current Visit: No Qualifiers: Hypertension type: unspecified Qualified Code(s): I10 - Essential (primary ) hypertension - Patient Summary/Data Consults: Consultations 11/22/17 17:13 Consult to Case Management [CONS] Routine Consult to [place] [place] [CONS] Routine Consult to Spiritual Care [CONS] Routine Respiratory Care Assess and Treatment [CONS] Routine Labs Pending at D/C: none Recommended Follow-up Testing/Procedures: Comfort care protocol. Follow-up with PCP as needed. Consider Hospice care once he gets back to [facility] Hospital Course: I/P: Aspiration PNA vs. COPD exacerbation, Improving -Risk Factors: Discharged 11/21/17 for PNA, h/o Dysphagia, h/o end stage COPD , Former tobacco use (>60 pack year) -Hypoxic in low 80s, Productive cough, lethargy, no temperature or tachycardia -BiPAP 15mL at 91%--> now on 6L nasal cannula 90% -CXR in ED--> increasing consolidation RML and RLL; possible PNA superimposed upon chronic fibrosis -WBC 26.99, Neut 88.3%, CRP 10.5-->8.8-->4.4 -Repeat CXR--> stable -Sputum culture --> unable to collect -Previous sputum culture showed yeast--> continue Diflucan x6 days -RVP, S. 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 -CT of neck WNL last visit -NDD2 with nectar thick liquids--> D/C; PT WOULD LIKE TO EAT NORMAL DIET- KNOWS RISK OF ASPIRATION DM 2 -ADA diet--> D/C; PT WOULD LIKE NORMAL DIET -Continue Metformin, Glipizide, Lisinopril -Novolog sliding scale -Blood glucose checks QID AC and BED Afib-->Continue Cardizem HTN-->Continue Lisinopril and Lopressor HLD--> Continue Crestor GERD--> Continue Protonix Colon polyps, lost to PCP care Emphysema/Lung Fibrosis--> recommend PFTs and a air analysis engineering technician consult for his apparent end-stage COPD Pulmonary Nodules--> CT chest done 11/14/17; recommend f/u with oncology outpt Plan: Admit to Med surg floor; Airborne isolation precautions Daily AM labs; replace electrolytes as needed Home meds IVF as needed DVT prophylaxis: On Eliquis GI prophylaxis: On Protonix RT/PT/OT NDD2 diet with [place] liquids, ADA, Ensure--> D/C; PT WOULD LIKE TO EAT NORMAL DIET- KNOWS RISK OF ASPIRATION Consult CM/SW--> discuss comfort care/end of life care PCP Pérez Luna; Pt is DNR/DNI/Comfort measures Will be D/C'd back to [facility] tomorrow AM CODE HAS BEEN CHANGED TO DNR/DNI/COMFORT MEASURES PER PT Srinivasa will be discharged back to [facility] today on comfort measures. He continues to have respiratory issues which are likely due to his underlying lung neoplasm and chronic illness. Case management was in to talk with Srinivasa and his daughter yesterday and the decision was made to make him comfort care. We discussed how he can choose if he wants medications or not and how he will not be returning to the hospital. He was ok with this. His lab draws were stopped and his diet was changed to full diet with thin liquids. He is aware this may lead to aspiration. CM/GUILLERMO was going to discuss hospice care once the patient gets [facility] to the [facility]. Medications have been trimmed. He will be discharged on PRN morphine for pain/SOB and ativan for anxiety. - Patient Instructions Diet: Regular Diet as Tolerated Activity: As Tolerated Driving: Do Not Drive - Discharge Plan Prescriptions/Med Rec: LORazepam [Ativan] 0.5 mg PO Q8HR PRN #20 tablet PRN Reason: Anxiety Albuterol/Ipratropium [DuoNeb 3.0-0.5 MG/3 ML] 3 ml NEB QID PRN #20 neb PRN Reason: Shortness Of Breath/wheezing Morphine [Morphine 20 MG/ML Soln] 5 mg PO Q4H PRN #50 ml PRN Reason: Pain/SOB - comfort [facility] Medications: Home Meds Diltiazem HCl [Cardizem Cd] 240 mg PO DAILY 05/28/16 [History] Pantoprazole [ProTONIX] 40 mg PO DAILY #90 tab.cr 05/31/16 [Rx] Albuterol [IMW: Albuterol] 2.5 mg NEB Q4H PRN #100 ml 09/07/17 [Rx] Gabapentin [Neurontin] 100 mg PO BID #40 capsule 11/21/17 [Rx] Metoprolol Tartrate [Lopressor] 25 mg PO Q12HR #40 tablet 11/21/17 [Rx] glipiZIDE [Glucotrol] 5 mg PO DAILY #1 tablet 11/21/17 [Rx] Hydrocodone/Acetaminophen [Hydrocodon-Acetaminophen 5-325] 1 tab PO Q6H PRN [History] Sertraline [Zoloft] 50 mg PO BEDTIME 11/22/17 [History] Albuterol/Ipratropium [DuoNeb 3.0-0.5 MG/3 ML] 3 ml NEB QID PRN #20 neb [Rx] LORazepam [Ativan] 0.5 mg PO Q8HR PRN #20 tablet 11/25/17 [Rx] Morphine [Morphine 20 MG/ML Soln] 5 mg PO Q4H PRN #50 ml 11/25/17 [Rx] Referrals: Pérez Luna MD [Primary Care Provider] - - Discharge Summary/Plan Comment DC Time >30 min.: Yes (45 mins ) - General Info Date of Service: 11/25/17 Admission Dx/Problem (Free Text: Admission Diagnosis/Problem Admission Diagnosis/Problem Pneumonia Subjective Update: In to see Srinivasa. He is lying in bed eating breakfast. He has no concerns. He slept ok. No nursing concerns. He will be discharged today. Functional Status: Reports: Pain Controlled, Tolerating Diet, Ambulating, Incentive Spirometry. Denies: New Symptoms - Review of Systems General: Reports: Weakness, Fatigue, Malaise, Chills HEENT: Reports: No Symptoms Pulmonary: Reports: Shortness of Breath, Wheezing. Denies: Cough, Sputum Cardiovascular: Reports: Dyspnea on Exertion. Denies: Chest Pain, Edema Gastrointestinal: Reports: Decreased Appetite. Denies: Abdominal Pain, Constipation, Diarrhea, Nausea, Vomiting Genitourinary: Reports: No Symptoms Musculoskeletal: Reports: No Symptoms Skin: Reports: No Symptoms Neurological: Reports: No Symptoms Psychiatric: Reports: No Symptoms - Patient Data Vitals - Most Recent: Last Vital Signs Temp 97.3 F 11/24/17 21:42 Pulse 107 H 11/24/17 21:43 Resp 24 H 11/24/17 21:45 BP 123/77 11/24/17 21:43 Pulse Ox 91 L 11/25/17 04:59 Weight - Most Recent: 117 lb 4.8 oz I&O - Last 24 hours: Intake & Output 11/24/17 11/25/17 11/25/17 22:59 06:59 14:59 Intake Total 240 400 Output Total 200 350 Balance 40 50 Lab Results - Last 24 hrs: Laboratory Results - last 24 hr 11/24/17 11/24/17 11/24/17 Range/Units 05:55 05:55 05:55 WBC 26.99 H (4.23-9.07) K/mm3 RBC 4.26 L (4.63-6.08) M/mm3 Hgb 12.0 L (13.7-17.5) gm/L Hct 37.1 L (40.1-51.0) % MCV 87.1 (79.0-92.2) fl MCH 28.2 (25.7-32.2) pg MCHC 32.3 (32.2-35.5) g/dl RDW Std Deviation 52.9 H (35.1-43.9) fL Plt Count 349 H (163-337) K/mm3 MPV 10.3 (9.4-12.3) fl Neut % (Auto) 88.3 H (34.0-67.9) % Lymph % (Auto) 5.3 L (21.8-53.1) % Dare % (Auto) 6.1 (5.3-12.2) % Eos % (Auto) 0 L (0.8-7.0) Baso % (Auto) 0.0 L (0.1-1.2) % Neut # (Auto) 23.83 H (1.78-5.38) K/mm3 Lymph # (Auto) 1.42 (1.32-3.57) K/mm3 Dare # (Auto) 1.64 H (0.30-0.82) K/mm3 Eos # (Auto) 0.01 L (0.04-0.54) K/mm3 Baso # (Auto) 0.01 (0.01-0.08) K/mm3 Manual Slide Review Abnormal smear Sodium 139 (136-145) mEq/L Potassium 3.2 L (3.5-5.1) mEq/L Chloride 101 (98-107) mEq/L Carbon Dioxide 30 (21-32) mEq/L Anion Gap 11.2 (5-15) BUN 30 H (7-18) mg/dL Creatinine 0.8 (0.7-1.3) mg/dL Est Cr Clr Drug Dosing 55.42 mL/min Estimated GFR (MDRD) > 60 (>60) mL/min BUN/Creatinine Ratio 37.5 H (14-18) Glucose 290 H (83-115) mg/dL POC Glucose (83-110) mg/dL Calcium 9.2 (8.5-10.1) mg/dL Magnesium 1.6 L (1.8-2.4) mg/dl C-Reactive Protein 4.4 H* (<1.0) mg/dL NT-Pro-B Natriuret Pep 1105 H (0-450) pg/mL 11/24/17 Range/Units 11:20 WBC (4.23-9.07) K/mm3 RBC (4.63-6.08) M/mm3 Hgb (13.7-17.5) gm/L Hct (40.1-51.0) % MCV (79.0-92.2) fl MCH (25.7-32.2) pg MCHC (32.2-35.5) g/dl RDW Std Deviation (35.1-43.9) fL Plt Count (163-337) K/mm3 MPV (9.4-12.3) fl Neut % (Auto) (34.0-67.9) % Lymph % (Auto) (21.8-53.1) % Dare % (Auto) (5.3-12.2) % Eos % (Auto) (0.8-7.0) Baso % (Auto) (0.1-1.2) % Neut # (Auto) (1.78-5.38) K/mm3 Lymph # (Auto) (1.32-3.57) K/mm3 Dare # (Auto) (0.30-0.82) K/mm3 Eos # (Auto) (0.04-0.54) K/mm3 Baso # (Auto) (0.01-0.08) K/mm3 Manual Slide Review Sodium (136-145) mEq/L Potassium (3.5-5.1) mEq/L Chloride (98-107) mEq/L Carbon Dioxide (21-32) mEq/L Anion Gap (5-15) BUN (7-18) mg/dL Creatinine (0.7-1.3) mg/dL Est Cr Clr Drug Dosing mL/min Estimated GFR (MDRD) (>60) mL/min BUN/Creatinine Ratio (14-18) Glucose (83-115) mg/dL POC Glucose 317 H (83-110) mg/dL Calcium (8.5-10.1) mg/dL Magnesium (1.8-2.4) mg/dl C-Reactive Protein (<1.0) mg/dL NT-Pro-B Natriuret Pep (0-450) pg/mL EDITH Results - Last 24 hrs: Microbiology 11/22/17 12:50 Aerobic Blood Culture - Preliminary Blood - Venous - Lab Draw NO GROWTH AFTER 2 DAYS Anaerobic Blood Culture - Preliminary NO GROWTH AFTER 2 DAYS 11/22/17 12:41 Aerobic Blood Culture - Preliminary Blood - Venous NO GROWTH AFTER 2 DAYS Anaerobic Blood Culture - Preliminary NO GROWTH AFTER 2 DAYS 11/23/17 02:48 Streptococcus pneumoniae Antigen (M - Final Urine Med Orders - Current: Current Medications Acetaminophen (Tylenol) 650 mg PO Q6H PRN PRN Reason: Pain (Mild 1-3)/fever Last Admin: 11/25/17 04:35 Dose: 650 mg Hydrocodone Bitart/Acetaminophen ([place] 325-5 Mg) 1 tab PO Q6H PRN PRN Reason: Pain (moderate 4-6) Albuterol (Proventil Neb Soln) 2.5 mg NEB Q4HRRT PRN PRN Reason: Shortness Of Breath/wheezing Albuterol/Ipratropium (Duoneb 3.0-0.5 Mg/3 Ml) 3 ml NEB QID PRN PRN Reason: Shortness Of Breath/wheezing Last Admin: 11/25/17 04:58 Dose: 3 ml Bisacodyl (Dulcolax) 5 mg PO DAILY PRN PRN Reason: Constipation Diltiazem HCl (Dilacor Xr) 240 mg PO DAILY [facility] Last Admin: 11/24/17 09:02 Dose: 240 mg Docusate Sodium (Colace) 100 mg PO BID PRN PRN Reason: Constipation Gabapentin (Neurontin) 100 mg PO BID [facility] Last Admin: 11/24/17 21:44 Dose: 100 mg Glipizide (Glucotrol) 5 mg PO DAILY [facility] Last Admin: 11/24/17 09:02 Dose: 5 mg Guaifenesin/Codeine Phosphate (Robitussin Ac) 5 ml PO Q6H PRN PRN Reason: Cough Hydromorphone HCl (Dilaudid) 0.5 mg IVPUSH Q6H PRN PRN Reason: Pain (severe 7-10) Lorazepam (Ativan) 0.5 mg IVPUSH Q6H PRN PRN Reason: Anxiety Magnesium Hydroxide (Milk Of Magnesia) 30 ml PO Q12H PRN PRN Reason: Constipation Metoprolol Tartrate (Lopressor) 25 mg PO Q12HR [facility] Last Admin: 11/24/17 21:43 Dose: 25 mg Metoprolol Tartrate (Lopressor) 5 mg IVPUSH Q6H PRN PRN Reason: Tachycardia Morphine Sulfate (Morphine) 0.5 mg IVPUSH Q2H PRN PRN Reason: SOB/Pain - comfort care Pantoprazole Sodium (Protonix) 40 mg PO DAILY [facility] Last Admin: 11/24/17 09:03 Dose: 40 mg Polyethylene Glycol (Miralax) 17 gm PO DAILY PRN PRN Reason: Constipation Senna/Docusate Sodium (Senna Plus) 1 tab PO BID PRN PRN Reason: Constipation Sertraline HCl (Zoloft) 50 mg PO BEDTIME [facility] Last Admin: 11/24/17 21:44 Dose: 50 mg Sodium Chloride (Saline Flush) 10 ml FLUSH ASDIRECTED PRN PRN Reason: Keep Vein Open Last Admin: 11/22/17 12:41 Dose: 10 ml Temazepam (Restoril) 7.5 mg PO BEDTIME PRN PRN Reason: Sleep Discontinued Medications Albuterol/Ipratropium (Duoneb 3.0-0.5 Mg/3 Ml) 3 ml NEB ONETIME ONE Stop: 11/22/17 12:07 Last Admin: 11/22/17 12:20 Dose: 3 ml Apixaban (Eliquis) 2.5 mg PO BID [facility] Last Admin: 11/24/17 09:02 Dose: 2.5 mg Fluconazole (Diflucan) 100 mg PO DAILY [facility] Last Admin: 11/24/17 09:01 Dose: 100 mg Guaifenesin/Codeine Phosphate (Robitussin Ac) 10 ml PO Q6H PRN PRN Reason: Cough Ceftriaxone Sodium 2 gm/ (Sodium Chloride) 100 mls @ 100 mls/hr IV ONETIME ONE Stop: 11/22/17 14:53 Last Admin: 11/22/17 14:06 Dose: 100 mls/hr Ceftriaxone Sodium 1 gm/ (Dextrose/Water) 100 mls @ 200 mls/hr IV Q24H [facility] Last Admin: 11/23/17 14:31 Dose: 200 mls/hr Metronidazole 500 mg/ Premix 100 mls @ 100 mls/hr IV Q6H [facility] Last Admin: 11/24/17 06:08 Dose: 100 mls/hr Insulin Aspart (Novolog) 0 unit SUBCUT QIDACANDBED [facility]; Protocol Last Admin: 11/22/17 19:56 Dose: Not Given Insulin Aspart (Novolog) 0 unit SUBCUT QIDACANDBED [facility]; Protocol Last Admin: 11/24/17 12:14 Dose: 4 units Lisinopril (Prinivil) 2.5 mg PO BIDMEALS [facility] Last Admin: 11/24/17 06:07 Dose: 2.5 mg Magnesium Oxide (Magnesium Oxide) 400 mg PO DAILY [facility] Last Admin: 11/24/17 09:03 Dose: 400 mg Magnesium Oxide (Magnesium Oxide) 800 mg PO BID [facility] Stop: 11/24/17 21:01 Last Admin: 11/24/17 12:00 Dose: 800 mg Magnesium Sulfate (Pharmacy To Dose - Magnesium Replacement) 1 dose .XX ASDIRECTED [facility] Megestrol Acetate (Megace 40 Mg/Ml Susp) 400 mg PO BIDMEALS [facility] Last Admin: 11/24/17 06:08 Dose: 400 mg Metformin HCl (Glucophage) 500 mg PO 1200 [facility] Last Admin: 11/24/17 12:00 Dose: 500 mg Methylprednisolone Sodium Succinate (Solu-Medrol) 125 mg IVPUSH ONETIME ONE Stop: 11/22/17 12:08 Last Admin: 11/22/17 12:40 Dose: 125 mg Morphine Sulfate (Morphine) 0.5 mg IVPUSH Q2H PRN PRN Reason: Pain (severe 7-10) Stop: 11/23/17 17:25 Ondansetron HCl (Zofran Odt) 4 mg PO Q6H PRN PRN Reason: nausea, able to take PO Ondansetron HCl (Zofran) 4 mg IV Q6H PRN PRN Reason: Nausea/Vomiting Oral Electrolytes (Thermotabs) 1 each PO DAILY [facility] Last Admin: 11/24/17 09:02 Dose: 1 each Potassium Chloride (Pharmacy To Dose - Potassium Replacement) 1 dose .XX ASDIRECTED [facility] Potassium Chloride (Klor-Con M20) 40 meq PO Q4H [facility] Stop: 11/24/17 15:31 Last Admin: 11/24/17 15:37 Dose: Not Given Rosuvastatin Calcium (Crestor) 20 mg PO BEDTIME [facility] Last Admin: 11/23/17 20:39 Dose: 20 mg Saccharomyces Boulardii (Florastor) 250 mg PO DAILY [facility] Last Admin: 11/24/17 09:01 Dose: 250 mg - Exam Quality Assessment: Reports: Supplemental Oxygen General: Reports: Alert, Oriented, Cooperative, Mild Distress, Other (cachectic ) HEENT: Reports: Pupils Equal, Pupils Reactive, EOMI, Mucous Membr. Moist/[place] Neck: Reports: Supple, Trachea Midline, No JVD Lungs: Reports: Normal Respiratory Effort, Decreased Breath Sounds, Rhonchi, Wheezing Cardiovascular: Reports: Regular Rate, Regular Rhythm GI/Abdominal Exam: Normal Bowel Sounds, Soft, Non-Tender, No Organomegaly, No Distention, No Abnormal Bruit, No Mass, Pelvis Stable (Male) Exam: Deferred Rectal (Males) Exam: Deferred Back Exam: Reports: Normal Inspection, Full Range of Motion Extremities: Normal Inspection, Normal Range of Motion, Non-Tender, No Pedal Edema, Normal Capillary Refill Skin: Reports: Warm, Dry, Intact Neurological: Reports: No New Focal Deficit Psy/Mental Status: Reports: Alert, Depressed
[2017-11-25] MEDS: Metoprolol Tartrate 25 MG Tab PO SCH (09:17)
[2017-11-25] MEDS: Pantoprazole 40 MG Tab.CR PO SCH (09:17)
[2017-11-25 09:18] VITALS: BP 110/57
[2017-11-25] MEDS: Diltiazem 240 MG Cap.ER PO SCH (09:18)
[2017-11-25] MEDS: Gabapentin 100 MG Cap PO SCH (09:18)
[2017-11-25] MEDS: glipiZIDE 5 MG Tab PO SCH (09:18)
[2017-11-25] MEDS ORDERED: Morphine 2 MG/ML Syringe IVPUSH PRN (09:58)
== END 2017-11-25 11:11 | DRG 178 ==
LOC: JD.ED 11:52 → JD.MS 15:32
PROVIDERS: ADMIT Internal Medicine; ATTEND Internal Medicine
DX: J18.9 Pneumonia, unspecified organism (principal); J69.0 Pneumonitis due to inhalation of food and vomit; J44.0 Chronic obstructive pulmonary disease with (acute) lower respiratory infection; E46 Unspecified protein-calorie malnutrition; J44.1 Chronic obstructive pulmonary disease with (acute) exacerbation; C34.90 Malignant neoplasm of unspecified part of unspecified bronchus or lung; Z66 Do not resuscitate; J44.9 Chronic obstructive pulmonary disease, unspecified; E78.00 Pure hypercholesterolemia, unspecified; Z51.5 Encounter for palliative care; J84.10 Pulmonary fibrosis, unspecified; R06.02 Shortness of breath; R09.02 Hypoxemia; I25.2 Old myocardial infarction; I48.91 Unspecified atrial fibrillation; R13.10 Dysphagia, unspecified; E11.9 Type 2 diabetes mellitus without complications; E78.5 Hyperlipidemia, unspecified; K21.9 Gastro-esophageal reflux disease without esophagitis; D64.9 Anemia, unspecified; I11.0 Hypertensive heart disease with heart failure; I50.9 Heart failure, unspecified; G89.29 Other chronic pain; M54.9 Dorsalgia, unspecified; L30.9 Dermatitis, unspecified; Z79.899 Other long term (current) drug therapy; Z87.891 Personal history of nicotine dependence; Z79.84 Long term (current) use of oral hypoglycemic drugs; Z87.01 Personal history of pneumonia (recurrent)
CPT/HCPCS: 36415; 71045; 80053; 83880; 84484; 85025; 86140; 86738; 87040 ×2; 94640; 94660; 96365; 96375; 99285; J0696; J2930; J7030; J7050; 71046; 71046-26; 80048; 82962; 83735; 87486; 87581; 87633; 87641; 87798; 87899; 94667; 94761; 97110-GO; 97110-GP; 97116-GP; 97162-GP; 97166-GO; 97530-GO; A9270-GY; J1815-GY; J7060

== ENCOUNTER 2017-11-26 02:04 | Emergency (ER) | payer MEDICAID, MEDICARE ==
[2017-11-26 02:15] VITALS: BP 113/77
[2017-11-26] MEDS ORDERED: Albuterol/Ipratropium 3.0-0.5 MG/3 ML Neb Soln NEB ONE (02:15)
--- NOTE | 2017-11-26 02:19 | EDM.PDOC ---
ED HPI GENERAL MEDICAL PROBLEM - General Chief Complaint: Respiratory Problem Stated Complaint: [facility] Time Seen by Provider: 11/26/17 02:14 Source of Information: Reports: Patient, Shelter Records History Limitations: Reports: Physical Impairment - History of Present Illness INITIAL COMMENTS - FREE TEXT/NARRATIVE: This is an 82-year-old male. He just went home from the hospital yesterday. According to his discharge summary he has end-stage COPD, lung neoplasm, atrial fibrillation, dysphagia, lung fibrosis, failure to thrive, pulmonary nodules, high blood pressure, diabetes mellitus 2, low oxygenation chronic. He was sent back to [facility] on comfort measures only. Case management talk to the patient and his daughter and the decision was made to have him comfort care only and he was to be on hospice care. The nurse this evening at [facility] called the ambulance because his pulse ox was low around 81 so she called the ambulance and brought him to the ER when the patient came he was somewhat upset because he wanted to go back to his room and be left alone. He states he has a little bit of left-sided chest pain and some leg pain but by the time I finished examining him he no longer had any pain. The patient is a DNR hospice patient. - Related Data Allergies Allergy/AdvReac Type Severity Reaction Status Date / Time No Known Allergies Allergy Verified 11/22/17 12:01 Home Meds: Home Meds Diltiazem HCl [Cardizem Cd] 240 mg PO DAILY 05/28/16 [History] Pantoprazole [ProTONIX] 40 mg PO DAILY #90 tab.cr 05/31/16 [Rx] Albuterol [IMW: Albuterol] 2.5 mg NEB Q4H PRN #100 ml 09/07/17 [Rx] Gabapentin [Neurontin] 100 mg PO BID #40 capsule 11/21/17 [Rx] Metoprolol Tartrate [Lopressor] 25 mg PO Q12HR #40 tablet 11/21/17 [Rx] glipiZIDE [Glucotrol] 5 mg PO DAILY #1 tablet 11/21/17 [Rx] Hydrocodone/Acetaminophen [Hydrocodon-Acetaminophen 5-325] 1 tab PO Q6H PRN [History] Sertraline [Zoloft] 50 mg PO BEDTIME 11/22/17 [History] Albuterol/Ipratropium [DuoNeb 3.0-0.5 MG/3 ML] 3 ml NEB QID PRN #20 neb [Rx] LORazepam [Ativan] 0.5 mg PO Q8HR PRN #20 tablet 11/25/17 [Rx] Morphine [Morphine 20 MG/ML Soln] 5 mg PO Q4H PRN #50 ml 11/25/17 [Rx] Past Medical History HEENT History: Reports: Other (See Below) Other HEENT History: black hairy tongue, dysphagia, nasal reconstruction, wears glasses Cardiovascular History: Reports: Afib, Heart Failure, High Cholesterol, Hypertension Respiratory History: Reports: COPD Other Respiratory History: Lung cancer Gastrointestinal History: Reports: GERD, Other (See Below) Other Gastrointestinal History: abdominal pain Genitourinary History: Reports: Other (See Below) Other Genitourinary History: prostate nodule, erectile dysfunction Musculoskeletal History: Reports: Back Pain, Chronic Neurological History: Reports: Concussion, Migraines Psychiatric History: Reports: Other (See Below) Other Psychiatric History: excessive fatigue Endocrine/Metabolic History: Reports: Diabetes, Type II Dermatologic History: Reports: Eczema Other Dermatologic History: eczema - Infectious Disease History Infectious Disease History: Reports: Chicken Pox, Measles - Past Surgical History HEENT Surgical History: Reports: Cataract Surgery, Other (See Below) Other HEENT Surgeries/Procedures: tube to L) ear, "it's plugged up all the time. " Nasal surgery. Social & Family History - Family History Cardiac: Reports: MD Endocrine/Metabolic: Reports: Diabetes, type II Oncologic: Reports: Brain - Caffeine Use Caffeine Use: Reports: None - Living Situation & Occupation Living situation: Reports: Occupation: Retired ED ROS GENERAL - Review of Systems Review Of Systems: Unable To Obtain (It is difficult to understand with the patient stating and he does not want to answer any questions at this time.) ED EXAM, GENERAL - Physical Exam Exam: See Below Exam Limited By: Language Barrier General Appearance: Alert, Thin, Other (Minimal distress) Eye Exam: Bilateral Eye: Other (He keeps his eyes closed though he will answer some questions) Ears: Normal External Exam Nose: Normal Inspection Throat/Mouth: Other (Dry mucous membranes) Head: Normocephalic Respiratory/Chest: Crackles, Rhonchi Cardiovascular: Irregularly Irregular GI/Abdominal: Soft Back Exam: Decreased Range of Motion Extremities: Other (Patient is very cachectic) Neurological: Alert, Other (He is oriented to place and person only, he is bedbound) Psychiatric: Flat Affect Skin Exam: Warm Course - Vital Signs Last Recorded V/S: Last Vital Signs Temp 97.9 F 11/26/17 02:08 Pulse 109 H 11/26/17 02:08 Resp 24 H 11/26/17 02:08 BP 113/77 11/26/17 02:08 Pulse Ox 92 L 11/26/17 02:08 - Orders/Labs/Meds Orders: Active Orders 24 hr Category Date Time Status RT Aerosol Therapy [RC] ASDIRECTED Care 11/26/17 02:15 Active Meds: Medications Discontinued Medications Generic Name Dose Route Start Last Admin Trade Name Freq PRN Reason Stop Dose Admin Albuterol/Ipratropium 3 ml 11/26/17 02:15 Duoneb 3.0-0.5 Mg/3 Ml NEB 11/26/17 02:16 ONETIME ONE - Re-Assessments/Exams Free Text/Narrative Re-Assessment/Exam: 11/26/17 02:37 I spoke to the hospice nurse and she is somewhat upset that the patient was sent to the ER before she was contacted. She indicates that he does have an order for a DuoNeb as he needs it. They are not concerned about his pulse ox provided he is comfortable. The patient states at this time that he is comfortable and he wants to go back to his room. I will go ahead and give him a DuoNeb treatment and then [facility] This is in accordance with the hospice nurse since he is a hospice patient and a DNR. Departure - Departure Time of Disposition: 02:38 Disposition: DC/Tfer to SNF 03 Condition: Poor Clinical Impression: End stage COPD, Pulmonary nodules, Shortness of breath, Abnormal pulse oximetry , Hospice care patient, DNR (do not resuscitate) Malnutrition Qualifiers: Malnutrition type: unspecified type Qualified Code(s): E46 - Unspecified protein-calorie malnutrition - Discharge Information Forms: ED Department Discharge Additional Instructions: Return to [facility], he is under hospice care and you need to speak to the hospice nurse before you transfer him anywhere, he is also DNR with comfort measures, you may use a nasal cannula or mask to keep his pulse ox around 90% if it does drop lower and you were concerned call the hospice nurse, return to the ER if indicated by the hospice nurse - My Orders Last 24 Hours: My Active Orders 11/26/17 02:15 RT Aerosol Therapy [RC] ASDIRECTED - Assessment/Plan Last 24 Hours: My Active Orders 11/26/17 02:15 RT Aerosol Therapy [RC] ASDIRECTED
== END 2017-11-26 02:51 ==
LOC: JD.ED 02:04
DX: J44.9 Chronic obstructive pulmonary disease, unspecified (principal); E46 Unspecified protein-calorie malnutrition; I48.91 Unspecified atrial fibrillation; R91.1 Solitary pulmonary nodule; E11.9 Type 2 diabetes mellitus without complications; E78.00 Pure hypercholesterolemia, unspecified; Z51.5 Encounter for palliative care; Z66 Do not resuscitate; I10 Essential (primary) hypertension; Z79.899 Other long term (current) drug therapy
CPT/HCPCS: 94640; 99285-25